=== PATIENT | male | born 1950 | race Caucasian/White ===

== ENCOUNTER 2017-12-15 12:06 | Emergency (ER) | payer MEDICARE, BC ==
[2017-12-15] MEDS ORDERED: Atropine 1% Ophth Soln 5 ML BOTTLE EYELF STA (12:51)
--- NOTE | 2017-12-15 15:22 | EDM.PDOC ---
ED HPI GENERAL MEDICAL PROBLEM - General Chief Complaint: Eye Problems Stated Complaint: VISION PROBLEMS Time Seen by Provider: 12/15/17 12:44 Source of Information: Reports: Patient, Significant Other (Girlfriend) History Limitations: Reports: Physical Impairment (Do to a prior stroke, the patient has some cognitive impairment. Most of the history is provided by his girlfriend of 34 years) - History of Present Illness INITIAL COMMENTS - FREE TEXT/NARRATIVE: The patient developed decreased vision in his left eye about 10 days ago. The degree of vision loss fluctuates anywhere from complete blackness to being able to see color and shapes. He denies any pain to the eye. He states that he had fairly good vision in his left eye prior to 10 days ago. Here in the ED, the patient states that his vision is relatively good - he is able to somewhat describe the nurse standing in front of him. 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 The patient has a history of diabetes, and ordinarily checks his sugars twice a day. His usual ranges between 180 and 240, although over the last 10 days, it has been between 170 and 325. The patient's girlfriend mentions that his Lantus insulin was changed to degludec insulin about 3 months ago, and perhaps that has something to do his recent higher blood sugars. The patient is on both Plavix and baby aspirin. The patient's PCP is Dr. Garcia. The patient does not see an [employer] or [employer]. - Related Data Allergies Allergy/AdvReac Type Severity Reaction Status Date / Time No Known Allergies Allergy Verified 12/15/17 12:18 Home Meds: Home Meds Aspirin 1 tab PO DAILY 12/15/17 [History] Cholecalciferol (Vitamin D3) [Vitamin D3] 1,000 unit PO DAILY 12/15/17 [History] Clopidogrel [Plavix] 75 mg PO DAILY 12/15/17 [History] Doxazosin [Doxazosin Mesylate] 1 mg PO DAILY 12/15/17 [History] Furosemide 20 mg PO DAILY 12/15/17 [History] Gabapentin [Neurontin] 300 mg PO TID 12/15/17 [History] Insulin Aspart [NovoLOG] 20 unit SQ 18 12/15/17 [History] Insulin Degludec [Tresiba Flextouch U-200] 73 unit SQ 08 12/15/17 [History] Isosorbide Mononitrate [Imdur] 30 mg PO DAILY 12/15/17 [History] Lisinopril [Zestril] 2.5 mg PO DAILY 12/15/17 [History] Metoprolol Tartrate 25 mg PO 18 12/15/17 [History] Metoprolol Tartrate 50 mg PO 08 12/15/17 [History] atorvaSTATin [Lipitor] 10 mg PO BEDTIME 12/15/17 [History] metFORMIN HCl [Glucophage] 1,000 mg PO BID 12/15/17 [History] risperiDONE [Risperdal] 0.25 mg PO BID 12/15/17 [History] traMADol [Ultram] 50 mg PO BID PRN 12/15/17 [History] Past Medical History HEENT History: Reports: Hard of Hearing, Impaired Vision (blind right eye) Cardiovascular History: Reports: CAD, High Cholesterol, Hypertension, NM, PVD Musculoskeletal History: Reports: Arthritis Neurological History: Reports: CVA (12/14/2009, resulting in short term memory loss) Psychiatric History: Reports: Anxiety, Depression Endocrine/Metabolic History: Reports: Diabetes, Type II, Obesity/BMI 30+ Hematologic History: Reports: Anticoagulation Therapy (Plavix + baby aspirin) - Past Surgical History HEENT Surgical History: Reports: Cataract Surgery (2012) Cardiovascular Surgical History: Reports: Coronary Artery Stent (one each in 2002, 2009) Musculoskeletal Surgical History: Reports: Arthroscopic Procedure (left knee) Social & Family History - Family History Family Medical History: Noncontributory - Tobacco Use Smoking Status *Q: Former Smoker Years of Tobacco use: 47 Packs/Tins Daily: 3 Month/Year Tobacco Last Used: Quit 2009 - Caffeine Use Caffeine Use: Reports: Coffee, Soda - Alcohol Use Alcohol Use History: Yes Alcohol Use Frequency: Rarely - Recreational Drug Use Recreational Drug Use: No - Living Situation & Occupation Living situation: Reports: , with Significant Other (Girlfriend) Occupation: Disabled ED ROS GENERAL - Review of Systems Review Of Systems: ROS reveals no pertinent complaints other than HPI. ED EXAM GENERAL W FULL EYE - Physical Exam Exam: See Below Exam Limited By: No Limitations General Appearance: Alert, WD/WN, No Apparent Distress Eye Exam: Bilateral Eye: EOMI, Normal Inspection Eyelids: Bilateral: Normal Appearance Conjunctiva & Sclera: Bilateral: Normal Appearance Cornea Exam: Bilateral: Normal Appearance Extraocular Movements: Bilateral: Intact Pupillary Size: Bilateral: 4 mm Comments: The patient's left eye was dilated with 2 drops of atropine ophthalmic solution. Examination with an ophthalmoscope was attempted, however, the retina was not able to be visualized. The patient was then examined with a slit lamp, revealing a red-hued posterior chamber, with dark strands that moved in a fluid like fashion when the patient moved his eye. The retina was not able to be visualized. Course - Vital Signs Last Recorded V/S: Last Vital Signs Temp 36.5 C 12/15/17 12:10 Pulse 86 12/15/17 12:10 Resp 16 12/15/17 12:10 BP 157/76 H 12/15/17 12:10 Pulse Ox 97 12/15/17 12:10 - Orders/Labs/Meds Meds: Medications Discontinued Medications Generic Name Dose Route Start Last Admin Trade Name Freq PRN Reason Stop Dose Admin Atropine Sulfate 1 ml 12/15/17 12:51 12/15/17 13:10 Atropine 1% Ophth Soln EYELF 12/15/17 12:52 1 ml ONETIME STA Administration - Re-Assessments/Exams Free Text/Narrative Re-Assessment/Exam: 12/15/17 15:[address] Ortiz, [employer] on-call at [facility], at 15:06. By my description, it sounds like the patient has bled into his left eye. She would like to see the patient in her office at [address] [facility], in [place], at 15:00 CDT tomorrow, 12/16/2017. The patient will need to bring his insurance cards. No specific treatment until then. This was discussed with the patient and his girlfriend. The patient's girlfriend states that she will be able to get him there on time. Departure - Departure Time of Disposition: 15:17 Disposition: Home, Self-Care 01 Condition: Good Clinical Impression: Intraocular hemorrhage of left eye - Discharge Information Referrals: Nolberto Garcia MD [Primary Care Provider] - Judy Ortiz MD [Ordering Only Provider] - Forms: ED Department Discharge Additional Instructions: You were seen in the emergency room for significantly diminished vision in your left eye for the past 10 days, approximately. Upon evaluation of your left eye in the ER, it appears that you have blood in the eye. Your case was discussed with the [employer] Dr. Judy Ortiz. She would like to see you in her office tomorrow, 12/16/2017, at 3:00 PM Central time = 2:00 PM Mountain time. You are to bring your insurance cards with you. If any other problems, please do not hesitate to return to the ER.
== END 2017-12-15 15:31 | disposition home or self-care (01) ==
LOC: JD.ED 12:06
DX: H44.812 Hemophthalmos, left eye (principal); I25.10 Atherosclerotic heart disease of native coronary artery without angina pectoris; E78.00 Pure hypercholesterolemia, unspecified; I10 Essential (primary) hypertension; Z79.01 Long term (current) use of anticoagulants; Z79.82 Long term (current) use of aspirin; Z79.899 Other long term (current) drug therapy; Z79.84 Long term (current) use of oral hypoglycemic drugs; Z87.891 Personal history of nicotine dependence
CPT/HCPCS: 99284

== ENCOUNTER 2020-08-25 12:19 | Emergency (ER) | payer MEDICARE, BC ==
--- NOTE | 2020-08-25 13:12 | EDM.PDOC ---
<Juan Ramon Gomez Jenna - Last Filed: 08/26/20 06:03> ED HPI GENERAL MEDICAL PROBLEM - General Chief Complaint: Abdominal Pain Stated Complaint: [facility] Time Seen by Provider: 08/25/20 12:59 - Related Data Allergies Allergy/AdvReac Type Severity Reaction Status Date / Time No Known Allergies Allergy Verified 12/15/17 12:18 Home Meds: Home Meds Cholecalciferol (Vitamin D3) [Vitamin D3] 1,000 unit PO DAILY 12/15/17 [History] Clopidogrel [Plavix] 75 mg PO DAILY 12/15/17 [History] Doxazosin [Doxazosin Mesylate] 1 mg PO DAILY 12/15/17 [History] Furosemide 20 mg PO DAILY 12/15/17 [History] Gabapentin [Neurontin] 300 mg PO DAILY 12/15/17 [History] Insulin Aspart [NovoLOG] 20 unit SQ DAILY 12/15/17 [History] Isosorbide Mononitrate [Imdur] 30 mg PO DAILY 12/15/17 [History] Metoprolol Tartrate 50 mg PO ASDIRECTED 12/15/17 [History] atorvaSTATin [Lipitor] 10 mg PO ASDIRECTED 12/15/17 [History] lisinopriL [Zestril] 2.5 mg PO DAILY 12/15/17 [History] metFORMIN HCl [Glucophage] 1,000 mg PO BID 12/15/17 [History] risperiDONE [Risperdal] 0.75 mg PO BID 12/15/17 [History] traMADol [Ultram] 50 mg PO BID PRN 12/15/17 [History] Metoprolol Tartrate [Lopressor] 25 mg PO BEDTIME 08/25/20 [History] Course - Re-Assessments/Exams Free Text/Narrative Re-Assessment/Exam: 08/25/20 22:39 I spoke with the patient and his long-term partner at length. The patient has not yet had a bowel movement, however, given the lactulose and full bottle of magnesium citrate that he was given earlier, I do not feel it would be prudent to give him any additional stimulant. He will have a bowel movement at some point. I explained that the question that needs to be answered is what to do after that. The patient's partner was hoping that we could keep him here in the hospital for a day or two, however, I explained that there is no medical reason to admit him to the hospital, and that simply placing him into observation so that his partner can get a break is not a valid reason for hospitalization. They will need to decide whether they are able to care for him at home, with his difficulty ambulating, or not. If the patient's partner decides that she cannot adequately take care of him at home, then a half-way is the only realistic option. I explained that if that is her decision, we could place him into observation over the weekend, in order to arrange for placement for half-way. The patient indicated, however, that he does not want to be placed into a half-way. 08/25/20 23:53 Notified by Solange HENRY that the patient's partner has decided to have the patient stay until about 5 AM, at which time a friend of hers can come and help take the patient home. Departure - Departure Disposition: Home, Self-Care 01 Clinical Impression: Constipation by delayed colonic transit, Left hemiparesis, Blindness right eye category 3, low vision left eye category 2, Dependent edema Abdominal pain Qualifiers: Abdominal location: right upper quadrant Qualified Code(s): R10.11 - Right upper quadrant pain Type 2 diabetes mellitus Qualifiers: Diabetes mellitus mcfp insulin use: without biomedical engineering internship use Diabetes mellitus complication status: with kidney complications Diabetes mellitus complication detail: with chronic kidney disease Chronic kidney disease stage: stage 3 (moderate) Chronic renal insufficiency, stage III (moderate) Qualifiers: Chronic kidney disease stage 3 subtype: stage 3a (GFR 45-59) Qualified Code(s): N18.31 - Chronic kidney disease, stage 3a - Discharge Information Instructions: Constipation, Adult Referrals: Nolberto Garcia MD [Primary Care Provider] - Forms: ED Department Discharge Additional Instructions: Evaluation in the emergency room today in regards to development of right upper quadrant abdominal pain starting about 830 hours this morning. Tested for over 4-1/2 hours before coming to the ED. Pain was made worse by deep breathing and on examination appeared to be coming from the gallbladder area underneath the right ribs. An ultrasound however the gallbladder revealed no stones and no thickening of the gallbladder wall or sludge within the gallbladder. The underlying liver also appeared to be normal. Therefore CT scan of the abdomen was performed to look at the bottom of the lungs and rule out kidney stone as potential cause of pain right upper quadrant the abdomen. No kidney stones were identified. The bottom of the lungs also did not reveal any fluid to cause pain in the right upper abdomen. 3 small pulmonary nodules the largest of which is 9 mm were identified in the bottom of the left lung field. It was felt by the radiologist that these should be reviewed by CT scan in May of this year i.e. in approximately [address] did reveal kidneys to be atrophic with cortical thinning secondary to diabetes and age. Adrenal glands were both noted to be enlarged. They are classified to be enlarged when they are greater than 2 cm in size. The right contains a nodule measuring 2.8 cm in the left was 2.0 cm. It is suggested that this be discussed with your personal care physician and further investigations can be done to identify if there is a problem with adrenal gland hormone production. The only other abnormality of importance was significant stool retention throughout the right hemicolon up underneath the liver and across the transverse colon travels across her upper abdomen. This is felt to be the cause of your pain. You initially received pain medication Dilaudid 1 mg IV and felt that it helped only minimally. 45 minutes later you received a second dose of 1 mg of Dilaudid for further pain relief. You also received antinausea medicine Zofran 4 mg x 2 doses. Decision made to keep you in the emergency department and give you medication to help cleanse your bowel while here with the aid of nursing staff since it is so difficult for your to care for you at home in this regard. Unfortunately first dose of magnesium citrate 7 ounces did not produce any satisfactory bowel movement after an hour and a half. Thus she was given a second dose of 7 ounces of magnesium citrate and 20 g of lactulose to help precipitate bowel movement. Once your bowels work we will then start working on getting you back into your home. It is my suggestion that you purchase MiraLAX powder and take 17 g or 1 scoop daily with any juice of choice to prevent constipation from reoccurring in the future. Follow-up with personal physician as planned. <Robby Lin - Last Filed: 08/28/20 07:30> ED HPI GENERAL MEDICAL PROBLEM - General Source of Information: Reports: Patient History Limitations: Reports: No Limitations - History of Present Illness INITIAL COMMENTS - FREE TEXT/NARRATIVE: 70-year-old male presents to the ED per [facility] accompanied by his . Patient has been experiencing significant right upper quadrant abdominal tenderness under his costal margin on the right side since about 0830 hrs. this morning. Of note he had not yet eaten any breakfast and has not eaten since. Mild associated nausea without any vomiting. Pain is made worse by deep breathing. Patient has had a previous CVA with left-sided hemiparesis but is able to walk with the aid of a walker. No past history of gallbladder disease or known gallstones. No past history of renal stones. He has had no previous abdominal surgery. Onset: Today, Sudden Onset Date: 08/25/20 Onset Time: 08:30 Duration: Hour(s):, Constant, Getting Worse (Eating a little bit worse.) Location: Reports: Abdomen (Right upper quadrant of the abdomen rating along the costal margin towards his right flank.) Quality: Reports: Ache Severity: Moderate (To 9 out of 10) Improves with: Reports: Rest Worsens with: Reports: Other (With deep breathing or coughing.) Context: Denies: Activity, Exercise, Lifting, Sick Contact, Trauma Associated Symptoms: Reports: Cough (Has a bit of cough). Denies: No Other Symptoms, Confusion ( and bringing up white phlegm.), Chest Pain, cough w sputum, Diaphoresis, Fever/Chills, Headaches, Loss of Appetite, Malaise, Nausea/Vomiting, Rash, Seizure, Shortness of Breath, Syncope, Weakness Treatments DRUGLESS DOCTOR: Reports: Other (see below) Right Upper Abdominal Pain Score (Numeric/FACES): 5 Past Medical History HEENT History: Reports: Hard of Hearing, Impaired Vision Other HEENT History: 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 Improved with vitrectomyreturn to vision left eye. Cardiovascular History: Reports: CAD, High Cholesterol, Hypertension, ND, PVD, Stents Musculoskeletal History: Reports: Arthritis Neurological History: Reports: CVA (Left hemiparesis) Other Neuro History: Stroke defecits assist with diffuse left-sided hemiparesis. He can walk with the aid of a gait aid. Psychiatric History: Reports: Anxiety, Depression Other Psychiatric History: behavioral issues related to stroke Endocrine/Metabolic History: Reports: Diabetes, Type II (Controlled with diet and Metformin 1000 mg twice daily.), Obesity/BMI 30+ Hematologic History: Reports: Anticoagulation Therapy Other Hematologic History: currently on plavix - Past Surgical History HEENT Surgical History: Reports: Cataract Surgery Cardiovascular Surgical History: Reports: Coronary Artery Stent Musculoskeletal Surgical History: Reports: Arthroscopic Procedure Social & Family History - Family History Family Medical History: No Pertinent Family History - Tobacco Use Tobacco Use Status *Q: Never Tobacco User Second Hand Smoke Exposure: No - Caffeine Use Caffeine Use: Reports: Coffee - Recreational Drug Use Recreational Drug Use: No - Living Situation & Occupation Living situation: Reports: , with Significant Other (Girlfriend) Occupation: Disabled ED ROS GENERAL - Review of Systems Review Of Systems: See Below Constitutional: Denies: Fever, Chills, Malaise, Weakness, Fatigue, Decreased Appetite, Weight Loss HEENT: Reports: Glasses (For reading.) Respiratory: Reports: Shortness of Breath, Cough (Voice has a mild cough brings up phlegm and sputum. Likely due to paresis left-sided respiratory muscles). Denies: Wheezing, Pleuritic Chest Pain (Exertion.) Cardiovascular: Reports: Blood Pressure Problem, Dyspnea on Exertion, Edema (Chronic and severe above knees bilaterally.). Denies: Claudication, Lightheadedness, Orthopnea, Palpitations Endocrine: Reports: Fatigue GI/Abdominal: Reports: Abdominal Pain (Right upper quadrant abdominal pain radiating along the costal margin towards the right flank. Started by 0830 hrs. this morning and has persisted.), Constipation, Other. Denies: Diarrhea, Difficulty Swallowing, Nausea (He reports bowel function has been normal.), Vomiting : Reports: Frequency, Incontinence (Rare incontinence) Skin: Reports: Other (Chronic rash both lower extremities from the knees to the ankles due to severe edema of both lower extremities. These are erythematous vascular type lesions on both lower extremities that he has had for several years.) Neurological: Reports: Pre-Existing Deficit, Difficulty Walking, Weakness, Gait Disturbance. Denies: Seizure, Syncope, Tingling, Tremors, Trouble Speaking, Change in Speech Psychiatric: Reports: No Symptoms Hematologic/Lymphatic: Reports: No Symptoms Immunologic: Reports: No Symptoms ED EXAM, GI/ABD - Physical Exam Exam: See Below Exam Limited By: No Limitations General Appearance: Alert, WD/WN, No Apparent Distress, Other (Temperature is 36.2 degrees heart rate 92 and sinus respiratory to 16 BP is elevated at 200/85 pulse ox is 94% room air. Last blood pressure is 173/62.) Eyes: Bilateral: Normal Appearance (No scleral icterus or blepharal pallor.) Throat/Mouth: Other (Tongue is mildly dry and coated.) Head: Atraumatic ( No oropharyngeal infection.), Normocephalic Neck: Normal Inspection, Supple, Non-Tender, Full Range of Motion. No: Lymphadenopathy (L), Lymphadenopathy (R) Respiratory/Chest: No Respiratory Distress, Lungs Clear, Normal Breath Sounds, Decreased Breath Sounds Cardiovascular: Normal Peripheral Pulses, Regular Rate, Rhythm, No Gallop, No Murmur, No Rub. No: No Edema GI/Abdominal Exam: Normal Bowel Sounds, Soft, No Organomegaly, No Abnormal Bruit, No Mass, Pelvis Stable, Tender (Patient has a positive Talamantes sign and tenderness elicited under the right costal margin on exam.), Other. No: Guarding ( No guarding or rebound), Rigid, Rebound, Hernia (Male) Exam: No Hernia Back Exam: CVA Tenderness (R), Decreased Range of Motion (Quite a great deal of help to set up on the gurney.). No: Full Range of Motion Extremities: Pedal Edema (Patient has 4+ pitting edema up past the knees bilaterally. Apparently this is a chronic problem for him. Diffuse vascular congestion. Prominent erythematous papules on both lower extremities without ul cerations. Apparently every time his Lasix is increased greater than 20 mg/day his kidney func). No: Normal Range of Motion Neurological: Alert, Oriented, CN II-XII Intact, Normal Cognition Psychiatric: Normal Affect, Normal Mood Skin Exam: Warm, Dry, Intact, Normal Color, No Rash Course - Vital Signs Last Recorded V/S: Last Vital Signs Temp 36.2 C 08/25/20 12:25 Pulse 107 H 08/25/20 20:09 Resp 16 08/25/20 20:09 BP 173/84 H 08/25/20 20:09 Pulse Ox 97 08/25/20 20:09 - Orders/Labs/Meds Labs: Laboratory Tests 08/25/20 08/25/20 08/25/20 Range/Units 12:30 12:30 12:30 WBC 8.28 (4.23-9.07) K/mm3 RBC 3.94 L (4.63-6.08) M/mm3 Hgb 10.9 L (13.7-17.5) gm/dl Hct 34.7 L (40.1-51.0) % MCV 88.1 (79.0-92.2) fl MCH 27.7 (25.7-32.2) pg MCHC 31.4 L (32.2-35.5) g/dl RDW Std Deviation 48.6 H (35.1-43.9) fL Plt Count 240 (163-337) K/mm3 MPV 9.6 (9.4-12.3) fl Neutrophils % (Manual) 69 H (40-60) % Band Neutrophils % 0 (0-10) % Lymphocytes % (Manual) 22 (20-40) % Atypical Lymphs % 0 % Monocytes % (Manual) 7 (2-10) % Eosinophils % (Manual) 2 (0.8-7.0) % Basophils % (Manual) 0 L (0.2-1.2) Platelet Estimate Adequate RBC Morph Comment Normal PT 10.1 (9.7-12.0) SECONDS INR 0.94 APTT 26.7 (21.7-31.4) SECONDS Sodium 141 (136-145) mEq/L Potassium 4.3 (3.5-5.1) mEq/L Chloride 102 (98-107) mEq/L Carbon Dioxide 28 (21-32) mEq/L Anion Gap 15.3 H (5-15) BUN 29 H (7-18) mg/dL Creatinine 1.7 H (0.7-1.3) mg/dL Est Cr Clr Drug Dosing 37.01 mL/min Estimated GFR (MDRD) 40 (>60) mL/min BUN/Creatinine Ratio 17.1 (14-18) Glucose 321 H (80-115) mg/dL Calcium 9.9 (8.5-10.1) mg/dL Magnesium 1.8 (1.8-2.4) mg/dl Total Bilirubin 0.3 (0.2-1.0) mg/dL GGT 22 (15-85) U/L AST 16 (15-37) U/L ALT 16 (16-63) U/L Alkaline Phosphatase 92 (46-116) U/L Troponin I < 0.017 (0.00-0.056) ng/mL C-Reactive Protein 6.4 H* (<1.0) mg/dL NT-Pro-B Natriuret Pep (0-125) pg/mL Total Protein 8.0 (6.4-8.2) g/dl Albumin 3.2 L (3.4-5.0) g/dl Globulin 4.8 gm/dL Albumin/Globulin Ratio 0.7 L (1-2) Amylase 45 (25-115) U/L Lipase 155 (73-393) U/L Urine Color (Yellow) Urine Appearance (Clear) Urine pH (5.0-8.0) Ur Specific [place] (1.005-1.030) Urine Protein (Negative) Urine Glucose (UA) (Negative) Urine Ketones (Negative) Urine Occult Blood (Negative) Urine Nitrite (Negative) Urine Bilirubin (Negative) Urine Urobilinogen (0.2-1.0) Ur Leukocyte Esterase (Negative) Urine RBC (0-5) /hpf Urine WBC (0-5) /hpf Ur Squamous Epith Cells (0-5) /hpf Urine Bacteria (FEW) /hpf Urine Mucus (FEW) /hpf 08/25/20 08/25/20 Range/Units 12:30 14:50 WBC (4.23-9.07) K/mm3 RBC (4.63-6.08) M/mm3 Hgb (13.7-17.5) gm/dl Hct (40.1-51.0) % MCV (79.0-92.2) fl MCH (25.7-32.2) pg MCHC (32.2-35.5) g/dl RDW Std Deviation (35.1-43.9) fL Plt Count (163-337) K/mm3 MPV (9.4-12.3) fl Neutrophils % (Manual) (40-60) % Band Neutrophils % (0-10) % Lymphocytes % (Manual) (20-40) % Atypical Lymphs % % Monocytes % (Manual) (2-10) % Eosinophils % (Manual) (0.8-7.0) % Basophils % (Manual) (0.2-1.2) Platelet Estimate RBC Morph Comment PT (9.7-12.0) SECONDS INR APTT (21.7-31.4) SECONDS Sodium (136-145) mEq/L Potassium (3.5-5.1) mEq/L Chloride (98-107) mEq/L Carbon Dioxide (21-32) mEq/L Anion Gap (5-15) BUN (7-18) mg/dL Creatinine (0.7-1.3) mg/dL Est Cr Clr Drug Dosing mL/min Estimated GFR (MDRD) (>60) mL/min BUN/Creatinine Ratio (14-18) Glucose (80-115) mg/dL Calcium (8.5-10.1) mg/dL Magnesium (1.8-2.4) mg/dl Total Bilirubin (0.2-1.0) mg/dL GGT (15-85) U/L AST (15-37) U/L ALT (16-63) U/L Alkaline Phosphatase (46-116) U/L Troponin I (0.00-0.056) ng/mL C-Reactive Protein (<1.0) mg/dL NT-Pro-B Natriuret Pep 251 H (0-125) pg/mL Total Protein (6.4-8.2) g/dl Albumin (3.4-5.0) g/dl Globulin gm/dL Albumin/Globulin Ratio (1-2) Amylase (25-115) U/L Lipase (73-393) U/L Urine Color Light yellow (Yellow) Urine Appearance Clear (Clear) Urine pH 7.0 (5.0-8.0) Ur Specific [place] 1.025 (1.005-1.030) Urine Protein 3+ H (Negative) Urine Glucose (UA) 2+ H (Negative) Urine Ketones Negative (Negative) Urine Occult Blood 1+ H (Negative) Urine Nitrite Negative (Negative) Urine Bilirubin Negative (Negative) Urine Urobilinogen 0.2 (0.2-1.0) Ur Leukocyte Esterase Negative (Negative) Urine RBC 0-5 (0-5) /hpf Urine WBC 0-5 (0-5) /hpf Ur Squamous Epith Cells 0-5 (0-5) /hpf Urine Bacteria Few (FEW) /hpf Urine Mucus Few (FEW) /hpf Meds: Medications Discontinued Medications Generic Name Dose Route Start Last Admin Trade Name Freq PRN Reason Stop Dose Admin Dicyclomine HCl 20 mg 08/25/20 18:22 08/25/20 20:05 Dicyclomine 10 Mg Cap PO 08/25/20 18:23 20 mg ONETIME ONE Administration Diphenhydramine HCl 12.5 mg 08/25/20 16:36 08/25/20 16:50 Diphenhydramine 50 Mg/Ml Sdv IVPUSH 08/25/20 16:37 12.5 mg ONETIME ONE Administration Hydromorphone HCl 1 mg 08/25/20 13:14 08/25/20 14:01 Hydromorphone 1 Mg/Ml Syringe IVPUSH 08/25/20 13:15 1 mg ONETIME ONE Administration Hydromorphone HCl 1 mg 08/25/20 14:50 08/25/20 15:52 Hydromorphone 1 Mg/Ml Syringe IVPUSH 08/25/20 14:51 Not Given ONETIME ONE Hyoscyamine 0.125 mg 08/25/20 13:14 08/25/20 14:05 Hyoscyamine 0.125 Mg Tab.Sl SL 08/25/20 13:15 0.125 mg ONETIME ONE Administration Dextrose/Sodium Chloride 1,000 mls @ 999 mls/hr 08/25/20 13:15 08/25/20 14:06 Dextrose 5%-Normal Saline IV 999 mls/hr ASDIRECTED ANTONIO Administration Lactulose 20 gm 08/25/20 20:17 08/25/20 20:28 Lactulose Soln 10 Gm/15 Ml 30 Ml Ud Cup PO 08/25/20 20:18 20 gm ONETIME ONE Administration Magnesium Citrate 210 ml 08/25/20 16:38 08/25/20 16:51 Magnesium Citrate Solution 296 Ml Bottle PO 08/25/20 16:39 210 ml ONETIME ONE Administration Magnesium Citrate Confirm 08/25/20 20:02 08/25/20 20:05 Magnesium Citrate Solution 296 Ml Bottle Administered 08/25/20 20:03 Not Given Dose 296 ml .ROUTE .STK-MED ONE Magnesium Citrate 210 ml 08/25/20 20:05 08/25/20 20:05 Magnesium Citrate Solution 296 Ml Bottle PO 08/25/20 20:06 210 ml ONETIME ONE Administration Metoclopramide HCl 7.5 mg 08/25/20 16:35 08/25/20 16:48 Metoclopramide 10 Mg/2 Ml Sdv IVPUSH 08/25/20 16:36 7.5 mg ONETIME ONE Administration Ondansetron HCl 4 mg 08/25/20 13:14 08/25/20 14:04 Ondansetron 4 Mg/2 Ml Sdv IVPUSH 08/25/20 13:15 4 mg ONETIME ONE Administration Ondansetron HCl 4 mg 08/25/20 15:21 08/25/20 15:26 Ondansetron 4 Mg/2 Ml Sdv IVPUSH 08/25/20 15:22 4 mg ONETIME ONE Administration - Radiology Interpretation Free Text/Narrative:: 70-year-old male presents to the ED per [facility] with severe right upper quadrant abdominal pain. Pain started abruptly this morning around 0830 hrs. before he had even had a chance to eat breakfast. Pain has persisted and is running along the right costal margin towards the right flank but not as far as the scapula. It does hurt to take a deep breath. No fever no chills. Patient had a set of previous CVA with left-sided hemiparesis. He does not believe that he was running a fever or had any chills at home. He did have chicken breast for supper last night. No past problems with gallbladder. Examination reveals him to have a positive Talamantes sign and tenderness localized to the right upper quadrant. No rebound tenderness or guarding. No other abdominal findings. Plan gallbladder ultrasound to be done. Routine labs including serum amylase and lipase and liver function studies to be done. - Re-Assessments/Exams Free Text/Narrative Re-Assessment/Exam: 08/25/20 14:44 White count is 8.28 --69% neutrophils. Hemoglobin is 10.9 with a hematocrit of 34.7. Platelet count 240,000 PT is 10.1 with an INR of 0.94 PTT is 26.7. Sodium is 141 with potassium of 4.3 chloride is 102 with a bicarb of 28. Anion gap is 15.3. BUN is 29 with a creatinine of 1.7 and a GFR of 40. Glucose is 321 indicating he is diabetic. Calcium is 9.9 with a magnesium of 1.8. Total bilirubin is 0.3 GGT is pending. AST is 16 ALT is 16 alk phosphatase is 92. Troponin I is less than 0.017. C-reactive protein is elevated at 6.4. Total protein is 8.0 albumin is 3.2 lipase is 155. Ultrasound of the right upper quadrant of the abdomen reveals liver to be echogenic mostly likely due to fatty infiltration. Gallbladder shows no evidence of shadowing gallstones. No biliary duct dilatation or gallbladder wall thickening is appreciated. Right kidney shows no hydronephrosis or mass. Kidney measures 12.1 cm in length. Pancreas is poorly seen small portion of the visualized pancreas shows no discrete abnormality. Inferior vena cava is patent. Main portal vein shows normal hepatopetal flow. Proximal aorta is felt to be within normal limits. Therefore I do not have a reason for his elevated CRP. Plan will be to collect a urinalysis to rule out a kidney stone. CT of the abdomen done with no contrast per renal protocol. Pain went away for a while but has returned. Will repeat Dilaudid 1 mg IV. 08/25/20 15:22 Urinalysis is light yellow in color with 3+ proteinuria 2+ g lucosuria 1+ occult blood leukocyte Estrace is negative. CT scan of the abdomen and pelvis performed without contrast reveals portions of the lung bases to appear completely normal. Liver appears homogeneous without any intraductal dilatation. Gallbladder is normal wall thickness. No stones identified. Pancreas is slightly atrophic. Stomach appears normal spleen is normal adrenal glands appear normal. Both kidneys show some degree of cortical atrophy somewhat worse on the left as compared to the right. No stones are identified. Ureters are intact all the way down to the urinary bladder and show no sign of obstruction. Urinary bladder is normal. There is a large amount of stool throughout the colon particularly on the right side up to the hepatic flexure. I could not see any other pathology. There was no evidence of significant diverticula and certainly no diverticulitis. Patient is feeling more nauseated since returning from the CT suite. Will repeat Zofran 4 mg IV. 08/25/20 15:31 GGT is 22. BNP is minimally elevated at 251 blood sugar is 321--chronic diabetic for many years. He is not showing evidence of diabetic nephropathy as well as diabetic eye disease with retinal bleeds and loss of eyesight in the right eye completely and some recuperation of vision in the left eye after vitrectomy. 08/25/20 16:39 on discussion with the she feels that she requires help to get him on and off the stool and I can believe this as both legs are grossly edematous and swollen and wait 10 to 12 pounds each extra. He is also nearly blind which makes it even more difficult. She cannot manage him on the toilet at home. He is going to need bowel cleanse to get rid of the pain in his right upper quadrant of his abdomen. Plan will be to give him Reglan 7.5 mg IV with Benadryl 12.5 mg IV to prevent a dystonic reaction between that his risperidone and Zofran previously given. Once we can be assured that he is no longer feeling like vomiting we will give him 210 mL of magnesium citrate mixed with 6 ounces of juice of choice. 08/25/20 20:42 4-hour since the patient has received initial dose of 7 ounces of magnesium citrate with no bowel movement occurrence. He subsequently has had received another 7 ounces of magnesium citrate and 20 g of lactulose by mouth in an effort to produce a bowel movement has he has right hemicolon and transverse colon constipation. I believe this is the cause of his right upper quadrant abdominal pain as full investigation by way of ultrasound and CT of the abdomen have not read revealed any other pathology. Similarly lab work is essentially unchanged from previous with no signs of an infective process. It is my suggestion that he be placed on MiraLAX powder 17 g once daily to prevent constipation from occurring in the future. Departure - Departure Time of Disposition: 05:00 Condition: Fair - Discharge Information *PRESCRIPTION DRUG MONITORING PROGRAM REVIEWED*: Not Applicable *COPY OF PRESCRIPTION DRUG MONITORING REPORT IN PATIENT SHONDA: Not Applicable Sepsis Event Note (ED) - Evaluation Sepsis Screening Result: No Definite Risk
[2020-08-25] MEDS ORDERED: Hyoscyamine 0.125 MG Tab.SL SL ONE (13:14)
[2020-08-25] MEDS ORDERED: Ondansetron 4 MG/2 ML SDV IVPUSH ONE ×2 (13:14→15:21)
[2020-08-25] MEDS ORDERED: HYDROmorphone 1 MG/ML Syringe IVPUSH ONE (13:14)
[2020-08-25] MEDS ORDERED: Dextrose 5%-0.9% NaCl 1,000 ML IV SCH (13:15)
--- NOTE | 2020-08-25 14:22 | US ---
Limited abdominal ultrasound: Multiple real-time images of the upper right abdomen were obtained. Comparison: Previous renal ultrasound study of 05/31/15. Findings: Liver is echogenic most likely due to fatty infiltration. Gallbladder shows no evidence of shadowing gallstones. No biliary duct dilatation or gallbladder wall thickening is seen. Right kidney shows no hydronephrosis or mass. Kidney measures 12.1 cm in length. Pancreas is poorly seen. Small portion of the visualized pancreas shows no discrete abnormality. Inferior vena cava is patent. Main portal vein shows normal hepatopedal flow. Proximal aorta is felt to be within normal limits. Impression: 1. Echogenic liver compatible with fatty infiltration. 2. Poorly seen pancreas due to bowel gas. 3. No additional abnormality is appreciated on right upper quadrant abdominal ultrasound. Diagnostic code #2
[2020-08-25] MEDS: HYDROmorphone 1 MG/ML Syringe IVPUSH ONE ×2 (15:26→15:52)
--- NOTE | 2020-08-25 15:37 | CT ---
CT abdomen and pelvis Technique: Multiple axial sections were obtained from above the dome of the diaphragm inferiorly through the pubic symphysis. Intravenous and oral contrast was not utilized. Study has been performed as a ureteral stone protocol. Findings: Bilateral adrenal masses are noted. Right nodule measures 2.8 cm and left nodule measures 2.0 cm. Visualized lung bases show slight atelectasis which is probably a chronic change. There is a nodule noted within the left lung base measuring 9 mm as well as two small subpleural nodules measuring smaller in size. These show no abnormal calcifications. Liver contains no focal parenchymal abnormality. Spleen is normal. Pancreas shows no discrete abnormality. Gallbladder contains no calcified gallstones. Right kidney shows vascular calcification. No abnormal calcifications are seen within the collecting systems. No ureteral dilatation or ureteral stone is seen. Abdominal aorta shows atherosclerotic change. No aneurysmal dilatation is seen. No retroperitoneal adenopathy or mesenteric abnormalities are seen. No pelvic mass or adenopathy is seen. Bone window settings were reviewed which show scattered degenerative change within the spine. No acute osseous abnormality is appreciated. Impression: 1. Three pulmonary nodules within the left lung base. Adrenal mass on both sides. Difficult to exclude metastatic disease if patient has primary carcinoma. Please correlate. 2. No renal calculi or ureteral dilatation is seen. 3. Vascular calcification is noted within the right renal artery. Diagnostic code #9
[2020-08-25] MEDS ORDERED: Metoclopramide 10 MG/2 ML SDV IVPUSH ONE (16:35)
[2020-08-25] MEDS ORDERED: diphenhydrAMINE 50 MG/ML SDV IVPUSH ONE (16:36)
[2020-08-25] MEDS ORDERED: Magnesium Citrate Solution 296 ML Bottle PO ONE ×2 (16:38→20:05)
[2020-08-25] MEDS ORDERED: Dicyclomine 10 MG Cap PO ONE (18:22)
[2020-08-25] MEDS ORDERED: Magnesium Citrate Solution 296 ML Bottle ONE (20:02)
[2020-08-25] MEDS ORDERED: Lactulose Soln 10 GM/15 ML 30 ML UD Cup PO ONE (20:17)
== END 2020-08-26 04:45 | disposition home or self-care (01) ==
LOC: JD.ED 12:19
DX: K59.01 Slow transit constipation (principal); G81.94 Hemiplegia, unspecified affecting left nondominant side; H54.11 Blindness, right eye, low vision left eye; R60.0 Localized edema; I12.9 Hypertensive chronic kidney disease with stage 1 through stage 4 chronic kidney disease, or unspecified chronic kidney disease; E11.22 Type 2 diabetes mellitus with diabetic chronic kidney disease; N18.31 Chronic kidney disease, stage 3a; E11.319 Type 2 diabetes mellitus with unspecified diabetic retinopathy without macular edema; I25.10 Atherosclerotic heart disease of native coronary artery without angina pectoris; E78.00 Pure hypercholesterolemia, unspecified; I25.2 Old myocardial infarction; E66.9 Obesity, unspecified; Z68.38 Body mass index [BMI] 38.0-38.9, adult; Z79.01 Long term (current) use of anticoagulants; Z79.02 Long term (current) use of antithrombotics/antiplatelets; Z79.4 Long term (current) use of insulin; Z79.899 Other long term (current) drug therapy; R06.02 Shortness of breath
CPT/HCPCS: 36415; 74176; 76705; 80053; 81001; 82150; 82977; 83690; 83735; 83880; 84484; 85007; 85027; 85610; 85730; 86140; 96374; 96375; 96376; 99285; A9270; J1170; J1200; J2405; J2765; J7042

== ENCOUNTER 2021-06-05 10:29 | Inpatient (IN) | payer MEDICARE, BC ==
--- NOTE | 2021-06-05 11:08 | EDM.PDOC ---
ED HPI GENERAL MEDICAL PROBLEM - General Chief Complaint: Respiratory Problem Stated Complaint: [facility] Time Seen by Provider: 06/05/21 10:54 Source of Information: Reports: Patient, Family History Limitations: Reports: No Limitations - History of Present Illness INITIAL COMMENTS - FREE TEXT/NARRATIVE: Patient is a 70-year-old male who is a somewhat poor historian. Patient's answers for most questions that I asked. Patient has been unable to get out of bed for 2 days due to chronic bilateral extremity pain and luteal pain for which he is on tramadol and Neurontin. Patient has a mild cough but denies any fever or chills or shortness of breath. We are unable to assess if he is having any exertional symptoms since he has been bedridden. states she is no longer able to take care of him and wants us to arrange for him to be in assisted living/[facility]. Patient's had no bloody or tarry stools. He denies any headache or any numbness weakness or paresthesias which is new. Patient's O2 saturation is 85% room air at rest. Patient has any chest pain. Onset: Unknown/Unsure Duration: Getting Worse Worsens with: Reports: Movement Associated Symptoms: Reports: Cough, Loss of Appetite, Malaise, Weakness. Denies: Fever/Chills, Headaches, Shortness of Breath - Related Data Allergies Allergy/AdvReac Type Severity Reaction Status Date / Time No Known Allergies Allergy Verified 06/05/21 10:43 Home Meds: Home Meds Cholecalciferol (Vitamin D3) [Vitamin D3] 1,000 unit PO DAILY 12/15/17 [History] Clopidogrel [Plavix] 75 mg PO DAILY 12/15/17 [History] Doxazosin [Doxazosin Mesylate] 1 mg PO DAILY 12/15/17 [History] Furosemide 20 mg PO DAILY 12/15/17 [History] Gabapentin [Neurontin] 300 mg PO DAILY 12/15/17 [History] Insulin Aspart [NovoLOG] 20 unit SQ DAILY 12/15/17 [History] Isosorbide Mononitrate [Imdur] 30 mg PO DAILY 12/15/17 [History] Metoprolol Tartrate 50 mg PO ASDIRECTED 12/15/17 [History] atorvaSTATin [Lipitor] 10 mg PO ASDIRECTED 12/15/17 [History] lisinopriL [Zestril] 2.5 mg PO DAILY 12/15/17 [History] metFORMIN HCl [Glucophage] 1,000 mg PO BID 12/15/17 [History] risperiDONE [Risperdal] 0.75 mg PO BID 12/15/17 [History] traMADol [Ultram] 50 mg PO BID PRN 12/15/17 [History] Metoprolol Tartrate [Lopressor] 25 mg PO BEDTIME 08/25/20 [History] Past Medical History HEENT History: Reports: Hard of Hearing, Impaired Vision Other HEENT History: 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 Improved with vitrectomyreturn to vision left eye. 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 He can walk with the aid of a gait aid. Psychiatric History: Reports: Anxiety, Depression Other Psychiatric History: behavioral issues related to stroke Endocrine/Metabolic History: Reports: Diabetes, Type II, Obesity/BMI 30+ Hematologic History: Reports: Anticoagulation Therapy Other Hematologic History: currently on plavix Dermatologic History: Reports: Venous Stasis Dermatitis - Infectious Disease History Infectious Disease History: Reports: Chicken Pox, Mumps, Rheumatic Fever - Past Surgical History HEENT Surgical History: Reports: Cataract Surgery Cardiovascular Surgical History: Reports: Coronary Artery Stent Musculoskeletal Surgical History: Reports: Arthroscopic Procedure Social & Family History - Family History Family Medical History: No Pertinent Family History - Tobacco Use Tobacco Use Status *Q: Former Tobacco User Years of Tobacco use: 47 Packs/Tins Daily: 1 Used Tobacco, but Quit: Yes Month/Year Tobacco Last Used: 2009 - Caffeine Use Caffeine Use: Reports: Coffee, Soda - Recreational Drug Use Recreational Drug Use: No - Living Situation & Occupation Living situation: Reports: , with Significant Other (Girlfriend) Occupation: Disabled ED ROS GENERAL - Review of Systems Review Of Systems: Comprehensive ROS is negative, except as noted in HPI. Constitutional: Reports: Decreased Appetite Respiratory: Reports: Cough. Denies: Sputum Cardiovascular: Denies: Chest Pain Endocrine: Reports: Fatigue GI/Abdominal: Denies: Abdominal Pain Neurological: Denies: Confusion, Headache, Tremors, Trouble Speaking ED EXAM, GENERAL - Physical Exam Exam: See Below General Appearance: Alert, No Apparent Distress Neck: Normal Inspection, Supple Respiratory/Chest: No Respiratory Distress, Lungs Clear Cardiovascular: Regular Rate, Rhythm Back Exam: No: CVA Tenderness (L), CVA Tenderness (R) Extremities: Pedal Edema, Redness, Other (Bilateral stasis changes of both lower calves and ankles.) Neurological: CN II-XII Intact, No Motor/Sensory Deficits Skin Exam: Warm, Dry Course - Vital Signs Text/Narrative:: Patient's chest x-ray showed some thickened atelectasis on his right lower lobe. His D-dimer was very elevated and sent for CTA of his chest which showed the same thickened atelectasis in addition to numerous nodules and some unchanged adrenal masses. Patient's lab work was unremarkable and his Covid influenza was negative. Patient remains hypoxic and satting 85% still on room air at rest. Patient's states that she is unable to take care of him at home and we need to arrange for him to be in assisted living situation since even once he is better he will not be able to go home with her. She is aware that he is hypoxic and for that reason we are admitting him to the hospital. Last Recorded V/S: Last Vital Signs Temp 99.1 F 06/05/21 10:36 Pulse 99 06/05/21 15:05 Resp 16 06/05/21 15:05 BP 157/66 H 06/05/21 15:05 Pulse Ox 97 06/05/21 15:05 - Orders/Labs/Meds Orders: Active Orders 24 hr Category Date Time Status Insert Urinary Catheter [OM.PC] Q24H Care 06/05/21 12:15 Ordered Oxygen Therapy [RC] ASDIRECTED Care 06/05/21 11:22 Active RT Aerosol Therapy [RC] ASDIRECTED Care 06/05/21 15:05 Active Urinary Catheter Assessment [RC] ASDIRECTED Care 06/05/21 12:08 Active PROCALCITONIN [REF] Stat Lab 06/05/21 10:39 Received Sodium Chloride 0.9% [Normal Saline] 100 ml Med 06/05/21 15:30 Active IV ASDIRECTED Medication Orders Sodium Chloride (Normal Saline) 100 mls @ 60 mls/hr IV ASDIRECTED ANTONIO Labs: Laboratory Tests 06/05/21 06/05/21 06/05/21 Range/Units 10:33 10:39 10:39 WBC 9.17 H (4.23-9.07) K/mm3 RBC 3.91 L (4.63-6.08) M/mm3 Hgb 11.2 L (13.7-17.5) gm/dl Hct 35.4 L (40.1-51.0) % MCV 90.5 (79.0-92.2) fl MCH 28.6 (25.7-32.2) pg MCHC 31.6 L (32.2-35.5) g/dl RDW Std Deviation 45.3 H (35.1-43.9) fL Plt Count 349 H D (163-337) K/mm3 MPV 9.3 L (9.4-12.3) fl Neutrophils % (Manual) 81 H (40-60) % Band Neutrophils % 0 (0-10) % Lymphocytes % (Manual) 13 L (20-40) % Atypical Lymphs % 0 % Monocytes % (Manual) 5 (2-10) % Eosinophils % (Manual) 0 L (0.8-7.0) % Basophils % (Manual) 1 (0.2-1.2) Platelet Estimate Adequate Plt Morphology Comment See note Polychromasia 1+ slight RBC Morph Comment Not Reportable D-Dimer, Quantitative (0.19-0.50) mg/L Sodium 138 (136-145) mEq/L Potassium 4.2 (3.5-5.1) mEq/L Chloride 99 (98-107) mEq/L Carbon Dioxide 27 (21-32) mEq/L Anion Gap 16.2 H (5-15) BUN 26 H (7-18) mg/dL Creatinine 1.7 H (0.7-1.3) mg/dL Est Cr Clr Drug Dosing 35.67 mL/min Estimated GFR (MDRD) 40 (>60) mL/min BUN/Creatinine Ratio 15.3 (14-18) Glucose 230 H (70-99) mg/dL Lactic Acid (0.4-2.0) mmol/L Calcium 8.8 (8.5-10.1) mg/dL Total Bilirubin 0.5 (0.2-1.0) mg/dL AST 28 (15-37) U/L ALT 15 L (16-63) U/L Alkaline Phosphatase 107 (46-116) U/L Total Protein 7.9 (6.4-8.2) g/dl Albumin 2.7 L (3.4-5.0) g/dl Globulin 5.2 gm/dL Albumin/Globulin Ratio 0.5 L (1-2) Urine Color (Yellow) Urine Appearance (Clear) Urine pH (5.0-8.0) Ur Specific [place] (1.005-1.030) Urine Protein (Negative) Urine Glucose (UA) (Negative) Urine Ketones (Negative) Urine Occult Blood (Negative) Urine Nitrite (Negative) Urine Bilirubin (Negative) Urine Urobilinogen (0.2-1.0) Ur Leukocyte Esterase (Negative) Influenza Type A RNA Negative (NEGATIVE) Influenza Type B RNA Negative (NEGATIVE) SARS-CoV-2 RNA (JAMES) Negative (NEGATIVE) 06/05/21 06/05/21 06/05/21 Range/Units 10:39 10:39 12:04 WBC (4.23-9.07) K/mm3 RBC (4.63-6.08) M/mm3 Hgb (13.7-17.5) gm/dl Hct (40.1-51.0) % MCV (79.0-92.2) fl MCH (25.7-32.2) pg MCHC (32.2-35.5) g/dl RDW Std Deviation (35.1-43.9) fL Plt Count (163-337) K/mm3 MPV (9.4-12.3) fl Neutrophils % (Manual) (40-60) % Band Neutrophils % (0-10) % Lymphocytes % (Manual) (20-40) % Atypical Lymphs % % Monocytes % (Manual) (2-10) % Eosinophils % (Manual) (0.8-7.0) % Basophils % (Manual) (0.2-1.2) Platelet Estimate Plt Morphology Comment Polychromasia RBC Morph Comment D-Dimer, Quantitative 3.56 H (0.19-0.50) mg/L Sodium (136-145) mEq/L Potassium (3.5-5.1) mEq/L Chloride (98-107) mEq/L Carbon Dioxide (21-32) mEq/L Anion Gap (5-15) BUN (7-18) mg/dL Creatinine (0.7-1.3) mg/dL Est Cr Clr Drug Dosing mL/min Estimated GFR (MDRD) (>60) mL/min BUN/Creatinine Ratio (14-18) Glucose (70-99) mg/dL Lactic Acid 1.5 (0.4-2.0) mmol/L Calcium (8.5-10.1) mg/dL Total Bilirubin (0.2-1.0) mg/dL AST (15-37) U/L ALT (16-63) U/L Alkaline Phosphatase (46-116) U/L Total Protein (6.4-8.2) g/dl Albumin (3.4-5.0) g/dl Globulin gm/dL Albumin/Globulin Ratio (1-2) Urine Color Yellow (Yellow) Urine Appearance Cloudy H (Clear) Urine pH 5.5 (5.0-8.0) Ur Specific [place] 1.025 (1.005-1.030) Urine Protein 3+ H (Negative) Urine Glucose (UA) 2+ H (Negative) Urine Ketones 2+ H (Negative) Urine Occult Blood 2+ H (Negative) Urine Nitrite Negative (Negative) Urine Bilirubin Negative (Negative) Urine Urobilinogen 0.2 (0.2-1.0) Ur Leukocyte Esterase Negative (Negative) Influenza Type A RNA (NEGATIVE) Influenza Type B RNA (NEGATIVE) SARS-CoV-2 RNA (JAMES) (NEGATIVE) Meds: Medications Generic Name Dose Route Start Last Admin Trade Name Freq PRN Reason Stop Dose Admin Sodium Chloride 100 mls @ 60 mls/hr 06/05/21 15:30 Normal Saline IV ASDIRECTED ANTONIO Discontinued Medications Generic Name Dose Route Start Last Admin Trade Name Freq PRN Reason Stop Dose Admin Albuterol/Ipratropium 3 ml 06/05/21 15:05 06/05/21 15:14 Albuterol/Ipratropium 3.0-0.5 Mg/3 Ml Neb Soln NEB 06/05/21 15:06 3 ml ONETIME ONE Administration Iopamidol 100 ml 06/05/21 15:19 Iopamidol 755 Mg/Ml 100 Ml Bottle IVPUSH 06/05/21 15:20 ONETIME ONE Iopamidol 50 ml 06/05/21 15:19 Iopamidol 755 Mg/Ml 50 Ml Bottle IVPUSH 06/05/21 15:20 ONETIME ONE Tramadol HCl 50 mg 06/05/21 13:19 06/05/21 13:46 Tramadol 50 Mg Tab PO 06/05/21 13:20 50 mg ONETIME ONE Administration Departure - Departure Time of Disposition: 15:30 Disposition: Admitted As Inpatient 67 Condition: Fair Clinical Impression: Adult failure to thrive, Unable to ambulate - Discharge Information Referrals: Nolberto Garcia MD [Primary Care Provider] - Sepsis Event Note (ED) - Evaluation Sepsis Screening Result: No Definite Risk - Focused Exam Vital Signs: Vital Signs Temp Pulse Resp BP Pulse Ox Pulse Ox 06/05/21 15:05 99 16 157/66 H 96 97 06/05/21 11:23 86 L 06/05/21 10:36 99.1 F 100 18 210/89 H 92 L - My Orders Last 24 Hours: My Active Orders 06/05/21 10:39 PROCALCITONIN [REF] Stat 06/05/21 11:22 Oxygen Therapy [RC] ASDIRECTED 06/05/21 12:08 Urinary Catheter Assessment [RC] ASDIRECTED 06/05/21 12:15 Insert Urinary Catheter [OM.PC] Q24H 06/05/21 15:05 RT Aerosol Therapy [RC] ASDIRECTED 06/05/21 15:30 Sodium Chloride 0.9% [Normal Saline] 100 ml IV ASDIRECTED - Assessment/Plan Last 24 Hours: My Active Orders 06/05/21 10:39 PROCALCITONIN [REF] Stat 06/05/21 11:22 Oxygen Therapy [RC] ASDIRECTED 06/05/21 12:08 Urinary Catheter Assessment [RC] ASDIRECTED 06/05/21 12:15 Insert Urinary Catheter [OM.PC] Q24H 06/05/21 15:05 RT Aerosol Therapy [RC] ASDIRECTED 06/05/21 15:30 Sodium Chloride 0.9% [Normal Saline] 100 ml IV ASDIRECTED
--- NOTE | 2021-06-05 12:06 | CR ---
Chest: AP and lateral views of the chest were obtained. Comparison: No prior chest imaging is available. Heart size and mediastinum are within normal limits for AP technique. Thick area of atelectasis is seen within the right lung base. Lungs otherwise are clear. Bony structure shows nothing acute. Impression: 1. Thick atelectasis within the right lung base. 2. Two-view chest x-ray is otherwise unremarkable. Diagnostic code #2
[2021-06-05 12:31] LABS: CORONAVIRUS COVID-19 NAA NEGATIVE (NEGATIVE)
[2021-06-05] MEDS ORDERED: traMADol 50 MG Tab PO ONE (13:19)
--- NOTE | 2021-06-05 14:16 | CT ---
CT chest Technique: Multiple axial sections through the chest were obtained. Intravenous contrast was utilized. Study has been performed as a pulmonary angiogram protocol. Comparison: Prior chest x-ray performed earlier on the same day (11:41 AM). Prior CT study of 08/25/20. Findings: Pulmonary arteries are well opacified. No filling defects are seen to indicate pulmonary embolism. Thoracic aorta shows atherosclerotic calcification with no aneurysm. Mediastinum shows no adenopathy. No axillary adenopathy is seen. Heart is slightly enlarged. Minimal pericardial effusion is seen. Visualized upper abdominal structures show a mass within both adrenal glands. On the right side this measures 2.8 cm and on the left side this measures 2.0 cm. This finding is stable from prior CT exam. Other visualized upper abdominal structures show nothing acute. Lung window settings were reviewed which show 3 nodules within the left lung base. Larger nodule has slightly increased in size from prior study currently measuring 9 mm and on prior CT study measuring 7 mm. Second nodule measures 5 mm which is similar to prior study. Smaller nodule measures fairly similar. Two minimal nodules are seen within the right upper lung. Additional larger nodule is noted within the right lung apex measuring 8 mm. No additional nodules are seen. Thick area of atelectasis is noted along the right minor fissure. Lungs otherwise are clear. Bone window settings were reviewed which show scattered degenerative change within the spine. Impression: 1. No findings of pulmonary embolism. 2. Adrenal mass on each side which remain stable in measurement from prior abdominal and pelvic CT study. 3. Three nodules within the left lung base. Larger nodule has increased by about 2 mm from prior study. Other nodules are stable. Three additional nodules are noted within the right upper lung with largest measuring 9 mm. No prior study is available to determine stability. 4. Thick area of atelectasis along the right minor fissure. 5. Other findings as described above. Diagnostic code #3
[2021-06-05] MEDS ORDERED: Albuterol/Ipratropium 3.0-0.5 MG/3 ML Neb Soln NEB ONE (15:05)
[2021-06-05] MEDS ORDERED: Iopamidol 755 Mg/ML 100 ML Bottle IVPUSH ONE (15:19)
[2021-06-05] MEDS ORDERED: Iopamidol 755 MG/ML 50 ML Bottle IVPUSH ONE (15:19)
[2021-06-05] MEDS ORDERED: Sodium Chloride 0.9% 100 ML IV SCH (15:30)
[2021-06-05] MEDS: Furosemide 20 MG/2 ML VIAL IVPUSH SCH (20:24)
[2021-06-05] MEDS ORDERED: Insulin Glargine,Hum.Rec.Anlog 100 UNIT/ML 3 ML Pen SUBCUT SCH (21:00)
[2021-06-05] MEDS: cefTRIAXone 2 GM in Sodium Chloride 0.9% 100 ML IV SCH (21:05)
[2021-06-05] MEDS: Nystatin Topical Powder 15 GM Bottle TOP SCH (21:06)
[2021-06-05] MEDS: Nystatin Crm 30 GM Tube TOP SCH (21:07)
[2021-06-05] MEDS: Clopidogrel 75 MG Tab PO SCH (21:07)
[2021-06-05] MEDS: Insulin Lispro 100 Unit/ML 3 ML KwikPen SUBCUT SCH (23:18)
[2021-06-06] MEDS: Furosemide 20 MG/2 ML VIAL IVPUSH SCH ×2 (06:02→13:20)
--- NOTE | 2021-06-06 08:00 | US ---
Renal ultrasound: Multiple real-time images of the kidneys were obtained. Comparison: Prior CT abdomen and pelvis study and limited abdominal ultrasound of 08/25/20. Prior renal ultrasound study of 05/31/15 was also utilized. Findings: Kidneys show no hydronephrosis or mass. Resistivity indices are increased within both kidneys compatible with medical renal disease. Right kidney length is 11.5 cm and left kidney length is 11.2 cm. Prevoid bladder volume is 885 mL and post void bladder volume is 793 mL. Bilateral ureteral jets are seen. Impression: 1. Increase resistivity indices compatible with medical renal disease. 2. Increased post void residual as noted above. Diagnostic code #3 I agree with preliminary report from [facility], finalized on 06/05/21, 11:04 PM [employer], code 1
[2021-06-06] MEDS: Clopidogrel 75 MG Tab PO SCH (08:40)
[2021-06-06] MEDS: Isosorbide Mononitrate 30 MG Tab.ER PO SCH (08:41)
[2021-06-06] MEDS: Gabapentin 300 MG Cap PO SCH (08:41)
[2021-06-06] MEDS: Doxazosin 2 MG Tab PO SCH (08:42)
[2021-06-06] MEDS: Insulin Lispro 100 Unit/ML 3 ML KwikPen SUBCUT SCH ×4 (08:43→20:50)
[2021-06-06] MEDS: traMADol 50 MG Tab PO PRN ×2 (08:48→20:35)
[2021-06-06] MEDS: Nystatin Crm 30 GM Tube TOP SCH ×2 (08:57→20:41)
[2021-06-06] MEDS: Nystatin Topical Powder 15 GM Bottle TOP SCH ×2 (08:58→20:41)
[2021-06-06] MEDS ORDERED: Magnesium Hydroxide 400 MG/5 ML Susp 30 ML Cup PO ONE (09:00)
[2021-06-06] MEDS ORDERED: Sodium Chloride 0.9% 1,000 ML IV SCH (11:45)
--- NOTE | 2021-06-06 12:23 | PCM.PN ---
- General Info Date of Service: 06/06/21 Admission Dx/Problem (Free Text): see admission note. Subjective Update: 06/06/21 patient slept well. he has neurogenic blader findings with capicity of 900 and residuals around 750/ milligan catheter placed. he is coughing less and on 3 liters n.c. he is unable to move well in bed and requires complete assist of 2 to sit up. labs a/ ct angiogram/ ct scan af chest reviewed again with radiology. mult. small benign apppearing lung nodules (which is aware of not growing since 09/27 ct scan) atelectasis rt lung / no definite infiltrate small pericardial effusion. bilateral adrenal masses rt 2.7 cm and left 2 cm again not appreciably changed form prev. ct scan in 09/27 calcification without anerysm or clot. chf findings mild pulm vasc. engorgment. p.e. mild tach with pvcs / sats >90 on 3 l n.c. more alert conversation lacks detail/follows simple commands . mild tremor noted. lungs decreased and few ronchi // few wheezes. oral malipatti 4 rt arm and wrist weakness without sensory changes noted ( rt handed) no pronator drift. no focal leg weakness but diffuse weakness noted. rectal tone absent prostate normal no nodules. heme test negative. mild pre decubiti red areas over sacral prom/ coccyx abd otherwise obese. reflexes very much diminished but knee jerks present. ext: cellulitis looks better . edema 3 plus bilateral sensory exam mild impairment of proprio/ impaired light touch . diffuse weakness lower legs but >4.9. lab pending. assess: resp insuff ?bronchitis screens neg. but no discreet pneumonia seen on ct scan// severe atelectasis form weakness and inability to move self. elavated d dimer but no p.e.noted. pericardial effusion assymptomatic. chf stable . renal insuff creat 1.7 and 3+ protien and blood. abd and pelvic ct scan ordered with contrast as multiple unexplained findings. generalized weakness but susp. of rt arm stroke and head ct scan ordered. cog. impairment slightly better but chronic cogn. impairment suggestive of dementia and diabetic cerebral vasc. disease. neurogenic bladder sec to autonomic neuropathy? or other cause renal u.s shows no obstruction/tumor ct scan pending. suspect sacral nerve impairment given loss rectal tone as well . dm lifelong poor control and now with neuropathy/nephropathy and autonomic neuropathy./perhaps myopathy as well . morbid obesity : patient will require peminant total care . cellultitis better suspect pad but edam slightly improved with wraps and topical cream applied . cont rocephin as well . suspected sleep apnea. suspected severe cerebral vasc. disease and possibel multiple small stroke ct scan of head pending. leg pain multifactorial but likely cellulitis//edema and neuropathy as well as oa and diabetic myopathy. plan:: ct scans as ordered. control b.s sliding scale increased/ long acting ordered. slowly bring down hypertension start amlodapine and hydralizine and cont lasix. correct lytes. discussed findings with patient and . snif referral//pt//ot/speech therapy for cog eval and speech assessment. d.e. continued. neurogenic bladder treatment difficult and may need diverting nephrostomy but unlikely to get approval for surgery or urology to agree. check psa. get off sacral area as much as tolerated. sleep study needed. boh . Functional Status: Reports: Pain Controlled, Tolerating Diet, New Symptoms, Incentive Spirometry - Review of Systems General: Reports: No Symptoms, Fever, Weakness, Fatigue, Malaise HEENT: Reports: No Symptoms Pulmonary: Reports: No Symptoms, Shortness of Breath, Cough, Wheezing Cardiovascular: Reports: No Symptoms. Denies: Chest Pain Gastrointestinal: Reports: No Symptoms Genitourinary: Reports: No Symptoms, Retention Musculoskeletal: Reports: No Symptoms, Shoulder Pain Skin: Reports: No Symptoms Neurological: Reports: No Symptoms, Confusion, Pre-Existing Deficit, Difficulty Walking, Weakness, Gait Disturbance Psychiatric: Reports: No Symptoms - Patient Data Vitals - Most Recent: Last Vital Signs Temp 36.9 C 06/06/21 08:34 Pulse 113 H 06/06/21 10:01 Resp 22 H 06/06/21 08:34 BP 133/65 06/06/21 10:01 Pulse Ox 92 L 06/06/21 10:01 Weight - Most Recent: 107.637 kg I&O - Last 24 Hours: Intake & Output 06/05/21 06/06/21 06/06/21 23:59 07:59 15:59 Intake Total 88 300 Output Total 1000 1200 Balance -912 -900 Lab Results Last 24 Hours: Laboratory Results - last 24 hr 12/06/05/21 06/05/21 Range/Units 10:33 10:39 10:39 WBC 9.17 H (4.23-9.07) K/mm3 RBC 3.91 L (4.63-6.08) M/mm3 Hgb 11.2 L (13.7-17.5) gm/dl Hct 35.4 L (40.1-51.0) % MCV 90.5 (79.0-92.2) fl MCH 28.6 (25.7-32.2) pg MCHC 31.6 L (32.2-35.5) g/dl RDW Std Deviation 45.3 H (35.1-43.9) fL Plt Count 349 H D (163-337) K/mm3 MPV 9.3 L (9.4-12.3) fl Neut % (Auto) (34.0-67.9) % Lymph % (Auto) (21.8-53.1) % [place] % (Auto) (5.3-12.2) % Eos % (Auto) (0.8-7.0) Baso % (Auto) (0.1-1.2) % Neut # (Auto) (1.78-5.38) K/mm3 Lymph # (Auto) (1.32-3.57) K/mm3 [place] # (Auto) (0.30-0.82) K/mm3 Eos # (Auto) (0.04-0.54) K/mm3 Baso # (Auto) (0.01-0.08) K/mm3 Neutrophils % (Manual) 81 H (40-60) % Band Neutrophils % 0 (0-10) % Lymphocytes % (Manual) 13 L (20-40) % Atypical Lymphs % 0 % Monocytes % (Manual) 5 (2-10) % Eosinophils % (Manual) 0 L (0.8-7.0) % Basophils % (Manual) 1 (0.2-1.2) Platelet Estimate Adequate Plt Morphology Comment See note Polychromasia 1+ slight RBC Morph Comment Not Reportable D-Dimer, Quantitative (0.19-0.50) mg/L Sodium 138 (136-145) mEq/L Potassium 4.2 (3.5-5.1) mEq/L Chloride 99 (98-107) mEq/L Carbon Dioxide 27 (21-32) mEq/L Anion Gap 16.2 H (5-15) BUN 26 H (7-18) mg/dL Creatinine 1.7 H (0.7-1.3) mg/dL Est Cr Clr Drug Dosing 35.67 mL/min Estimated GFR (MDRD) 40 (>60) mL/min BUN/Creatinine Ratio 15.3 (14-18) Glucose 230 H (70-99) mg/dL POC Glucose (70-99) mg/dL Lactic Acid (0.4-2.0) mmol/L Calcium 8.8 (8.5-10.1) mg/dL Total Bilirubin 0.5 (0.2-1.0) mg/dL AST 28 (15-37) U/L ALT 15 L (16-63) U/L Alkaline Phosphatase 107 (46-116) U/L NT-Pro-B Natriuret Pep (0-125) pg/mL Total Protein 7.9 (6.4-8.2) g/dl Albumin 2.7 L (3.4-5.0) g/dl Globulin 5.2 gm/dL Albumin/Globulin Ratio 0.5 L (1-2) Procalcitonin ng/mL Urine Color (Yellow) Urine Appearance (Clear) Urine pH (5.0-8.0) Ur Specific [place] (1.005-1.030) Urine Protein (Negative) Urine Glucose (UA) (Negative) Urine Ketones (Negative) Urine Occult Blood (Negative) Urine Nitrite (Negative) Urine Bilirubin (Negative) Urine Urobilinogen (0.2-1.0) Ur Leukocyte Esterase (Negative) Influenza Type A RNA Negative (NEGATIVE) Influenza Type B RNA Negative (NEGATIVE) SARS-CoV-2 RNA (JAMES) Negative (NEGATIVE) 06/05/21 06/05/21 06/05/21 Range/Units 10:39 10:39 10:39 WBC (4.23-9.07) K/mm3 RBC (4.63-6.08) M/mm3 Hgb (13.7-17.5) gm/dl Hct (40.1-51.0) % MCV (79.0-92.2) fl MCH (25.7-32.2) pg MCHC (32.2-35.5) g/dl RDW Std Deviation (35.1-43.9) fL Plt Count (163-337) K/mm3 MPV (9.4-12.3) fl Neut % (Auto) (34.0-67.9) % Lymph % (Auto) (21.8-53.1) % [place] % (Auto) (5.3-12.2) % Eos % (Auto) (0.8-7.0) Baso % (Auto) (0.1-1.2) % Neut # (Auto) (1.78-5.38) K/mm3 Lymph # (Auto) (1.32-3.57) K/mm3 [place] # (Auto) (0.30-0.82) K/mm3 Eos # (Auto) (0.04-0.54) K/mm3 Baso # (Auto) (0.01-0.08) K/mm3 Neutrophils % (Manual) (40-60) % Band Neutrophils % (0-10) % Lymphocytes % (Manual) (20-40) % Atypical Lymphs % % Monocytes % (Manual) (2-10) % Eosinophils % (Manual) (0.8-7.0) % Basophils % (Manual) (0.2-1.2) Platelet Estimate Plt Morphology Comment Polychromasia RBC Morph Comment D-Dimer, Quantitative 3.56 H (0.19-0.50) mg/L Sodium (136-145) mEq/L Potassium (3.5-5.1) mEq/L Chloride (98-107) mEq/L Carbon Dioxide (21-32) mEq/L Anion Gap (5-15) BUN (7-18) mg/dL Creatinine (0.7-1.3) mg/dL Est Cr Clr Drug Dosing mL/min Estimated GFR (MDRD) (>60) mL/min BUN/Creatinine Ratio (14-18) Glucose (70-99) mg/dL POC Glucose (70-99) mg/dL Lactic Acid 1.5 (0.4-2.0) mmol/L Calcium (8.5-10.1) mg/dL Total Bilirubin (0.2-1.0) mg/dL AST (15-37) U/L ALT (16-63) U/L Alkaline Phosphatase (46-116) U/L NT-Pro-B Natriuret Pep (0-125) pg/mL Total Protein (6.4-8.2) g/dl Albumin (3.4-5.0) g/dl Globulin gm/dL Albumin/Globulin Ratio (1-2) Procalcitonin 0.36 H ng/mL Urine Color (Yellow) Urine Appearance (Clear) Urine pH (5.0-8.0) Ur Specific [place] (1.005-1.030) Urine Protein (Negative) Urine Glucose (UA) (Negative) Urine Ketones (Negative) Urine Occult Blood (Negative) Urine Nitrite (Negative) Urine Bilirubin (Negative) Urine Urobilinogen (0.2-1.0) Ur Leukocyte Esterase (Negative) Influenza Type A RNA (NEGATIVE) Influenza Type B RNA (NEGATIVE) SARS-CoV-2 RNA (JAMES) (NEGATIVE) 06/05/21 06/05/21 06/05/21 Range/Units 12:04 18:41 23:13 WBC (4.23-9.07) K/mm3 RBC (4.63-6.08) M/mm3 Hgb (13.7-17.5) gm/dl Hct (40.1-51.0) % MCV (79.0-92.2) fl MCH (25.7-32.2) pg MCHC (32.2-35.5) g/dl RDW Std Deviation (35.1-43.9) fL Plt Count (163-337) K/mm3 MPV (9.4-12.3) fl Neut % (Auto) (34.0-67.9) % Lymph % (Auto) (21.8-53.1) % [place] % (Auto) (5.3-12.2) % Eos % (Auto) (0.8-7.0) Baso % (Auto) (0.1-1.2) % Neut # (Auto) (1.78-5.38) K/mm3 Lymph # (Auto) (1.32-3.57) K/mm3 [place] # (Auto) (0.30-0.82) K/mm3 Eos # (Auto) (0.04-0.54) K/mm3 Baso # (Auto) (0.01-0.08) K/mm3 Neutrophils % (Manual) (40-60) % Band Neutrophils % (0-10) % Lymphocytes % (Manual) (20-40) % Atypical Lymphs % % Monocytes % (Manual) (2-10) % Eosinophils % (Manual) (0.8-7.0) % Basophils % (Manual) (0.2-1.2) Platelet Estimate Plt Morphology Comment Polychromasia RBC Morph Comment D-Dimer, Quantitative (0.19-0.50) mg/L Sodium (136-145) mEq/L Potassium (3.5-5.1) mEq/L Chloride (98-107) mEq/L Carbon Dioxide (21-32) mEq/L Anion Gap (5-15) BUN (7-18) mg/dL Creatinine (0.7-1.3) mg/dL Est Cr Clr Drug Dosing mL/min Estimated GFR (MDRD) (>60) mL/min BUN/Creatinine Ratio (14-18) Glucose (70-99) mg/dL POC Glucose 199 H 200 H (70-99) mg/dL Lactic Acid (0.4-2.0) mmol/L Calcium (8.5-10.1) mg/dL Total Bilirubin (0.2-1.0) mg/dL AST (15-37) U/L ALT (16-63) U/L Alkaline Phosphatase (46-116) U/L NT-Pro-B Natriuret Pep (0-125) pg/mL Total Protein (6.4-8.2) g/dl Albumin (3.4-5.0) g/dl Globulin gm/dL Albumin/Globulin Ratio (1-2) Procalcitonin ng/mL Urine Color Yellow (Yellow) Urine Appearance Cloudy H (Clear) Urine pH 5.5 (5.0-8.0) Ur Specific [place] 1.025 (1.005-1.030) Urine Protein 3+ H (Negative) Urine Glucose (UA) 2+ H (Negative) Urine Ketones 2+ H (Negative) Urine Occult Blood 2+ H (Negative) Urine Nitrite Negative (Negative) Urine Bilirubin Negative (Negative) Urine Urobilinogen 0.2 (0.2-1.0) Ur Leukocyte Esterase Negative (Negative) Influenza Type A RNA (NEGATIVE) Influenza Type B RNA (NEGATIVE) SARS-CoV-2 RNA (JAMES) (NEGATIVE) 06/06/21 06/06/21 06/06/21 Range/Units 05:58 08:00 08:00 WBC (4.23-9.07) K/mm3 RBC (4.63-6.08) M/mm3 Hgb (13.7-17.5) gm/dl Hct (40.1-51.0) % MCV (79.0-92.2) fl MCH (25.7-32.2) pg MCHC (32.2-35.5) g/dl RDW Std Deviation (35.1-43.9) fL Plt Count (163-337) K/mm3 MPV (9.4-12.3) fl Neut % (Auto) (34.0-67.9) % Lymph % (Auto) (21.8-53.1) % [place] % (Auto) (5.3-12.2) % Eos % (Auto) (0.8-7.0) Baso % (Auto) (0.1-1.2) % Neut # (Auto) (1.78-5.38) K/mm3 Lymph # (Auto) (1.32-3.57) K/mm3 [place] # (Auto) (0.30-0.82) K/mm3 Eos # (Auto) (0.04-0.54) K/mm3 Baso # (Auto) (0.01-0.08) K/mm3 Neutrophils % (Manual) (40-60) % Band Neutrophils % (0-10) % Lymphocytes % (Manual) (20-40) % Atypical Lymphs % % Monocytes % (Manual) (2-10) % Eosinophils % (Manual) (0.8-7.0) % Basophils % (Manual) (0.2-1.2) Platelet Estimate Plt Morphology Comment Polychromasia RBC Morph Comment D-Dimer, Quantitative (0.19-0.50) mg/L Sodium 141 (136-145) mEq/L Potassium 3.6 (3.5-5.1) mEq/L Chloride 102 (98-107) mEq/L Carbon Dioxide 29 (21-32) mEq/L Anion Gap 13.6 (5-15) BUN 24 H (7-18) mg/dL Creatinine 1.7 H (0.7-1.3) mg/dL Est Cr Clr Drug Dosing 37.01 mL/min Estimated GFR (MDRD) 40 (>60) mL/min BUN/Creatinine Ratio 14.1 (14-18) Glucose 181 H (70-99) mg/dL POC Glucose 191 H (70-99) mg/dL Lactic Acid (0.4-2.0) mmol/L Calcium 8.7 (8.5-10.1) mg/dL Total Bilirubin 0.4 (0.2-1.0) mg/dL AST 33 (15-37) U/L ALT 8 L (16-63) U/L Alkaline Phosphatase 153 H (46-116) U/L NT-Pro-B Natriuret Pep 1912 H (0-125) pg/mL Total Protein 7.4 (6.4-8.2) g/dl Albumin 2.3 L (3.4-5.0) g/dl Globulin 5.1 gm/dL Albumin/Globulin Ratio 0.5 L (1-2) Procalcitonin ng/mL Urine Color (Yellow) Urine Appearance (Clear) Urine pH (5.0-8.0) Ur Specific [place] (1.005-1.030) Urine Protein (Negative) Urine Glucose (UA) (Negative) Urine Ketones (Negative) Urine Occult Blood (Negative) Urine Nitrite (Negative) Urine Bilirubin (Negative) Urine Urobilinogen (0.2-1.0) Ur Leukocyte Esterase (Negative) Influenza Type A RNA (NEGATIVE) Influenza Type B RNA (NEGATIVE) SARS-CoV-2 RNA (JAMES) (NEGATIVE) 06/06/21 06/06/21 Range/Units 08:00 11:04 WBC 9.61 H (4.23-9.07) K/mm3 RBC 3.81 L (4.63-6.08) M/mm3 Hgb 10.8 L (13.7-17.5) gm/dl Hct 34.2 L (40.1-51.0) % MCV 89.8 (79.0-92.2) fl MCH 28.3 (25.7-32.2) pg MCHC 31.6 L (32.2-35.5) g/dl RDW Std Deviation 45.4 H (35.1-43.9) fL Plt Count 349 H (163-337) K/mm3 MPV 9.2 L (9.4-12.3) fl Neut % (Auto) 77.8 H (34.0-67.9) % Lymph % (Auto) 10.1 L (21.8-53.1) % [place] % (Auto) 11.1 (5.3-12.2) % Eos % (Auto) 0.3 L (0.8-7.0) Baso % (Auto) 0.5 (0.1-1.2) % Neut # (Auto) 7.47 H (1.78-5.38) K/mm3 Lymph # (Auto) 0.97 L (1.32-3.57) K/mm3 [place] # (Auto) 1.07 H (0.30-0.82) K/mm3 Eos # (Auto) 0.03 L (0.04-0.54) K/mm3 Baso # (Auto) 0.05 (0.01-0.08) K/mm3 Neutrophils % (Manual) (40-60) % Band Neutrophils % (0-10) % Lymphocytes % (Manual) (20-40) % Atypical Lymphs % % Monocytes % (Manual) (2-10) % Eosinophils % (Manual) (0.8-7.0) % Basophils % (Manual) (0.2-1.2) Platelet Estimate Plt Morphology Comment Polychromasia RBC Morph Comment D-Dimer, Quantitative (0.19-0.50) mg/L Sodium (136-145) mEq/L Potassium (3.5-5.1) mEq/L Chloride (98-107) mEq/L Carbon Dioxide (21-32) mEq/L Anion Gap (5-15) BUN (7-18) mg/dL Creatinine (0.7-1.3) mg/dL Est Cr Clr Drug Dosing mL/min Estimated GFR (MDRD) (>60) mL/min BUN/Creatinine Ratio (14-18) Glucose (70-99) mg/dL POC Glucose 179 H (70-99) mg/dL Lactic Acid (0.4-2.0) mmol/L Calcium (8.5-10.1) mg/dL Total Bilirubin (0.2-1.0) mg/dL AST (15-37) U/L ALT (16-63) U/L Alkaline Phosphatase (46-116) U/L NT-Pro-B Natriuret Pep (0-125) pg/mL Total Protein (6.4-8.2) g/dl Albumin (3.4-5.0) g/dl Globulin gm/dL Albumin/Globulin Ratio (1-2) Procalcitonin ng/mL Urine Color (Yellow) Urine Appearance (Clear) Urine pH (5.0-8.0) Ur Specific [place] (1.005-1.030) Urine Protein (Negative) Urine Glucose (UA) (Negative) Urine Ketones (Negative) Urine Occult Blood (Negative) Urine Nitrite (Negative) Urine Bilirubin (Negative) Urine Urobilinogen (0.2-1.0) Ur Leukocyte Esterase (Negative) Influenza Type A RNA (NEGATIVE) Influenza Type B RNA (NEGATIVE) SARS-CoV-2 RNA (JAMES) (NEGATIVE) Med Orders - Current: Current Medications Atorvastatin Calcium (Atorvastatin 20 Mg Tab) 10 mg PO Q2D@2100 [facility] Clopidogrel Bisulfate (Clopidogrel 75 Mg Tab) 75 mg PO DAILY [facility] Last Admin: 06/06/21 08:40 Dose: 75 mg Documented by: Doxazosin Mesylate (Doxazosin 2 Mg Tab) 1 mg PO DAILY [facility] Last Admin: 06/06/21 08:42 Dose: 1 mg Documented by: Furosemide (Furosemide 20 Mg/2 Ml Vial) 20 mg IVPUSH BIDDIURETIC [facility] Last Admin: 06/06/21 06:02 Dose: 20 mg Documented by: Gabapentin (Gabapentin 300 Mg Cap) 300 mg PO DAILY [facility] Last Admin: 06/06/21 08:41 Dose: 300 mg Documented by: Ceftriaxone Sodium 2 gm/ (Sodium Chloride) 100 mls @ 200 mls/hr IV Q24H [facility] Last Admin: 06/05/21 21:05 Dose: 200 mls/hr Documented by: Sodium Chloride (Normal Saline) 1,000 mls @ 125 mls/hr IV ASDIRECTED [facility] Stop: 06/06/21 16:00 Insulin Glargine (Insulin Glargine,Hum.Rec.Anlog 100 Unit/Ml 3 Ml Pen) 73 unit SUBCUT BEDTIME [facility] Insulin Human Lispro (Insulin Lispro 100 Unit/Ml 3 Ml Kwikpen) 0 unit SUBCUT WITHMEALSANDBED [facility]; Protocol Last Admin: 06/06/21 08:43 Dose: 1 unit Documented by: Isosorbide Mononitrate (Isosorbide Mononitrate 30 Mg Tab.Er) 30 mg PO DAILY [facility] Last Admin: 06/06/21 08:41 Dose: 30 mg Documented by: Nystatin (Nystatin Topical Powder 15 Gm Bottle) 1 gm TOP BID [facility] Last Admin: 06/06/21 08:58 Dose: 1 applic Documented by: Nystatin (Nystatin Crm 30 Gm Tube) 0 gm TOP BID [facility] Last Admin: 06/06/21 08:57 Dose: 1 applic Documented by: Senna/Docusate Sodium (Docusate Sodium/Sennosides 50-8.6 Mg Tab) 2 tab PO DAILY PRN PRN Reason: Constipation Last Admin: 06/06/21 06:02 Dose: 2 tab Documented by: Tramadol HCl (Tramadol 50 Mg Tab) 50 mg PO BID PRN PRN Reason: Pain Last Admin: 06/06/21 08:48 Dose: 50 mg Documented by: Discontinued Medications Albuterol/Ipratropium (Albuterol/Ipratropium 3.0-0.5 Mg/3 Ml Neb Soln) 3 ml NEB ONETIME ONE Stop: 06/05/21 15:06 Last Admin: 06/05/21 15:14 Dose: 3 ml Documented by: Sodium Chloride (Normal Saline) 100 mls @ 60 mls/hr IV ASDIRECTED [facility] Last Admin: 06/05/21 15:21 Dose: 60 mls/hr Documented by: Insulin Glargine (Insulin Glargine,Hum.Rec.Anlog 100 Unit/Ml 3 Ml Pen) 73 unit SUBCUT DAILY [facility] Last Admin: 06/05/21 23:16 Dose: 73 units Documented by: Iopamidol (Iopamidol 755 Mg/Ml 100 Ml Bottle) 100 ml IVPUSH ONETIME ONE Stop: 06/05/21 15:20 Last Admin: 06/05/21 15:21 Dose: 100 ml Documented by: Iopamidol (Iopamidol 755 Mg/Ml 50 Ml Bottle) 50 ml IVPUSH ONETIME ONE Stop: 06/05/21 15:20 Last Admin: 06/05/21 15:21 Dose: 50 ml Documented by: Magnesium Hydroxide (Magnesium Hydroxide 400 Mg/5 Ml Susp 30 Ml Cup) 30 ml PO ONETIME ONE Stop: 06/06/21 09:01 Last Admin: 06/06/21 08:42 Dose: 30 ml Documented by: Simvastatin (Simvastatin 10 Mg Tab) 10 mg PO Q2D@2100 [facility] Tramadol HCl (Tramadol 50 Mg Tab) 50 mg PO ONETIME ONE Stop: 06/05/21 13:20 Last Admin: 06/05/21 13:46 Dose: 50 mg Documented by: - Exam Quality Assessment: Supplemental Oxygen Urinary Catheter Total Time: 0Days 2Hours General: Alert, Oriented HEENT: Pupils Equal, Pupils Reactive, EOMI, Mucous Membr. Moist/[place] Neck: Supple Lungs: Clear to Auscultation, Normal Respiratory Effort, Decreased Breath Sounds, Rhonchi, Wheezing Cardiovascular: Regular Rate, Regular Rhythm, Tachycardia GI/Abdominal Exam: Normal Bowel Sounds, Soft, Non-Tender, No Organomegaly, No Distention, No Abnormal Bruit, No Mass, Pelvis Stable (Male) Exam: No Hernia, Suprapubic Fullness Back Exam: Normal Inspection, Full Range of Motion Extremities: Normal Inspection, Normal Range of Motion, Non-Tender, No Pedal Edema, Normal Capillary Refill Skin: Other Wound/Incisions: Healing Well Neurological: No New Focal Deficit, Cranial Nerves Intact. No: Normal Gait, Normal Speech, Normal Tone, Strength Equal Bilateral, Reflexes Equal Bilateral, Sensation Intact Psy/Mental Status: Alert - Patient Data Lab Results Last 24 hrs: Laboratory Results - last 24 hr 06/05/21 06/05/21 06/05/21 Range/Units 10:33 10:39 10:39 WBC 9.17 H (4.23-9.07) K/mm3 RBC 3.91 L (4.63-6.08) M/mm3 Hgb 11.2 L (13.7-17.5) gm/dl Hct 35.4 L (40.1-51.0) % MCV 90.5 (79.0-92.2) fl MCH 28.6 (25.7-32.2) pg MCHC 31.6 L (32.2-35.5) g/dl RDW Std Deviation 45.3 H (35.1-43.9) fL Plt Count 349 H D (163-337) K/mm3 MPV 9.3 L (9.4-12.3) fl Neut % (Auto) (34.0-67.9) % Lymph % (Auto) (21.8-53.1) % [place] % (Auto) (5.3-12.2) % Eos % (Auto) (0.8-7.0) Baso % (Auto) (0.1-1.2) % Neut # (Auto) (1.78-5.38) K/mm3 Lymph # (Auto) (1.32-3.57) K/mm3 [place] # (Auto) (0.30-0.82) K/mm3 Eos # (Auto) (0.04-0.54) K/mm3 Baso # (Auto) (0.01-0.08) K/mm3 Neutrophils % (Manual) 81 H (40-60) % Band Neutrophils % 0 (0-10) % Lymphocytes % (Manual) 13 L (20-40) % Atypical Lymphs % 0 % Monocytes % (Manual) 5 (2-10) % Eosinophils % (Manual) 0 L (0.8-7.0) % Basophils % (Manual) 1 (0.2-1.2) Platelet Estimate Adequate Plt Morphology Comment See note Polychromasia 1+ slight RBC Morph Comment Not Reportable D-Dimer, Quantitative (0.19-0.50) mg/L Sodium 138 (136-145) mEq/L Potassium 4.2 (3.5-5.1) mEq/L Chloride 99 (98-107) mEq/L Carbon Dioxide 27 (21-32) mEq/L Anion Gap 16.2 H (5-15) BUN 26 H (7-18) mg/dL Creatinine 1.7 H (0.7-1.3) mg/dL Est Cr Clr Drug Dosing 35.67 mL/min Estimated GFR (MDRD) 40 (>60) mL/min BUN/Creatinine Ratio 15.3 (14-18) Glucose 230 H (70-99) mg/dL POC Glucose (70-99) mg/dL Lactic Acid (0.4-2.0) mmol/L Calcium 8.8 (8.5-10.1) mg/dL Total Bilirubin 0.5 (0.2-1.0) mg/dL AST 28 (15-37) U/L ALT 15 L (16-63) U/L Alkaline Phosphatase 107 (46-116) U/L NT-Pro-B Natriuret Pep (0-125) pg/mL Total Protein 7.9 (6.4-8.2) g/dl Albumin 2.7 L (3.4-5.0) g/dl Globulin 5.2 gm/dL Albumin/Globulin Ratio 0.5 L (1-2) Procalcitonin ng/mL Urine Color (Yellow) Urine Appearance (Clear) Urine pH (5.0-8.0) Ur Specific [place] (1.005-1.030) Urine Protein (Negative) Urine Glucose (UA) (Negative) Urine Ketones (Negative) Urine Occult Blood (Negative) Urine Nitrite (Negative) Urine Bilirubin (Negative) Urine Urobilinogen (0.2-1.0) Ur Leukocyte Esterase (Negative) Influenza Type A RNA Negative (NEGATIVE) Influenza Type B RNA Negative (NEGATIVE) SARS-CoV-2 RNA (JAMES) Negative (NEGATIVE) 06/05/21 06/05/21 06/05/21 Range/Units 10:39 10:39 10:39 WBC (4.23-9.07) K/mm3 RBC (4.63-6.08) M/mm3 Hgb (13.7-17.5) gm/dl Hct (40.1-51.0) % MCV (79.0-92.2) fl MCH (25.7-32.2) pg MCHC (32.2-35.5) g/dl RDW Std Deviation (35.1-43.9) fL Plt Count (163-337) K/mm3 MPV (9.4-12.3) fl Neut % (Auto) (34.0-67.9) % Lymph % (Auto) (21.8-53.1) % [place] % (Auto) (5.3-12.2) % Eos % (Auto) (0.8-7.0) Baso % (Auto) (0.1-1.2) % Neut # (Auto) (1.78-5.38) K/mm3 Lymph # (Auto) (1.32-3.57) K/mm3 [place] # (Auto) (0.30-0.82) K/mm3 Eos # (Auto) (0.04-0.54) K/mm3 Baso # (Auto) (0.01-0.08) K/mm3 Neutrophils % (Manual) (40-60) % Band Neutrophils % (0-10) % Lymphocytes % (Manual) (20-40) % Atypical Lymphs % % Monocytes % (Manual) (2-10) % Eosinophils % (Manual) (0.8-7.0) % Basophils % (Manual) (0.2-1.2) Platelet Estimate Plt Morphology Comment Polychromasia RBC Morph Comment D-Dimer, Quantitative 3.56 H (0.19-0.50) mg/L Sodium (136-145) mEq/L Potassium (3.5-5.1) mEq/L Chloride (98-107) mEq/L Carbon Dioxide (21-32) mEq/L Anion Gap (5-15) BUN (7-18) mg/dL Creatinine (0.7-1.3) mg/dL Est Cr Clr Drug Dosing mL/min Estimated GFR (MDRD) (>60) mL/min BUN/Creatinine Ratio (14-18) Glucose (70-99) mg/dL POC Glucose (70-99) mg/dL Lactic Acid 1.5 (0.4-2.0) mmol/L Calcium (8.5-10.1) mg/dL Total Bilirubin (0.2-1.0) mg/dL AST (15-37) U/L ALT (16-63) U/L Alkaline Phosphatase (46-116) U/L NT-Pro-B Natriuret Pep (0-125) pg/mL Total Protein (6.4-8.2) g/dl Albumin (3.4-5.0) g/dl Globulin gm/dL Albumin/Globulin Ratio (1-2) Procalcitonin 0.36 H ng/mL Urine Color (Yellow) Urine Appearance (Clear) Urine pH (5.0-8.0) Ur Specific [place] (1.005-1.030) Urine Protein (Negative) Urine Glucose (UA) (Negative) Urine Ketones (Negative) Urine Occult Blood (Negative) Urine Nitrite (Negative) Urine Bilirubin (Negative) Urine Urobilinogen (0.2-1.0) Ur Leukocyte Esterase (Negative) Influenza Type A RNA (NEGATIVE) Influenza Type B RNA (NEGATIVE) SARS-CoV-2 RNA (JAMES) (NEGATIVE) 06/05/21 06/05/21 06/05/21 Range/Units 12:04 18:41 23:13 WBC (4.23-9.07) K/mm3 RBC (4.63-6.08) M/mm3 Hgb (13.7-17.5) gm/dl Hct (40.1-51.0) % MCV (79.0-92.2) fl MCH (25.7-32.2) pg MCHC (32.2-35.5) g/dl RDW Std Deviation (35.1-43.9) fL Plt Count (163-337) K/mm3 MPV (9.4-12.3) fl Neut % (Auto) (34.0-67.9) % Lymph % (Auto) (21.8-53.1) % [place] % (Auto) (5.3-12.2) % Eos % (Auto) (0.8-7.0) Baso % (Auto) (0.1-1.2) % Neut # (Auto) (1.78-5.38) K/mm3 Lymph # (Auto) (1.32-3.57) K/mm3 [place] # (Auto) (0.30-0.82) K/mm3 Eos # (Auto) (0.04-0.54) K/mm3 Baso # (Auto) (0.01-0.08) K/mm3 Neutrophils % (Manual) (40-60) % Band Neutrophils % (0-10) % Lymphocytes % (Manual) (20-40) % Atypical Lymphs % % Monocytes % (Manual) (2-10) % Eosinophils % (Manual) (0.8-7.0) % Basophils % (Manual) (0.2-1.2) Platelet Estimate Plt Morphology Comment Polychromasia RBC Morph Comment D-Dimer, Quantitative (0.19-0.50) mg/L Sodium (136-145) mEq/L Potassium (3.5-5.1) mEq/L Chloride (98-107) mEq/L Carbon Dioxide (21-32) mEq/L Anion Gap (5-15) BUN (7-18) mg/dL Creatinine (0.7-1.3) mg/dL Est Cr Clr Drug Dosing mL/min Estimated GFR (MDRD) (>60) mL/min BUN/Creatinine Ratio (14-18) Glucose (70-99) mg/dL POC Glucose 199 H 200 H (70-99) mg/dL Lactic Acid (0.4-2.0) mmol/L Calcium (8.5-10.1) mg/dL Total Bilirubin (0.2-1.0) mg/dL AST (15-37) U/L ALT (16-63) U/L Alkaline Phosphatase (46-116) U/L NT-Pro-B Natriuret Pep (0-125) pg/mL Total Protein (6.4-8.2) g/dl Albumin (3.4-5.0) g/dl Globulin gm/dL Albumin/Globulin Ratio (1-2) Procalcitonin ng/mL Urine Color Yellow (Yellow) Urine Appearance Cloudy H (Clear) Urine pH 5.5 (5.0-8.0) Ur Specific [place] 1.025 (1.005-1.030) Urine Protein 3+ H (Negative) Urine Glucose (UA) 2+ H (Negative) Urine Ketones 2+ H (Negative) Urine Occult Blood 2+ H (Negative) Urine Nitrite Negative (Negative) Urine Bilirubin Negative (Negative) Urine Urobilinogen 0.2 (0.2-1.0) Ur Leukocyte Esterase Negative (Negative) Influenza Type A RNA (NEGATIVE) Influenza Type B RNA (NEGATIVE) SARS-CoV-2 RNA (JAMES) (NEGATIVE) 06/06/21 06/06/21 06/06/21 Range/Units 05:58 08:00 08:00 WBC (4.23-9.07) K/mm3 RBC (4.63-6.08) M/mm3 Hgb (13.7-17.5) gm/dl Hct (40.1-51.0) % MCV (79.0-92.2) fl MCH (25.7-32.2) pg MCHC (32.2-35.5) g/dl RDW Std Deviation (35.1-43.9) fL Plt Count (163-337) K/mm3 MPV (9.4-12.3) fl Neut % (Auto) (34.0-67.9) % Lymph % (Auto) (21.8-53.1) % [place] % (Auto) (5.3-12.2) % Eos % (Auto) (0.8-7.0) Baso % (Auto) (0.1-1.2) % Neut # (Auto) (1.78-5.38) K/mm3 Lymph # (Auto) (1.32-3.57) K/mm3 [place] # (Auto) (0.30-0.82) K/mm3 Eos # (Auto) (0.04-0.54) K/mm3 Baso # (Auto) (0.01-0.08) K/mm3 Neutrophils % (Manual) (40-60) % Band Neutrophils % (0-10) % Lymphocytes % (Manual) (20-40) % Atypical Lymphs % % Monocytes % (Manual) (2-10) % Eosinophils % (Manual) (0.8-7.0) % Basophils % (Manual) (0.2-1.2) Platelet Estimate Plt Morphology Comment Polychromasia RBC Morph Comment D-Dimer, Quantitative (0.19-0.50) mg/L Sodium 141 (136-145) mEq/L Potassium 3.6 (3.5-5.1) mEq/L Chloride 102 (98-107) mEq/L Carbon Dioxide 29 (21-32) mEq/L Anion Gap 13.6 (5-15) BUN 24 H (7-18) mg/dL Creatinine 1.7 H (0.7-1.3) mg/dL Est Cr Clr Drug Dosing 37.01 mL/min Estimated GFR (MDRD) 40 (>60) mL/min BUN/Creatinine Ratio 14.1 (14-18) Glucose 181 H (70-99) mg/dL POC Glucose 191 H (70-99) mg/dL Lactic Acid (0.4-2.0) mmol/L Calcium 8.7 (8.5-10.1) mg/dL Total Bilirubin 0.4 (0.2-1.0) mg/dL AST 33 (15-37) U/L ALT 8 L (16-63) U/L Alkaline Phosphatase 153 H (46-116) U/L NT-Pro-B Natriuret Pep 1912 H (0-125) pg/mL Total Protein 7.4 (6.4-8.2) g/dl Albumin 2.3 L (3.4-5.0) g/dl Globulin 5.1 gm/dL Albumin/Globulin Ratio 0.5 L (1-2) Procalcitonin ng/mL Urine Color (Yellow) Urine Appearance (Clear) Urine pH (5.0-8.0) Ur Specific [place] (1.005-1.030) Urine Protein (Negative) Urine Glucose (UA) (Negative) Urine Ketones (Negative) Urine Occult Blood (Negative) Urine Nitrite (Negative) Urine Bilirubin (Negative) Urine Urobilinogen (0.2-1.0) Ur Leukocyte Esterase (Negative) Influenza Type A RNA (NEGATIVE) Influenza Type B RNA (NEGATIVE) SARS-CoV-2 RNA (JAMES) (NEGATIVE) 06/06/21 06/06/21 Range/Units 08:00 11:04 WBC 9.61 H (4.23-9.07) K/mm3 RBC 3.81 L (4.63-6.08) M/mm3 Hgb 10.8 L (13.7-17.5) gm/dl Hct 34.2 L (40.1-51.0) % MCV 89.8 (79.0-92.2) fl MCH 28.3 (25.7-32.2) pg MCHC 31.6 L (32.2-35.5) g/dl RDW Std Deviation 45.4 H (35.1-43.9) fL Plt Count 349 H (163-337) K/mm3 MPV 9.2 L (9.4-12.3) fl Neut % (Auto) 77.8 H (34.0-67.9) % Lymph % (Auto) 10.1 L (21.8-53.1) % [place] % (Auto) 11.1 (5.3-12.2) % Eos % (Auto) 0.3 L (0.8-7.0) Baso % (Auto) 0.5 (0.1-1.2) % Neut # (Auto) 7.47 H (1.78-5.38) K/mm3 Lymph # (Auto) 0.97 L (1.32-3.57) K/mm3 [place] # (Auto) 1.07 H (0.30-0.82) K/mm3 Eos # (Auto) 0.03 L (0.04-0.54) K/mm3 Baso # (Auto) 0.05 (0.01-0.08) K/mm3 Neutrophils % (Manual) (40-60) % Band Neutrophils % (0-10) % Lymphocytes % (Manual) (20-40) % Atypical Lymphs % % Monocytes % (Manual) (2-10) % Eosinophils % (Manual) (0.8-7.0) % Basophils % (Manual) (0.2-1.2) Platelet Estimate Plt Morphology Comment Polychromasia RBC Morph Comment D-Dimer, Quantitative (0.19-0.50) mg/L Sodium (136-145) mEq/L Potassium (3.5-5.1) mEq/L Chloride (98-107) mEq/L Carbon Dioxide (21-32) mEq/L Anion Gap (5-15) BUN (7-18) mg/dL Creatinine (0.7-1.3) mg/dL Est Cr Clr Drug Dosing mL/min Estimated GFR (MDRD) (>60) mL/min BUN/Creatinine Ratio (14-18) Glucose (70-99) mg/dL POC Glucose 179 H (70-99) mg/dL Lactic Acid (0.4-2.0) mmol/L Calcium (8.5-10.1) mg/dL Total Bilirubin (0.2-1.0) mg/dL AST (15-37) U/L ALT (16-63) U/L Alkaline Phosphatase (46-116) U/L NT-Pro-B Natriuret Pep (0-125) pg/mL Total Protein (6.4-8.2) g/dl Albumin (3.4-5.0) g/dl Globulin gm/dL Albumin/Globulin Ratio (1-2) Procalcitonin ng/mL Urine Color (Yellow) Urine Appearance (Clear) Urine pH (5.0-8.0) Ur Specific [place] (1.005-1.030) Urine Protein (Negative) Urine Glucose (UA) (Negative) Urine Ketones (Negative) Urine Occult Blood (Negative) Urine Nitrite (Negative) Urine Bilirubin (Negative) Urine Urobilinogen (0.2-1.0) Ur Leukocyte Esterase (Negative) Influenza Type A RNA (NEGATIVE) Influenza Type B RNA (NEGATIVE) SARS-CoV-2 RNA (JAMES) (NEGATIVE) Result Diagrams: 06/06/21 08:00 06/06/21 08:00 Sepsis Event Note - Evaluation Sepsis Screening Result: No Definite Risk - Focused Exam Vital Signs: Vital Signs Temp Pulse Resp BP Pulse Ox 06/06/21 10:01 113 H 133/65 92 L 06/06/21 08:42 180/78 H 06/06/21 08:41 180/78 H 06/06/21 08:34 36.9 C 114 H 22 H 192/84 H 96 06/06/21 05:34 36.6 C 120 H 18 159/48 H 93 L 06/06/21 00:32 37.2 C 109 H 18 164/84 H 91 L - Problem List & Annotations (1) Weakness generalized SNOMED Code(s): 20933705 Code(s): R53.1 - WEAKNESS Status: Acute Priority: High Current Visit: Yes Onset Date: ~06/06/21 Annotation/Comment:: unable to do any cares needs liz lift to change positions.pt/ot/speech therapy seeing. (2) Sensation alteration, late effect of cerebrovascular disease SNOMED Code(s): 75174467, 735672543 Code(s): I69.998 - OTHER SEQUELAE FOLLOWING UNSPECIFIED CEREBROVASCULAR DISEASE; R20.9 - UNSPECIFIED DISTURBANCES OF SKIN SENSATION Status: Acute Priority: Medium Current Visit: Yes Onset Date: ~06/06/21 Annotation/Comment:: repeat head ct scan sec. to possible multi infarct pattern. (3) Adrenal benign tumor SNOMED Code(s): 91257488 Code(s): D35.00 - BENIGN NEOPLASM OF UNSPECIFIED ADRENAL GLAND Status: Acute Priority: Medium Current Visit: Yes Qualifiers: Laterality: unspecified laterality Qualified Code(s): D35.00 - Benign neoplasm of unspecified adrenal gland Annotation/Comment:: bilateral tumors adrenal but good adrenal function (4) CHF (congestive heart failure), NYHA class II SNOMED Code(s): 547735350, 063148884 Code(s): I50.9 - HEART FAILURE, UNSPECIFIED Status: Acute Priority: Medium Current Visit: Yes Onset Date: ~06/06/21 Qualifiers: Congestive heart failure type: combined Annotation/Comment:: needs echo and ordered off hctz and started lasix with good response. neurogenic bowel a nd bladder but no obstruction or hydronephrosis seen // suspect lvh and no anginal symptoms despite high b.p. rule out pericardial dysfunction. (5) Unable to ambulate SNOMED Code(s): 325371165 Code(s): R26.2 - DIFFICULTY IN WALKING, NOT ELSEWHERE CLASSIFIED Status: Acute Priority: High Current Visit: Yes Onset Date: ~06/06/21 Annotation/Comment:: ct scan of lumbar sacral area ordered no recent trauma no rectal tone and neurogenic bladder but no incontinance of either (6) Chronic renal insufficiency, stage III (moderate) SNOMED Code(s): 920306857 Code(s): N18.30 - CHRONIC KIDNEY DISEASE, STAGE 3 UNSPECIFIED Status: Acute Current Visit: No Qualifiers: Chronic kidney disease stage 3 subtype: stage 3a (GFR 45-59) Qualified Code(s): N18.31 - Chronic kidney disease, stage 3a Annotation/Comment:: creatinine 1.7 and 3plus protienuria and hematuria seen prostate not inflamed or abnormal (7) Dependent edema SNOMED Code(s): 609252494 Code(s): R60.9 - EDEMA, UNSPECIFIED Status: Acute Current Visit: No (8) Type 2 diabetes mellitus SNOMED Code(s): 61529408 Code(s): E11.9 - TYPE 2 DIABETES MELLITUS WITHOUT COMPLICATIONS Status: Acute Priority: High Current Visit: No Onset Date: ~06/06/21 Qualifiers: Diabetes mellitus detention insulin use: with 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 - Problem List Review Problem List Initiated/Reviewed/Updated: Yes - My Orders Last 24 Hours: My Active Orders 06/05/21 17:25 Docusate Sodium/Sennosides [Senna Plus] 2 tab PO DAILY PRN 06/05/21 18:48 traMADol [Ultram] 50 mg PO BID PRN 06/05/21 18:55 Up With Assistance [RC] ASDIRECTED 06/05/21 18:58 Consult to Physical Therapy [PT Evaluation and Treatment] [CONS] Routine 06/05/21 18:59 Consult to Occupational Therapy [OT Evaluation and Treatment] [CONS] Routine 06/05/21 19:26 Communication Order [RC] ASDIRECTED 06/05/21 19:27 Blood Glucose Check, Bedside [RC] QIDACANDBED Vital Signs [RC] 00,04,08,12,16,20 06/05/21 19:29 Code Status [Resuscitation Status] Routine 06/05/21 19:30 Furosemide [Lasix] 20 mg IVPUSH BIDDIURETIC 06/05/21 20:00 cefTRIAXone [Rocephin] 2 gm Sodium Chloride 0.9% [Normal Saline AdvBag] 100 ml IV Q24H 06/05/21 21:00 Clopidogrel [Plavix] 75 mg PO DAILY Insulin Lispro [HumaLOG] See Protocol SUBCUT WITHMEALSANDBED Nystatin [Nystatin Crm] See Dose Instructions TOP BID Nystatin [Nystop] 1 gm TOP BID 06/05/21 21:28 Urinary Catheter Assessment [RC] ASDIRECTED 06/05/21 21:30 Insert Urinary Catheter [OM.PC] Q24H 06/05/21 23:50 Bladder Scan [RC] ASDIRECTED 06/06/21 Breakfast ADA Diabetic [[employer] Diet] [DIET] 06/06/21 09:00 Consult to Case Management/Certified Endoscopy Technician [CONS] Routine Doxazosin [Cardura] 1 mg PO DAILY Gabapentin [Neurontin] 300 mg PO DAILY Isosorbide Mononitrate [Imdur] 30 mg PO DAILY 06/06/21 11:16 BLOOD GAS ARTERIAL [BG] Urgent 06/06/21 11:33 RT Incentive Spirometry [RC] Q1HWA 06/06/21 11:34 Urinary Catheter Assessment [RC] ASDIRECTED Head wo Cont [CT] Routine 06/06/21 11:36 Consult to Speech Language Pathology [MERCHANT MILLER Evaluation and Treatment] [CONS] Routine Chest Abdomen Pelvis w Cont [CT] Routine 06/06/21 11:38 Urinary Catheter Assessment [RC] ASDIRECTED 06/06/21 11:45 Insert Urinary Catheter [OM.PC] Q24H Sodium Chloride 0.9% [Normal Saline] 1,000 ml IV ASDIRECTED 06/06/21 21:00 Insulin Glargine,Hum.Rec.Anlog [Semglee Pen] 73 unit SUBCUT BEDTIME atorvaSTATin [Lipitor] 10 mg PO Q2D@2100 06/07/21 05:00 CBC WITH AUTO DIFF [HEME] Routine CMP [COMPREHENSIVE METABOLIC PN,CMP] [CHEM] Routine PRO B-TYPE NATRIUR PEPT,BNPPRO [CHEM] Routine 06/08/21 05:00 CBC WITH AUTO DIFF [HEME] Routine CMP [COMPREHENSIVE METABOLIC PN,CMP] [CHEM] Routine - Assessment Assessment:: 06/06/21 assess: resp insuff ?bronchitis screens neg. but no discreet pneumonia seen on ct scan// severe atelectasis form weakness and inability to move self. elavated d dimer but no p.e.noted. pericardial effusion assymptomatic. chf stable . renal insuff creat 1.7 and 3+ protien and blood. abd and pelvic ct scan ordered with contrast as multiple unexplained findings. generalized weakness but susp. of rt arm stroke and head ct scan ordered. cog. impairment slightly better but chronic cogn. impairment suggestive of dementia and diabetic cerebral vasc. disease. neurogenic bladder sec to autonomic neuropathy? or other cause renal u.s shows no obstruction/tumor ct scan pending. suspect sacral nerve impairment given loss rectal tone as well . dm lifelong poor control and now with neuropathy/nephropathy and autonomic neuropathy./perhaps myopathy as well . morbid obesity : patient will require peminant total care . cellultitis better suspect pad but edam slightly improved with wraps and topical cream applied . cont rocephin as well . suspected sleep apnea. suspected severe cerebral vasc. disease and possibel multiple small stroke ct scan of head pending. leg pain multifactorial but likely cellulitis//edema and neuropathy as well as oa and diabetic myopathy. plan:: ct scans as ordered. control b.s sliding scale increased/ long acting ordered. slowly bring down hypertension start amlodapine and hydralizine and cont lasix. correct lytes. discussed findings with patient and . snif referral//pt//ot/speech therapy for cog eval and speech assessment. d.e. continued. neurogenic bladder treatment difficult and may need diverting nephrostomy but unlikely to get approval for surgery or urology to agree. check psa. get off sacral area as much as tolerated. sleep study needed. boh . - Plan Plan:: 06/06/21 . assess: resp insuff ?bronchitis screens neg. but no discreet pneumonia seen on ct scan// severe atelectasis form weakness and inability to move self. elavated d dimer but no p.e.noted. pericardial effusion assymptomatic. chf stable . renal insuff creat 1.7 and 3+ protien and blood. abd and pelvic ct scan ordered with contrast as multiple unexplained findings. generalized weakness but susp. of rt arm stroke and head ct scan ordered. cog. impairment slightly better but chronic cogn. impairment suggestive of dementia and diabetic cerebral vasc. disease. neurogenic bladder sec to autonomic neuropathy? or other cause renal u.s shows no obstruction/tumor ct scan pending. suspect sacral nerve impairment given loss rectal tone as well . dm lifelong poor control and now with neuropathy/nephropathy and autonomic neuropathy./perhaps myopathy as well . morbid obesity : patient will require peminant total care . cellultitis better suspect pad but edam slightly improved with wraps and topical cream applied . cont rocephin as well . suspected sleep apnea. suspected severe cerebral vasc. disease and possibel multiple small stroke ct scan of head pending. leg pain multifactorial but likely cellulitis//edema and neuropathy as well as oa and diabetic myopathy. plan:: ct scans as ordered. control b.s sliding scale increased/ long acting ordered. slowly bring down hypertension start amlodapine and hydralizine and cont lasix. correct lytes. discussed findings with patient and . snif referral//pt//ot/speech therapy for cog eval and speech assessment. d.e. continued. neurogenic bladder treatment difficult and may need diverting nephrostomy but unlikely to get approval for surgery or urology to agree. check psa. get off sacral area as much as tolerated. sleep study needed. boh .
--- NOTE | 2021-06-06 12:54 | PCM.HP.2 ---
H&P History of Present Illness - General Date of Service: 06/06/21 Admit Problem/Dx: [facility] ED Respiratory Complaint Patient Name: HENNA HENDRIX Date of : 1950 Patient Status: Inpatient Attending Provider: Joshua Garcia Date: 06/05/21 10:56 Initialization Date: 06/05/21 10:56 ED HPI GENERAL MEDICAL PROBLEM - General Chief Complaint: Respiratory Problem Stated Complaint: [facility] Time Seen by Provider: 06/05/21 10:54 Source of Information: Reports: Patient, Family History Limitations: Reports: No Limitations - History of Present Illness INITIAL COMMENTS - FREE TEXT/NARRATIVE: Patient is a 70-year-old male who is a somewhat poor historian. Patient's answers for most questions that I asked. Patient has been unable to get out of bed for 2 days due to chronic bilateral extremity pain and luteal pain for which he is on tramadol and Neurontin. Patient has a mild cough but denies any fever or chills or shortness of breath. We are unable to assess if he is having any exertional symptoms since he has been bedridden. states she is no longer able to take care of him and wants us to arrange for him to be in assisted living/long term. Patient's had no bloody or tarry stools. He denies any headache or any numbness weakness or paresthesias which is new. Patient's O2 saturation is 85% room air at rest. Patient has any chest pain. Onset: Unknown/Unsure Duration: Getting Worse Worsens with: Reports: Movement Associated Symptoms: Reports: Cough, Loss of Appetite, Malaise, Weakness. Denies: Fever/Chills, Headaches, Shortness of Breath - Related Data Allergies Allergy/AdvReac Type Severity Reaction Status Date / Time No Known Allergies Allergy Verified 06/05/21 10:43 Home Meds: Home Meds Cholecalciferol (Vitamin D3) [Vitamin D3] 1,000 unit PO DAILY 12/15/17 [History] Clopidogrel [Plavix] 75 mg PO DAILY 12/15/17 [History] Doxazosin [Doxazosin Mesylate] 1 mg PO DAILY 12/15/17 [History] Furosemide 20 mg PO DAILY 12/15/17 [History] Gabapentin [Neurontin] 300 mg PO DAILY 12/15/17 [History] Insulin Aspart [NovoLOG] 20 unit SQ DAILY 12/15/17 [History] Isosorbide Mononitrate [Imdur] 30 mg PO DAILY 12/15/17 [History] Metoprolol Tartrate 50 mg PO ASDIRECTED 12/15/17 [History] atorvaSTATin [Lipitor] 10 mg PO ASDIRECTED 12/15/17 [History] lisinopriL [Zestril] 2.5 mg PO DAILY 12/15/17 [History] metFORMIN HCl [Glucophage] 1,000 mg PO BID 12/15/17 [History] risperiDONE [Risperdal] 0.75 mg PO BID 12/15/17 [History] traMADol [Ultram] 50 mg PO BID PRN 12/15/17 [History] Metoprolol Tartrate [Lopressor] 25 mg PO BEDTIME 08/25/20 [History] Past Medical History HEENT History: Reports: Hard of Hearing, Impaired Vision Other HEENT History: 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 Improved with vitrectomyreturn to vision left eye. 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 He can walk with the aid of a gait aid. Psychiatric History: Reports: Anxiety, Depression Other Psychiatric History: behavioral issues related to stroke Endocrine/Metabolic History: Reports: Diabetes, Type II, Obesity/BMI 30+ Hematologic History: Reports: Anticoagulation Therapy Other Hematologic History: currently on plavix Dermatologic History: Reports: Venous Stasis Dermatitis - Infectious Disease History Infectious Disease History: Reports: Chicken Pox, Mumps, Rheumatic Fever - Past Surgical History HEENT Surgical History: Reports: Cataract Surgery Cardiovascular Surgical History: Reports: Coronary Artery Stent Musculoskeletal Surgical History: Reports: Arthroscopic Procedure Social & Family History - Family History Family Medical History: No Pertinent Family History - Tobacco Use Tobacco Use Status *Q: Former Tobacco User Years of Tobacco use: 47 Packs/Tins Daily: 1 Used Tobacco, but Quit: Yes Month/Year Tobacco Last Used: 2009 - Caffeine Use Caffeine Use: Reports: Coffee, Soda - Recreational Drug Use Recreational Drug Use: No - Living Situation & Occupation Living situation: Reports: , with Significant Other (Girlfriend) Occupation: Disabled ED ROS GENERAL - Review of Systems Review Of Systems: Comprehensive ROS is negative, except as noted in HPI. Constitutional: Reports: Decreased Appetite Respiratory: Reports: Cough. Denies: Sputum Cardiovascular: Denies: Chest Pain Endocrine: Reports: Fatigue GI/Abdominal: Denies: Abdominal Pain Neurological: Denies: Confusion, Headache, Tremors, Trouble Speaking ED EXAM, GENERAL - Physical Exam Exam: See Below General Appearance: Alert, No Apparent Distress Neck: Normal Inspection, Supple Respiratory/Chest: No Respiratory Distress, Lungs Clear Cardiovascular: Regular Rate, Rhythm Back Exam: No: CVA Tenderness (L), CVA Tenderness (R) Extremities: Pedal Edema, Redness, Other (Bilateral stasis changes of both lower calves and ankles.) Neurological: CN II-XII Intact, No Motor/Sensory Deficits Skin Exam: Warm, Dry Course - Vital Signs Text/Narrative:: Patient's chest x-ray showed some thickened atelectasis on his right lower lobe. His D-dimer was very elevated and sent for CTA of his chest which showed the s srini thickened atelectasis in addition to numerous nodules and some unchanged adrenal masses. Patient's lab work was unremarkable and his Covid influenza was negative. Patient remains hypoxic and satting 85% still on room air at rest. Patient's states that she is unable to take care of him at home and we need to arrange for him to be in assisted living situation since even once he is better he will not be able to go home with her. She is aware that he is hypoxic and for that reason we are admitting him to the hospital. Last Recorded V/S: Last Vital Signs Temp 99.1 F 06/05/21 10:36 Pulse 99 06/05/21 15:05 Resp 16 06/05/21 15:05 BP 157/66 H 06/05/21 15:05 Pulse Ox 97 06/05/21 15:05 - Orders/Labs/Meds Orders: Active Orders 24 hr Category Date Time Status Insert Urinary Catheter [OM.PC] Q24H Care 06/05/21 12:15 Ordered Oxygen Therapy [RC] ASDIRECTED Care 06/05/21 11:22 Active RT Aerosol Therapy [RC] ASDIRECTED Care 06/05/21 15:05 Active Urinary Catheter Assessment [RC] ASDIRECTED Care 06/05/21 12:08 Active PROCALCITONIN [REF] Stat Lab 06/05/21 10:39 Received Sodium Chloride 0.9% [Normal Saline] 100 ml Med 06/05/21 15:30 Active IV ASDIRECTED Medication Orders Sodium Chloride (Normal Saline) 100 mls @ 60 mls/hr IV ASDIRECTED ANTONIO Labs: Laboratory Tests 06/05/21 06/05/21 06/05/21 Range/Units 10:33 10:39 10:39 WBC 9.17 H (4.23-9.07) K/mm3 RBC 3.91 L (4.63-6.08) M/mm3 Hgb 11.2 L (13.7-17.5) gm/dl Hct 35.4 L (40.1-51.0) % MCV 90.5 (79.0-92.2) fl MCH 28.6 (25.7-32.2) pg MCHC 31.6 L (32.2-35.5) g/dl RDW Std Deviation 45.3 H (35.1-43.9) fL Plt Count 349 H D (163-337) K/mm3 MPV 9.3 L (9.4-12.3) fl Neutrophils % (Manual) 81 H (40-60) % Band Neutrophils % 0 (0-10) % Lymphocytes % (Manual) 13 L (20-40) % Atypical Lymphs % 0 % Monocytes % (Manual) 5 (2-10) % Eosinophils % (Manual) 0 L (0.8-7.0) % Basophils % (Manual) 1 (0.2-1.2) Platelet Estimate Adequate Plt Morphology Comment See note Polychromasia 1+ slight RBC Morph Comment Not Reportable D-Dimer, Quantitative (0.19-0.50) mg/L Sodium 138 (136-145) mEq/L Potassium 4.2 (3.5-5.1) mEq/L Chloride 99 (98-107) mEq/L Carbon Dioxide 27 (21-32) mEq/L Anion Gap 16.2 H (5-15) BUN 26 H (7-18) mg/dL Creatinine 1.7 H (0.7-1.3) mg/dL Est Cr Clr Drug Dosing 35.67 mL/min Estimated GFR (MDRD) 40 (>60) mL/min BUN/Creatinine Ratio 15.3 (14-18) Glucose 230 H (70-99) mg/dL Lactic Acid (0.4-2.0) mmol/L Calcium 8.8 (8.5-10.1) mg/dL Total Bilirubin 0.5 (0.2-1.0) mg/dL AST 28 (15-37) U/L ALT 15 L (16-63) U/L Alkaline Phosphatase 107 (46-116) U/L Total Protein 7.9 (6.4-8.2) g/dl Albumin 2.7 L (3.4-5.0) g/dl Globulin 5.2 gm/dL Albumin/Globulin Ratio 0.5 L (1-2) Urine Color (Yellow) Urine Appearance (Clear) Urine pH (5.0-8.0) Ur Specific [place] (1.005-1.030) Urine Protein (Negative) Urine Glucose (UA) (Negative) Urine Ketones (Negative) Urine Occult Blood (Negative) Urine Nitrite (Negative) Urine Bilirubin (Negative) Urine Urobilinogen (0.2-1.0) Ur Leukocyte Esterase (Negative) Influenza Type A RNA Negative (NEGATIVE) Influenza Type B RNA Negative (NEGATIVE) SARS-CoV-2 RNA (JAMES) Negative (NEGATIVE) 06/05/21 06/05/21 06/05/21 Range/Units 10:39 10:39 12:04 WBC (4.23-9.07) K/mm3 RBC (4.63-6.08) M/mm3 Hgb (13.7-17.5) gm/dl Hct (40.1-51.0) % MCV (79.0-92.2) fl MCH (25.7-32.2) pg MCHC (32.2-35.5) g/dl RDW Std Deviation (35.1-43.9) fL Plt Count (163-337) K/mm3 MPV (9.4-12.3) fl Neutrophils % (Manual) (40-60) % Band Neutrophils % (0-10) % Lymphocytes % (Manual) (20-40) % Atypical Lymphs % % Monocytes % (Manual) (2-10) % Eosinophils % (Manual) (0.8-7.0) % Basophils % (Manual) (0.2-1.2) Platelet Estimate Plt Morphology Comment Polychromasia RBC Morph Comment D-Dimer, Quantitative 3.56 H (0.19-0.50) mg/L Sodium (136-145) mEq/L Potassium (3.5-5.1) mEq/L Chloride (98-107) mEq/L Carbon Dioxide (21-32) mEq/L Anion Gap (5-15) BUN (7-18) mg/dL Creatinine (0.7-1.3) mg/dL Est Cr Clr Drug Dosing mL/min Estimated GFR (MDRD) (>60) mL/min BUN/Creatinine Ratio (14-18) Glucose (70-99) mg/dL Lactic Acid 1.5 (0.4-2.0) mmol/L Calcium (8.5-10.1) mg/dL Total Bilirubin (0.2-1.0) mg/dL AST (15-37) U/L ALT (16-63) U/L Alkaline Phosphatase (46-116) U/L Total Protein (6.4-8.2) g/dl Albumin (3.4-5.0) g/dl Globulin gm/dL Albumin/Globulin Ratio (1-2) Urine Color Yellow (Yellow) Urine Appearance Cloudy H (Clear) Urine pH 5.5 (5.0-8.0) Ur Specific [place] 1.025 (1.005-1.030) Urine Protein 3+ H (Negative) Urine Glucose (UA) 2+ H (Negative) Urine Ketones 2+ H (Negative) Urine Occult Blood 2+ H (Negative) Urine Nitrite Negative (Negative) Urine Bilirubin Negative (Negative) Urine Urobilinogen 0.2 (0.2-1.0) Ur Leukocyte Esterase Negative (Negative) Influenza Type A RNA (NEGATIVE) Influenza Type B RNA (NEGATIVE) SARS-CoV-2 RNA (JAMES) (NEGATIVE) Meds: Medications Generic Name Dose Route Start Last Admin Trade Name Freq PRN Reason Stop Dose Admin Sodium Chloride 100 mls @ 60 mls/hr 06/05/21 15:30 Normal Saline IV ASDIRECTED ANTONIO Discontinued Medications Generic Name Dose Route Start Last Admin Trade Name Freq PRN Reason Stop Dose Admin Albuterol/Ipratropium 3 ml 06/05/21 15:05 06/05/21 15:14 Albuterol/Ipratropium 3.0-0.5 Mg/3 Ml Neb Soln NEB 06/05/21 15:06 3 ml ONETIME ONE Administration Iopamidol 100 ml 06/05/21 15:19 Iopamidol 755 Mg/Ml 100 Ml Bottle IVPUSH 06/05/21 15:20 ONETIME ONE Iopamidol 50 ml 06/05/21 15:19 Iopamidol 755 Mg/Ml 50 Ml Bottle IVPUSH 06/05/21 15:20 ONETIME ONE Tramadol HCl 50 mg 06/05/21 13:19 06/05/21 13:46 Tramadol 50 Mg Tab PO 06/05/21 13:20 50 mg ONETIME ONE Administration Departure - Departure Time of Disposition: 15:30 Disposition: Admitted As Inpatient 67 Condition: Fair Clinical Impression: Adult failure to thrive, Unable to ambulate - Discharge Information Referrals: Nolberto Garcia MD [Primary Care Provider] - Sepsis Event Note (ED) - Evaluation Sepsis Screening Result: No Definite Risk - Focused Exam Vital Signs: Vital Signs Temp Pulse Resp BP Pulse Ox Pulse Ox 06/05/21 15:05 99 16 157/66 H 96 97 06/05/21 11:23 86 L 06/05/21 10:36 99.1 F 100 18 210/89 H 92 L - My Orders Last 24 Hours: My Active Orders 06/05/21 10:39 PROCALCITONIN [REF] Stat 06/05/21 11:22 Oxygen Therapy [RC] ASDIRECTED 06/05/21 12:08 Urinary Catheter Assessment [RC] ASDIRECTED 06/05/21 12:15 Insert Urinary Catheter [OM.PC] Q24H 06/05/21 15:05 RT Aerosol Therapy [RC] ASDIRECTED 06/05/21 15:30 Sodium Chloride 0.9% [Normal Saline] 100 ml IV ASDIRECTED - Assessment/Plan Last 24 Hours: My Active Orders 06/05/21 10:39 PROCALCITONIN [REF] Stat 06/05/21 11:22 Oxygen Therapy [RC] ASDIRECTED 06/05/21 12:08 Urinary Catheter Assessment [RC] ASDIRECTED 06/05/21 12:15 Insert Urinary Catheter [OM.PC] Q24H 06/05/21 15:05 RT Aerosol Therapy [RC] ASDIRECTED 06/05/21 15:30 Sodium Chloride 0.9% [Normal Saline] 100 ml IV ASDIRECTED Admission Diagnosis/Problem Admission Diagnosis/Problem Hypoxia Source of Information: Patient, Other ( gives most information) History Limitations: Reports: Altered Mental Status (2 days ago with coughing /butler/sob at rest.) - History of Present Illness Initial Comments - Free Text/Narative: 06/06/21 Patient is a 70 yr old male who is in Med/Surg. Patient's answers for most questions. Patient has been unable to get out of bed for 3 days due to chronic bilateral extremity pain and gluteal pain when he developed a cough and butler. Patient came w/ a mild cough but denied any fever or chills or shortness of breath. We are unable to assess if he is having any exertional symptoms since he has been bedridden. states she is no longer able to take care of him and wants us to arrange for him to be in assisted living/long term. Patient's had no bloody or tarry stools before admit. He denies any headache or any numbness weakness or paresthesias which is new. Patient's O2 saturation is 85% room air at rest. Patient has not c/o any chest pain. It is not known at this time how long pt has been homebound or what he did before being homebound. Assesment: Pt is neg for covid, RSV, Flu, and Pneumonia There is a hx of stoke 7 yrs ago, states he never got his short term memory back. He is homebound and is main caregiver. pt has continually diminishing mobility...started with a shuffle, then could walk w/help of cane, then walker, and now can't stand more than 5 mins. states pt fell at thanksgiving has been pretty much bed ridden since. states everything got worse around 2 wks ago when cough developed. Pt is not always compliant on meds and has uncontrolled DM II PT is retaining urine with no prior hx of incontinence for urine or BM's... Pt is on lasix 20mg daily for edema Prostate exam w/hemocult was done in room today w/NEG findings There is no rectal tone...pt has 800cc urine w/no urge to go diminished sensations para rectally...Echo of abdom and pelvis needed....neurogenic bladder and weakness and renal failure and fatty liver No hx of delirium, although states he has depression symptoms diminishing mobility, speech, and cognition there is focal weakness to Rt upper arm need to rule out stroke....needs CT of head Pt c/o chronic pain to legs bilat, w/mild pressure pain, also to buttocks and back, w/no hx of trauma...CT of Spine and Sacrum/Pelvis small sacral sore noted, wound management needed Toes: intact propro/// diffuse sclerotic infections.. Lungs: Ronchi and decreased breath sounds with intermit. wheezing...wet ....on 3 litters of O2 and sats are holding at 90%....repeat chest x-ray, portable, needed for tomorrow Pt has general weakness...need to rule out CVA work w/pt on spirometer states pt does snore but not much....no sleep study has been done, no hx of apnea Cardio:Pt has hx of CAD w/no c/o of symptoms BP is elevated and uncontrolled.....add amlodipine 5mg and hydralazine 25 q 6 Echo from 06/05 shows tachy between 90-110........repeat echo needed HX: CHF Hypoxia-mulit facet Renal Insuf. uncontrolled DM II Neuropathy Cognitive Diminishment Fatty Liver Plan: repeat Chest x-ray, portable, for tomorrow...cough and wheezing CT of Head...diminishing mobility, speech, cognition, and focal weakness CT of Spine and Sacrum/Pelvis...diminished sensations and retention Echo of abdom and pelvis needed....neurogenic bladder and weakness and renal failure and fatty liver . thinsk he is having multiple strokes but suspect more myopathic picture and autonomic neuropathy. Add amlodipine 5mg Add Hydralazine 25mg Move patient to chair and around as much as possible to prevent Pneumonia Refer to [employer] Operator for long term admit Onset of Symptoms: Reports: Gradual Associated Symptoms: Reports: Confusion, Cough, Fever/Chills, Rash, Weakness - Related Data Allergies/Adverse Reactions: Allergies Allergy/AdvReac Type Severity Reaction Status Date / Time No Known Allergies Allergy Verified 06/05/21 10:43 Home Medications: Home Meds Cholecalciferol (Vitamin D3) [Vitamin D3] 1,000 unit PO DAILY 12/15/17 [History] Clopidogrel [Plavix] 75 mg PO DAILY 12/15/17 [History] Doxazosin [Doxazosin Mesylate] 1 mg PO DAILY 12/15/17 [History] Furosemide 20 mg PO DAILY 12/15/17 [History] Gabapentin [Neurontin] 300 mg PO DAILY 12/15/17 [History] Insulin Aspart [NovoLOG] 20 unit SQ DAILY 12/15/17 [History] Isosorbide Mononitrate [Imdur] 30 mg PO DAILY 12/15/17 [History] Metoprolol Tartrate 50 mg PO DAILY 12/15/17 [History] atorvaSTATin [Lipitor] 10 mg PO ASDIRECTED 12/15/17 [History] lisinopriL [Zestril] 2.5 mg PO DAILY 12/15/17 [History] metFORMIN HCl [Glucophage] 1,000 mg PO BID 12/15/17 [History] risperiDONE [Risperdal] 0.75 mg PO BID 12/15/17 [History] traMADol [Ultram] 50 mg PO BID PRN 12/15/17 [History] Metoprolol Tartrate [Lopressor] 25 mg PO BEDTIME 08/25/20 [History] Insulin Aspart [NovoLOG] See Protocol SQ WITHMEALSANDBED 06/05/21 [History] Insulin Degludec [Tresiba] 73 unit SQ DAILY 06/05/21 [History] Past Medical History HEENT History: Reports: Hard of Hearing, Impaired Vision Other HEENT History: blind right eye --previous loss of vision left eye due to d iabetic retinopathy and intraocular bleed. Improved with vitrectomyreturn to vision left eye. 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 He can walk with the aid of a gait aid. Psychiatric History: Reports: Anxiety, Depression Other Psychiatric History: behavioral issues related to stroke Endocrine/Metabolic History: Reports: Diabetes, Type II, Obesity/BMI 30+ Hematologic History: Reports: Anticoagulation Therapy Other Hematologic History: currently on plavix Dermatologic History: Reports: Venous Stasis Dermatitis - Infectious Disease History Infectious Disease History: Reports: Chicken Pox, Mumps, Rheumatic Fever - Past Surgical History HEENT Surgical History: Reports: Cataract Surgery Cardiovascular Surgical History: Reports: Coronary Artery Stent Musculoskeletal Surgical History: Reports: Arthroscopic Procedure Social & Family History - Family History Family Medical History: No Pertinent Family History Cardiac: Reports: Hypertension - Tobacco Use Tobacco Use Status *Q: Former Tobacco User Years of Tobacco use: 47 Packs/Tins Daily: 1 Used Tobacco, but Quit: Yes Month/Year Tobacco Last Used: December 2009 Second Hand Smoke Exposure: No - Caffeine Use Caffeine Use: Reports: Coffee, Soda Caffeine Use Comment: drinks about 2 cups coffee per day, drinks about 1 diet soda per day - Recreational Drug Use Recreational Drug Use: No - Living Situation & Occupation Living situation: Reports: , with Significant Other (Girlfriend) Occupation: Disabled H&P Review of Systems - Review of Systems: Review Of Systems: See Below General: Reports: No Symptoms HEENT: Reports: No Symptoms Pulmonary: Reports: No Symptoms Cardiovascular: Reports: No Symptoms, Dyspnea on Exertion, Orthopnea, Edema, Blood Pressure Problem Gastrointestinal: Reports: No Symptoms Genitourinary: Reports: No Symptoms Musculoskeletal: Reports: No Symptoms Skin: Reports: No Symptoms, Rash, Erythema Psychiatric: Reports: No Symptoms, Confusion Neurological: Reports: No Symptoms Hematologic/Lymphatic: Reports: Anemia Exam - Exam Exam: See Below - Vital Signs Vital Signs: Last Vital Signs Temp 36.9 C 06/06/21 08:34 Pulse 113 H 06/06/21 10:01 Resp 22 H 06/06/21 08:34 BP 133/65 06/06/21 10:01 Pulse Ox 92 L 06/06/21 10:01 Weight: 107.637 kg - Exam Quality Assessment: Supplemental Oxygen General: Lethargic HEENT: PERRLA, Hearing Intact, Mucosa Moist & [place], Nares Patent, Normal Nasal Septum, Posterior Pharynx Clear, Conjunctiva Clear, EOMI, EACs Clear, TMs Clear Neck: Supple, Trachea Midline, 2 Lungs: Decreased Breath Sounds, Crackles, Rhonchi, Wheezing Cardiovascular: Tachycardia GI/Abdominal Exam: Normal Bowel Sounds, Soft, Non-Tender, No Organomegaly, No Distention, No Abnormal Bruit, No Mass, Pelvis Stable (Male) Exam: No Hernia, Normal Inspection, Normal Prostate, Circumcised Rectal (Males) Exam: Prostate Normal, Decreased Rectal Tone Back Exam: Normal Inspection, Full Range of Motion, NT Extremities: Leg Pain Skin: Other (small sacrum sore) Neurological: Cranial Nerves Intact, Reflexes Equal Bilateral Neuro Extensive - Mental Status: Alert, Oriented x3, Normal Mood/Affect, Normal Cognition Neuro Extensive - Motor, Sensory, Reflexes: CN II-XII Intact, Normal Gait, Normal Reflexes Psychiatric: Alert, Normal Affect, Normal Mood Physical Exam Comments:: 06/06/21 Patient is a 70 yr old male who is in Med/Surg. Patient's answers for most questions. Patient has been unable to get out of bed for 3 days due to chronic bilateral extremity pain and luteal pain for which he is on tramadol and Neurontin at home. Patient came w/ a mild cough but denied any fever or chills or shortness of breath. We are unable to assess if he is having any exertional symptoms since he has been bedridden. states she is no longer able to take care of him and wants us to arrange for him to be in assisted living/long term. Patient's had no bloody or tarry stools before admit. He denies any headache or any numbness weakness or paresthesias which is new. Patient's O2 saturation is 85% room air at rest. Patient has not c/o any chest pain. It is not known at this time how long pt has been homebound or what he did before being homebound. Assesment: Pt is neg for covid, RSV, Flu, and Pneumonia There is a hx of stoke 7 yrs ago, states he never got his short term memory back. He is homebound and is main caregiver. pt has continually diminishing mobility...started with a shuffle, then could walk w/help of cane, then walker, and now can't stand more than 5 mins. states pt fell at thanksgiving has been pretty much bed ridden since. states everything got worse around 2 wks ago when cough developed. Pt is not always compliant on meds and has uncontrolled DM II PT is retaining urine with no prior hx of incontinence for urine or BM's... Pt is on lasix 20mg daily for edema Prostate exam w/hemocult was done in room today w/NEG findings There is no rectal tone...pt has 800cc urine w/no urge to go diminished sensations para rectally...Echo of abdom and pelvis needed....neur ogenic bladder and weakness and renal failure and fatty liver No hx of delirium, although states he has depression symptoms diminishing mobility, speech, and cognition there is focal weakness to Rt upper arm need to rule out stroke....needs CT of head Pt c/o chronic pain to legs bilat, w/mild pressure pain, also to buttocks and back, w/no hx of trauma...CT of Spine and Sacrum/Pelvis small sacral sore noted, wound management needed Toes: intact propre. Lungs: [place] breath sounds with intermit. wheezing...wet ....on 3 litters of O2 and sats are holding at 90%....repeat chest x-ray, portable, needed for tomorrow Pt has general weakness...need to rule out CVA work w/pt on spirometer states pt does snore but not much....no sleep study has been done, no hx of apnea Cardio:Pt has hx of CAD w/no c/o of symptoms BP is elevated and uncontrolled.....add amlodipine 5mg and hydralazine 25 q 6 Echo from 06/05 shows tachy between 90-110........repeat echo needed HX: CHF Hypoxia-mulit facet Renal Insuf. uncontrolled DM II Neuropathy Cognitive Diminishment Fatty Liver Plan: repeat Chest x-ray, portable, for tomorrow...cough and wheezing CT of Head...diminishing mobility, speech, cognition, and focal weakness CT of Spine and Sacrum/Pelvis...diminished sensations and retention Echo of abdom and pelvis needed....neurogenic bladder and weakness and renal failure and fatty liver Add amlodipine 5mg Add Hydralazine 25mg Move patient to chair and around as much as possible to prevent Pneumonia Refer to [employer] Machine Operator for long term admit - Patient Data Lab Results Last 24 hrs: Laboratory Results - last 24 hr 06/05/21 06/05/21 06/05/21 Range/Units 10:33 10:39 10:39 WBC 9.17 H (4.23-9.07) K/mm3 RBC 3.91 L (4.63-6.08) M/mm3 Hgb 11.2 L (13.7-17.5) gm/dl Hct 35.4 L (40.1-51.0) % MCV 90.5 (79.0-92.2) fl MCH 28.6 (25.7-32.2) pg MCHC 31.6 L (32.2-35.5) g/dl RDW Std Deviation 45.3 H (35.1-43.9) fL Plt Count 349 H D (163-337) K/mm3 MPV 9.3 L (9.4-12.3) fl Neut % (Auto) (34.0-67.9) % Lymph % (Auto) (21.8-53.1) % [place] % (Auto) (5.3-12.2) % Eos % (Auto) (0.8-7.0) Baso % (Auto) (0.1-1.2) % Neut # (Auto) (1.78-5.38) K/mm3 Lymph # (Auto) (1.32-3.57) K/mm3 [place] # (Auto) (0.30-0.82) K/mm3 Eos # (Auto) (0.04-0.54) K/mm3 Baso # (Auto) (0.01-0.08) K/mm3 Neutrophils % (Manual) 81 H (40-60) % Band Neutrophils % 0 (0-10) % Lymphocytes % (Manual) 13 L (20-40) % Atypical Lymphs % 0 % Monocytes % (Manual) 5 (2-10) % Eosinophils % (Manual) 0 L (0.8-7.0) % Basophils % (Manual) 1 (0.2-1.2) Platelet Estimate Adequate Plt Morphology Comment See note Polychromasia 1+ slight RBC Morph Comment Not Reportable D-Dimer, Quantitative (0.19-0.50) mg/L Sodium 138 (136-145) mEq/L Potassium 4.2 (3.5-5.1) mEq/L Chloride 99 (98-107) mEq/L Carbon Dioxide 27 (21-32) mEq/L Anion Gap 16.2 H (5-15) BUN 26 H (7-18) mg/dL Creatinine 1.7 H (0.7-1.3) mg/dL Est Cr Clr Drug Dosing 35.67 mL/min Estimated GFR (MDRD) 40 (>60) mL/min BUN/Creatinine Ratio 15.3 (14-18) Glucose 230 H (70-99) mg/dL POC Glucose (70-99) mg/dL Lactic Acid (0.4-2.0) mmol/L Calcium 8.8 (8.5-10.1) mg/dL Total Bilirubin 0.5 (0.2-1.0) mg/dL AST 28 (15-37) U/L ALT 15 L (16-63) U/L Alkaline Phosphatase 107 (46-116) U/L NT-Pro-B Natriuret Pep (0-125) pg/mL Total Protein 7.9 (6.4-8.2) g/dl Albumin 2.7 L (3.4-5.0) g/dl Globulin 5.2 gm/dL Albumin/Globulin Ratio 0.5 L (1-2) Procalcitonin ng/mL Urine Color (Yellow) Urine Appearance (Clear) Urine pH (5.0-8.0) Ur Specific [place] (1.005-1.030) Urine Protein (Negative) Urine Glucose (UA) (Negative) Urine Ketones (Negative) Urine Occult Blood (Negative) Urine Nitrite (Negative) Urine Bilirubin (Negative) Urine Urobilinogen (0.2-1.0) Ur Leukocyte Esterase (Negative) Influenza Type A RNA Negative (NEGATIVE) Influenza Type B RNA Negative (NEGATIVE) SARS-CoV-2 RNA (JAMES) Negative (NEGATIVE) 06/05/21 06/05/21 06/05/21 Range/Units 10:39 10:39 10:39 WBC (4.23-9.07) K/mm3 RBC (4.63-6.08) M/mm3 Hgb (13.7-17.5) gm/dl Hct (40.1-51.0) % MCV (79.0-92.2) fl MCH (25.7-32.2) pg MCHC (32.2-35.5) g/dl RDW Std Deviation (35.1-43.9) fL Plt Count (163-337) K/mm3 MPV (9.4-12.3) fl Neut % (Auto) (34.0-67.9) % Lymph % (Auto) (21.8-53.1) % [place] % (Auto) (5.3-12.2) % Eos % (Auto) (0.8-7.0) Baso % (Auto) (0.1-1.2) % Neut # (Auto) (1.78-5.38) K/mm3 Lymph # (Auto) (1.32-3.57) K/mm3 [place] # (Auto) (0.30-0.82) K/mm3 Eos # (Auto) (0.04-0.54) K/mm3 Baso # (Auto) (0.01-0.08) K/mm3 Neutrophils % (Manual) (40-60) % Band Neutrophils % (0-10) % Lymphocytes % (Manual) (20-40) % Atypical Lymphs % % Monocytes % (Manual) (2-10) % Eosinophils % (Manual) (0.8-7.0) % Basophils % (Manual) (0.2-1.2) Platelet Estimate Plt Morphology Comment Polychromasia RBC Morph Comment D-Dimer, Quantitative 3.56 H (0.19-0.50) mg/L Sodium (136-145) mEq/L Potassium (3.5-5.1) mEq/L Chloride (98-107) mEq/L Carbon Dioxide (21-32) mEq/L Anion Gap (5-15) BUN (7-18) mg/dL Creatinine (0.7-1.3) mg/dL Est Cr Clr Drug Dosing mL/min Estimated GFR (MDRD) (>60) mL/min BUN/Creatinine Ratio (14-18) Glucose (70-99) mg/dL POC Glucose (70-99) mg/dL Lactic Acid 1.5 (0.4-2.0) mmol/L Calcium (8.5-10.1) mg/dL Total Bilirubin (0.2-1.0) mg/dL AST (15-37) U/L ALT (16-63) U/L Alkaline Phosphatase (46-116) U/L NT-Pro-B Natriuret Pep (0-125) pg/mL Total Protein (6.4-8.2) g/dl Albumin (3.4-5.0) g/dl Globulin gm/dL Albumin/Globulin Ratio (1-2) Procalcitonin 0.36 H ng/mL Urine Color (Yellow) Urine Appearance (Clear) Urine pH (5.0-8.0) Ur Specific [place] (1.005-1.030) Urine Protein (Negative) Urine Glucose (UA) (Negative) Urine Ketones (Negative) Urine Occult Blood (Negative) Urine Nitrite (Negative) Urine Bilirubin (Negative) Urine Urobilinogen (0.2-1.0) Ur Leukocyte Esterase (Negative) Influenza Type A RNA (NEGATIVE) Influenza Type B RNA (NEGATIVE) SARS-CoV-2 RNA (JAMES) (NEGATIVE) 06/05/21 06/05/21 06/05/21 Range/Units 12:04 18:41 23:13 WBC (4.23-9.07) K/mm3 RBC (4.63-6.08) M/mm3 Hgb (13.7-17.5) gm/dl Hct (40.1-51.0) % MCV (79.0-92.2) fl MCH (25.7-32.2) pg MCHC (32.2-35.5) g/dl RDW Std Deviation (35.1-43.9) fL Plt Count (163-337) K/mm3 MPV (9.4-12.3) fl Neut % (Auto) (34.0-67.9) % Lymph % (Auto) (21.8-53.1) % [place] % (Auto) (5.3-12.2) % Eos % (Auto) (0.8-7.0) Baso % (Auto) (0.1-1.2) % Neut # (Auto) (1.78-5.38) K/mm3 Lymph # (Auto) (1.32-3.57) K/mm3 [place] # (Auto) (0.30-0.82) K/mm3 Eos # (Auto) (0.04-0.54) K/mm3 Baso # (Auto) (0.01-0.08) K/mm3 Neutrophils % (Manual) (40-60) % Band Neutrophils % (0-10) % Lymphocytes % (Manual) (20-40) % Atypical Lymphs % % Monocytes % (Manual) (2-10) % Eosinophils % (Manual) (0.8-7.0) % Basophils % (Manual) (0.2-1.2) Platelet Estimate Plt Morphology Comment Polychromasia RBC Morph Comment D-Dimer, Quantitative (0.19-0.50) mg/L Sodium (136-145) mEq/L Potassium (3.5-5.1) mEq/L Chloride (98-107) mEq/L Carbon Dioxide (21-32) mEq/L Anion Gap (5-15) BUN (7-18) mg/dL Creatinine (0.7-1.3) mg/dL Est Cr Clr Drug Dosing mL/min Estimated GFR (MDRD) (>60) mL/min BUN/Creatinine Ratio (14-18) Glucose (70-99) mg/dL POC Glucose 199 H 200 H (70-99) mg/dL Lactic Acid (0.4-2.0) mmol/L Calcium (8.5-10.1) mg/dL Total Bilirubin (0.2-1.0) mg/dL AST (15-37) U/L ALT (16-63) U/L Alkaline Phosphatase (46-116) U/L NT-Pro-B Natriuret Pep (0-125) pg/mL Total Protein (6.4-8.2) g/dl Albumin (3.4-5.0) g/dl Globulin gm/dL Albumin/Globulin Ratio (1-2) Procalcitonin ng/mL Urine Color Yellow (Yellow) Urine Appearance Cloudy H (Clear) Urine pH 5.5 (5.0-8.0) Ur Specific [place] 1.025 (1.005-1.030) Urine Protein 3+ H (Negative) Urine Glucose (UA) 2+ H (Negative) Urine Ketones 2+ H (Negative) Urine Occult Blood 2+ H (Negative) Urine Nitrite Negative (Negative) Urine Bilirubin Negative (Negative) Urine Urobilinogen 0.2 (0.2-1.0) Ur Leukocyte Esterase Negative (Negative) Influenza Type A RNA (NEGATIVE) Influenza Type B RNA (NEGATIVE) SARS-CoV-2 RNA (JAMES) (NEGATIVE) 06/06/21 06/06/21 06/06/21 Range/Units 05:58 08:00 08:00 WBC (4.23-9.07) K/mm3 RBC (4.63-6.08) M/mm3 Hgb (13.7-17.5) gm/dl Hct (40.1-51.0) % MCV (79.0-92.2) fl MCH (25.7-32.2) pg MCHC (32.2-35.5) g/dl RDW Std Deviation (35.1-43.9) fL Plt Count (163-337) K/mm3 MPV (9.4-12.3) fl Neut % (Auto) (34.0-67.9) % Lymph % (Auto) (21.8-53.1) % [place] % (Auto) (5.3-12.2) % Eos % (Auto) (0.8-7.0) Baso % (Auto) (0.1-1.2) % Neut # (Auto) (1.78-5.38) K/mm3 Lymph # (Auto) (1.32-3.57) K/mm3 [place] # (Auto) (0.30-0.82) K/mm3 Eos # (Auto) (0.04-0.54) K/mm3 Baso # (Auto) (0.01-0.08) K/mm3 Neutrophils % (Manual) (40-60) % Band Neutrophils % (0-10) % Lymphocytes % (Manual) (20-40) % Atypical Lymphs % % Monocytes % (Manual) (2-10) % Eosinophils % (Manual) (0.8-7.0) % Basophils % (Manual) (0.2-1.2) Platelet Estimate Plt Morphology Comment Polychromasia RBC Morph Comment D-Dimer, Quantitative (0.19-0.50) mg/L Sodium 141 (136-145) mEq/L Potassium 3.6 (3.5-5.1) mEq/L Chloride 102 (98-107) mEq/L Carbon Dioxide 29 (21-32) mEq/L Anion Gap 13.6 (5-15) BUN 24 H (7-18) mg/dL Creatinine 1.7 H (0.7-1.3) mg/dL Est Cr Clr Drug Dosing 37.01 mL/min Estimated GFR (MDRD) 40 (>60) mL/min BUN/Creatinine Ratio 14.1 (14-18) Glucose 181 H (70-99) mg/dL POC Glucose 191 H (70-99) mg/dL Lactic Acid (0.4-2.0) mmol/L Calcium 8.7 (8.5-10.1) mg/dL Total Bilirubin 0.4 (0.2-1.0) mg/dL AST 33 (15-37) U/L ALT 8 L (16-63) U/L Alkaline Phosphatase 153 H (46-116) U/L NT-Pro-B Natriuret Pep 1912 H (0-125) pg/mL Total Protein 7.4 (6.4-8.2) g/dl Albumin 2.3 L (3.4-5.0) g/dl Globulin 5.1 gm/dL Albumin/Globulin Ratio 0.5 L (1-2) Procalcitonin ng/mL Urine Color (Yellow) Urine Appearance (Clear) Urine pH (5.0-8.0) Ur Specific [place] (1.005-1.030) Urine Protein (Negative) Urine Glucose (UA) (Negative) Urine Ketones (Negative) Urine Occult Blood (Negative) Urine Nitrite (Negative) Urine Bilirubin (Negative) Urine Urobilinogen (0.2-1.0) Ur Leukocyte Esterase (Negative) Influenza Type A RNA (NEGATIVE) Influenza Type B RNA (NEGATIVE) SARS-CoV-2 RNA (JAMES) (NEGATIVE) 06/06/21 Range/Units 08:00 WBC 9.61 H (4.23-9.07) K/mm3 RBC 3.81 L (4.63-6.08) M/mm3 Hgb 10.8 L (13.7-17.5) gm/dl Hct 34.2 L (40.1-51.0) % MCV 89.8 (79.0-92.2) fl MCH 28.3 (25.7-32.2) pg MCHC 31.6 L (32.2-35.5) g/dl RDW Std Deviation 45.4 H (35.1-43.9) fL Plt Count 349 H (163-337) K/mm3 MPV 9.2 L (9.4-12.3) fl Neut % (Auto) 77.8 H (34.0-67.9) % Lymph % (Auto) 10.1 L (21.8-53.1) % [place] % (Auto) 11.1 (5.3-12.2) % Eos % (Auto) 0.3 L (0.8-7.0) Baso % (Auto) 0.5 (0.1-1.2) % Neut # (Auto) 7.47 H (1.78-5.38) K/mm3 Lymph # (Auto) 0.97 L (1.32-3.57) K/mm3 [place] # (Auto) 1.07 H (0.30-0.82) K/mm3 Eos # (Auto) 0.03 L (0.04-0.54) K/mm3 Baso # (Auto) 0.05 (0.01-0.08) K/mm3 Neutrophils % (Manual) (40-60) % Band Neutrophils % (0-10) % Lymphocytes % (Manual) (20-40) % Atypical Lymphs % % Monocytes % (Manual) (2-10) % Eosinophils % (Manual) (0.8-7.0) % Basophils % (Manual) (0.2-1.2) Platelet Estimate Plt Morphology Comment Polychromasia RBC Morph Comment D-Dimer, Quantitative (0.19-0.50) mg/L Sodium (136-145) mEq/L Potassium (3.5-5.1) mEq/L Chloride (98-107) mEq/L Carbon Dioxide (21-32) mEq/L Anion Gap (5-15) BUN (7-18) mg/dL Creatinine (0.7-1.3) mg/dL Est Cr Clr Drug Dosing mL/min Estimated GFR (MDRD) (>60) mL/min BUN/Creatinine Ratio (14-18) Glucose (70-99) mg/dL POC Glucose (70-99) mg/dL Lactic Acid (0.4-2.0) mmol/L Calcium (8.5-10.1) mg/dL Total Bilirubin (0.2-1.0) mg/dL AST (15-37) U/L ALT (16-63) U/L Alkaline Phosphatase (46-116) U/L NT-Pro-B Natriuret Pep (0-125) pg/mL Total Protein (6.4-8.2) g/dl Albumin (3.4-5.0) g/dl Globulin gm/dL Albumin/Globulin Ratio (1-2) Procalcitonin ng/mL Urine Color (Yellow) Urine Appearance (Clear) Urine pH (5.0-8.0) Ur Specific [place] (1.005-1.030) Urine Protein (Negative) Urine Glucose (UA) (Negative) Urine Ketones (Negative) Urine Occult Blood (Negative) Urine Nitrite (Negative) Urine Bilirubin (Negative) Urine Urobilinogen (0.2-1.0) Ur Leukocyte Esterase (Negative) Influenza Type A RNA (NEGATIVE) Influenza Type B RNA (NEGATIVE) SARS-CoV-2 RNA (JAMES) (NEGATIVE) Result Diagrams: 06/06/21 08:00 06/06/21 08:00 Sepsis Event Note - Evaluation Sepsis Screening Result: No Definite Risk - Focused Exam Vital Signs: Vital Signs Temp Pulse Resp BP Pulse Ox 06/06/21 10:01 113 H 133/65 92 L 06/06/21 08:42 180/78 H 06/06/21 08:41 180/78 H 06/06/21 08:34 36.9 C 114 H 22 H 192/84 H 96 06/06/21 05:34 36.6 C 120 H 18 159/48 H 93 L 06/06/21 00:32 37.2 C 109 H 18 164/84 H 91 L *Q Meaningful Use (ADM) - VTE *Q VTE Mechanical Contraindications *Q: At Risk for Falls - VTE Risk Assess *Q Each Risk Factor Represents 1 Point: Swollen Legs, Current Total Score 1 Point Risk Factors: 1 Each Risk Factor Represents 2 Points: Age 60 - 74 Years Total Score 2 Point Risk Factors: 2 - Problem List (1) Adrenal benign tumor SNOMED Code(s): 80740443 ICD Code: D35.00 - BENIGN NEOPLASM OF UNSPECIFIED ADRENAL GLAND Status: Acute Priority: High Current Visit: Yes Problem Details: bilateral tumors adrenal but good adrenal function Qualifiers: Laterality: unspecified laterality Qualified Code(s): D35.00 - Benign cameron plasm of unspecified adrenal gland (2) Adult failure to thrive SNOMED Code(s): 562675543 ICD Code: R62.7 - ADULT FAILURE TO THRIVE Status: Acute Priority: High Current Visit: Yes (3) CHF (congestive heart failure), NYHA class II SNOMED Code(s): 259769826, 597682219 ICD Code: I50.9 - HEART FAILURE, UNSPECIFIED Status: Acute Priority: Medium Current Visit: Yes Onset Date: ~06/06/21 Problem Details: needs echo and ordered off hctz and started lasix with good response. neurogenic bowel a nd bladder but no obstruction or hydronephrosis seen // suspect lvh and no anginal symptoms despite high b.p. rule out peric ardial dysfunction. Qualifiers: Congestive heart failure type: combined (4) Sensation alteration, late effect of cerebrovascular disease SNOMED Code(s): 47419004, 435400347 ICD Code: I69.998 - OTHER SEQUELAE FOLLOWING UNSPECIFIED CEREBROVASCULAR DISEASE; R20.9 - UNSPECIFIED DISTURBANCES OF SKIN SENSATION Status: Acute Priority: Medium Current Visit: Yes Onset Date: ~06/06/21 Problem Details: repeat head ct scan sec. to possible multi infarct pattern. (5) Unable to ambulate SNOMED Code(s): 269336993 ICD Code: R26.2 - DIFFICULTY IN WALKING, NOT ELSEWHERE CLASSIFIED Status: Acute Priority: High Current Visit: Yes Onset Date: ~06/06/21 Problem Details: ct scan of lumbar sacral area ordered no recent trauma no rectal tone and neurogenic bladder but no incontinance of either (6) Weakness generalized SNOMED Code(s): 83046221 ICD Code: R53.1 - WEAKNESS Status: Acute Priority: High Current Visit: Yes Onset Date: ~06/06/21 Problem Details: unable to do any cares needs liz lift to change positions.pt/ot/speech therapy seeing. (7) Abdominal pain SNOMED Code(s): 58623085 ICD Code: R10.9 - UNSPECIFIED ABDOMINAL PAIN Status: Acute Current Visit: No Qualifiers: Abdominal location: right upper quadrant Qualified Code(s): R10.11 - Right upper quadrant pain (8) Type 2 diabetes mellitus SNOMED Code(s): 12879109 ICD Code: E11.9 - TYPE 2 DIABETES MELLITUS WITHOUT COMPLICATIONS Status: Acute Priority: High Current Visit: No Onset Date: ~06/06/21 Problem Details: needs insulin lifelong. Qualifiers: Diabetes mellitus long-term insulin use: with technician terminal and repeater use Diabetes vicky litus complication status: with kidney complications Diabetes mellitus co mplication detail: with chronic kidney disease Chronic kidney disease stage: stage 3 (moderate) Problem List Initiated/Reviewed/Updated: Yes Orders Last 24hrs: Active Orders 24 hr Category Date Time Status Admission Status [Patient Status] [ADT] Routine ADT 06/05/21 15:34 Active Bladder Scan [RC] ASDIRECTED Care 06/05/21 23:50 Active Blood Glucose Check, Bedside [RC] QIDACANDBED Care 06/05/21 19:27 Active Communication Order [RC] ASDIRECTED Care 06/05/21 19:26 Active Communication Order [RC] ASDIRECTED Care 06/06/21 08:38 Active Insert Urinary Catheter [OM.PC] Q24H Care 06/05/21 21:30 Ordered Oxygen Therapy [RC] ASDIRECTED Care 06/05/21 11:22 Active RT Aerosol Therapy [RC] ASDIRECTED Care 06/05/21 15:05 Active Up With Assistance [RC] ASDIRECTED Care 06/05/21 18:55 Active Urinary Catheter Assessment [RC] ASDIRECTED Care 06/05/21 21:28 Active Vital Signs [RC] 00,04,08,12,16,20 Care 06/05/21 19:27 Active Consult to Case Management/Abrasive Coating Machine Operator [CONS] Cons 06/06/21 09:00 Active Routine Consult to Occupational Therapy [OT Evaluation and Cons 06/05/21 18:59 Active Treatment] [CONS] Routine Consult to Physical Therapy [PT Evaluation and Cons 06/05/21 18:58 Active Treatment] [CONS] Routine ADA Diabetic [[employer] Diet] [DIET Diet 06/06/21 Breakfast Active ] CBC WITH AUTO DIFF [HEME] Routine Lab 06/07/21 05:00 Ordered CBC WITH AUTO DIFF [HEME] Routine Lab 06/08/21 05:00 Ordered CMP [COMPREHENSIVE METABOLIC PN,CMP] [CHEM] Routine Lab 06/07/21 05:00 Ordered CMP [COMPREHENSIVE METABOLIC PN,CMP] [CHEM] Routine Lab 06/08/21 05:00 Ordered PRO B-TYPE NATRIUR PEPT,BNPPRO [CHEM] Routine Lab 06/07/21 05:00 Ordered Clopidogrel [Plavix] Med 06/05/21 21:00 Active 75 mg PO DAILY Docusate Sodium/Sennosides [Senna Plus] Med 06/05/21 17:25 Active 2 tab PO DAILY PRN Doxazosin [Cardura] Med 06/06/21 09:00 Active 1 mg PO DAILY Furosemide [Lasix] Med 06/05/21 19:30 Active 20 mg IVPUSH BIDDIURETIC Gabapentin [Neurontin] Med 06/06/21 09:00 Active 300 mg PO DAILY Insulin Glargine,Hum.Rec.Anlog [Semglee Pen] Med 06/06/21 21:00 Active 73 unit SUBCUT BEDTIME Insulin Lispro [HumaLOG] Med 06/05/21 21:00 Active See Protocol SUBCUT WITHMEALSANDBED Isosorbide Mononitrate [Imdur] Med 06/06/21 09:00 Active 30 mg PO DAILY Nystatin [Nystatin Crm] Med 06/05/21 21:00 Active See Dose Instructions TOP BID Nystatin [Nystop] Med 06/05/21 21:00 Active 1 gm TOP BID atorvaSTATin [Lipitor] Med 06/06/21 21:00 Active 10 mg PO Q2D@2100 cefTRIAXone [Rocephin] 2 gm Med 06/05/21 20:00 Active Sodium Chloride 0.9% [Normal Saline AdvBag] 100 ml IV Q24H traMADol [Ultram] Med 06/05/21 18:48 Active 50 mg PO BID PRN Code Status [Resuscitation Status] Routine Resus Stat 06/05/21 19:29 Ordered Medication Orders Atorvastatin Calcium (Atorvastatin 20 Mg Tab) 10 mg PO Q2D@2100 [facility] Clopidogrel Bisulfate (Clopidogrel 75 Mg Tab) [address] [facility] Last Admin: 06/06/21 08:40 Dose: 75 mg Documented by: Admin: 06/05/21 21:07 Dose: 75 mg Documented by: DAGO Doxazosin Mesylate (Doxazosin 2 Mg Tab) [address] [facility] Last Admin: 06/06/21 08:42 Dose: 1 mg Documented by: GAYLE Furosemide (Furosemide 20 Mg/2 Ml Vial) [address] [facility] Last Admin: 06/06/21 06:02 Dose: 20 mg Documented by: Admin: 06/05/21 20:24 Dose: 20 mg Documented by: DAGO Gabapentin (Gabapentin 300 Mg Cap) [address] [facility] Last Admin: 06/06/21 08:41 Dose: 300 mg Documented by: GAYLE Ceftriaxone Sodium 2 gm/ (Sodium Chloride) 100 mls @ 200 mls/hr IV Q24H [facility] Last Admin: 06/05/21 21:05 Dose: 200 mls/hr Documented by: DAGO Insulin Glargine (Insulin Glargine,Hum.Rec.Anlog 100 Unit/Ml 3 Ml Pen) 73 unit SUBCUT BEDTIME ANTONIO Insulin Human Lispro (Insulin Lispro 100 Unit/Ml 3 Ml Kwikpen) [address] [facility]; Protocol Last Admin: 06/06/21 08:43 Dose: 1 unit Documented by: Admin: 06/05/21 23:18 Dose: Not Given Documented by: DAGO Isosorbide Mononitrate (Isosorbide Mononitrate 30 Mg Tab.Er) [address] [facility] Last Admin: 06/06/21 08:41 Dose: 30 mg Documented by: GAYLE Nystatin (Nystatin Topical Powder 15 Gm Bottle) [address] [facility] Last Admin: 06/06/21 08:58 Dose: 1 applic Documented by: Admin: 06/05/21 21:06 Dose: 1 applic Documented by: DAGO Nystatin (Nystatin Crm 30 Gm Tube) [address] [facility] Last Admin: 06/06/21 08:57 Dose: 1 applic Documented by: Admin: 06/05/21 21:07 Dose: 1 applic Documented by: DAGO Senna/Docusate Sodium (Docusate Sodium/Sennosides 50-8.6 Mg Tab) 2 tab PO DAILY PRN PRN Reason: Constipation Last Admin: 06/06/21 06:02 Dose: 2 tab Documented by: Admin: 06/05/21 21:07 Dose: 2 tab Documented by: DAGO Tramadol HCl (Tramadol 50 Mg Tab) 50 mg PO BID PRN PRN Reason: Pain Last Admin: 06/06/21 08:48 Dose: 50 mg Documented by: GAYLE Assessment/Plan Comment:: 06/06/21 Patient is a 70 yr old male who is in Med/Surg. Patient's answers for most questions. Patient has been unable to get out of bed for 3 days due to chronic bilateral extremity pain and luteal pain for which he is on tramadol and Neurontin at home. Patient came w/ a mild cough but denied any fever or chills or shortness of breath. We are unable to assess if he is having any exertional symptoms since he has been bedridden. states she is no longer able to take care of him and wants us to arrange for him to be in assisted living/long term. Patient's had no bloody or tarry stools before admit. He denies any headache or any numbness weakness or paresthesias which is new. Patient's O2 saturation is 85% room air at rest. Patient has not c/o any chest pain. It is not known at this time how long pt has been homebound or what he did before being homebound. Assesment: Pt is neg for covid, RSV, Flu, and Pneumonia There is a hx of stoke 7 yrs ago, states he never got his short term memory back. He is homebound and is main caregiver. pt has continually diminishing mobility...started with a shuffle, then could walk w/help of cane, then walker, and now can't stand more than 5 mins. states pt fell at thanksgiving has been pretty much bed ridden since. states everything got worse around 2 wks ago when cough developed. Pt is not always compliant on meds and has uncontrolled DM II PT is retaining urine with no prior hx of incontinence for urine or BM's... Pt is on lasix 20mg daily for edema Prostate exam w/hemocult was done in room today w/NEG findings There is no rectal tone...pt has 800cc urine w/no urge to go diminished sensations para rectally...Echo of abdom and pelvis needed....neurogenic bladder and weakness and renal failure and fatty liver No hx of delirium, although states he has depression symptoms diminishing mobility, speech, and cognition there is focal weakness to Rt upper arm need to rule out stroke....needs CT of head Pt c/o chronic pain to legs bilat, w/mild pressure pain, also to buttocks and back, w/no hx of trauma...CT of Spine and Sacrum/Pelvis small sacral sore noted, wound management needed Toes: intact propre. Lungs: [place] breath sounds with intermit. wheezing...wet ....on 3 litters of O2 and sats are holding at 90%....repeat chest x-ray, portable, needed for tomorrow Pt has general weakness...need to rule out CVA work w/pt on spirometer states pt does snore but not much....no sleep study has been done, no hx of apnea Cardio:Pt has hx of CAD w/no c/o of symptoms BP is elevated and uncontrolled.....add amlodipine 5mg and hydralazine 25 q 6 Echo from 06/05 shows tachy between 90-110........repeat echo needed HX: CHF Hypoxia-mulit facet Renal Insuf. uncontrolled DM II Neuropathy Cognitive Diminishment Fatty Liver Plan: repeat Chest x-ray, portable, for tomorrow...cough and wheezing CT of Head...diminishing mobility, speech, cognition, and focal weakness CT of Spine and Sacrum/Pelvis...diminished sensations and retention Echo of abdom and pelvis needed....neurogenic bladder and weakness and renal failure and fatty liver Add amlodipine 5mg Add Hydralazine 25mg Move patient to chair and around as much as possible to prevent Pneumonia Refer to [employer] for long term admit - Mortality Measure Prognosis:: Poor
[2021-06-06] MEDS: hydrALAZINE 10 MG Tab PO SCH ×2 (13:17→20:05)
[2021-06-06] MEDS: amLODIPine 5 MG Tab PO SCH (13:20)
[2021-06-06] MEDS ORDERED: Iopamidol 612 MG/ML 50 ML SDV IVPUSH ONE (13:21)
[2021-06-06] MEDS ORDERED: Sodium Chloride 0.9% 10 ML Syringe FLUSH ONE (13:21)
[2021-06-06] MEDS ORDERED: Iopamidol 612 MG/ML 100 ML Bottle IVPUSH ONE (13:21)
[2021-06-06] MEDS ORDERED: Sodium Chloride 0.9% 100 ML IV SCH (13:30)
--- NOTE | 2021-06-06 14:59 | PCM.PN ---
- General Info Date of Service: 06/06/21 Admission Dx/Problem (Free Text): hypoxia/edema/cellulitis - Patient Data Vitals - Most Recent: Last Vital Signs Temp 36.5 C 06/06/21 11:07 Pulse 115 H 06/06/21 11:07 Resp 21 H 06/06/21 11:07 BP 180/57 H 06/06/21 13:20 Pulse Ox 91 L 06/06/21 11:07 Weight - Most Recent: 107.637 kg I&O - Last 24 Hours: Intake & Output 06/05/21 06/06/21 06/06/21 23:59 07:59 15:59 Intake Total 88 300 0 Output Total 1000 1200 0 Balance -912 -900 0 Lab Results Last 24 Hours: Laboratory Results - last 24 hr 06/05/21 06/05/21 06/05/21 Range/Units 10:39 18:41 23:13 WBC (4.23-9.07) K/mm3 RBC (4.63-6.08) M/mm3 Hgb (13.7-17.5) gm/dl Hct (40.1-51.0) % MCV (79.0-92.2) fl MCH (25.7-32.2) pg MCHC (32.2-35.5) g/dl RDW Std Deviation (35.1-43.9) fL Plt Count (163-337) K/mm3 MPV (9.4-12.3) fl Neut % (Auto) (34.0-67.9) % Lymph % (Auto) (21.8-53.1) % Mchenry % (Auto) (5.3-12.2) % Eos % (Auto) (0.8-7.0) Baso % (Auto) (0.1-1.2) % Neut # (Auto) (1.78-5.38) K/mm3 Lymph # (Auto) (1.32-3.57) K/mm3 Mchenry # (Auto) (0.30-0.82) K/mm3 Eos # (Auto) (0.04-0.54) K/mm3 Baso # (Auto) (0.01-0.08) K/mm3 Puncture Site ABG pH (7.35-7.45) ABG pCO2 (35.0-45.0) mmHg ABG pO2 (80.0-100.0) mmHg ABG HCO3 (22.0-26.0) meq/L ABG O2 Saturation (96.0-97.0) % ABG Base Excess (-2-2.0) Tiburcio Test O2 Delivery Device Oxygen Flow Rate Sodium (136-145) mEq/L Potassium (3.5-5.1) mEq/L Chloride (98-107) mEq/L Carbon Dioxide (21-32) mEq/L Anion Gap (5-15) BUN (7-18) mg/dL Creatinine (0.7-1.3) mg/dL Est Cr Clr Drug Dosing mL/min Estimated GFR (MDRD) (>60) mL/min BUN/Creatinine Ratio (14-18) Glucose (70-99) mg/dL POC Glucose 199 H 200 H (70-99) mg/dL Calcium (8.5-10.1) mg/dL Total Bilirubin (0.2-1.0) mg/dL AST (15-37) U/L ALT (16-63) U/L Alkaline Phosphatase (46-116) U/L NT-Pro-B Natriuret Pep (0-125) pg/mL Total Protein (6.4-8.2) g/dl Albumin (3.4-5.0) g/dl Globulin gm/dL Albumin/Globulin Ratio (1-2) Procalcitonin 0.36 H ng/mL 06/06/21 06/06/21 06/06/21 Range/Units 05:58 08:00 08:00 WBC (4.23-9.07) K/mm3 RBC (4.63-6.08) M/mm3 Hgb (13.7-17.5) gm/dl Hct (40.1-51.0) % MCV (79.0-92.2) fl MCH (25.7-32.2) pg MCHC (32.2-35.5) g/dl RDW Std Deviation (35.1-43.9) fL Plt Count (163-337) K/mm3 MPV (9.4-12.3) fl Neut % (Auto) (34.0-67.9) % Lymph % (Auto) (21.8-53.1) % Mchenry % (Auto) (5.3-12.2) % Eos % (Auto) (0.8-7.0) Baso % (Auto) (0.1-1.2) % Neut # (Auto) (1.78-5.38) K/mm3 Lymph # (Auto) (1.32-3.57) K/mm3 Mchenry # (Auto) (0.30-0.82) K/mm3 Eos # (Auto) (0.04-0.54) K/mm3 Baso # (Auto) (0.01-0.08) K/mm3 Puncture Site ABG pH (7.35-7.45) ABG pCO2 (35.0-45.0) mmHg ABG pO2 (80.0-100.0) mmHg ABG HCO3 (22.0-26.0) meq/L ABG O2 Saturation (96.0-97.0) % ABG Base Excess (-2-2.0) Tiburcio Test O2 Delivery Device Oxygen Flow Rate Sodium 141 (136-145) mEq/L Potassium 3.6 (3.5-5.1) mEq/L Chloride 102 (98-107) mEq/L Carbon Dioxide 29 (21-32) mEq/L Anion Gap 13.6 (5-15) BUN 24 H (7-18) mg/dL Creatinine 1.7 H (0.7-1.3) mg/dL Est Cr Clr Drug Dosing 37.01 mL/min Estimated GFR (MDRD) 40 (>60) mL/min BUN/Creatinine Ratio 14.1 (14-18) Glucose 181 H (70-99) mg/dL POC Glucose 191 H (70-99) mg/dL Calcium 8.7 (8.5-10.1) mg/dL Total Bilirubin 0.4 (0.2-1.0) mg/dL AST 33 (15-37) U/L ALT 8 L (16-63) U/L Alkaline Phosphatase 153 H (46-116) U/L NT-Pro-B Natriuret Pep 1912 H (0-125) pg/mL Total Protein 7.4 (6.4-8.2) g/dl Albumin 2.3 L (3.4-5.0) g/dl Globulin 5.1 gm/dL Albumin/Globulin Ratio 0.5 L (1-2) Procalcitonin ng/mL 06/06/21 06/06/21 06/06/21 Range/Units 08:00 11:04 11:16 WBC 9.61 H (4.23-9.07) K/mm3 RBC 3.81 L (4.63-6.08) M/mm3 Hgb 10.8 L (13.7-17.5) gm/dl Hct 34.2 L (40.1-51.0) % MCV 89.8 (79.0-92.2) fl MCH 28.3 (25.7-32.2) pg MCHC 31.6 L (32.2-35.5) g/dl RDW Std Deviation 45.4 H (35.1-43.9) fL Plt Count 349 H (163-337) K/mm3 MPV 9.2 L (9.4-12.3) fl Neut % (Auto) 77.8 H (34.0-67.9) % Lymph % (Auto) 10.1 L (21.8-53.1) % Mchenry % (Auto) 11.1 (5.3-12.2) % Eos % (Auto) 0.3 L (0.8-7.0) Baso % (Auto) 0.5 (0.1-1.2) % Neut # (Auto) 7.47 H (1.78-5.38) K/mm3 Lymph # (Auto) 0.97 L (1.32-3.57) K/mm3 Mchenry # (Auto) 1.07 H (0.30-0.82) K/mm3 Eos # (Auto) 0.03 L (0.04-0.54) K/mm3 Baso # (Auto) 0.05 (0.01-0.08) K/mm3 Puncture Site Lt radial ABG pH 7.43 (7.35-7.45) ABG pCO2 42.4 (35.0-45.0) mmHg ABG pO2 46.0 L (80.0-100.0) mmHg ABG HCO3 27.8 H (22.0-26.0) meq/L ABG O2 Saturation 82.4 L (96.0-97.0) % ABG Base Excess 3.6 H (-2-2.0) Tiburcio Test Positive O2 Delivery Device Room air Oxygen Flow Rate 0.0 Sodium (136-145) mEq/L Potassium (3.5-5.1) mEq/L Chloride (98-107) mEq/L Carbon Dioxide (21-32) mEq/L Anion Gap (5-15) BUN (7-18) mg/dL Creatinine (0.7-1.3) mg/dL Est Cr Clr Drug Dosing mL/min Estimated GFR (MDRD) (>60) mL/min BUN/Creatinine Ratio (14-18) Glucose (70-99) mg/dL POC Glucose 179 H (70-99) mg/dL Calcium (8.5-10.1) mg/dL Total Bilirubin (0.2-1.0) mg/dL AST (15-37) U/L ALT (16-63) U/L Alkaline Phosphatase (46-116) U/L NT-Pro-B Natriuret Pep (0-125) pg/mL Total Protein (6.4-8.2) g/dl Albumin (3.4-5.0) g/dl Globulin gm/dL Albumin/Globulin Ratio (1-2) Procalcitonin ng/mL Med Orders - Current: Current Medications Amlodipine Besylate (Amlodipine 5 Mg Tab) 5 mg PO DAILY [facility] Last Admin: 06/06/21 13:20 Dose: 5 mg Documented by: Atorvastatin Calcium (Atorvastatin 20 Mg Tab) 10 mg PO Q2D@2100 [facility] Clopidogrel Bisulfate (Clopidogrel 75 Mg Tab) 75 mg PO DAILY [facility] Last Admin: 06/06/21 08:40 Dose: 75 mg Documented by: Doxazosin Mesylate (Doxazosin 2 Mg Tab) 1 mg PO DAILY [facility] Last Admin: 06/06/21 08:42 Dose: 1 mg Documented by: Furosemide (Furosemide 20 Mg/2 Ml Vial) 20 mg IVPUSH BIDDIURETIC [facility] Last Admin: 06/06/21 13:20 Dose: 20 mg Documented by: Gabapentin (Gabapentin 300 Mg Cap) 300 mg PO DAILY [facility] Last Admin: 06/06/21 08:41 Dose: 300 mg Documented by: Hydralazine HCl (Hydralazine 10 Mg Tab) 10 mg PO Q6H [facility] Last Admin: 06/06/21 13:17 Dose: 10 mg Documented by: Ceftriaxone Sodium 2 gm/ (Sodium Chloride) 100 mls @ 200 mls/hr IV Q24H [facility] Last Admin: 06/05/21 21:05 Dose: 200 mls/hr Documented by: Sodium Chloride (Normal Saline) 1,000 mls @ 125 mls/hr IV ASDIRECTED [facility] Stop: 06/06/21 16:00 Last Admin: 06/06/21 11:48 Dose: 125 mls/hr Documented by: Sodium Chloride (Normal Saline) 100 mls @ 60 mls/hr IV ASDIRECTED [facility] Insulin Glargine (Insulin Glargine,Hum.Rec.Anlog 100 Unit/Ml 3 Ml Pen) 73 unit SUBCUT BEDTIME [facility] Insulin Human Lispro (Insulin Lispro 100 Unit/Ml 3 Ml Kwikpen) 0 unit SUBCUT WITHMEALSANDBED [facility]; Protocol Last Admin: 06/06/21 13:16 Dose: 1 unit Documented by: Isosorbide Mononitrate (Isosorbide Mononitrate 30 Mg Tab.Er) 30 mg PO DAILY [facility] Last Admin: 06/06/21 08:41 Dose: 30 mg Documented by: Nystatin (Nystatin Topical Powder 15 Gm Bottle) 1 gm TOP BID [facility] Last Admin: 06/06/21 08:58 Dose: 1 applic Documented by: Nystatin (Nystatin Crm 30 Gm Tube) 0 gm TOP BID [facility] Last Admin: 06/06/21 08:57 Dose: 1 applic Documented by: Senna/Docusate Sodium (Docusate Sodium/Sennosides 50-8.6 Mg Tab) 2 tab PO DAILY PRN PRN Reason: Constipation Last Admin: 06/06/21 06:02 Dose: 2 tab Documented by: Tramadol HCl (Tramadol 50 Mg Tab) 50 mg PO BID PRN PRN Reason: Pain Last Admin: 06/06/21 08:48 Dose: 50 mg Documented by: Discontinued Medications Albuterol/Ipratropium (Albuterol/Ipratropium 3.0-0.5 Mg/3 Ml Neb Soln) 3 ml NEB ONETIME ONE Stop: 06/05/21 15:06 Last Admin: 06/05/21 15:14 Dose: 3 ml Documented by: Sodium Chloride (Normal Saline) 100 mls @ 60 mls/hr IV ASDIRECTED [facility] Last Admin: 06/05/21 15:21 Dose: 60 mls/hr Documented by: Insulin Glargine (Insulin Glargine,Hum.Rec.Anlog 100 Unit/Ml 3 Ml Pen) 73 unit SUBCUT DAILY [facility] Last Admin: 06/05/21 23:16 Dose: 73 units Documented by: Iopamidol (Iopamidol 755 Mg/Ml 100 Ml Bottle) 100 ml IVPUSH ONETIME ONE Stop: 06/05/21 15:20 Last Admin: 06/05/21 15:21 Dose: 100 ml Documented by: Iopamidol (Iopamidol 755 Mg/Ml 50 Ml Bottle) 50 ml IVPUSH ONETIME ONE Stop: 06/05/21 15:20 Last Admin: 06/05/21 15:21 Dose: 50 ml Documented by: Iopamidol (Iopamidol 612 Mg/Ml 50 Ml Sdv) 50 ml IVPUSH ONETIME ONE Stop: 06/06/21 13:22 Iopamidol (Iopamidol 612 Mg/Ml 100 Ml Bottle) 100 ml IVPUSH ONETIME ONE Stop: 06/06/21 13:22 Magnesium Hydroxide (Magnesium Hydroxide 400 Mg/5 Ml Susp 30 Ml Cup) 30 ml PO ONETIME ONE Stop: 06/06/21 09:01 Last Admin: 06/06/21 08:42 Dose: 30 ml Documented by: Simvastatin (Simvastatin 10 Mg Tab) 10 mg PO Q2D@2100 ANTONIO Sodium Chloride (Sodium Chloride 0.9% 10 Ml Syringe) 10 ml FLUSH ONETIME ONE Stop: 06/06/21 13:22 Tramadol HCl (Tramadol 50 Mg Tab) 50 mg PO ONETIME ONE Stop: 06/05/21 13:20 Last Admin: 06/05/21 13:46 Dose: 50 mg Documented by: - Exam Urinary Catheter Total Time: 0Days 16Hours - Patient Data Lab Results Last 24 hrs: Laboratory Results - last 24 hr 06/05/21 06/05/21 06/05/21 Range/Units 10:39 18:41 23:13 WBC (4.23-9.07) K/mm3 RBC (4.63-6.08) M/mm3 Hgb (13.7-17.5) gm/dl Hct (40.1-51.0) % MCV (79.0-92.2) fl MCH (25.7-32.2) pg MCHC (32.2-35.5) g/dl RDW Std Deviation (35.1-43.9) fL Plt Count (163-337) K/mm3 MPV (9.4-12.3) fl Neut % (Auto) (34.0-67.9) % Lymph % (Auto) (21.8-53.1) % Mchenry % (Auto) (5.3-12.2) % Eos % (Auto) (0.8-7.0) Baso % (Auto) (0.1-1.2) % Neut # (Auto) (1.78-5.38) K/mm3 Lymph # (Auto) (1.32-3.57) K/mm3 Mchenry # (Auto) (0.30-0.82) K/mm3 Eos # (Auto) (0.04-0.54) K/mm3 Baso # (Auto) (0.01-0.08) K/mm3 Puncture Site ABG pH (7.35-7.45) ABG pCO2 (35.0-45.0) mmHg ABG pO2 (80.0-100.0) mmHg ABG HCO3 (22.0-26.0) meq/L ABG O2 Saturation (96.0-97.0) % ABG Base Excess (-2-2.0) Tiburcio Test O2 Delivery Device Oxygen Flow Rate Sodium (136-145) mEq/L Potassium (3.5-5.1) mEq/L Chloride (98-107) mEq/L Carbon Dioxide (21-32) mEq/L Anion Gap (5-15) BUN (7-18) mg/dL Creatinine (0.7-1.3) mg/dL Est Cr Clr Drug Dosing mL/min Estimated GFR (MDRD) (>60) mL/min BUN/Creatinine Ratio (14-18) Glucose (70-99) mg/dL POC Glucose 199 H 200 H (70-99) mg/dL Calcium (8.5-10.1) mg/dL Total Bilirubin (0.2-1.0) mg/dL AST (15-37) U/L ALT (16-63) U/L Alkaline Phosphatase (46-116) U/L NT-Pro-B Natriuret Pep (0-125) pg/mL Total Protein (6.4-8.2) g/dl Albumin (3.4-5.0) g/dl Globulin gm/dL Albumin/Globulin Ratio (1-2) Procalcitonin 0.36 H ng/mL 06/06/21 06/06/21 06/06/21 Range/Units 05:58 08:00 08:00 WBC (4.23-9.07) K/mm3 RBC (4.63-6.08) M/mm3 Hgb (13.7-17.5) gm/dl Hct (40.1-51.0) % MCV (79.0-92.2) fl MCH (25.7-32.2) pg MCHC (32.2-35.5) g/dl RDW Std Deviation (35.1-43.9) fL Plt Count (163-337) K/mm3 MPV (9.4-12.3) fl Neut % (Auto) (34.0-67.9) % Lymph % (Auto) (21.8-53.1) % Mchenry % (Auto) (5.3-12.2) % Eos % (Auto) (0.8-7.0) Baso % (Auto) (0.1-1.2) % Neut # (Auto) (1.78-5.38) K/mm3 Lymph # (Auto) (1.32-3.57) K/mm3 Mchenry # (Auto) (0.30-0.82) K/mm3 Eos # (Auto) (0.04-0.54) K/mm3 Baso # (Auto) (0.01-0.08) K/mm3 Puncture Site ABG pH (7.35-7.45) ABG pCO2 (35.0-45.0) mmHg ABG pO2 (80.0-100.0) mmHg ABG HCO3 (22.0-26.0) meq/L ABG O2 Saturation (96.0-97.0) % ABG Base Excess (-2-2.0) Tiburcio Test O2 Delivery Device Oxygen Flow Rate Sodium 141 (136-145) mEq/L Potassium 3.6 (3.5-5.1) mEq/L Chloride 102 (98-107) mEq/L Carbon Dioxide 29 (21-32) mEq/L Anion Gap 13.6 (5-15) BUN 24 H (7-18) mg/dL Creatinine 1.7 H (0.7-1.3) mg/dL Est Cr Clr Drug Dosing 37.01 mL/min Estimated GFR (MDRD) 40 (>60) mL/min BUN/Creatinine Ratio 14.1 (14-18) Glucose 181 H (70-99) mg/dL POC Glucose 191 H (70-99) mg/dL Calcium 8.7 (8.5-10.1) mg/dL Total Bilirubin 0.4 (0.2-1.0) mg/dL AST 33 (15-37) U/L ALT 8 L (16-63) U/L Alkaline Phosphatase 153 H (46-116) U/L NT-Pro-B Natriuret Pep 1912 H (0-125) pg/mL Total Protein 7.4 (6.4-8.2) g/dl Albumin 2.3 L (3.4-5.0) g/dl Globulin 5.1 gm/dL Albumin/Globulin Ratio 0.5 L (1-2) Procalcitonin ng/mL 06/06/21 06/06/21 06/06/21 Range/Units 08:00 11:04 11:16 WBC 9.61 H (4.23-9.07) K/mm3 RBC 3.81 L (4.63-6.08) M/mm3 Hgb 10.8 L (13.7-17.5) gm/dl Hct 34.2 L (40.1-51.0) % MCV 89.8 (79.0-92.2) fl MCH 28.3 (25.7-32.2) pg MCHC 31.6 L (32.2-35.5) g/dl RDW Std Deviation 45.4 H (35.1-43.9) fL Plt Count 349 H (163-337) K/mm3 MPV 9.2 L (9.4-12.3) fl Neut % (Auto) 77.8 H (34.0-67.9) % Lymph % (Auto) 10.1 L (21.8-53.1) % Mchenry % (Auto) 11.1 (5.3-12.2) % Eos % (Auto) 0.3 L (0.8-7.0) Baso % (Auto) 0.5 (0.1-1.2) % Neut # (Auto) 7.47 H (1.78-5.38) K/mm3 Lymph # (Auto) 0.97 L (1.32-3.57) K/mm3 Mchenry # (Auto) 1.07 H (0.30-0.82) K/mm3 Eos # (Auto) 0.03 L (0.04-0.54) K/mm3 Baso # (Auto) 0.05 (0.01-0.08) K/mm3 Puncture Site Lt radial ABG pH 7.43 (7.35-7.45) ABG pCO2 42.4 (35.0-45.0) mmHg ABG pO2 46.0 L (80.0-100.0) mmHg ABG HCO3 27.8 H (22.0-26.0) meq/L ABG O2 Saturation 82.4 L (96.0-97.0) % ABG Base Excess 3.6 H (-2-2.0) Tiburcio Test Positive O2 Delivery Device Room air Oxygen Flow Rate 0.0 Sodium (136-145) mEq/L Potassium (3.5-5.1) mEq/L Chloride (98-107) mEq/L Carbon Dioxide (21-32) mEq/L Anion Gap (5-15) BUN (7-18) mg/dL Creatinine (0.7-1.3) mg/dL Est Cr Clr Drug Dosing mL/min Estimated GFR (MDRD) (>60) mL/min BUN/Creatinine Ratio (14-18) Glucose (70-99) mg/dL POC Glucose 179 H (70-99) mg/dL Calcium (8.5-10.1) mg/dL Total Bilirubin (0.2-1.0) mg/dL AST (15-37) U/L ALT (16-63) U/L Alkaline Phosphatase (46-116) U/L NT-Pro-B Natriuret Pep (0-125) pg/mL Total Protein (6.4-8.2) g/dl Albumin (3.4-5.0) g/dl Globulin gm/dL Albumin/Globulin Ratio (1-2) Procalcitonin ng/mL Result Diagrams: 06/06/21 08:00 06/06/21 08:00 Sepsis Event Note - Evaluation Sepsis Screening Result: Sepsis Risk - Focused Exam Vital Signs: Vital Signs Temp Pulse Resp BP Pulse Ox 06/06/21 13:20 180/57 H 06/06/21 13:17 180/57 H 06/06/21 11:07 36.5 C 115 H 21 H 145/68 H 91 L 06/06/21 10:01 113 H 133/65 92 L 06/06/21 08:42 180/78 H 06/06/21 08:41 180/78 H 06/06/21 08:34 36.9 C 114 H 22 H 192/84 H 96 06/06/21 05:34 36.6 C 120 H 18 159/48 H 93 L - Problem List & Annotations (1) Adrenal benign tumor SNOMED Code(s): 32860686 Code(s): D35.00 - BENIGN NEOPLASM OF UNSPECIFIED ADRENAL GLAND Status: Acute Priority: High Current Visit: Yes Qualifiers: Laterality: unspecified laterality Qualified Code(s): D35.00 - Benign neoplasm of unspecified adrenal gland Annotation/Comment:: bilateral tumors adrenal but good adrenal function (2) Adult failure to thrive SNOMED Code(s): 771126135 Code(s): R62.7 - ADULT FAILURE TO THRIVE Status: Acute Priority: High Current Visit: Yes (3) CHF (congestive heart failure), NYHA class II SNOMED Code(s): 354169082, 444114581 Code(s): I50.9 - HEART FAILURE, UNSPECIFIED Status: Acute Priority: Medium Current Visit: Yes Onset Date: ~06/06/21 Qualifiers: Congestive heart failure type: combined Annotation/Comment:: needs echo and ordered off hctz and started lasix with good response. neurogenic bowel a nd bladder but no obstruction or hydronephrosis seen // suspect lvh and no anginal symptoms despite high b.p. rule out pericardial dysfunction. (4) Sensation alteration, late effect of cerebrovascular disease SNOMED Code(s): 02817038, 759272550 Code(s): I69.998 - OTHER SEQUELAE FOLLOWING UNSPECIFIED CEREBROVASCULAR DISEASE; R20.9 - UNSPECIFIED DISTURBANCES OF SKIN SENSATION Status: Acute Priority: Medium Current Visit: Yes Onset Date: ~06/06/21 Annotation/Comment:: repeat head ct scan sec. to possible multi infarct pattern. (5) Unable to ambulate SNOMED Code(s): 900202363 Code(s): R26.2 - DIFFICULTY IN WALKING, NOT ELSEWHERE CLASSIFIED Status: Acute Priority: High Current Visit: Yes Onset Date: ~06/06/21 Annotation/Comment:: ct scan of lumbar sacral area ordered no recent trau ma no rectal tone and neurogenic bladder but no incontinance of either (6) Weakness generalized SNOMED Code(s): 74576077 Code(s): R53.1 - WEAKNESS Status: Acute Priority: High Current Visit: Yes Onset Date: ~06/06/21 Annotation/Comment:: unable to do any cares needs liz lift to change positions.pt/ot/speech therapy seeing. (7) Abdominal pain SNOMED Code(s): 78135636 Code(s): R10.9 - UNSPECIFIED ABDOMINAL PAIN Status: Acute Current Visit: No Qualifiers: Abdominal location: right upper quadrant Qualified Code(s): R10.11 - Right upper quadrant pain (8) Type 2 diabetes mellitus SNOMED Code(s): 82795495 Code(s): E11.9 - TYPE 2 DIABETES MELLITUS WITHOUT COMPLICATIONS Status: Acute Priority: High Current Visit: No Onset Date: ~06/06/21 Qualifiers: Diabetes mellitus prototype carpenter insulin use: with prototype carpenter use Diabetes mellitus complication status: with kidney complications Diabetes mellitus complication detail: with chronic kidney disease Chronic kidney disease stage: stage 3 (moderate) Annotation/Comment:: needs insulin lifelong. (9) Fungal dermatosis SNOMED Code(s): 97951161 Code(s): B36.9 - SUPERFICIAL MYCOSIS, UNSPECIFIED Status: Acute Priority: Medium Current Visit: Yes Onset Date: ~06/05/21 (10) Chronic renal insufficiency, stage III (moderate) SNOMED Code(s): 970404117 Code(s): N18.30 - CHRONIC KIDNEY DISEASE, STAGE 3 UNSPECIFIED Status: Acute Priority: Medium Current Visit: No Onset Date: ~06/05/21 Qualifiers: Chronic kidney disease stage 3 subtype: stage 3a (GFR 45-59) Qualified Code(s): N18.31 - Chronic kidney disease, stage 3a Annotation/Comment:: creatinine 1.7 and 3plus protienuria and hematuria seen prostate not inflamed or abnormal (11) Dependent edema SNOMED Code(s): 198893762 Code(s): R60.9 - EDEMA, UNSPECIFIED Status: Acute Priority: High Current Visit: No Onset Date: ~06/05/21 Annotation/Comment:: cellulitis with onychiomycholisis and fungal dermatitis - Problem List Review Problem List Initiated/Reviewed/Updated: Yes - My Orders Last 24 Hours: My Active Orders 06/05/21 17:25 Docusate Sodium/Sennosides [Senna Plus] 2 tab PO DAILY PRN 06/05/21 18:48 traMADol [Ultram] 50 mg PO BID PRN 06/05/21 18:55 Up With Assistance [RC] ASDIRECTED 06/05/21 18:58 Consult to Physical Therapy [PT Evaluation and Treatment] [CONS] Routine 06/05/21 18:59 Consult to Occupational Therapy [OT Evaluation and Treatment] [CONS] Routine 06/05/21 19:26 Communication Order [RC] ASDIRECTED 06/05/21 19:27 Blood Glucose Check, Bedside [RC] QIDACANDBED Vital Signs [RC] 00,04,08,12,16,20 06/05/21 19:29 Code Status [Resuscitation Status] Routine 06/05/21 19:30 Furosemide [Lasix] 20 mg IVPUSH BIDDIURETIC 06/05/21 20:00 cefTRIAXone [Rocephin] 2 gm Sodium Chloride 0.9% [Normal Saline AdvBag] 100 ml IV Q24H 06/05/21 21:00 Clopidogrel [Plavix] 75 mg PO DAILY Insulin Lispro [HumaLOG] See Protocol SUBCUT WITHMEALSANDBED Nystatin [Nystatin Crm] See Dose Instructions TOP BID Nystatin [Nystop] 1 gm TOP BID 06/05/21 21:28 Urinary Catheter Assessment [RC] ASDIRECTED 06/05/21 21:30 Insert Urinary Catheter [OM.PC] Q24H 06/05/21 23:50 Bladder Scan [RC] ASDIRECTED 06/06/21 Breakfast ADA Diabetic [[place] Diet] [DIET] 06/06/21 09:00 Consult to Case Management/Tracer Lathe Set Up Operator [CONS] Routine Doxazosin [Cardura] 1 mg PO DAILY Gabapentin [Neurontin] 300 mg PO DAILY Isosorbide Mononitrate [Imdur] 30 mg PO DAILY 06/06/21 11:33 RT Incentive Spirometry [RC] Q1HWA 06/06/21 11:34 Urinary Catheter Assessment [RC] ASDIRECTED Head wo Cont [CT] Routine 06/06/21 11:36 Consult to Speech Language Pathology [INVESTIGATIONS CONSULTANT Evaluation and Treatment] [CONS] Routine Abdomen Pelvis w Cont [CT] Routine 06/06/21 11:45 Insert Urinary Catheter [OM.PC] Q24H Sodium Chloride 0.9% [Normal Saline] 1,000 ml IV ASDIRECTED 06/06/21 12:00 Admission Status [Patient Status] [ADT] Routine 06/06/21 12:52 EKG 12 Lead [EK] Routine 06/06/21 13:00 amLODIPine [Norvasc] 5 mg PO DAILY hydrALAZINE [Apresoline] 10 mg PO Q6H 06/06/21 13:30 Sodium Chloride 0.9% [Normal Saline] 100 ml IV ASDIRECTED 06/06/21 21:00 Insulin Glargine,Hum.Rec.Anlog [Semglee Pen] 73 unit SUBCUT BEDTIME atorvaSTATin [Lipitor] 10 mg PO Q2D@2100 06/07/21 05:00 CBC WITH AUTO DIFF [HEME] Routine CMP [COMPREHENSIVE METABOLIC PN,CMP] [CHEM] Routine PRO B-TYPE NATRIUR PEPT,BNPPRO [CHEM] Routine 06/07/21 08:00 Chest 2V [CR] Routine 06/08/21 05:00 CBC WITH AUTO DIFF [HEME] Routine CMP [COMPREHENSIVE METABOLIC PN,CMP] [CHEM] Routine - Assessment Assessment:: 06/06/21 assess: resp insuff ?bronchitis screens neg. but no discreet pneumonia seen on ct scan// severe atelectasis form weakness and inability to move self. elavated d dimer but no p.e.noted. pericardial effusion assymptomatic. chf stable . renal insuff creat 1.7 and 3+ protien and blood. abd and pelvic ct scan ordered with contrast as multiple unexplained findings. generalized weakness but susp. of rt arm stroke and head ct scan ordered. cog. impairment slightly better but chronic cogn. impairment suggestive of dementia and diabetic cerebral vasc. disease. neurogenic bladder sec to autonomic neuropathy? or other cause renal u.s shows no obstruction/tumor ct scan pending. suspect sacral nerve impairment given loss rectal tone as well . dm lifelong poor control and now with neuropathy/nephropathy and autonomic neuropathy./perhaps myopathy as well . morbid obesity : patient will require peminant total care . cellultitis better suspect pad but edam slightly improved with wraps and topical cream applied . cont rocephin as well . suspected sleep apnea. suspected severe cerebral vasc. disease and possibel multiple small stroke ct scan of head pending. leg pain multifactorial but likely cellulitis//edema and neuropathy as well as oa and diabetic myopathy. plan:: ct scans as ordered. control b.s sliding scale increased/ long acting ordered. slowly bring down hypertension start amlodapine and hydralizine and cont lasix. correct lytes. discussed findings with patient and . snif referral//pt//ot/speech therapy for cog eval and speech assessment. d.e. continued. neurogenic bladder treatment difficult and may need diverting nephrostomy but unlikely to get approval for surgery or urology to agree. check psa. get off sacral area as much as tolerated. sleep study needed. boh . - Plan Plan:: 06/06/21 Patient is a 70 yr old male who is in Med/Surg. Patient's answers for most questions. Patient has been unable to get out of bed for 3 days due to chronic bilateral extremity pain and luteal pain for which he is on tramadol and Neuron tin at home. Patient came w/ a mild cough but denied any fever or chills or shortness of breath. We are unable to assess if he is having any exertional symptoms since he has been bedridden. states she is no longer able to take care of him and wants us to arrange for him to be in assisted living/shelter. Patient's had no bloody or tarry stools before admit. He denies any headache or any numbness weakness or paresthesias which is new. Patient's O2 saturation is 85% room air at rest. Patient has not c/o any chest pain. It is not known at this time how long pt has been homebound or what he did before being homebound. Assesment: Pt is neg for covid, RSV, Flu, and Pneumonia There is a hx of stoke 7 yrs ago, states he never got his short term memory back. He is homebound and is main caregiver. pt has continually diminishing mobility...started with a shuffle, then could walk w/help of cane, then walker, and now can't stand more than 5 mins. states pt fell at thanksgiving has been pretty much bed ridden since. states everything got worse around 2 wks ago when cough developed. Pt is not always compliant on meds and has uncontrolled DM II PT is retaining urine with no prior hx of incontinence for urine or BM's... Pt is on lasix 20mg daily for edema Prostate exam w/hemocult was done in room today w/NEG findings There is no rectal tone...pt has 800cc urine w/no urge to go diminished sensations para rectally...Echo of abdom and pelvis needed.... neurogenic bladder and weakness and renal failure and fatty liver No hx of delirium, although states he has depression symptoms diminishing mobility, speech, and cognition there is focal weakness to Rt upper arm need to rule out stroke....needs CT of head Pt c/o chronic pain to legs bilat, w/mild pressure pain, also to buttocks and back, w/no hx of trauma...CT of Spine and Sacrum/Pelvis small sacral sore noted, wound management needed Toes: intact propre. Lungs: Ronkers breath sounds with intermit. wheezing...wet ....on 3 litters of O2 and sats are holding at 90%....repeat chest x-ray, portable, needed for tomorrow Pt has general weakness...need to rule out CVA work w/pt on spirometer states pt does snore but not much....no sleep study has been done, no hx of apnea Cardio:Pt has hx of CAD w/no c/o of symptoms BP is elevated and uncontrolled.....add amlodipine 5mg and hydralazine 25 q 6 Echo from 06/05 shows tachy between 90-110........repeat echo needed HX: CHF Hypoxia-mulit facet Renal Insuf. uncontrolled DM II Neuropathy Cognitive Diminishment Fatty Liver Plan: repeat Chest x-ray, portable, for tomorrow...cough and wheezing CT of Head...diminishing mobility, speech, cognition, and focal weakness CT of Spine and Sacrum/Pelvis...diminished sensations and retention Echo of abdom and pelvis needed....neurogenic bladder and weakness and renal failure and fatty liver Add amlodipine 5mg Add Hydralazine 25mg Move patient to chair and around as much as possible to prevent Pneumonia Refer to [employer] for shelter admit
[2021-06-06] MEDS ORDERED: amLODIPine 5 MG Tab PO ONE (15:40)
[2021-06-06] MEDS ORDERED: hydrALAZINE 10 MG Tab PO ONE (15:40)
--- NOTE | 2021-06-06 15:42 | CT ---
CT abdomen and pelvis Technique: Multiple axial sections were obtained from above the dome of the diaphragm inferiorly through the pubic symphysis. Intravenous contrast was utilized. No oral contrast has been given. Delayed images were also obtained through the abdomen and pelvis. Comparison: Prior CT abdomen and pelvis study of 08/25/20. Prior chest CT of 06/05/21. Findings: Three nodules are seen within the left lung base which remain stable. Prior chest CT study suggested the larger nodule is increased in size although by this CT exam it is stable in size. There is minimal atelectasis noted within the both lung bases. Liver contains no focal parenchymal abnormality. Spleen size is normal. Adrenal gland on the right side shows evidence of a mass which measures similar to prior exam. Left adrenal gland also shows a mass which is similar to prior exam. Pancreas appears within normal limits. Kidneys show contrast enhancement without hydronephrosis or mass. Delayed images show contrast excretion into both ureters and within the bladder. Chapin catheter is noted within the bladder with a small amount of air being seen presumably due to catheter placement. Abdominal aorta shows no aneurysm. Atherosclerotic calcification is noted throughout the aorta as well as within the iliac vessels. No retroperitoneal adenopathy is seen. No mesenteric abnormalities are seen. No pelvic mass or adenopathy is seen. No bowel dilatation is seen. No bowel wall thickening is noted. Appendix is not visualized. Bone window settings were reviewed which show mild scattered degenerative change throughout the spine. No acute osseous abnormality is appreciated. Impression: 1. Chapin catheter within the bladder. Small amount of air within the bladder presumably due to recent placement of the Chapin catheter. 2. Bilateral adrenal masses which are stable. Three nodules within the left lung base are seen which are stable. Mild bibasilar atelectasis is seen. 3. Nothing acute is appreciated on CT study of the abdomen and pelvis. Diagnostic code #2
--- NOTE | 2021-06-06 15:42 | CT ---
Head CT Technique: Multiple axial sections through the brain were obtained. Intravenous contrast was not utilized. Reconstructed coronal and sagittal images were obtained. Comparison: No prior intracranial imaging is available. Findings: Ventricles along with basal cisterns and sulci over the convexities are mildly prominent. Well-defined low density area is seen within the posterior left parietal region compatible with old infarct. Very minimal areas of diminished densities are noted within the subcortical white matter compatible with small vessel ischemic demyelination change. No other abnormal parenchymal densities are seen. No evidence of intracranial hemorrhage is seen. No midline shift or mass-effect is seen. Bone window settings were reviewed. Visualized mastoid sinuses and paranasal sinuses show nothing acute. No acute calvarial abnormality is appreciated. Minimal atherosclerotic calcification is seen within the carotid siphon. Impression: 1. 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 2. Mild senescent change as described above. 3. Nothing acute is appreciated on noncontrast head CT study. Diagnostic code #2
[2021-06-06] MEDS: cefTRIAXone 2 GM in Sodium Chloride 0.9% 100 ML IV SCH (20:05)
[2021-06-06] MEDS: atorvaSTATin 20 MG Tab PO SCH (20:36)
[2021-06-06] MEDS: Insulin Glargine,Hum.Rec.Anlog 100 UNIT/ML 3 ML Pen SUBCUT SCH (20:49)
[2021-06-06] MEDS ORDERED: Simvastatin 10 MG Tab PO SCH (21:00)
[2021-06-06] MEDS: Enoxaparin 40 MG/0.4 ML Syringe SUBCUT SCH (23:32)
[2021-06-06] MEDS: Gabapentin 600 MG Tab PO SCH (23:32)
[2021-06-07] MEDS: hydrALAZINE 10 MG Tab PO SCH ×4 (00:57→18:27)
[2021-06-07] MEDS ORDERED: Bisacodyl 10 MG Supp RECTAL ONE (04:00)
[2021-06-07] MEDS: Furosemide 20 MG/2 ML VIAL IVPUSH SCH ×2 (06:27→13:50)
[2021-06-07] MEDS: Insulin Lispro 100 Unit/ML 3 ML KwikPen SUBCUT SCH ×4 (07:58→20:53)
--- NOTE | 2021-06-07 09:19 | CR ---
Chest: Portable view of the chest was obtained. Comparison: Prior chest x-ray and chest CT performed on 06/05/21. Heart size and mediastinum are within normal limits. Area of atelectasis seen within the right lung base shows improvement on current chest x-ray. Lungs otherwise are clear. Bony structures show nothing acute. Impression: 1. Decreased atelectasis within the right lung base from prior studies. 2. Nothing acute is appreciated on portable chest x-ray. Diagnostic code #1
[2021-06-07] MEDS: Clopidogrel 75 MG Tab PO SCH (09:31)
[2021-06-07] MEDS: Doxazosin 2 MG Tab PO SCH (09:31)
[2021-06-07] MEDS: amLODIPine 5 MG Tab PO SCH (09:32)
[2021-06-07] MEDS: Gabapentin 300 MG Cap PO SCH (09:33)
[2021-06-07] MEDS: Nystatin Crm 30 GM Tube TOP SCH ×2 (10:14→20:08)
[2021-06-07] MEDS: Isosorbide Mononitrate 30 MG Tab.ER PO SCH (10:14)
[2021-06-07] MEDS: Nystatin Topical Powder 15 GM Bottle TOP SCH ×2 (10:15→20:08)
--- NOTE | 2021-06-07 10:40 | PCM.PN ---
- General Info Date of Service: 06/07/21 Admission Dx/Problem (Free Text): The patient was admitted secondary to hypoxia as well as inability to care for self. Subjective Update: The patient is a 70-year-old gentleman who had been admitted to acute hospitalization on June 06, 2021 due to failure to thrive and respiratory problems. He had been noted to have desaturations in the emergency department of 86 on room air. The patient today is somewhat confused but he says that he feels better. The patient's daughter is with him today. The patient has been tolerating his diet. He is denied any pain. 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 Patient also has likely neurogenic bladder and difficulty urinating. Functional Status: Reports: Pain Controlled, Tolerating Diet. Denies: New Symptoms - Review of Systems Systems Review Comment:: Review of systems is not reliable due to the patient's confusion. - Patient Data Vitals - Most Recent: Last Vital Signs Temp 37.2 C 06/07/21 04:17 Pulse 104 H 06/07/21 04:17 Resp 16 06/07/21 04:17 BP 156/61 H 06/07/21 10:14 Pulse Ox 94 L 06/07/21 04:17 Weight - Most Recent: 106.776 kg I&O - Last 24 Hours: Intake & Output 06/06/21 06/07/21 06/07/21 22:59 06:59 14:59 Intake Total 1665 600 Output Total 1650 1300 Balance 15 -700 Lab Results Last 24 Hours: Laboratory Results - last 24 hr 06/06/21 06/06/21 06/06/21 Range/Units 11:04 11:16 17:55 WBC (4.23-9.07) K/mm3 RBC (4.63-6.08) M/mm3 Hgb (13.7-17.5) gm/dl Hct (40.1-51.0) % MCV (79.0-92.2) fl MCH (25.7-32.2) pg MCHC (32.2-35.5) g/dl RDW Std Deviation (35.1-43.9) fL Plt Count (163-337) K/mm3 MPV (9.4-12.3) fl Neut % (Auto) (34.0-67.9) % Lymph % (Auto) (21.8-53.1) % [place] % (Auto) (5.3-12.2) % Eos % (Auto) (0.8-7.0) Baso % (Auto) (0.1-1.2) % Neut # (Auto) (1.78-5.38) K/mm3 Lymph # (Auto) (1.32-3.57) K/mm3 [place] # (Auto) (0.30-0.82) K/mm3 Eos # (Auto) (0.04-0.54) K/mm3 Baso # (Auto) (0.01-0.08) K/mm3 Puncture Site Lt radial ABG pH 7.43 (7.35-7.45) ABG pCO2 42.4 (35.0-45.0) mmHg ABG pO2 46.0 L (80.0-100.0) mmHg ABG HCO3 27.8 H (22.0-26.0) meq/L ABG O2 Saturation 82.4 L (96.0-97.0) % ABG Base Excess 3.6 H (-2-2.0) Tiburcio Test Positive O2 Delivery Device Room air Oxygen Flow Rate 0.0 Sodium (136-145) mEq/L Potassium (3.5-5.1) mEq/L Chloride (98-107) mEq/L Carbon Dioxide (21-32) mEq/L Anion Gap (5-15) BUN (7-18) mg/dL Creatinine (0.7-1.3) mg/dL Est Cr Clr Drug Dosing mL/min Estimated GFR (MDRD) (>60) mL/min BUN/Creatinine Ratio (14-18) Glucose (70-99) mg/dL POC Glucose 179 H 256 H (70-99) mg/dL Calcium (8.5-10.1) mg/dL Total Bilirubin (0.2-1.0) mg/dL AST (15-37) U/L ALT (16-63) U/L Alkaline Phosphatase (46-116) U/L NT-Pro-B Natriuret Pep (0-125) pg/mL Total Protein (6.4-8.2) g/dl Albumin (3.4-5.0) g/dl Globulin gm/dL Albumin/Globulin Ratio (1-2) 12/29/21 12/30/21 12/30/21 Range/Units 20:45 05:27 05:27 WBC (4.23-9.07) K/mm3 RBC (4.63-6.08) M/mm3 Hgb (13.7-17.5) gm/dl Hct (40.1-51.0) % MCV (79.0-92.2) fl MCH (25.7-32.2) pg MCHC (32.2-35.5) g/dl RDW Std Deviation (35.1-43.9) fL Plt Count (163-337) K/mm3 MPV (9.4-12.3) fl Neut % (Auto) (34.0-67.9) % Lymph % (Auto) (21.8-53.1) % [place] % (Auto) (5.3-12.2) % Eos % (Auto) (0.8-7.0) Baso % (Auto) (0.1-1.2) % Neut # (Auto) (1.78-5.38) K/mm3 Lymph # (Auto) (1.32-3.57) K/mm3 [place] # (Auto) (0.30-0.82) K/mm3 Eos # (Auto) (0.04-0.54) K/mm3 Baso # (Auto) (0.01-0.08) K/mm3 Puncture Site ABG pH (7.35-7.45) ABG pCO2 (35.0-45.0) mmHg ABG pO2 (80.0-100.0) mmHg ABG HCO3 (22.0-26.0) meq/L ABG O2 Saturation (96.0-97.0) % ABG Base Excess (-2-2.0) Tiburcio Test O2 Delivery Device Oxygen Flow Rate Sodium 138 (136-145) mEq/L Potassium 3.2 L (3.5-5.1) mEq/L Chloride 99 (98-107) mEq/L Carbon Dioxide 29 (21-32) mEq/L Anion Gap 13.2 (5-15) BUN 4 L (7-18) mg/dL Creatinine 0.8 (0.7-1.3) mg/dL Est Cr Clr Drug Dosing 78.64 mL/min Estimated GFR (MDRD) > 60 (>60) mL/min BUN/Creatinine Ratio 5.0 L (14-18) Glucose 172 H (70-99) mg/dL POC Glucose 263 H (70-99) mg/dL Calcium 8.3 L (8.5-10.1) mg/dL Total Bilirubin 0.2 (0.2-1.0) mg/dL AST 17 (15-37) U/L ALT 20 (16-63) U/L Alkaline Phosphatase 60 (46-116) U/L NT-Pro-B Natriuret Pep 1589 H (0-125) pg/mL Total Protein 6.9 (6.4-8.2) g/dl Albumin 2.2 L (3.4-5.0) g/dl Globulin 4.7 gm/dL Albumin/Globulin Ratio 0.5 L (1-2) 06/07/21 06/07/21 Range/Units 05:27 07:34 WBC 9.83 H (4.23-9.07) K/mm3 RBC 3.43 L (4.63-6.08) M/mm3 Hgb 9.8 L (13.7-17.5) gm/dl Hct 31.1 L (40.1-51.0) % MCV 90.7 (79.0-92.2) fl MCH 28.6 (25.7-32.2) pg MCHC 31.5 L (32.2-35.5) g/dl RDW Std Deviation 45.1 H (35.1-43.9) fL Plt Count 346 H (163-337) K/mm3 MPV 9.1 L (9.4-12.3) fl Neut % (Auto) 73.1 H (34.0-67.9) % Lymph % (Auto) 12.9 L (21.8-53.1) % [place] % (Auto) 11.8 (5.3-12.2) % Eos % (Auto) 1.7 (0.8-7.0) Baso % (Auto) 0.4 (0.1-1.2) % Neut # (Auto) 7.18 H (1.78-5.38) K/mm3 Lymph # (Auto) 1.27 L (1.32-3.57) K/mm3 [place] # (Auto) 1.16 H (0.30-0.82) K/mm3 Eos # (Auto) 0.17 (0.04-0.54) K/mm3 Baso # (Auto) 0.04 (0.01-0.08) K/mm3 Puncture Site ABG pH (7.35-7.45) ABG pCO2 (35.0-45.0) mmHg ABG pO2 (80.0-100.0) mmHg ABG HCO3 (22.0-26.0) meq/L ABG O2 Saturation (96.0-97.0) % ABG Base Excess (-2-2.0) Tiburcio Test O2 Delivery Device Oxygen Flow Rate Sodium (136-145) mEq/L Potassium (3.5-5.1) mEq/L Chloride (98-107) mEq/L Carbon Dioxide (21-32) mEq/L Anion Gap (5-15) BUN (7-18) mg/dL Creatinine (0.7-1.3) mg/dL Est Cr Clr Drug Dosing mL/min Estimated GFR (MDRD) (>60) mL/min BUN/Creatinine Ratio (14-18) Glucose (70-99) mg/dL POC Glucose 117 H (70-99) mg/dL Calcium (8.5-10.1) mg/dL Total Bilirubin (0.2-1.0) mg/dL AST (15-37) U/L ALT (16-63) U/L Alkaline Phosphatase (46-116) U/L NT-Pro-B Natriuret Pep (0-125) pg/mL Total Protein (6.4-8.2) g/dl Albumin (3.4-5.0) g/dl Globulin gm/dL Albumin/Globulin Ratio (1-2) Med Orders - Current: Current Medications Amlodipine Besylate (Amlodipine 5 Mg Tab) 5 mg PO DAILY [facility] Last Admin: 06/07/21 09:32 Dose: 5 mg Documented by: Atorvastatin Calcium (Atorvastatin 20 Mg Tab) 10 mg PO Q2D@2100 [facility] Last Admin: 06/06/21 20:36 Dose: 10 mg Documented by: Clopidogrel Bisulfate (Clopidogrel 75 Mg Tab) 75 mg PO DAILY [facility] Last Admin: 06/07/21 09:31 Dose: 75 mg Documented by: Doxazosin Mesylate (Doxazosin 2 Mg Tab) 1 mg PO DAILY [facility] Last Admin: 06/07/21 09:31 Dose: 1 mg Documented by: Enoxaparin Sodium (Enoxaparin 40 Mg/0.4 Ml Syringe) 40 mg SUBCUT Q24H [facility] Last Admin: 06/06/21 23:32 Dose: 40 mg Documented by: Furosemide (Furosemide 20 Mg/2 Ml Vial) 20 mg IVPUSH BIDDIURETIC [facility] Last Admin: 06/07/21 06:27 Dose: 20 mg Documented by: Gabapentin (Gabapentin 300 Mg Cap) 300 mg PO DAILY [facility] Last Admin: 06/07/21 09:33 Dose: 300 mg Documented by: Gabapentin (Gabapentin 600 Mg Tab) 600 mg PO BEDTIME [facility] Last Admin: 06/06/21 23:32 Dose: 600 mg Documented by: Hydralazine HCl (Hydralazine 10 Mg Tab) 10 mg PO Q6H [facility] Last Admin: 06/07/21 06:25 Dose: 10 mg Documented by: Ceftriaxone Sodium 2 gm/ (Sodium Chloride) 100 mls @ 200 mls/hr IV Q24H [facility] Last Admin: 06/06/21 20:05 Dose: 200 mls/hr Documented by: Insulin Glargine (Insulin Glargine,Hum.Rec.Anlog 100 Unit/Ml 3 Ml Pen) 73 unit SUBCUT BEDTIME [facility] Last Admin: 06/06/21 20:49 Dose: 73 units Documented by: Insulin Human Lispro (Insulin Lispro 100 Unit/Ml 3 Ml Kwikpen) 0 unit SUBCUT WITHMEALSANDBED [facility]; Protocol Last Admin: 06/07/21 07:58 Dose: Not Given Documented by: Isosorbide Mononitrate (Isosorbide Mononitrate 30 Mg Tab.Er) 30 mg PO DAILY [facility] Last Admin: 06/07/21 10:14 Dose: 30 mg Documented by: Nystatin (Nystatin Topical Powder 15 Gm Bottle) 1 gm TOP BID [facility] Last Admin: 06/07/21 10:15 Dose: 1 applic Documented by: Nystatin (Nystatin Crm 30 Gm Tube) 0 gm TOP BID [facility] Last Admin: 06/07/21 10:14 Dose: 1 applic Documented by: Senna/Docusate Sodium (Docusate Sodium/Sennosides 50-8.6 Mg Tab) 2 tab PO DAILY PRN PRN Reason: Constipation Last Admin: 06/07/21 06:25 Dose: 2 tab Documented by: Tramadol HCl (Tramadol 50 Mg Tab) 50 mg PO BID PRN PRN Reason: Pain Last Admin: 06/06/21 20:35 Dose: 50 mg Documented by: Discontinued Medications Albuterol/Ipratropium (Albuterol/Ipratropium 3.0-0.5 Mg/3 Ml Neb Soln) 3 ml NEB ONETIME ONE Stop: 06/05/21 15:06 Last Admin: 06/05/21 15:14 Dose: 3 ml Documented by: Amlodipine Besylate (Amlodipine 5 Mg Tab) 5 mg PO ONETIME ONE Stop: 06/06/21 15:41 Last Admin: 06/06/21 16:37 Dose: 5 mg Documented by: Bisacodyl (Bisacodyl 10 Mg Supp) 10 mg RECTAL ONETIME ONE Stop: 06/07/21 04:01 Last Admin: 06/07/21 04:45 Dose: 10 mg Documented by: Hydralazine HCl (Hydralazine 10 Mg Tab) 10 mg PO ONETIME ONE Stop: 06/06/21 15:41 Last Admin: 06/06/21 16:37 Dose: 10 mg Documented by: Sodium Chloride (Normal Saline) 100 mls @ 60 mls/hr IV ASDIRECTED [facility] Last Admin: 06/05/21 15:21 Dose: 60 mls/hr Documented by: Sodium Chloride (Normal Saline) 1,000 mls @ 125 mls/hr IV ASDIRECTED [facility] Stop: 06/06/21 16:00 Last Admin: 06/06/21 11:48 Dose: 125 mls/hr Documented by: Sodium Chloride (Normal Saline) 100 mls @ 60 mls/hr IV ASDIRECTED [facility] Insulin Glargine (Insulin Glargine,Hum.Rec.Anlog 100 Unit/Ml 3 Ml Pen) 73 unit SUBCUT DAILY [facility] Last Admin: 06/05/21 23:16 Dose: 73 units Documented by: Iopamidol (Iopamidol 755 Mg/Ml 100 Ml Bottle) 100 ml IVPUSH ONETIME ONE Stop: 06/05/21 15:20 Last Admin: 06/05/21 15:21 Dose: 100 ml Documented by: Iopamidol (Iopamidol 755 Mg/Ml 50 Ml Bottle) 50 ml IVPUSH ONETIME ONE Stop: 06/05/21 15:20 Last Admin: 06/05/21 15:21 Dose: 50 ml Documented by: Iopamidol (Iopamidol 612 Mg/Ml 50 Ml Sdv) 50 ml IVPUSH ONETIME ONE Stop: 06/06/21 13:22 Last Admin: 06/06/21 23:37 Dose: Not Given Documented by: Iopamidol (Iopamidol 612 Mg/Ml 100 Ml Bottle) 100 ml IVPUSH ONETIME ONE Stop: 06/06/21 13:22 Last Admin: 06/06/21 23:37 Dose: Not Given Documented by: Magnesium Hydroxide (Magnesium Hydroxide 400 Mg/5 Ml Susp 30 Ml Cup) 30 ml PO ONETIME ONE Stop: 06/06/21 09:01 Last Admin: 06/06/21 08:42 Dose: 30 ml Documented by: Simvastatin (Simvastatin 10 Mg Tab) 10 mg PO Q2D@2100 [facility] Sodium Chloride (Sodium Chloride 0.9% 10 Ml Syringe) 10 ml FLUSH ONETIME ONE Stop: 06/06/21 13:22 Last Admin: 06/06/21 20:42 Dose: 10 ml Documented by: Tramadol HCl (Tramadol 50 Mg Tab) 50 mg PO ONETIME ONE Stop: 06/05/21 13:20 Last Admin: 06/05/21 13:46 Dose: 50 mg Documented by: - Exam Quality Assessment: Supplemental Oxygen, Urine Catheter, DVT Prophylaxis Urinary Catheter Total Time: 0Days 16Hours General: Alert, Cooperative. No: Oriented HEENT: Pupils Equal, Pupils Reactive, EOMI, Mucous Membr. Moist/[place] Neck: Supple, Trachea Midline Lungs: Clear to Auscultation, Normal Respiratory Effort Cardiovascular: Regular Rate, Regular Rhythm GI/Abdominal Exam: Normal Bowel Sounds, Soft, No Distention (Male) Exam: Deferred Back Exam: Normal Inspection (Appropriate for age) Extremities: Pedal Edema Skin: Warm, Dry Neurological: Strength Equal Bilateral (Global weakness) Psy/Mental Status: Alert, Normal Affect - Patient Data Lab Results Last 24 hrs: Laboratory Results - last 24 hr 06/06/21 06/06/21 06/06/21 Range/Units 11:04 11:16 17:55 WBC (4.23-9.07) K/mm3 RBC (4.63-6.08) M/mm3 Hgb (13.7-17.5) gm/dl Hct (40.1-51.0) % MCV (79.0-92.2) fl MCH (25.7-32.2) pg MCHC (32.2-35.5) g/dl RDW Std Deviation (35.1-43.9) fL Plt Count (163-337) K/mm3 MPV (9.4-12.3) fl Neut % (Auto) (34.0-67.9) % Lymph % (Auto) (21.8-53.1) % [place] % (Auto) (5.3-12.2) % Eos % (Auto) (0.8-7.0) Baso % (Auto) (0.1-1.2) % Neut # (Auto) (1.78-5.38) K/mm3 Lymph # (Auto) (1.32-3.57) K/mm3 [place] # (Auto) (0.30-0.82) K/mm3 Eos # (Auto) (0.04-0.54) K/mm3 Baso # (Auto) (0.01-0.08) K/mm3 Puncture Site Lt radial ABG pH 7.43 (7.35-7.45) ABG pCO2 42.4 (35.0-45.0) mmHg ABG pO2 46.0 L (80.0-100.0) mmHg ABG HCO3 27.8 H (22.0-26.0) meq/L ABG O2 Saturation 82.4 L (96.0-97.0) % ABG Base Excess 3.6 H (-2-2.0) Tiburcio Test Positive O2 Delivery Device Room air Oxygen Flow Rate 0.0 Sodium (136-145) mEq/L Potassium (3.5-5.1) mEq/L Chloride (98-107) mEq/L Carbon Dioxide (21-32) mEq/L Anion Gap (5-15) BUN (7-18) mg/dL Creatinine (0.7-1.3) mg/dL Est Cr Clr Drug Dosing mL/min Estimated GFR (MDRD) (>60) mL/min BUN/Creatinine Ratio (14-18) Glucose (70-99) mg/dL POC Glucose 179 H 256 H (70-99) mg/dL Calcium (8.5-10.1) mg/dL Total Bilirubin (0.2-1.0) mg/dL AST (15-37) U/L ALT (16-63) U/L Alkaline Phosphatase (46-116) U/L NT-Pro-B Natriuret Pep (0-125) pg/mL Total Protein (6.4-8.2) g/dl Albumin (3.4-5.0) g/dl Globulin gm/dL Albumin/Globulin Ratio (1-2) 06/06/21 06/07/21 06/07/21 Range/Units 20:45 05:27 05:27 WBC (4.23-9.07) K/mm3 RBC (4.63-6.08) M/mm3 Hgb (13.7-17.5) gm/dl Hct (40.1-51.0) % MCV (79.0-92.2) fl MCH (25.7-32.2) pg MCHC (32.2-35.5) g/dl RDW Std Deviation (35.1-43.9) fL Plt Count (163-337) K/mm3 MPV (9.4-12.3) fl Neut % (Auto) (34.0-67.9) % Lymph % (Auto) (21.8-53.1) % [place] % (Auto) (5.3-12.2) % Eos % (Auto) (0.8-7.0) Baso % (Auto) (0.1-1.2) % Neut # (Auto) (1.78-5.38) K/mm3 Lymph # (Auto) (1.32-3.57) K/mm3 [place] # (Auto) (0.30-0.82) K/mm3 Eos # (Auto) (0.04-0.54) K/mm3 Baso # (Auto) (0.01-0.08) K/mm3 Puncture Site ABG pH (7.35-7.45) ABG pCO2 (35.0-45.0) mmHg ABG pO2 (80.0-100.0) mmHg ABG HCO3 (22.0-26.0) meq/L ABG O2 Saturation (96.0-97.0) % ABG Base Excess (-2-2.0) Tiburcio Test O2 Delivery Device Oxygen Flow Rate Sodium 138 (136-145) mEq/L Potassium 3.2 L (3.5-5.1) mEq/L Chloride 99 (98-107) mEq/L Carbon Dioxide 29 (21-32) mEq/L Anion Gap 13.2 (5-15) BUN 4 L (7-18) mg/dL Creatinine 0.8 (0.7-1.3) mg/dL Est Cr Clr Drug Dosing 78.64 mL/min Estimated GFR (MDRD) > 60 (>60) mL/min BUN/Creatinine Ratio 5.0 L (14-18) Glucose 172 H (70-99) mg/dL POC Glucose 263 H (70-99) mg/dL Calcium 8.3 L (8.5-10.1) mg/dL Total Bilirubin 0.2 (0.2-1.0) mg/dL AST 17 (15-37) U/L ALT 20 (16-63) U/L Alkaline Phosphatase 60 (46-116) U/L NT-Pro-B Natriuret Pep 1589 H (0-125) pg/mL Total Protein 6.9 (6.4-8.2) g/dl Albumin 2.2 L (3.4-5.0) g/dl Globulin 4.7 gm/dL Albumin/Globulin Ratio 0.5 L (1-2) 06/07/21 06/07/21 Range/Units 05:27 07:34 WBC 9.83 H (4.23-9.07) K/mm3 RBC 3.43 L (4.63-6.08) M/mm3 Hgb 9.8 L (13.7-17.5) gm/dl Hct 31.1 L (40.1-51.0) % MCV 90.7 (79.0-92.2) fl MCH 28.6 (25.7-32.2) pg MCHC 31.5 L (32.2-35.5) g/dl RDW Std Deviation 45.1 H (35.1-43.9) fL Plt Count 346 H (163-337) K/mm3 MPV 9.1 L (9.4-12.3) fl Neut % (Auto) 73.1 H (34.0-67.9) % Lymph % (Auto) 12.9 L (21.8-53.1) % [place] % (Auto) 11.8 (5.3-12.2) % Eos % (Auto) 1.7 (0.8-7.0) Baso % (Auto) 0.4 (0.1-1.2) % Neut # (Auto) 7.18 H (1.78-5.38) K/mm3 Lymph # (Auto) 1.27 L (1.32-3.57) K/mm3 [place] # (Auto) 1.16 H (0.30-0.82) K/mm3 Eos # (Auto) 0.17 (0.04-0.54) K/mm3 Baso # (Auto) 0.04 (0.01-0.08) K/mm3 Puncture Site ABG pH (7.35-7.45) ABG pCO2 (35.0-45.0) mmHg ABG pO2 (80.0-100.0) mmHg ABG HCO3 (22.0-26.0) meq/L ABG O2 Saturation (96.0-97.0) % ABG Base Excess (-2-2.0) Tiburcio Test O2 Delivery Device Oxygen Flow Rate Sodium (136-145) mEq/L Potassium (3.5-5.1) mEq/L Chloride (98-107) mEq/L Carbon Dioxide (21-32) mEq/L Anion Gap (5-15) BUN (7-18) mg/dL Creatinine (0.7-1.3) mg/dL Est Cr Clr Drug Dosing mL/min Estimated GFR (MDRD) (>60) mL/min BUN/Creatinine Ratio (14-18) Glucose (70-99) mg/dL POC Glucose 117 H (70-99) mg/dL Calcium (8.5-10.1) mg/dL Total Bilirubin (0.2-1.0) mg/dL AST (15-37) U/L ALT (16-63) U/L Alkaline Phosphatase (46-116) U/L NT-Pro-B Natriuret Pep (0-125) pg/mL Total Protein (6.4-8.2) g/dl Albumin (3.4-5.0) g/dl Globulin gm/dL Albumin/Globulin Ratio (1-2) Result Diagrams: 06/07/21 05:27 06/07/21 05:27 Sepsis Event Note - Evaluation Sepsis Screening Result: No Definite Risk - Focused Exam Vital Signs: Vital Signs Temp Pulse Resp BP Pulse Ox 06/07/21 10:14 156/61 H 06/07/21 09:32 156/61 H 06/07/21 09:31 156/61 H 06/07/21 06:25 147/79 H 06/07/21 04:17 37.2 C 104 H 16 163/77 H 94 L 06/07/21 00:57 100 148/62 H 96 06/06/21 23:24 36.5 C 102 H 18 147/81 H 96 - Problem List & Annotations (1) Adult failure to thrive SNOMED Code(s): 201233252 Code(s): R62.7 - ADULT FAILURE TO THRIVE Status: Chronic Priority: High Current Visit: Yes (2) CHF (congestive heart failure), NYHA class II SNOMED Code(s): 559702204, 870190033 Code(s): I50.9 - HEART FAILURE, UNSPECIFIED Status: Acute Priority: Medium Current Visit: Yes Onset Date: ~06/06/21 Qualifiers: Congestive heart failure type: combined Annotation/Comment:: needs echo and ordered off hctz and started lasix with good response. neurogenic bowel a nd bladder but no obstruction or hydronephrosis seen // suspect lvh and no anginal symptoms despite high b.p. rule out pericardial dysfunction. (3) Sensation alteration, late effect of cerebrovascular disease SNOMED Code(s): 26939189, 886670561 Code(s): I69.998 - OTHER SEQUELAE FOLLOWING UNSPECIFIED CEREBROVASCULAR DISEASE; R20.9 - UNSPECIFIED DISTURBANCES OF SKIN SENSATION Status: Chronic Priority: Medium Current Visit: Yes Onset Date: ~06/06/21 Annotation/Comment:: repeat head ct scan sec. to possible multi infarct pattern. (4) Unable to ambulate SNOMED Code(s): 668929172 Code(s): R26.2 - DIFFICULTY IN WALKING, NOT ELSEWHERE CLASSIFIED Status: Chronic Priority: High Current Visit: Yes Onset Date: ~06/06/21 Annotati on/Comment:: ct scan of lumbar sacral area ordered no recent trauma no rectal tone and neurogenic bladder but no incontinance of either (5) Chronic renal insufficiency, stage III (moderate) SNOMED Code(s): 033480852 Code(s): N18.30 - CHRONIC KIDNEY DISEASE, STAGE 3 UNSPECIFIED Status: Chronic Priority: Medium Current Visit: Yes Onset Date: ~06/05/21 Qualifiers: Chronic kidney disease stage 3 subtype: stage 3a (GFR 45-59) Qualified Code(s): N18.31 - Chronic kidney disease, stage 3a Annotation/Comment:: creatinine 1.7 and 3plus protienuria and hematuria seen prostate not inflamed or abnormal (6) Type 2 diabetes mellitus SNOMED Code(s): 35045012 Code(s): E11.9 - TYPE 2 DIABETES MELLITUS WITHOUT COMPLICATIONS Status: Chronic Priority: High Current Visit: Yes Onset Date: ~06/06/21 Qualifiers: Diabetes mellitus rn long term care insulin use: with rn long term care use Diabetes mellitus complication status: with kidney complications Diabetes mellitus complication detail: with chronic kidney disease Chronic kidney disease stage: stage 3 (moderate) Annotation/Comment:: needs insulin lifelong. - Problem List Review Problem List Initiated/Reviewed/Updated: Yes - Assessment Assessment:: 06/06/21 assess: resp insuff ?bronchitis screens neg. but no discreet pneumonia seen on ct scan// severe atelectasis form weakness and inability to move self. elavated d dimer but no p.e.noted. pericardial effusion assymptomatic. chf stable . renal insuff creat 1.7 and 3+ protien and blood. abd and pelvic ct scan ordered with contrast as multiple unexplained findings. generalized weakness but susp. of rt arm stroke and head ct scan ordered. cog. impairment slightly better but chronic cogn. impairment suggestive of dementia and diabetic cerebral vasc. disease. neurogenic bladder sec to autonomic neuropathy? or other cause renal u.s shows no obstruction/tumor ct scan pending. suspect sacral nerve impairment given loss rectal tone as well . dm lifelong poor control and now with neuropathy/nephropathy and autonomic neuropathy./perhaps myopathy as well . morbid obesity : patient will require peminant total care . cellultitis better suspect pad but edam slightly improved with wraps and topical cream applied . cont rocephin as well . suspected sleep apnea. suspected severe cerebral vasc. disease and possibel multiple small stroke ct scan of head pending. leg pain multifactorial but likely cellulitis//edema and neuropathy as well as oa and diabetic myopathy. plan:: ct scans as ordered. control b.s sliding scale increased/ long acting ordered. slowly bring down hypertension start amlodapine and hydralizine and cont lasix. correct lytes. discussed findings with patient and . snif referral//pt//ot/speech therapy for cog eval and speech assessment. d.e. continued. neurogenic bladder treatment difficult and may need diverting nephrostomy but unlikely to get approval for surgery or urology to agree. check psa. get off sacral area as much as tolerated. sleep study needed. boh . - Plan Plan:: 06/06/21 Patient is a 70 yr old male who is in Med/Surg. Patient's answers for most questions. Patient has been unable to get out of bed for 3 days due to chronic bilateral extremity pain and luteal pain for which he is on tramadol and Neurontin at home. Patient came w/ a mild cough but denied any fever or chills or shortness of breath. We are unable to assess if he is having any exertional symptoms since he has been bedridden. states she is no longer able to take care of him and wants us to arrange for him to be in assisted living/snf. Patient's had no bloody or tarry stools before admit. He denies any headache or any numbness weakness or paresthesias which is new. Patient's O2 saturation is 85% room air at rest. Patient has not c/o any chest pain. It is not known at this time how long pt has been homebound or what he did before being homebound. Assesment: Pt is neg for covid, RSV, Flu, and Pneumonia There is a hx of stoke 7 yrs ago, states he never got his short term memory back. He is homebound and is main caregiver. pt has continually diminishing mobility...started with a shuffle, then could walk w/help of cane, then walker, and now can't stand more than 5 mins. states pt fell at thanksgiving has been pretty much bed ridden since. states everything got worse around 2 wks ago when cough developed. Pt is not always compliant on meds and has uncontrolled DM II PT is retaining urine with no prior hx of incontinence for urine or BM's... Pt is on lasix 20mg daily for edema Prostate exam w/hemocult was done in room today w/NEG findings There is no rectal tone...pt has 800cc urine w/no urge to go diminished sensations para rectally...Echo of abdom and pelvis needed....neurogenic bladder and weakness and renal failure and fatty liver No hx of delirium, although states he has depression symptoms diminishing mobility, speech, and cognition there is focal weakness to Rt upper arm need to rule out stroke....needs CT of head Pt c/o chronic pain to legs bilat, w/mild pressure pain, also to buttocks and back, w/no hx of trauma...CT of Spine and Sacrum/Pelvis small sacral sore noted, wound management needed Toes: intact propre. Lungs: Ronkers breath sounds with intermit. wheezing...wet ....on 3 litters of O2 and sats are holding at 90%....repeat chest x-ray, portable, needed for tomorrow Pt has general weakness...need to rule out CVA work w/pt on spirometer states pt does snore but not much....no sleep study has been done, no hx of apnea Cardio:Pt has hx of CAD w/no c/o of symptoms BP is elevated and uncontrolled.....add amlodipine 5mg and hydralazine 25 q 6 Echo from 06/05 shows tachy between 90-110........repeat echo needed HX: CHF Hypoxia-mulit facet Renal Insuf. uncontrolled DM II Neuropathy Cognitive Diminishment Fatty Liver Plan: repeat Chest x-ray, portable, for tomorrow...cough and wheezing CT of Head...diminishing mobility, speech, cognition, and focal weakness CT of Spine and Sacrum/Pelvis...diminished sensations and retention Echo of abdom and pelvis needed....neurogenic bladder and weakness and renal failure and fatty liver Add amlodipine 5mg Add Hydralazine 25mg Move patient to chair and around as much as possible to prevent Pneumonia Refer to [facility] for snf admit 06/07/2021 The patient is a 70-year-old gentleman who is currently awaiting placement. The patient has improved somewhat according to the patient's daughter. He is still considered to be a poor historian and likely has multi-infarct dementia that has been worsening over the past few months. The patient will need to have placement as he is not able to ambulate and is very weak. The patient will be kept on his diabetic diet. He is on insulin sliding scale and this will continue. The patient is also on DVT prophylaxis with the use of Lovenox. The patient has been also noted to have leukocytosis as well as a reactive thrombocytosis and this is out of concern for possible undeclared infection and he is on ceftriaxone which will be continued. The patient's BNP has also been elevated and results of the 2D echocardiogram obtained are pending. The patient may improve somewhat giving his track record or he may be at his baseline is uncertain at this time. He should be appropriate for discharge to placement facility in 1 to 2 days.
[2021-06-07] MEDS ORDERED: Potassium Bicarbonate/Cit Ac 20 MEQ Effervescent Tab PO ONE (11:30)
[2021-06-07] MEDS: cefTRIAXone 2 GM in Sodium Chloride 0.9% 100 ML IV SCH (20:08)
[2021-06-07] MEDS: Gabapentin 600 MG Tab PO SCH (20:08)
[2021-06-07] MEDS: Insulin Glargine,Hum.Rec.Anlog 100 UNIT/ML 3 ML Pen SUBCUT SCH (20:53)
[2021-06-07] MEDS: Enoxaparin 40 MG/0.4 ML Syringe SUBCUT SCH (23:24)
[2021-06-08] MEDS: hydrALAZINE 10 MG Tab PO SCH ×4 (01:00→18:02)
[2021-06-08] MEDS: Furosemide 20 MG/2 ML VIAL IVPUSH SCH ×2 (05:48→13:38)
--- NOTE | 2021-06-08 07:07 | PCM.PN ---
- General Info Date of Service: 06/08/21 Admission Dx/Problem (Free Text): The patient was admitted secondary to hypoxia as well as inability to care for self. Subjective Update: The patient is a 70-year-old gentleman who had been admitted to acute hospitalization on June 06, 2021 chronic bilateral lower extremity pain as well as inability to care for himself. The patient is currently awaiting placement. The patient does have a history of multi-infarct dementia and diffuse right-sided hemiparesis. The patient is a poor historian. He denies any pain. His longtime significant other is with him. She is concerned about his overall decline in his health after series of small strokes. She has been unable to take care of him. Functional Status: Reports: Pain Controlled, Tolerating Diet. Denies: New Symptoms - Review of Systems General: Reports: No Symptoms HEENT: Reports: No Symptoms Pulmonary: Reports: No Symptoms Cardiovascular: Reports: No Symptoms Gastrointestinal: Reports: No Symptoms Genitourinary: Reports: No Symptoms Musculoskeletal: Reports: No Symptoms Skin: Reports: No Symptoms Neurological: Reports: No Symptoms Psychiatric: Reports: No Symptoms Systems Review Comment:: The patient is a poor historian. - Patient Data Vitals - Most Recent: Last Vital Signs Temp 36.4 C 06/08/21 04:04 Pulse 102 H 06/08/21 04:04 Resp 18 06/08/21 04:04 BP 172/69 H 06/08/21 04:04 Pulse Ox 93 L 06/08/21 04:04 Weight - Most Recent: 104.19 kg I&O - Last 24 Hours: Intake & Output 06/07/21 06/08/21 06/08/21 22:59 06:59 14:59 Intake Total 500 800 Output Total 850 1075 Balance -350 -275 Lab Results Last 24 Hours: Laboratory Results - last 24 hr 06/07/21 06/07/21 06/07/21 Range/Units 05:27 05:27 07:34 WBC (4.23-9.07) K/mm3 RBC (4.63-6.08) M/mm3 Hgb (13.7-17.5) gm/dl Hct (40.1-51.0) % MCV (79.0-92.2) fl MCH (25.7-32.2) pg MCHC (32.2-35.5) g/dl RDW Std Deviation (35.1-43.9) fL Plt Count (163-337) K/mm3 MPV (9.4-12.3) fl Neut % (Auto) (34.0-67.9) % Lymph % (Auto) (21.8-53.1) % [place] % (Auto) (5.3-12.2) % Eos % (Auto) (0.8-7.0) Baso % (Auto) (0.1-1.2) % Neut # (Auto) (1.78-5.38) K/mm3 Lymph # (Auto) (1.32-3.57) K/mm3 [place] # (Auto) (0.30-0.82) K/mm3 Eos # (Auto) (0.04-0.54) K/mm3 Baso # (Auto) (0.01-0.08) K/mm3 Sodium 138 (136-145) mEq/L Potassium 3.2 L (3.5-5.1) mEq/L Chloride 99 (98-107) mEq/L Carbon Dioxide 29 (21-32) mEq/L Anion Gap 13.2 (5-15) BUN 4 L (7-18) mg/dL Creatinine 0.8 (0.7-1.3) mg/dL Est Cr Clr Drug Dosing 78.64 mL/min Estimated GFR (MDRD) > 60 (>60) mL/min BUN/Creatinine Ratio 5.0 L (14-18) Glucose 172 H (70-99) mg/dL POC Glucose 117 H (70-99) mg/dL Calcium 8.3 L (8.5-10.1) mg/dL Total Bilirubin 0.2 (0.2-1.0) mg/dL AST 17 (15-37) U/L ALT 20 (16-63) U/L Alkaline Phosphatase 60 (46-116) U/L NT-Pro-B Natriuret Pep 1589 H (0-125) pg/mL Total Protein 6.9 (6.4-8.2) g/dl Albumin 2.2 L (3.4-5.0) g/dl Globulin 4.7 gm/dL Albumin/Globulin Ratio 0.5 L (1-2) 06/07/21 06/07/21 06/07/21 Range/Units 11:24 16:33 20:28 WBC (4.23-9.07) K/mm3 RBC (4.63-6.08) M/mm3 Hgb (13.7-17.5) gm/dl Hct (40.1-51.0) % MCV (79.0-92.2) fl MCH (25.7-32.2) pg MCHC (32.2-35.5) g/dl RDW Std Deviation (35.1-43.9) fL Plt Count (163-337) K/mm3 MPV (9.4-12.3) fl Neut % (Auto) (34.0-67.9) % Lymph % (Auto) (21.8-53.1) % [place] % (Auto) (5.3-12.2) % Eos % (Auto) (0.8-7.0) Baso % (Auto) (0.1-1.2) % Neut # (Auto) (1.78-5.38) K/mm3 Lymph # (Auto) (1.32-3.57) K/mm3 [place] # (Auto) (0.30-0.82) K/mm3 Eos # (Auto) (0.04-0.54) K/mm3 Baso # (Auto) (0.01-0.08) K/mm3 Sodium (136-145) mEq/L Potassium (3.5-5.1) mEq/L Chloride (98-107) mEq/L Carbon Dioxide (21-32) mEq/L Anion Gap (5-15) BUN (7-18) mg/dL Creatinine (0.7-1.3) mg/dL Est Cr Clr Drug Dosing mL/min Estimated GFR (MDRD) (>60) mL/min BUN/Creatinine Ratio (14-18) Glucose (70-99) mg/dL POC Glucose 158 H 235 H 331 H (70-99) mg/dL Calcium (8.5-10.1) mg/dL Total Bilirubin (0.2-1.0) mg/dL AST (15-37) U/L ALT (16-63) U/L Alkaline Phosphatase (46-116) U/L NT-Pro-B Natriuret Pep (0-125) pg/mL Total Protein (6.4-8.2) g/dl Albumin (3.4-5.0) g/dl Globulin gm/dL Albumin/Globulin Ratio (1-2) 06/08/21 06/08/21 06/08/21 Range/Units 05:56 05:59 05:59 WBC 8.82 (4.23-9.07) K/mm3 RBC 3.38 L (4.63-6.08) M/mm3 Hgb 9.5 L (13.7-17.5) gm/dl Hct 30.8 L (40.1-51.0) % MCV 91.1 (79.0-92.2) fl MCH 28.1 (25.7-32.2) pg MCHC 30.8 L (32.2-35.5) g/dl RDW Std Deviation 45.7 H (35.1-43.9) fL Plt Count 337 (163-337) K/mm3 MPV 8.8 L (9.4-12.3) fl Neut % (Auto) 74.6 H (34.0-67.9) % Lymph % (Auto) 13.4 L (21.8-53.1) % [place] % (Auto) 9.6 (5.3-12.2) % Eos % (Auto) 1.6 (0.8-7.0) Baso % (Auto) 0.5 (0.1-1.2) % Neut # (Auto) 6.58 H (1.78-5.38) K/mm3 Lymph # (Auto) 1.18 L (1.32-3.57) K/mm3 [place] # (Auto) 0.85 H (0.30-0.82) K/mm3 Eos # (Auto) 0.14 (0.04-0.54) K/mm3 Baso # (Auto) 0.04 (0.01-0.08) K/mm3 Sodium 140 (136-145) mEq/L Potassium 3.6 (3.5-5.1) mEq/L Chloride 100 (98-107) mEq/L Carbon Dioxide 32 (21-32) mEq/L Anion Gap 11.6 (5-15) BUN 28 H (7-18) mg/dL Creatinine 1.6 H (0.7-1.3) mg/dL Est Cr Clr Drug Dosing 39.32 mL/min Estimated GFR (MDRD) 43 (>60) mL/min BUN/Creatinine Ratio 17.5 (14-18) Glucose 165 H (70-99) mg/dL POC Glucose 154 H (70-99) mg/dL Calcium 8.8 (8.5-10.1) mg/dL Total Bilirubin 0.2 (0.2-1.0) mg/dL AST 37 (15-37) U/L ALT 25 (16-63) U/L Alkaline Phosphatase 207 H (46-116) U/L NT-Pro-B Natriuret Pep (0-125) pg/mL Total Protein 7.0 (6.4-8.2) g/dl Albumin 2.1 L (3.4-5.0) g/dl Globulin 4.9 gm/dL Albumin/Globulin Ratio 0.4 L (1-2) Med Orders - Current: Current Medications Amlodipine Besylate (Amlodipine 5 Mg Tab) 5 mg PO DAILY [facility] Last Admin: 06/07/21 09:32 Dose: 5 mg Documented by: Atorvastatin Calcium (Atorvastatin 20 Mg Tab) 10 mg PO Q2D@2100 [facility] Last Admin: 06/06/21 20:36 Dose: 10 mg Documented by: Clopidogrel Bisulfate (Clopidogrel 75 Mg Tab) 75 mg PO DAILY [facility] Last Admin: 06/07/21 09:31 Dose: 75 mg Documented by: Doxazosin Mesylate (Doxazosin 2 Mg Tab) 1 mg PO DAILY [facility] Last Admin: 06/07/21 09:31 Dose: 1 mg Documented by: Enoxaparin Sodium (Enoxaparin 40 Mg/0.4 Ml Syringe) 40 mg SUBCUT Q24H [facility] Last Admin: 06/07/21 23:24 Dose: 40 mg Documented by: Furosemide (Furosemide 20 Mg/2 Ml Vial) 20 mg IVPUSH BIDDIURETIC [facility] Last Admin: 06/08/21 05:48 Dose: 20 mg Documented by: Gabapentin (Gabapentin 300 Mg Cap) 300 mg PO DAILY [facility] Last Admin: 06/07/21 09:33 Dose: 300 mg Documented by: Gabapentin (Gabapentin 600 Mg Tab) 600 mg PO BEDTIME [facility] Last Admin: 06/07/21 20:08 Dose: 600 mg Documented by: Hydralazine HCl (Hydralazine 10 Mg Tab) 10 mg PO Q6H [facility] Last Admin: 06/08/21 01:00 Dose: 10 mg Documented by: Ceftriaxone Sodium 2 gm/ (Sodium Chloride) 100 mls @ 200 mls/hr IV Q24H [facility] Last Admin: 06/07/21 20:08 Dose: 200 mls/hr Documented by: Insulin Glargine (Insulin Glargine,Hum.Rec.Anlog 100 Unit/Ml 3 Ml Pen) 73 unit SUBCUT BEDTIME [facility] Last Admin: 06/07/21 20:53 Dose: 73 units Documented by: Insulin Human Lispro (Insulin Lispro 100 Unit/Ml 3 Ml Kwikpen) 0 unit SUBCUT WITHMEALSANDBED [facility]; Protocol Last Admin: 06/07/21 20:53 Dose: 4 unit Documented by: Isosorbide Mononitrate (Isosorbide Mononitrate 30 Mg Tab.Er) 30 mg PO DAILY [facility] Last Admin: 06/07/21 10:14 Dose: 30 mg Documented by: Nystatin (Nystatin Topical Powder 15 Gm Bottle) 1 gm TOP BID [facility] Last Admin: 06/07/21 20:08 Dose: 1 applic Documented by: Nystatin (Nystatin Crm 30 Gm Tube) 0 gm TOP BID [facility] Last Admin: 06/07/21 20:08 Dose: 1 applic Documented by: Senna/Docusate Sodium (Docusate Sodium/Sennosides 50-8.6 Mg Tab) 2 tab PO DAILY PRN PRN Reason: Constipation Last Admin: 06/07/21 06:25 Dose: 2 tab Documented by: Tramadol HCl (Tramadol 50 Mg Tab) 50 mg PO BID PRN PRN Reason: Pain Last Admin: 06/06/21 20:35 Dose: 50 mg Documented by: Discontinued Medications Albuterol/Ipratropium (Albuterol/Ipratropium 3.0-0.5 Mg/3 Ml Neb Soln) 3 ml NEB ONETIME ONE Stop: 06/05/21 15:06 Last Admin: 06/05/21 15:14 Dose: 3 ml Documented by: Amlodipine Besylate (Amlodipine 5 Mg Tab) 5 mg PO ONETIME ONE Stop: 06/06/21 15:41 Last Admin: 06/06/21 16:37 Dose: 5 mg Documented by: Bisacodyl (Bisacodyl 10 Mg Supp) 10 mg RECTAL ONETIME ONE Stop: 06/07/21 04:01 Last Admin: 06/07/21 04:45 Dose: 10 mg Documented by: Hydralazine HCl (Hydralazine 10 Mg Tab) 10 mg PO ONETIME ONE Stop: 06/06/21 15:41 Last Admin: 06/06/21 16:37 Dose: 10 mg Documented by: Sodium Chloride (Normal Saline) 100 mls @ 60 mls/hr IV ASDIRECTED [facility] Last Admin: 06/05/21 15:21 Dose: 60 mls/hr Documented by: Sodium Chloride (Normal Saline) 1,000 mls @ 125 mls/hr IV ASDIRECTED [facility] Stop: 06/06/21 16:00 Last Admin: 06/06/21 11:48 Dose: 125 mls/hr Documented by: Sodium Chloride (Normal Saline) 100 mls @ 60 mls/hr IV ASDIRECTED [facility] Insulin Glargine (Insulin Glargine,Hum.Rec.Anlog 100 Unit/Ml 3 Ml Pen) 73 unit SUBCUT DAILY [facility] Last Admin: 06/05/21 23:16 Dose: 73 units Documented by: Iopamidol (Iopamidol 755 Mg/Ml 100 Ml Bottle) 100 ml IVPUSH ONETIME ONE Stop: 06/05/21 15:20 Last Admin: 06/05/21 15:21 Dose: 100 ml Documented by: Iopamidol (Iopamidol 755 Mg/Ml 50 Ml Bottle) 50 ml IVPUSH ONETIME ONE Stop: 06/05/21 15:20 Last Admin: 06/05/21 15:21 Dose: 50 ml Documented by: Iopamidol (Iopamidol 612 Mg/Ml 50 Ml Sdv) 50 ml IVPUSH ONETIME ONE Stop: 06/06/21 13:22 Last Admin: 06/06/21 23:37 Dose: Not Given Documented by: Iopamidol (Iopamidol 612 Mg/Ml 100 Ml Bottle) 100 ml IVPUSH ONETIME ONE Stop: 06/06/21 13:22 Last Admin: 06/06/21 23:37 Dose: Not Given Documented by: Magnesium Hydroxide (Magnesium Hydroxide 400 Mg/5 Ml Susp 30 Ml Cup) 30 ml PO ONETIME ONE Stop: 06/06/21 09:01 Last Admin: 06/06/21 08:42 Dose: 30 ml Documented by: Potassium Bicarbonate (Potassium Bicarbonate/Cit Ac 20 Meq Effervescent Tab) 20 meq PO ONETIME ONE Stop: 06/07/21 11:31 Last Admin: 06/07/21 11:10 Dose: 20 meq Documented by: Simvastatin (Simvastatin 10 Mg Tab) 10 mg PO Q2D@2100 [facility] Sodium Chloride (Sodium Chloride 0.9% 10 Ml Syringe) 10 ml FLUSH ONETIME ONE Stop: 06/06/21 13:22 Last Admin: 06/06/21 20:42 Dose: 10 ml Documented by: Tramadol HCl (Tramadol 50 Mg Tab) 50 mg PO ONETIME ONE Stop: 06/05/21 13:20 Last Admin: 06/05/21 13:46 Dose: 50 mg Documented by: - Exam Quality Assessment: Urine Catheter, DVT Prophylaxis. No: Supplemental Oxygen Urinary Catheter Total Time: 2Days 4Hours General: Alert, Oriented, Other (Some confusion noted.) HEENT: Pupils Equal, Pupils Reactive, EOMI Neck: Supple, Trachea Midline Lungs: Clear to Auscultation, Normal Respiratory Effort Cardiovascular: Regular Rate, Regular Rhythm GI/Abdominal Exam: Normal Bowel Sounds, Soft, No Distention (Male) Exam: Deferred Back Exam: No: Normal Inspection (Unable to set up therefore unable to evaluate back), Full Range of Motion Extremities: Pedal Edema Skin: Warm, Dry, Intact Wound/Incisions: Dressing Dry and Intact Neurological: No New Focal Deficit Psy/Mental Status: Alert, Normal Affect - Patient Data Lab Results Last 24 hrs: Laboratory Results - last 24 hr 06/07/21 06/07/21 06/07/21 Range/Units 05:27 05:27 07:34 WBC (4.23-9.07) K/mm3 RBC (4.63-6.08) M/mm3 Hgb (13.7-17.5) gm/dl Hct (40.1-51.0) % MCV (79.0-92.2) fl MCH (25.7-32.2) pg MCHC (32.2-35.5) g/dl RDW Std Deviation (35.1-43.9) fL Plt Count (163-337) K/mm3 MPV (9.4-12.3) fl Neut % (Auto) (34.0-67.9) % Lymph % (Auto) (21.8-53.1) % [place] % (Auto) (5.3-12.2) % Eos % (Auto) (0.8-7.0) Baso % (Auto) (0.1-1.2) % Neut # (Auto) (1.78-5.38) K/mm3 Lymph # (Auto) (1.32-3.57) K/mm3 [place] # (Auto) (0.30-0.82) K/mm3 Eos # (Auto) (0.04-0.54) K/mm3 Baso # (Auto) (0.01-0.08) K/mm3 Sodium 138 (136-145) mEq/L Potassium 3.2 L (3.5-5.1) mEq/L Chloride 99 (98-107) mEq/L Carbon Dioxide 29 (21-32) mEq/L Anion Gap 13.2 (5-15) BUN 4 L (7-18) mg/dL Creatinine 0.8 (0.7-1.3) mg/dL Est Cr Clr Drug Dosing 78.64 mL/min Estimated GFR (MDRD) > 60 (>60) mL/min BUN/Creatinine Ratio 5.0 L (14-18) Glucose 172 H (70-99) mg/dL POC Glucose 117 H (70-99) mg/dL Calcium 8.3 L (8.5-10.1) mg/dL Total Bilirubin 0.2 (0.2-1.0) mg/dL AST 17 (15-37) U/L ALT 20 (16-63) U/L Alkaline Phosphatase 60 (46-116) U/L NT-Pro-B Natriuret Pep 1589 H (0-125) pg/mL Total Protein 6.9 (6.4-8.2) g/dl Albumin 2.2 L (3.4-5.0) g/dl Globulin 4.7 gm/dL Albumin/Globulin Ratio 0.5 L (1-2) 06/07/21 06/07/21 06/07/21 Range/Units 11:24 16:33 20:28 WBC (4.23-9.07) K/mm3 RBC (4.63-6.08) M/mm3 Hgb (13.7-17.5) gm/dl Hct (40.1-51.0) % MCV (79.0-92.2) fl MCH (25.7-32.2) pg MCHC (32.2-35.5) g/dl RDW Std Deviation (35.1-43.9) fL Plt Count (163-337) K/mm3 MPV (9.4-12.3) fl Neut % (Auto) (34.0-67.9) % Lymph % (Auto) (21.8-53.1) % [place] % (Auto) (5.3-12.2) % Eos % (Auto) (0.8-7.0) Baso % (Auto) (0.1-1.2) % Neut # (Auto) (1.78-5.38) K/mm3 Lymph # (Auto) (1.32-3.57) K/mm3 [place] # (Auto) (0.30-0.82) K/mm3 Eos # (Auto) (0.04-0.54) K/mm3 Baso # (Auto) (0.01-0.08) K/mm3 Sodium (136-145) mEq/L Potassium (3.5-5.1) mEq/L Chloride (98-107) mEq/L Carbon Dioxide (21-32) mEq/L Anion Gap (5-15) BUN (7-18) mg/dL Creatinine (0.7-1.3) mg/dL Est Cr Clr Drug Dosing mL/min Estimated GFR (MDRD) (>60) mL/min BUN/Creatinine Ratio (14-18) Glucose (70-99) mg/dL POC Glucose 158 H 235 H 331 H (70-99) mg/dL Calcium (8.5-10.1) mg/dL Total Bilirubin (0.2-1.0) mg/dL AST (15-37) U/L ALT (16-63) U/L Alkaline Phosphatase (46-116) U/L NT-Pro-B Natriuret Pep (0-125) pg/mL Total Protein (6.4-8.2) g/dl Albumin (3.4-5.0) g/dl Globulin gm/dL Albumin/Globulin Ratio (1-2) 06/08/21 06/08/21 06/08/21 Range/Units 05:56 05:59 05:59 WBC 8.82 (4.23-9.07) K/mm3 RBC 3.38 L (4.63-6.08) M/mm3 Hgb 9.5 L (13.7-17.5) gm/dl Hct 30.8 L (40.1-51.0) % MCV 91.1 (79.0-92.2) fl MCH 28.1 (25.7-32.2) pg MCHC 30.8 L (32.2-35.5) g/dl RDW Std Deviation 45.7 H (35.1-43.9) fL Plt Count 337 (163-337) K/mm3 MPV 8.8 L (9.4-12.3) fl Neut % (Auto) 74.6 H (34.0-67.9) % Lymph % (Auto) 13.4 L (21.8-53.1) % [place] % (Auto) 9.6 (5.3-12.2) % Eos % (Auto) 1.6 (0.8-7.0) Baso % (Auto) 0.5 (0.1-1.2) % Neut # (Auto) 6.58 H (1.78-5.38) K/mm3 Lymph # (Auto) 1.18 L (1.32-3.57) K/mm3 [place] # (Auto) 0.85 H (0.30-0.82) K/mm3 Eos # (Auto) 0.14 (0.04-0.54) K/mm3 Baso # (Auto) 0.04 (0.01-0.08) K/mm3 Sodium 140 (136-145) mEq/L Potassium 3.6 (3.5-5.1) mEq/L Chloride 100 (98-107) mEq/L Carbon Dioxide 32 (21-32) mEq/L Anion Gap 11.6 (5-15) BUN 28 H (7-18) mg/dL Creatinine 1.6 H (0.7-1.3) mg/dL Est Cr Clr Drug Dosing 39.32 mL/min Estimated GFR (MDRD) 43 (>60) mL/min BUN/Creatinine Ratio 17.5 (14-18) Glucose 165 H (70-99) mg/dL POC Glucose 154 H (70-99) mg/dL Calcium 8.8 (8.5-10.1) mg/dL Total Bilirubin 0.2 (0.2-1.0) mg/dL AST 37 (15-37) U/L ALT 25 (16-63) U/L Alkaline Phosphatase 207 H (46-116) U/L NT-Pro-B Natriuret Pep (0-125) pg/mL Total Protein 7.0 (6.4-8.2) g/dl Albumin 2.1 L (3.4-5.0) g/dl Globulin 4.9 gm/dL Albumin/Globulin Ratio 0.4 L (1-2) Result Diagrams: 06/08/21 05:59 06/08/21 05:59 Sepsis Event Note - Evaluation Sepsis Screening Result: No Definite Risk - Focused Exam Vital Signs: Vital Signs Temp Pulse Resp BP Pulse Ox 06/08/21 04:04 36.4 C 102 H 18 172/69 H 93 L 06/08/21 01:00 167/76 H 06/07/21 23:32 36.6 C 106 H 20 176/70 H 94 L 06/07/21 19:53 36.6 C 111 H 18 169/61 H 93 L - Problem List & Annotations (1) Adult failure to thrive SNOMED Code(s): 948621277 Code(s): R62.7 - ADULT FAILURE TO THRIVE Status: Chronic Priority: High Current Visit: Yes (2) CHF (congestive heart failure), NYHA class II SNOMED Code(s): 894254475, 375140671 Code(s): I50.9 - HEART FAILURE, UNSPECIFIED Status: Acute Priority: Medium Current Visit: Yes Onset Date: ~06/06/21 Qualifiers: Congestive heart failure type: combined Annotation/Comment:: needs echo and ordered off hctz and started lasix with good response. neurogenic bowel a nd bladder but no obstruction or hydronephrosis seen // suspect lvh and no anginal symptoms despite high b.p. rule out pericardial dysfunction. (3) Sensation alteration, late effect of cerebrovascular disease SNOMED Code(s): 44018124, 414638154 Code(s): I69.998 - OTHER SEQUELAE FOLLOWING UNSPECIFIED CEREBROVASCULAR DISEASE; R20.9 - UNSPECIFIED DISTURBANCES OF SKIN SENSATION Status: Chronic Priority: Medium Current Visit: Yes Onset Date: ~06/06/21 Annotation/Comment:: repeat head ct scan sec. to possible multi infarct pattern. (4) Unable to ambulate SNOMED Code(s): 381920853 Code(s): R26.2 - DIFFICULTY IN WALKING, NOT ELSEWHERE CLASSIFIED Status: Chronic Priority: High Current Visit: Yes Onset Date: ~06/06/21 Annotation/Comment:: ct scan of lumbar sacral area ordered no recent trauma no rectal tone and neurogenic bladder but no incontinance of either (5) Chronic renal insufficiency, stage III (moderate) SNOMED Code(s): 856655833 Code(s): N18.30 - CHRONIC KIDNEY DISEASE, STAGE 3 UNSPECIFIED Status: Chronic Priority: Medium Current Visit: Yes Onset Date: ~06/05/21 Qualifiers: Chronic kidney disease stage 3 subtype: stage 3a (GFR 45-59) Qualified Code(s): N18.31 - Chronic kidney disease, stage 3a Annotation/Comment:: creatinine 1.7 and 3plus protienuria and hematuria seen prostate not inflamed or abnormal (6) Type 2 diabetes mellitus SNOMED Code(s): 46565425 Code(s): E11.9 - TYPE 2 DIABETES MELLITUS WITHOUT COMPLICATIONS Status: [facility] Priority: High Current Visit: Yes Onset Date: ~06/06/21 Qualifiers: Diabetes mellitus mcc insulin use: 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 - Problem List Review Problem List Initiated/Reviewed/Updated: Yes - Assessment Assessment:: 06/06/21 assess: resp insuff ?bronchitis screens neg. but no discreet pneumonia seen on ct scan// severe atelectasis form weakness and inability to move self. elavated d dimer but no p.e.noted. pericardial effusion assymptomatic. chf stable . renal insuff creat 1.7 and 3+ protien and blood. abd and pelvic ct scan ordered with contrast as multiple unexplained findings. generalized weakness but susp. of rt arm stroke and head ct scan ordered. cog. impairment slightly better but chronic cogn. impairment suggestive of dementia and diabetic cerebral vasc. disease. neurogenic bladder sec to autonomic neuropathy? or other cause renal u.s shows no obstruction/tumor ct scan pending. suspect sacral nerve impairment given loss rectal tone as well . dm lifelong poor control and now with neuropathy/nephropathy and autonomic neuropathy./perhaps myopathy as well . morbid obesity : patient will require peminant total care . cellultitis better suspect pad but edam slightly improved with wraps and topical cream applied . cont rocephin as well . suspected sleep apnea. suspected severe cerebral vasc. disease and possibel multiple small stroke ct scan of head pending. leg pain multifactorial but likely cellulitis//edema and neuropathy as well as oa and diabetic myopathy. plan:: ct scans as ordered. control b.s sliding scale increased/ long acting ordered. slowly bring down hypertension start amlodapine and hydralizine and cont lasix. correct lytes. discussed findings with patient and . snif referral//pt//ot/speech therapy for cog eval and speech assessment. d.e. continued. neurogenic bladder treatment difficult and may need diverting nephrostomy but unlikely to get approval for surgery or urology to agree. check psa. get off sacral area as much as tolerated. sleep study needed. boh . - Plan Plan:: 06/06/21 Patient is a 70 yr old male who is in Med/Surg. Patient's answers for most questions. Patient has been unable to get out of bed for 3 days due to chronic bilateral extremity pain and luteal pain for which he is on tramadol and N eurontin at home. Patient came w/ a mild cough but denied any fever or chills or shortness of breath. We are unable to assess if he is having any exertional symptoms since he has been bedridden. states she is no longer able to take care of him and wants us to arrange for him to be in assisted living/[place] [facility]. Patient's had no bloody or tarry stools before admit. He denies any headache or any numbness weakness or paresthesias which is new. Patient's O2 saturation is 85% room air at rest. Patient has not c/o any chest pain. It is not known at this time how long pt has been homebound or what he did before being homebound. Assesment: Pt is neg for covid, RSV, Flu, and Pneumonia There is a hx of stoke 7 yrs ago, states he never got his short term memory back. He is homebound and is main caregiver. pt has continually diminishing mobility...started with a shuffle, then could walk w/help of cane, then walker, and now can't stand more than 5 mins. states pt fell at thanksgiving has been pretty much bed ridden since. states everything got worse around 2 wks ago when cough developed. Pt is not always compliant on meds and has uncontrolled DM II PT is retaining urine with no prior hx of incontinence for urine or BM's... Pt is on lasix 20mg daily for edema Prostate exam w/hemocult was done in room today w/NEG findings There is no rectal tone...pt has 800cc urine w/no urge to go diminished sensations para rectally...Echo of abdom and pelvis neede d....neurogenic bladder and weakness and renal failure and fatty liver No hx of delirium, although states he has depression symptoms diminishing mobility, speech, and cognition there is focal weakness to Rt upper arm need to rule out stroke....needs CT of head Pt c/o chronic pain to legs bilat, w/mild pressure pain, also to buttocks and back, w/no hx of trauma...CT of Spine and Sacrum/Pelvis small sacral sore noted, wound management needed Toes: intact propre. Lungs: Ronkers breath sounds with intermit. wheezing...wet ....on 3 litters of O2 and sats are holding at 90%....repeat chest x-ray, portable, needed for tomorrow Pt has general weakness...need to rule out CVA work w/pt on spirometer states pt does snore but not much....no sleep study has been done, no hx of apnea Cardio:Pt has hx of CAD w/no c/o of symptoms BP is elevated and uncontrolled.....add amlodipine 5mg and hydralazine 25 q 6 Echo from 06/05 shows tachy between 90-110........repeat echo needed HX: CHF Hypoxia-mulit facet Renal Insuf. uncontrolled DM II Neuropathy Cognitive Diminishment Fatty Liver Plan: repeat Chest x-ray, portable, for tomorrow...cough and wheezing CT of Head...diminishing mobility, speech, cognition, and focal weakness CT of Spine and Sacrum/Pelvis...diminished sensations and retention Echo of abdom and pelvis needed....neurogenic bladder and weakness and renal fa ilure and fatty liver Add amlodipine 5mg Add Hydralazine 25mg Move patient to chair and around as much as possible to prevent Pneumonia Refer to [facility] admit 06/07/2021 The patient is a 70-year-old gentleman who is currently awaiting placement. The patient has improved somewhat according to the patient's daughter. He is still considered to be a poor historian and likely has multi-infarct dementia that has been worsening over the past few months. The patient will need to have placement as he is not able to ambulate and is very weak. The patient will be kept on his diabetic diet. He is on insulin sliding scale and this will continue. The patient is also on DVT prophylaxis with the use of Lovenox. The patient has been also noted to have leukocytosis as well as a reactive thrombocytosis and this is out of concern for possible undeclared infection and he is on ceftriaxone which will be continued. The patient's BNP has also been elevated and results of the 2D echocardiogram obtained are pending. The patient may improve somewhat giving his track record or he may be at his baseline is uncertain at this time. He should be appropriate for discharge to placement facility in 1 to 2 days. 06/08/2021 The patient is a 70-year-old gentleman who is currently awaiting placement. He has improved somewhat during his hospital stay. The patient still has been unable to participate in physical therapy. I had a discussion with the patient's significant other who is basically his power of collections attorney at this time. I discussed with her the likelihood of this being a long-term issue with regards to placement. The patient will be maintained on insulin sliding scale. He will also have appropriate ADA diet as tolerated. Repeat laboratory studies have been ordered for the morning. The patient is also having DVT prophylaxis with the use of Lovenox. The patient should be appropriate for discharge once placement is available. The patient was retained in hospitalization greater than 96 hours due to co ntinued physical therapy requirements and not being considered to be safe at home. He is also awaiting placement.
[2021-06-08] MEDS: Doxazosin 2 MG Tab PO SCH (08:55)
[2021-06-08] MEDS: amLODIPine 5 MG Tab PO SCH (08:55)
[2021-06-08] MEDS: Clopidogrel 75 MG Tab PO SCH (08:55)
[2021-06-08] MEDS: Insulin Lispro 100 Unit/ML 3 ML KwikPen SUBCUT SCH ×4 (08:56→21:42)
[2021-06-08] MEDS: Isosorbide Mononitrate 30 MG Tab.ER PO SCH (08:56)
[2021-06-08] MEDS: Gabapentin 300 MG Cap PO SCH (08:56)
[2021-06-08] MEDS: Nystatin Topical Powder 15 GM Bottle TOP SCH ×2 (08:57→21:41)
[2021-06-08] MEDS: Nystatin Crm 30 GM Tube TOP SCH ×2 (08:57→21:41)
[2021-06-08] MEDS: cefTRIAXone 2 GM in Sodium Chloride 0.9% 100 ML IV SCH (21:37)
[2021-06-08] MEDS: atorvaSTATin 20 MG Tab PO SCH (21:40)
[2021-06-08] MEDS: Gabapentin 600 MG Tab PO SCH (21:40)
[2021-06-08] MEDS: Insulin Glargine,Hum.Rec.Anlog 100 UNIT/ML 3 ML Pen SUBCUT SCH (21:43)
[2021-06-08] MEDS: traMADol 50 MG Tab PO PRN (21:53)
[2021-06-08] MEDS: Enoxaparin 40 MG/0.4 ML Syringe SUBCUT SCH (22:00)
[2021-06-09] MEDS: hydrALAZINE 10 MG Tab PO SCH ×2 (01:59→06:17)
[2021-06-09] MEDS: Furosemide 20 MG/2 ML VIAL IVPUSH SCH ×2 (06:17→14:42)
[2021-06-09] MEDS: Gabapentin 300 MG Cap PO SCH (08:08)
[2021-06-09] MEDS: amLODIPine 5 MG Tab PO SCH (08:08)
[2021-06-09] MEDS: Isosorbide Mononitrate 30 MG Tab.ER PO SCH (08:09)
[2021-06-09] MEDS: Doxazosin 2 MG Tab PO SCH (08:09)
[2021-06-09] MEDS: Clopidogrel 75 MG Tab PO SCH (08:09)
[2021-06-09] MEDS: Nystatin Crm 30 GM Tube TOP SCH ×2 (08:10→21:13)
[2021-06-09] MEDS: Insulin Lispro 100 Unit/ML 3 ML KwikPen SUBCUT SCH ×5 (08:10→21:11)
[2021-06-09] MEDS: Nystatin Topical Powder 15 GM Bottle TOP SCH ×2 (08:11→21:13)
[2021-06-09] MEDS: Metoprolol Tartrate 50 MG Tab PO SCH ×2 (11:43→23:45)
--- NOTE | 2021-06-09 15:04 | PCM.PN ---
- General Info Date of Service: 06/09/21 Admission Dx/Problem (Free Text): The patient was admitted secondary to hypoxia as well as inability to care for self. Subjective Update: The patient is a 70-year-old gentleman who had been admitted to acute hospitalization on June 06, 2021 chronic bilateral lower extremity pain as well as inability to care for himself. The patient is currently awaiting placement. The patient does have a history of multi-infarct dementia and diffuse right-sided hemiparesis. The patient is a poor historian. He denies any pain. His longtime significant other is with him. She is concerned about his overall decline in his health after series of small strokes. She has been unable to take care of him. We had a long conversation about his overall long-term prognosis. She does have healthcare and financial power of district attorney. Nursing did report that he was tachycardic in the one teens most of the night. Functional Status: Reports: Pain Controlled - Review of Systems General: Reports: Other (Unable to communicate his review of systems) - Patient Data Vitals - Most Recent: Last Vital Signs Temp 98.1 F 06/09/21 10:52 Pulse 111 H 06/09/21 11:43 Resp 18 06/09/21 10:52 BP 101/63 06/09/21 11:43 Pulse Ox 93 L 06/09/21 10:52 Weight - Most Recent: 228 lb 14.4 oz I&O - Last 24 Hours: Intake & Output 06/08/21 06/09/21 06/09/21 22:59 06:59 14:59 Intake Total 475 900 650 Output Total 1350 1550 Balance -875 -650 650 Lab Results Last 24 Hours: Laboratory Results - last 24 hr 06/08/21 06/08/21 06/09/21 Range/Units 16:40 21:15 05:48 WBC 9.52 H (4.23-9.07) K/mm3 RBC 3.67 L (4.63-6.08) M/mm3 Hgb 10.3 L (13.7-17.5) gm/dl Hct 33.3 L (40.1-51.0) % MCV 90.7 (79.0-92.2) fl MCH 28.1 (25.7-32.2) pg MCHC 30.9 L (32.2-35.5) g/dl RDW Std Deviation 45.3 H (35.1-43.9) fL Plt Count 387 H (163-337) K/mm3 MPV 9.2 L (9.4-12.3) fl Neut % (Auto) 74.3 H (34.0-67.9) % Lymph % (Auto) 12.5 L (21.8-53.1) % Fannin % (Auto) 11.2 (5.3-12.2) % Eos % (Auto) 0.7 L (0.8-7.0) Baso % (Auto) 0.5 (0.1-1.2) % Neut # (Auto) 7.06 H (1.78-5.38) K/mm3 Lymph # (Auto) 1.19 L (1.32-3.57) K/mm3 Fannin # (Auto) 1.07 H (0.30-0.82) K/mm3 Eos # (Auto) 0.07 (0.04-0.54) K/mm3 Baso # (Auto) 0.05 (0.01-0.08) K/mm3 Sodium (136-145) mEq/L Potassium (3.5-5.1) mEq/L Chloride (98-107) mEq/L Carbon Dioxide (21-32) mEq/L Anion Gap (5-15) BUN (7-18) mg/dL Creatinine (0.7-1.3) mg/dL Est Cr Clr Drug Dosing mL/min Estimated GFR (MDRD) (>60) mL/min BUN/Creatinine Ratio (14-18) Glucose (70-99) mg/dL POC Glucose 245 H 351 H (70-99) mg/dL Calcium (8.5-10.1) mg/dL Total Bilirubin (0.2-1.0) mg/dL AST (15-37) U/L ALT (16-63) U/L Alkaline Phosphatase (46-116) U/L Total Protein (6.4-8.2) g/dl Albumin (3.4-5.0) g/dl Globulin gm/dL Albumin/Globulin Ratio (1-2) 06/09/21 06/09/21 06/09/21 Range/Units 05:48 06:49 10:49 WBC (4.23-9.07) K/mm3 RBC (4.63-6.08) M/mm3 Hgb (13.7-17.5) gm/dl Hct (40.1-51.0) % MCV (79.0-92.2) fl MCH (25.7-32.2) pg MCHC (32.2-35.5) g/dl RDW Std Deviation (35.1-43.9) fL Plt Count (163-337) K/mm3 MPV (9.4-12.3) fl Neut % (Auto) (34.0-67.9) % Lymph % (Auto) (21.8-53.1) % Fannin % (Auto) (5.3-12.2) % Eos % (Auto) (0.8-7.0) Baso % (Auto) (0.1-1.2) % Neut # (Auto) (1.78-5.38) K/mm3 Lymph # (Auto) (1.32-3.57) K/mm3 Fannin # (Auto) (0.30-0.82) K/mm3 Eos # (Auto) (0.04-0.54) K/mm3 Baso # (Auto) (0.01-0.08) K/mm3 Sodium 139 (136-145) mEq/L Potassium 3.8 (3.5-5.1) mEq/L Chloride 99 (98-107) mEq/L Carbon Dioxide 31 (21-32) mEq/L Anion Gap 12.8 (5-15) BUN 27 H (7-18) mg/dL Creatinine 1.7 H (0.7-1.3) mg/dL Est Cr Clr Drug Dosing 37.01 mL/min Estimated GFR (MDRD) 40 (>60) mL/min BUN/Creatinine Ratio 15.9 (14-18) Glucose 232 H (70-99) mg/dL POC Glucose 201 H 282 H (70-99) mg/dL Calcium 8.7 (8.5-10.1) mg/dL Total Bilirubin 0.3 (0.2-1.0) mg/dL AST 53 H (15-37) U/L ALT 38 (16-63) U/L Alkaline Phosphatase 258 H (46-116) U/L Total Protein 6.4 (6.4-8.2) g/dl Albumin 2.2 L (3.4-5.0) g/dl Globulin 4.2 gm/dL Albumin/Globulin Ratio 0.5 L (1-2) Med Orders - Current: Current Medications Amlodipine Besylate (Amlodipine 5 Mg Tab) 5 mg PO DAILY [facility] Last Admin: 06/09/21 08:08 Dose: 5 mg Documented by: Atorvastatin Calcium (Atorvastatin 20 Mg Tab) 10 mg PO Q2D@2100 [facility] Last Admin: 06/08/21 21:40 Dose: 10 mg Documented by: Clopidogrel Bisulfate (Clopidogrel 75 Mg Tab) 75 mg PO DAILY [facility] Last Admin: 06/09/21 08:09 Dose: 75 mg Documented by: Doxazosin Mesylate (Doxazosin 2 Mg Tab) 1 mg PO DAILY [facility] Last Admin: 06/09/21 08:09 Dose: 1 mg Documented by: Enoxaparin Sodium (Enoxaparin 40 Mg/0.4 Ml Syringe) 40 mg SUBCUT Q24H [facility] Last Admin: 06/08/21 22:00 Dose: 40 mg Documented by: Furosemide (Furosemide 20 Mg/2 Ml Vial) 20 mg IVPUSH BIDDIURETIC [facility] Last Admin: 06/09/21 14:42 Dose: 20 mg Documented by: Gabapentin (Gabapentin 300 Mg Cap) 300 mg PO DAILY [facility] Last Admin: 06/09/21 08:08 Dose: 300 mg Documented by: Gabapentin (Gabapentin 600 Mg Tab) 600 mg PO BEDTIME [facility] Last Admin: 06/08/21 21:40 Dose: 600 mg Documented by: Ceftriaxone Sodium 2 gm/ (Sodium Chloride) 100 mls @ 200 mls/hr IV Q24H [facility] Last Admin: 06/08/21 21:37 Dose: 200 mls/hr Documented by: Insulin Glargine (Insulin Glargine,Hum.Rec.Anlog 100 Unit/Ml 3 Ml Pen) 73 unit SUBCUT BEDTIME [facility] Last Admin: 06/08/21 21:43 Dose: 73 units Documented by: Insulin Human Lispro (Insulin Lispro 100 Unit/Ml 3 Ml Kwikpen) 0 unit SUBCUT WI THMEALSANDBED [facility]; Protocol Last Admin: 06/09/21 11:44 Dose: 3 unit Documented by: Isosorbide Mononitrate (Isosorbide Mononitrate 30 Mg Tab.Er) 30 mg PO DAILY [facility] Last Admin: 06/09/21 08:09 Dose: 30 mg Documented by: Metoprolol Tartrate (Metoprolol Tartrate 50 Mg Tab) 50 mg PO Q12H [facility] Last Admin: 06/09/21 11:43 Dose: 50 mg Documented by: Nystatin (Nystatin Topical Powder 15 Gm Bottle) 1 gm TOP BID [facility] Last Admin: 06/09/21 08:11 Dose: 1 applic Documented by: Nystatin (Nystatin Crm 30 Gm Tube) 0 gm TOP BID [facility] Last Admin: 06/09/21 08:10 Dose: 1 applic Documented by: Senna/Docusate Sodium (Docusate Sodium/Sennosides 50-8.6 Mg Tab) 2 tab PO DAILY PRN PRN Reason: Constipation Last Admin: 06/07/21 06:25 Dose: 2 tab Documented by: Tramadol HCl (Tramadol 50 Mg Tab) 50 mg PO BID PRN PRN Reason: Pain Last Admin: 06/08/21 21:53 Dose: 50 mg Documented by: Discontinued Medications Albuterol/Ipratropium (Albuterol/Ipratropium 3.0-0.5 Mg/3 Ml Neb Soln) 3 ml NEB ONETIME ONE Stop: 06/05/21 15:06 Last Admin: 06/05/21 15:14 Dose: 3 ml Documented by: Amlodipine Besylate (Amlodipine 5 Mg Tab) 5 mg PO ONETIME ONE Stop: 06/06/21 15:41 Last Admin: 06/06/21 16:37 Dose: 5 mg Documented by: Bisacodyl (Bisacodyl 10 Mg Supp) 10 mg RECTAL ONETIME ONE Stop: 06/07/21 04:01 Last Admin: 06/07/21 04:45 Dose: 10 mg Documented by: Hydralazine HCl (Hydralazine 10 Mg Tab) 10 mg PO Q6H [facility] Last Admin: 06/09/21 06:17 Dose: 10 mg Documented by: Hydralazine HCl (Hydralazine 10 Mg Tab) 10 mg PO ONETIME ONE Stop: 06/06/21 15:41 Last Admin: 06/06/21 16:37 Dose: 10 mg Documented by: Sodium Chloride (Normal Saline) 100 mls @ 60 mls/hr IV ASDIRECTED [facility] Last Admin: 06/05/21 15:21 Dose: 60 mls/hr Documented by: Sodium Chloride (Normal Saline) 1,000 mls @ 125 mls/hr IV ASDIRECTED [facility] Stop: 06/06/21 16:00 Last Admin: 06/06/21 11:48 Dose: 125 mls/hr Documented by: Sodium Chloride (Normal Saline) 100 mls @ 60 mls/hr IV ASDIRECTED [facility] Insulin Glargine (Insulin Glargine,Hum.Rec.Anlog 100 Unit/Ml 3 Ml Pen) 73 unit SUBCUT DAILY [facility] Last Admin: 06/05/21 23:16 Dose: 73 units Documented by: Iopamidol (Iopamidol 755 Mg/Ml 100 Ml Bottle) 100 ml IVPUSH ONETIME ONE Stop: 06/05/21 15:20 Last Admin: 06/05/21 15:21 Dose: 100 ml Documented by: Iopamidol (Iopamidol 755 Mg/Ml 50 Ml Bottle) 50 ml IVPUSH ONETIME ONE Stop: 06/05/21 15:20 Last Admin: 06/05/21 15:21 Dose: 50 ml Documented by: Iopamidol (Iopamidol 612 Mg/Ml 50 Ml Sdv) 50 ml IVPUSH ONETIME ONE Stop: 06/06/21 13:22 Last Admin: 06/06/21 23:37 Dose: Not Given Documented by: Iopamidol (Iopamidol 612 Mg/Ml 100 Ml Bottle) 100 ml IVPUSH ONETIME ONE Stop: 06/06/21 13:22 Last Admin: 06/06/21 23:37 Dose: Not Given Documented by: Magnesium Hydroxide (Magnesium Hydroxide 400 Mg/5 Ml Susp 30 Ml Cup) 30 ml PO ONETIME ONE Stop: 06/06/21 09:01 Last Admin: 06/06/21 08:42 Dose: 30 ml Documented by: Potassium Bicarbonate (Potassium Bicarbonate/Cit Ac 20 Meq Effervescent Tab) 20 meq PO ONETIME ONE Stop: 06/07/21 11:31 Last Admin: 06/07/21 11:10 Dose: 20 meq Documented by: Simvastatin (Simvastatin 10 Mg Tab) 10 mg PO Q2D@2100 [facility] Sodium Chloride (Sodium Chloride 0.9% 10 Ml Syringe) 10 ml FLUSH ONETIME ONE Stop: 06/06/21 13:22 Last Admin: 06/06/21 20:42 Dose: 10 ml Documented by: Tramadol HCl (Tramadol 50 Mg Tab) 50 mg PO ONETIME ONE Stop: 06/05/21 13:20 Last Admin: 06/05/21 13:46 Dose: 50 mg Documented by: - Exam Quality Assessment: No: Supplemental Oxygen Urinary Catheter Total Time: 3Days 14Hours General: Other (Sleeping but arousable) Neck: Supple Lungs: Normal Respiratory Effort, Crackles Cardiovascular: Regular Rate, Regular Rhythm GI/Abdominal Exam: Normal Bowel Sounds, Soft, Non-Tender, No Distention Extremities: Pedal Edema (2+) Skin: Warm, Dry, Intact - Patient Data Lab Results Last 24 hrs: Laboratory Results - last 24 hr 06/08/21 06/08/21 06/09/21 Range/Units 16:40 21:15 05:48 WBC 9.52 H (4.23-9.07) K/mm3 RBC 3.67 L (4.63-6.08) M/mm3 Hgb 10.3 L (13.7-17.5) gm/dl Hct 33.3 L (40.1-51.0) % MCV 90.7 (79.0-92.2) fl MCH 28.1 (25.7-32.2) pg MCHC 30.9 L (32.2-35.5) g/dl RDW Std Deviation 45.3 H (35.1-43.9) fL Plt Count 387 H (163-337) K/mm3 MPV 9.2 L (9.4-12.3) fl Neut % (Auto) 74.3 H (34.0-67.9) % Lymph % (Auto) 12.5 L (21.8-53.1) % Fannin % (Auto) 11.2 (5.3-12.2) % Eos % (Auto) 0.7 L (0.8-7.0) Baso % (Auto) 0.5 (0.1-1.2) % Neut # (Auto) 7.06 H (1.78-5.38) K/mm3 Lymph # (Auto) 1.19 L (1.32-3.57) K/mm3 Fannin # (Auto) 1.07 H (0.30-0.82) K/mm3 Eos # (Auto) 0.07 (0.04-0.54) K/mm3 Baso # (Auto) 0.05 (0.01-0.08) K/mm3 Sodium (136-145) mEq/L Potassium (3.5-5.1) mEq/L Chloride (98-107) mEq/L Carbon Dioxide (21-32) mEq/L Anion Gap (5-15) BUN (7-18) mg/dL Creatinine (0.7-1.3) mg/dL Est Cr Clr Drug Dosing mL/min Estimated GFR (MDRD) (>60) mL/min BUN/Creatinine Ratio (14-18) Glucose (70-99) mg/dL POC Glucose 245 H 351 H (70-99) mg/dL Calcium (8.5-10.1) mg/dL Total Bilirubin (0.2-1.0) mg/dL AST (15-37) U/L ALT (16-63) U/L Alkaline Phosphatase (46-116) U/L Total Protein (6.4-8.2) g/dl Albumin (3.4-5.0) g/dl Globulin gm/dL Albumin/Globulin Ratio (1-2) 06/09/21 06/09/21 06/09/21 Range/Units 05:48 06:49 10:49 WBC (4.23-9.07) K/mm3 RBC (4.63-6.08) M/mm3 Hgb (13.7-17.5) gm/dl Hct (40.1-51.0) % MCV (79.0-92.2) fl MCH (25.7-32.2) pg MCHC (32.2-35.5) g/dl RDW Std Deviation (35.1-43.9) fL Plt Count (163-337) K/mm3 MPV (9.4-12.3) fl Neut % (Auto) (34.0-67.9) % Lymph % (Auto) (21.8-53.1) % Fannin % (Auto) (5.3-12.2) % Eos % (Auto) (0.8-7.0) Baso % (Auto) (0.1-1.2) % Neut # (Auto) (1.78-5.38) K/mm3 Lymph # (Auto) (1.32-3.57) K/mm3 Fannin # (Auto) (0.30-0.82) K/mm3 Eos # (Auto) (0.04-0.54) K/mm3 Baso # (Auto) (0.01-0.08) K/mm3 Sodium 139 (136-145) mEq/L Potassium 3.8 (3.5-5.1) mEq/L Chloride 99 (98-107) mEq/L Carbon Dioxide 31 (21-32) mEq/L Anion Gap 12.8 (5-15) BUN 27 H (7-18) mg/dL Creatinine 1.7 H (0.7-1.3) mg/dL Est Cr Clr Drug Dosing 37.01 mL/min Estimated GFR (MDRD) 40 (>60) mL/min BUN/Creatinine Ratio 15.9 (14-18) Glucose 232 H (70-99) mg/dL POC Glucose 201 H 282 H (70-99) mg/dL Calcium 8.7 (8.5-10.1) mg/dL Total Bilirubin 0.3 (0.2-1.0) mg/dL AST 53 H (15-37) U/L ALT 38 (16-63) U/L Alkaline Phosphatase 258 H (46-116) U/L Total Protein 6.4 (6.4-8.2) g/dl Albumin 2.2 L (3.4-5.0) g/dl Globulin 4.2 gm/dL Albumin/Globulin Ratio 0.5 L (1-2) Result Diagrams: 06/09/21 05:48 06/09/21 05:48 Sepsis Event Note - Evaluation Sepsis Screening Result: No Definite Risk - Focused Exam Vital Signs: Vital Signs Temp Pulse Resp BP BP Pulse Ox Pulse Ox 06/09/21 11:43 111 H 101/63 06/09/21 10:52 98.1 F 111 H 18 101/63 93 L 06/09/21 08:51 96 06/09/21 08:09 177/65 H 06/09/21 08:08 177/65 H 06/09/21 08:00 98.2 F 100 16 177/65 H 95 06/09/21 06:30 152/84 H 06/09/21 06:17 174/69 H 06/09/21 03:56 98.1 F 106 H 18 174/69 H 94 L - Problem List & Annotations (1) CHF (congestive heart failure), NYHA class II SNOMED Code(s): 196050451, 672061165 Code(s): I50.9 - HEART FAILURE, UNSPECIFIED Status: Acute Priority: Medium Current Visit: Yes Onset Date: ~06/06/21 Qualifiers: Congestive heart failure type: combined Annotation/Comment:: needs echo and ordered off hctz and started lasix with good response. neurogenic bowel a nd bladder but no obstruction or hydronephrosis seen // suspect lvh and no anginal symptoms despite high b.p. rule out pericardial dysfunction. (2) Weakness generalized SNOMED Code(s): 87707185 Code(s): R53.1 - WEAKNESS Status: Acute Priority: High Current Visit: Yes Onset Date: ~06/06/21 Annotation/Comment:: unable to do any cares needs liz lift to change positions.pt/ot/speech therapy seeing. (3) Adult failure to thrive SNOMED Code(s): 682739610 Code(s): R62.7 - ADULT FAILURE TO THRIVE Status: Chronic Priority: High Current Visit: Yes (4) Chronic renal insufficiency, stage III (moderate) SNOMED Code(s): 015484637 Code(s): N18.30 - CHRONIC KIDNEY DISEASE, STAGE 3 UNSPECIFIED Status: Chronic Priority: Medium Current Visit: Yes Onset Date: ~06/05/21 Qualifiers: Chronic kidney disease stage 3 subtype: stage 3a (GFR 45-59) Qualified Code(s): N18.31 - Chronic kidney disease, stage 3a Annotation/Comment:: creatinine 1.7 and 3plus protienuria and hematuria seen prostate not inflamed or abnormal (5) Type 2 diabetes mellitus SNOMED Code(s): 60766763 Code(s): E11.9 - TYPE 2 DIABETES MELLITUS WITHOUT COMPLICATIONS Status: Chronic Priority: High Current Visit: Yes Onset Date: ~06/06/21 Qualifiers: 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 - Problem List Review Problem List Initiated/Reviewed/Updated: Yes - My Orders Last 24 Hours: My Active Orders 06/09/21 11:00 Metoprolol Tartrate [Lopressor] 50 mg PO Q12H 06/09/21 11:13 Renew/Continue Urinary Catheter [OM.PC] Routine - Assessment Assessment:: 06/06/21 assess: resp insuff ?bronchitis screens neg. but no discreet pneumonia seen on ct scan// severe atelectasis form weakness and inability to move self. elavated d dimer but no p.e.noted. pericardial effusion assymptomatic. chf stable . renal insuff creat 1.7 and 3+ protien and blood. abd and pelvic ct scan ordered with contrast as multiple unexplained findings. generalized weakness but susp. of rt arm stroke and head ct scan ordered. cog. impairment slightly better but chronic cogn. impairment suggestive of dementia and diabetic cerebral vasc. disease. neurogenic bladder sec to autonomic neuropathy? or other cause renal u.s shows no obstruction/tumor ct scan pending. suspect sacral nerve impairment given loss rectal tone as well . dm lifelong poor control and now with neuropathy/nephropathy and autonomic neuropathy./perhaps myopathy as well . morbid obesity : patient will require peminant total care . cellultitis better suspect pad but edam slightly improved with wraps and topical cream applied . cont rocephin as well . suspected sleep apnea. suspected severe cerebral vasc. disease and possibel multiple small stroke ct scan of head pending. leg pain multifactorial but likely cellulitis//edema and neuropathy as well as oa and diabetic myopathy. plan:: ct scans as ordered. control b.s sliding scale increased/ long acting ordered. slowly bring down hypertension start amlodapine and hydralizine and cont lasix. correct lytes. discussed findings with patient and . snif referral//pt//ot/speech therapy for cog eval and speech assessment. d.e. continued. neurogenic bladder treatment difficult and may need diverting nephrostomy but unlikely to get approval for surgery or urology to agree. check psa. get off sacral area as much as tolerated. sleep study needed. boh . - Plan Plan:: 06/06/21 Patient is a 70 yr old male who is in Med/Surg. Patient's answers for most questions. Patient has been unable to get out of bed for 3 days due to chronic bilateral extremity pain and luteal pain for which he is on tramadol and Neur ontin at home. Patient came w/ a mild cough but denied any fever or chills or shortness of breath. We are unable to assess if he is having any exertional symptoms since he has been bedridden. states she is no longer able to take care of him and wants us to arrange for him to be in assisted living/long term. Patient's had no bloody or tarry stools before admit. He denies any headache or any numbness weakness or paresthesias which is new. Patient's O2 saturation is 85% room air at rest. Patient has not c/o any chest pain. It is not known at this time how long pt has been homebound or what he did before being homebound. Assesment: Pt is neg for covid, RSV, Flu, and Pneumonia There is a hx of stoke 7 yrs ago, states he never got his short term memory back. He is homebound and is main caregiver. pt has continually diminishing mobility...started with a shuffle, then could walk w/help of cane, then walker, and now can't stand more than 5 mins. states pt fell at thanksgiving has been pretty much bed ridden since. states everything got worse around 2 wks ago when cough developed. Pt is not always compliant on meds and has uncontrolled DM II PT is retaining urine with no prior hx of incontinence for urine or BM's... Pt is on lasix 20mg daily for edema Prostate exam w/hemocult was done in room today w/NEG findings There is no rectal tone...pt has 800cc urine w/no urge to go diminished sensations para rectally...Echo of abdom and pelvis needed.. ..neurogenic bladder and weakness and renal failure and fatty liver No hx of delirium, although states he has depression symptoms diminishing mobility, speech, and cognition there is focal weakness to Rt upper arm need to rule out stroke....needs CT of head Pt c/o chronic pain to legs bilat, w/mild pressure pain, also to buttocks and back, w/no hx of trauma...CT of Spine and Sacrum/Pelvis small sacral sore noted, wound management needed Toes: intact propre. Lungs: Ronkers breath sounds with intermit. wheezing...wet ....on 3 litters of O2 and sats are holding at 90%....repeat chest x-ray, portable, needed for tomorrow Pt has general weakness...need to rule out CVA work w/pt on spirometer states pt does snore but not much....no sleep study has been done, no hx of apnea Cardio:Pt has hx of CAD w/no c/o of symptoms BP is elevated and uncontrolled.....add amlodipine 5mg and hydralazine 25 q 6 Echo from 06/05 shows tachy between 90-110........repeat echo needed HX: CHF Hypoxia-mulit facet Renal Insuf. uncontrolled DM II Neuropathy Cognitive Diminishment Fatty Liver Plan: repeat Chest x-ray, portable, for tomorrow...cough and wheezing CT of Head...diminishing mobility, speech, cognition, and focal weakness CT of Spine and Sacrum/Pelvis...diminished sensations and retention Echo of abdom and pelvis needed....neurogenic bladder and weakness and renal failure and fatty liver Add amlodipine 5mg Add Hydralazine 25mg Move patient to chair and around as much as possible to prevent Pneumonia Refer to [facility] for long term admit 06/07/2021 The patient is a 70-year-old gentleman who is currently awaiting placement. The patient has improved somewhat according to the patient's daughter. He is still considered to be a poor historian and likely has multi-infarct dementia that has been worsening over the past few months. The patient will need to have placement as he is not able to ambulate and is very weak. The patient will be kept on his diabetic diet. He is on insulin sliding scale and this will continue. The patient is also on DVT prophylaxis with the use of Lovenox. The patient has been also noted to have leukocytosis as well as a reactive thrombocytosis and this is out of concern for possible undeclared infection and he is on ceftriaxone which will be continued. The patient's BNP has also been elevated and results of the 2D echocardiogram obtained are pending. The patient may improve somewhat giving his track record or he may be at his baseline is uncertain at this time. He should be appropriate for discharge to placement facility in 1 to 2 days. 06/08/2021 The patient is a 70-year-old gentleman who is currently awaiting placement. He has improved somewhat during his hospital stay. The patient still has been unable to participate in physical therapy. I had a discussion with the patient's significant other who is basically his power of district attorney at this time. I discussed with her the likelihood of this being a long-term issue with regards to placement. The patient will be maintained on insulin sliding scale. He will also have appropriate ADA diet as tolerated. Repeat laboratory studies have been ordered for the morning. The patient is also having DVT prophylaxis with the use of Lovenox. The patient should be appropriate for discharge once placement is available. The patient was retained in hospitalization greater than 96 hours due to agus nued physical therapy requirements and not being considered to be safe at home. He is also awaiting placement. 06/09/2021 70-year-old male with multi-infarct dementia is awaiting long-term care placement. I spoke with his significant other who is his financial and medical power of district attorney. She has paperwork for him to be discharged to long-term care facility in the area. Patient has been tachycardic and it appears that his metoprolol was stopped on admission, likely secondary to CHF exacerbation, and he was placed on hydralazine for blood pressure which has a side effect of tachycardia. Patient may switch back over to metoprolol at a dose of 50 mg twice daily. Hydralazine will be stopped and we will follow his blood pressure and heart rate closely. Renal insufficiency is stable with a creatinine of 1.7. Blood sugars have been still high in the low to mid 200s and as high as 350. I will start him on prandial Humalog at 5 units with each meal. Encourage adequate food intake. DVT prophylaxis with Lovenox CODE STATUS: DNR/DNI
[2021-06-09] MEDS: cefTRIAXone 2 GM in Sodium Chloride 0.9% 100 ML IV SCH (21:09)
[2021-06-09] MEDS: Gabapentin 600 MG Tab PO SCH (21:12)
[2021-06-09] MEDS: Insulin Glargine,Hum.Rec.Anlog 100 UNIT/ML 3 ML Pen SUBCUT SCH (21:14)
[2021-06-09] MEDS: Enoxaparin 40 MG/0.4 ML Syringe SUBCUT SCH (22:00)
[2021-06-10] MEDS: Insulin Lispro 100 Unit/ML 3 ML KwikPen SUBCUT SCH ×7 (06:34→20:51)
[2021-06-10] MEDS: Furosemide 20 MG/2 ML VIAL IVPUSH SCH ×2 (06:34→13:02)
[2021-06-10] MEDS: Doxazosin 2 MG Tab PO SCH (08:05)
[2021-06-10] MEDS: Gabapentin 300 MG Cap PO SCH (08:05)
[2021-06-10] MEDS: Clopidogrel 75 MG Tab PO SCH (08:05)
[2021-06-10] MEDS: Isosorbide Mononitrate 30 MG Tab.ER PO SCH (08:06)
[2021-06-10] MEDS: amLODIPine 5 MG Tab PO SCH (08:07)
[2021-06-10] MEDS: Nystatin Crm 30 GM Tube TOP SCH ×2 (08:07→20:54)
[2021-06-10] MEDS: Nystatin Topical Powder 15 GM Bottle TOP SCH ×2 (08:08→20:54)
--- NOTE | 2021-06-10 09:26 | PCM.PN ---
- General Info Date of Service: 06/10/21 Admission Dx/Problem (Free Text): The patient was admitted secondary to hypoxia as well as inability to care for self. Subjective Update: The patient is a 70-year-old gentleman who had been admitted to acute hospitalization on June 06, 2021 chronic bilateral lower extremity pain as well as inability to care for himself. The patient is currently awaiting placement. The patient does have a history of vascular dementia and diffuse right-sided hemiparesis. The patient is a poor historian, but significant other has been very helpful. She has been unable to take care of him. She does have healthcare and financial power of county attorney. Patient's rate has been better controlled since restarting his metoprolol. Functional Status: Reports: Pain Controlled - Review of Systems General: Reports: No Symptoms HEENT: Reports: No Symptoms Pulmonary: Reports: No Symptoms Cardiovascular: Reports: No Symptoms Gastrointestinal: Reports: No Symptoms Musculoskeletal: Reports: No Symptoms - Patient Data Vitals - Most Recent: Last Vital Signs Temp 98.2 F 06/10/21 04:41 Pulse 87 06/10/21 04:41 Resp 14 06/10/21 04:41 BP 155/59 H 06/10/21 08:07 Pulse Ox 95 06/10/21 04:41 Weight - Most Recent: 227 lb 1.6 oz I&O - Last 24 Hours: Intake & Output 06/09/21 06/10/21 06/10/21 22:59 06:59 14:59 Intake Total 700 400 Output Total 700 1250 Balance 0 -850 Lab Results Last 24 Hours: Laboratory Results - last 24 hr 06/09/21 06/09/21 06/09/21 Range/Units 10:49 16:19 21:06 POC Glucose 282 H 292 H 258 H (70-99) mg/dL 06/10/21 Range/Units 06:33 POC Glucose 141 H (70-99) mg/dL Med Orders - Current: Current Medications Amlodipine Besylate (Amlodipine 5 Mg Tab) 5 mg PO DAILY [facility] Last Admin: 06/10/21 08:07 Dose: 5 mg Documented by: Atorvastatin Calcium (Atorvastatin 20 Mg Tab) 10 mg PO Q2D@2100 [facility] Last Admin: 06/08/21 21:40 Dose: 10 mg Documented by: Clopidogrel Bisulfate (Clopidogrel 75 Mg Tab) 75 mg PO DAILY [facility] Last Admin: 06/10/21 08:05 Dose: 75 mg Documented by: Doxazosin Mesylate (Doxazosin 2 Mg Tab) 1 mg PO DAILY [facility] Last Admin: 06/10/21 08:05 Dose: 1 mg Documented by: Enoxaparin Sodium (Enoxaparin 40 Mg/0.4 Ml Syringe) 40 mg SUBCUT Q24H [facility] Last Admin: 06/09/21 22:00 Dose: 40 mg Documented by: Furosemide (Furosemide 20 Mg/2 Ml Vial) 20 mg IVPUSH BIDDIURETIC [facility] Last Admin: 06/10/21 06:34 Dose: 20 mg Documented by: Gabapentin (Gabapentin 300 Mg Cap) 300 mg PO DAILY [facility] Last Admin: 06/10/21 08:05 Dose: 300 mg Documented by: Gabapentin (Gabapentin 600 Mg Tab) 600 mg PO BEDTIME [facility] Last Admin: 06/09/21 21:12 Dose: 600 mg Documented by: Ceftriaxone Sodium 2 gm/ (Sodium Chloride) 100 mls @ 200 mls/hr IV Q24H [facility] Last Admin: 06/09/21 21:09 Dose: 200 mls/hr Documented by: Insulin Glargine (Insulin Glargine,Hum.Rec.Anlog 100 Unit/Ml 3 Ml Pen) 73 unit SUBCUT BEDTIME [facility] Last Admin: 06/09/21 21:14 Dose: 73 units Documented by: Insulin Human Lispro (Insulin Lispro 100 Unit/Ml 3 Ml Kwikpen) 0 unit SUBCUT WITHMEALSANDBED [facility]; Protocol Last Admin: 06/10/21 06:34 Dose: Not Given Documented by: Insulin Human Lispro (Insulin Lispro 100 Unit/Ml 3 Ml Kwikpen) 5 unit SUBCUT TIDMEALS [facility] Last Admin: 06/10/21 08:04 Dose: 5 units Documented by: Isosorbide Mononitrate (Isosorbide Mononitrate 30 Mg Tab.Er) 30 mg PO DAILY [facility] Last Admin: 06/10/21 08:06 Dose: 30 mg Documented by: Metoprolol Tartrate (Metoprolol Tartrate 50 Mg Tab) 50 mg PO Q12H [facility] Last Admin: 06/09/21 23:45 Dose: 50 mg Documented by: Nystatin (Nystatin Topical Powder 15 Gm Bottle) 1 gm TOP BID [facility] Last Admin: 06/10/21 08:08 Dose: 1 applic Documented by: Nystatin (Nystatin Crm 30 Gm Tube) 0 gm TOP BID [facility] Last Admin: 06/10/21 08:07 Dose: 1 applic Documented by: Senna/Docusate Sodium (Docusate Sodium/Sennosides 50-8.6 Mg Tab) 2 tab PO DAILY PRN PRN Reason: Constipation Last Admin: 06/07/21 06:25 Dose: 2 tab Documented by: Tramadol HCl (Tramadol 50 Mg Tab) 50 mg PO BID PRN PRN Reason: Pain Last Admin: 06/08/21 21:53 Dose: 50 mg Documented by: Discontinued Medications Albuterol/Ipratropium (Albuterol/Ipratropium 3.0-0.5 Mg/3 Ml Neb Soln) 3 ml NEB ONETIME ONE Stop: 06/05/21 15:06 Last Admin: 06/05/21 15:14 Dose: 3 ml Documented by: Amlodipine Besylate (Amlodipine 5 Mg Tab) 5 mg PO ONETIME ONE Stop: 06/06/21 15:41 Last Admin: 06/06/21 16:37 Dose: 5 mg Documented by: Bisacodyl (Bisacodyl 10 Mg Supp) 10 mg RECTAL ONETIME ONE Stop: 06/07/21 04:01 Last Admin: 06/07/21 04:45 Dose: 10 mg Documented by: Hydralazine HCl (Hydralazine 10 Mg Tab) 10 mg PO Q6H [facility] Last Admin: 06/09/21 06:17 Dose: 10 mg Documented by: Hydralazine HCl (Hydralazine 10 Mg Tab) 10 mg PO ONETIME ONE Stop: 06/06/21 15:41 Last Admin: 06/06/21 16:37 Dose: 10 mg Documented by: Sodium Chloride (Normal Saline) 100 mls @ 60 mls/hr IV ASDIRECTED [facility] Last Admin: 06/05/21 15:21 Dose: 60 mls/hr Documented by: Sodium Chloride (Normal Saline) 1,000 mls @ 125 mls/hr IV ASDIRECTED [facility] Stop: 06/06/21 16:00 Last Admin: 06/06/21 11:48 Dose: 125 mls/hr Documented by: Sodium Chloride (Normal Saline) 100 mls @ 60 mls/hr IV ASDIRECTED [facility] Insulin Glargine (Insulin Glargine,Hum.Rec.Anlog 100 Unit/Ml 3 Ml Pen) 73 unit SUBCUT DAILY [facility] Last Admin: 06/05/21 23:16 Dose: 73 units Documented by: Iopamidol (Iopamidol 755 Mg/Ml 100 Ml Bottle) 100 ml IVPUSH ONETIME ONE Stop: 06/05/21 15:20 Last Admin: 06/05/21 15:21 Dose: 100 ml Documented by: Iopamidol (Iopamidol 755 Mg/Ml 50 Ml Bottle) 50 ml IVPUSH ONETIME ONE Stop: 06/05/21 15:20 Last Admin: 06/05/21 15:21 Dose: 50 ml Documented by: Iopamidol (Iopamidol 612 Mg/Ml 50 Ml Sdv) 50 ml IVPUSH ONETIME ONE Stop: 06/06/21 13:22 Last Admin: 06/06/21 23:37 Dose: Not Given Documented by: Iopamidol (Iopamidol 612 Mg/Ml 100 Ml Bottle) 100 ml IVPUSH ONETIME ONE Stop: 06/06/21 13:22 Last Admin: 06/06/21 23:37 Dose: Not Given Documented by: Magnesium Hydroxide (Magnesium Hydroxide 400 Mg/5 Ml Susp 30 Ml Cup) 30 ml PO ONETIME ONE Stop: 06/06/21 09:01 Last Admin: 06/06/21 08:42 Dose: 30 ml Documented by: Potassium Bicarbonate (Potassium Bicarbonate/Cit Ac 20 Meq Effervescent Tab) 20 meq PO ONETIME ONE Stop: 06/07/21 11:31 Last Admin: 06/07/21 11:10 Dose: 20 meq Documented by: Simvastatin (Simvastatin 10 Mg Tab) 10 mg PO Q2D@2100 [facility] Sodium Chloride (Sodium Chloride 0.9% 10 Ml Syringe) 10 ml FLUSH ONETIME ONE Stop: 06/06/21 13:22 Last Admin: 06/06/21 20:42 Dose: 10 ml Documented by: Tramadol HCl (Tramadol 50 Mg Tab) 50 mg PO ONETIME ONE Stop: 06/05/21 13:20 Last Admin: 06/05/21 13:46 Dose: 50 mg Documented by: - Exam Quality Assessment: No: Supplemental Oxygen Urinary Catheter Total Time: 4Days 1Hours General: Alert HEENT: Pupils Equal Neck: Supple Lungs: Clear to Auscultation, Normal Respiratory Effort Cardiovascular: Regular Rate, Regular Rhythm GI/Abdominal Exam: Normal Bowel Sounds, Soft, Non-Tender, No Distention - Patient Data Lab Results Last 24 hrs: Laboratory Results - last 24 hr 06/09/21 06/09/21 06/09/21 Range/Units 10:49 16:19 21:06 POC Glucose 282 H 292 H 258 H (70-99) mg/dL 06/10/21 Range/Units 06:33 POC Glucose 141 H (70-99) mg/dL Result Diagrams: 06/09/21 05:48 06/09/21 05:48 Sepsis Event Note - Evaluation Sepsis Screening Result: No Definite Risk - Focused Exam Vital Signs: Vital Signs Temp Pulse Resp BP Pulse Ox 06/10/21 08:07 155/59 H 06/10/21 08:06 155/59 H 06/10/21 08:05 155/59 H 06/10/21 04:41 98.2 F 87 14 165/63 H 95 06/09/21 23:45 89 156/78 H - Problem List & Annotations (1) CHF (congestive heart failure), NYHA class II SNOMED Code(s): 893646625, 108810622 Code(s): I50.9 - HEART FAILURE, UNSPECIFIED Status: Acute Priority: Medium Current Visit: Yes Onset Date: ~06/06/21 Qualifiers: Congestive heart failure type: combined Annotation/Comment:: needs echo and ordered off hctz and started lasix with good response. neurogenic bowel a nd bladder but no obstruction or hydronephrosis seen // suspect lvh and no anginal symptoms despite high b.p. rule out pericardial dysfunction. (2) Weakness generalized SNOMED Code(s): 99752481 Code(s): R53.1 - WEAKNESS Status: Acute Priority: High Current Visit: Yes Onset Date: ~06/06/21 Annotation/Comment:: unable to do any cares needs liz lift to change positions.pt/ot/speech therapy seeing. (3) Adult failure to thrive SNOMED Code(s): 356624725 Code(s): R62.7 - ADULT FAILURE TO THRIVE Status: Chronic Priority: High Current Visit: Yes (4) Chronic renal insufficiency, stage III (moderate) SNOMED Code(s): 601222434 Code(s): N18.30 - CHRONIC KIDNEY DISEASE, STAGE 3 UNSPECIFIED Status: Chronic Priority: Medium Current Visit: Yes Onset Date: ~06/05/21 Qualifiers: Chronic kidney disease stage 3 subtype: stage 3a (GFR 45-59) Qualified Code(s): N18.31 - Chronic kidney disease, stage 3a Annotation/Comment:: creatinine 1.7 and 3plus protienuria and hematuria seen prostate not inflamed or abnormal (5) Type 2 diabetes mellitus SNOMED Code(s): 70107065 Code(s): E11.9 - TYPE 2 DIABETES MELLITUS WITHOUT COMPLICATIONS Status: Chronic Priority: High Current Visit: Yes Onset Date: ~06/06/21 Qualifiers: Diabetes mellitus correction insulin use: with exterminator helper termite use Diabetes mellitus complication status: with kidney complications Diabetes mellitus complication detail: with chronic kidney disease Chronic kidney disease stage: stage 3 (moderate) Annotation/Comment:: needs insulin lifelong. - Problem List Review Problem List Initiated/Reviewed/Updated: Yes - My Orders Last 24 Hours: My Active Orders 06/09/21 11:00 Metoprolol Tartrate [Lopressor] 50 mg PO Q12H 06/09/21 11:13 Renew/Continue Urinary Catheter [OM.PC] Routine 06/09/21 17:00 Insulin Lispro [HumaLOG] 5 unit SUBCUT TIDMEALS - Assessment Assessment:: 06/06/21 assess: resp insuff ?bronchitis screens neg. but no discreet pneumonia seen on ct scan// severe atelectasis form weakness and inability to move self. elavated d dimer but no p.e.noted. pericardial effusion assymptomatic. chf stable . renal insuff creat 1.7 and 3+ protien and blood. abd and pelvic ct scan ordered with contrast as multiple unexplained findings. generalized weakness but susp. of rt arm stroke and head ct scan ordered. cog. impairment slightly better but chronic cogn. impairment suggestive of dementia and diabetic cerebral vasc. disease. neurogenic bladder sec to autonomic neuropathy? or other cause renal u.s shows no obstruction/tumor ct scan pending. suspect sacral nerve impairment given loss rectal tone as well . dm lifelong poor control and now with neuropathy/nephropathy and autonomic neuropathy./perhaps myopathy as well . morbid obesity : patient will require peminant total care . cellultitis better suspect pad but edam slightly improved with wraps and topical cream applied . cont rocephin as well . suspected sleep apnea. suspected severe cerebral vasc. disease and possibel multiple small stroke ct scan of head pending. leg pain multifactorial but likely cellulitis//edema and neuropathy as well as oa and diabetic myopathy. plan:: ct scans as ordered. control b.s sliding scale increased/ long acting ordered. slowly bring down hypertension start amlodapine and hydralizine and cont lasix. correct lytes. discussed findings with patient and . snif referral//pt//ot/speech therapy for cog eval and speech assessment. d.e. continued. neurogenic bladder treatment difficult and may need diverting nephrostomy but unlikely to get approval for surgery or urology to agree. check psa. get off sacral area as much as tolerated. sleep study needed. boh . - Plan Plan:: 06/06/21 Patient is a 70 yr old male who is in Med/Surg. Patient's answers for most questions. Patient has been unable to get out of bed for 3 days due to chronic bilateral extremity pain and luteal pain for which he is on tramadol and Neurontin at home. Patient came w/ a mild cough but denied any fever or chills or shortness of breath. We are unable to assess if he is having any exertional symptoms since he has been bedridden. states she is no longer able to take care of him and wants us to arrange for him to be in assisted living/correction. Patient's had no bloody or tarry stools before admit. He denies any headache or any numbness weakness or paresthesias which is new. Patient's O2 saturation is 85% room air at rest. Patient has not c/o any chest pain. It is not known at this time how long pt has been homebound or what he did before being homebound. Assesment: Pt is neg for covid, RSV, Flu, and Pneumonia There is a hx of stoke 7 yrs ago, states he never got his short term memory back. He is homebound and is main caregiver. pt has continually d iminishing mobility...started with a shuffle, then could walk w/help of cane, then walker, and now can't stand more than 5 mins. states pt fell at thanksgiving has been pretty much bed ridden since. states everything got worse around 2 wks ago when cough developed. Pt is not always compliant on meds and has uncontrolled DM II PT is retaining urine with no prior hx of incontinence for urine or BM's... Pt is on lasix 20mg daily for edema Prostate exam w/hemocult was done in room today w/NEG findings There is no rectal tone...pt has 800cc urine w/no urge to go diminished sensations para rectally...Echo of abdom and pelvis needed....neurogenic bladder and weakness and renal failure and fatty liver No hx of delirium, although states he has depression symptoms diminishing mobility, speech, and cognition there is focal weakness to Rt upper arm need to rule out stroke....needs CT of head Pt c/o chronic pain to legs bilat, w/mild pressure pain, also to buttocks and back, w/no hx of trauma...CT of Spine and Sacrum/Pelvis small sacral sore noted, wound management needed Toes: intact propre. Lungs: Ronkers breath sounds with intermit. wheezing...wet ....on 3 litters of O2 and sats are holding at 90%....repeat chest x-ray, portable, needed for tomorrow Pt has general weakness...need to rule out CVA work w/pt on spirometer states pt does snore but not much....no sleep study has been done, no hx of apnea Cardio:Pt has hx of CAD w/no c/o of symptoms BP is elevated and uncontrolled.....add amlodipine 5mg and hydralazine 25 q 6 Echo from 06/05 shows tachy between 90-110........repeat echo needed HX: CHF Hypoxia-mulit facet Renal Insuf. uncontrolled DM II Neuropathy Cognitive Diminishment Fatty Liver Plan: repeat Chest x-ray, portable, for tomorrow...cough and wheezing CT of Head...diminishing mobility, speech, cognition, and focal weakness CT of Spine and Sacrum/Pelvis...diminished sensations and retention Echo of abdom and pelvis needed....neurogenic bladder and weakness and renal failure and fatty liver Add amlodipine 5mg Add Hydralazine 25mg Move patient to chair and around as much as possible to prevent Pneumonia Refer to Supervisor Public Message Service for correction admit 06/07/2021 The patient is a 70-year-old gentleman who is currently awaiting placement. The patient has improved somewhat according to the patient's daughter. He is still considered to be a poor historian and likely has multi-infarct dementia that has been worsening over the past few months. The patient will need to have placement as he is not able to ambulate and is very weak. The patient will be kept on his diabetic diet. He is on insulin sliding scale and this will continue. The patient is also on DVT prophylaxis with the use of Lovenox. The patient has been also noted to have leukocytosis as well as a reactive thrombocytosis and this is out of concern for possible undeclared infection and he is on ceftriaxone which will be continued. The patient's BNP has also been elevated and results of the 2D echocardiogram obtained are pending. The patient may improve somewhat giving his track record or he may be at his baseline is uncertain at this time. He should be appropriate for discharge to placement facility in 1 to 2 days. 06/08/2021 The patient is a 70-year-old gentleman who is currently awaiting placement. He has improved somewhat during his hospital stay. The patient still has been un able to participate in physical therapy. I had a discussion with the patient's significant other who is basically his power of county attorney at this time. I discussed with her the likelihood of this being a long-term issue with regards to placement. The patient will be maintained on insulin sliding scale. He will also have appropriate ADA diet as tolerated. Repeat laboratory studies have been ordered for the morning. The patient is also having DVT prophylaxis with the use of Lovenox. The patient should be appropriate for discharge once placement is available. The patient was retained in hospitalization greater than 96 hours due to continued physical therapy requirements and not being considered to be safe at home. He is also awaiting placement. 06/09/2021 70-year-old male with multi-infarct dementia is awaiting long-term care placement. I spoke with his significant other who is his financial and medical power of county attorney. She has paperwork for him to be discharged to long-term care facility in the area. Patient has been tachycardic and it appears that his metoprolol was stopped on admission, likely secondary to CHF exacerbation, and he was placed on hydralazine for blood pressure which has a side effect of tachycardia. Patient may switch back over to metoprolol at a dose of 50 mg twice daily. Hydralazine will be stopped and we will follow his blood pressure and heart rate closely. Renal insufficiency is stable with a creatinine of 1.7. Blood sugars have been still high in the low to mid 200s and as high as 350. I will start him on prandial Humalog at 5 units with each meal. Encourage adequate food intake. June 10, 2021 70-year-old male with vascular dementia awaiting long-term care placement. There is no changes. Heart rate has been improved on metoprolol tartrate 50 mg twice daily. Blood pressure is well controlled. Blood sugars are better with the addition of prandial insulin. This may need to be increased. DVT prophylaxis with Lovenox CODE STATUS: DNR/DNI
[2021-06-10] MEDS: Metoprolol Tartrate 50 MG Tab PO SCH ×2 (11:52→22:52)
[2021-06-10] MEDS: cefTRIAXone 2 GM in Sodium Chloride 0.9% 100 ML IV SCH (20:49)
[2021-06-10] MEDS: atorvaSTATin 20 MG Tab PO SCH (20:53)
[2021-06-10] MEDS: Gabapentin 600 MG Tab PO SCH (20:53)
[2021-06-10] MEDS: Insulin Glargine,Hum.Rec.Anlog 100 UNIT/ML 3 ML Pen SUBCUT SCH (20:54)
[2021-06-10] MEDS: traMADol 50 MG Tab PO PRN (22:51)
[2021-06-10] MEDS: Enoxaparin 40 MG/0.4 ML Syringe SUBCUT SCH (22:52)
[2021-06-11] MEDS: Insulin Lispro 100 Unit/ML 3 ML KwikPen SUBCUT SCH ×7 (06:31→21:02)
[2021-06-11] MEDS: Furosemide 20 MG/2 ML VIAL IVPUSH SCH (06:31)
--- NOTE | 2021-06-11 08:27 | PCM.PN ---
- General Info Date of Service: 06/11/21 Admission Dx/Problem (Free Text): The patient was admitted secondary to hypoxia as well as inability to care for self. Functional Status: Reports: Pain Controlled, Tolerating Diet, Urinating. Denies: Ambulating, New Symptoms - Review of Systems General: Reports: Weakness (chronic ). Denies: Fever, Fatigue, Malaise, Chills HEENT: Reports: No Symptoms. Denies: Headaches, Sore Throat Pulmonary: Reports: No Symptoms. Denies: Shortness of Breath, Cough, Sputum, W heezing Cardiovascular: Reports: No Symptoms. Denies: Chest Pain, Palpitations, Dyspnea on Exertion Gastrointestinal: Reports: No Symptoms. Denies: Abdominal Pain, Constipation, Diarrhea, Nausea, Vomiting Genitourinary: Reports: Retention (chronic). Denies: Pain Musculoskeletal: Reports: No Symptoms Skin: Reports: No Symptoms Neurological: Reports: Confusion, Pre-Existing Deficit (Baseline right-sided hemiparesis and vascular dementia) Psychiatric: Reports: No Symptoms - Patient Data Vitals - Most Recent: Last Vital Signs Temp 97.5 F 06/11/21 04:24 Pulse 85 06/11/21 04:24 Resp 15 06/11/21 04:24 BP 154/67 H 06/11/21 04:24 Pulse Ox 93 L 06/11/21 04:24 Weight - Most Recent: 227 lb 4.8 oz I&O - Last 24 Hours: Intake & Output 06/10/21 06/11/21 06/11/21 22:59 06:59 14:59 Intake Total 1115 800 Output Total 800 1200 Balance 315 -400 Lab Results Last 24 Hours: Laboratory Results - last 24 hr 06/10/21 06/10/21 06/10/21 Range/Units 10:21 16:45 20:47 WBC (4.23-9.07) K/mm3 RBC (4.63-6.08) M/mm3 Hgb (13.7-17.5) gm/dl Hct (40.1-51.0) % MCV (79.0-92.2) fl MCH (25.7-32.2) pg MCHC (32.2-35.5) g/dl RDW Std Deviation (35.1-43.9) fL Plt Count (163-337) K/mm3 MPV (9.4-12.3) fl Neut % (Auto) (34.0-67.9) % Lymph % (Auto) (21.8-53.1) % [place] % (Auto) (5.3-12.2) % Eos % (Auto) (0.8-7.0) Baso % (Auto) (0.1-1.2) % Neut # (Auto) (1.78-5.38) K/mm3 Lymph # (Auto) (1.32-3.57) K/mm3 [place] # (Auto) (0.30-0.82) K/mm3 Eos # (Auto) (0.04-0.54) K/mm3 Baso # (Auto) (0.01-0.08) K/mm3 Sodium (136-145) mEq/L Potassium (3.5-5.1) mEq/L Chloride (98-107) mEq/L Carbon Dioxide (21-32) mEq/L Anion Gap (5-15) BUN (7-18) mg/dL Creatinine (0.7-1.3) mg/dL Est Cr Clr Drug Dosing mL/min Estimated GFR (MDRD) (>60) mL/min BUN/Creatinine Ratio (14-18) Glucose (70-99) mg/dL POC Glucose 194 H 207 H 297 H (70-99) mg/dL Calcium (8.5-10.1) mg/dL Magnesium (1.8-2.4) mg/dL Total Bilirubin (0.2-1.0) mg/dL AST (15-37) U/L ALT (16-63) U/L Alkaline Phosphatase (46-116) U/L C-Reactive Protein (<1.0) mg/dL Total Protein (6.4-8.2) g/dl Albumin (3.4-5.0) g/dl Globulin gm/dL Albumin/Globulin Ratio (1-2) 06/11/21 06/11/21 06/11/21 Range/Units 05:26 05:26 06:30 WBC 9.45 H (4.23-9.07) K/mm3 RBC 3.61 L (4.63-6.08) M/mm3 Hgb 10.2 L (13.7-17.5) gm/dl Hct 32.7 L (40.1-51.0) % MCV 90.6 (79.0-92.2) fl MCH 28.3 (25.7-32.2) pg MCHC 31.2 L (32.2-35.5) g/dl RDW Std Deviation 45.1 H (35.1-43.9) fL Plt Count 424 H (163-337) K/mm3 MPV 9.1 L (9.4-12.3) fl Neut % (Auto) 67.9 (34.0-67.9) % Lymph % (Auto) 18.5 L (21.8-53.1) % [place] % (Auto) 10.1 (5.3-12.2) % Eos % (Auto) 2.4 (0.8-7.0) Baso % (Auto) 0.6 (0.1-1.2) % Neut # (Auto) 6.41 H (1.78-5.38) K/mm3 Lymph # (Auto) 1.75 (1.32-3.57) K/mm3 [place] # (Auto) 0.95 H (0.30-0.82) K/mm3 Eos # (Auto) 0.23 (0.04-0.54) K/mm3 Baso # (Auto) 0.06 (0.01-0.08) K/mm3 Sodium 141 (136-145) mEq/L Potassium 3.7 (3.5-5.1) mEq/L Chloride 102 (98-107) mEq/L Carbon Dioxide 31 (21-32) mEq/L Anion Gap 11.7 (5-15) BUN 34 H (7-18) mg/dL Creatinine 1.5 H (0.7-1.3) mg/dL Est Cr Clr Drug Dosing 41.94 mL/min Estimated GFR (MDRD) 46 (>60) mL/min BUN/Creatinine Ratio 22.7 H (14-18) Glucose 125 H (70-99) mg/dL POC Glucose 100 H (70-99) mg/dL Calcium 8.7 (8.5-10.1) mg/dL Magnesium 2.2 (1.8-2.4) mg/dL Total Bilirubin 0.2 (0.2-1.0) mg/dL AST 77 H (15-37) U/L ALT 54 (16-63) U/L Alkaline Phosphatase 244 H (46-116) U/L C-Reactive Protein 19.1 H* (<1.0) mg/dL Total Protein 6.1 L (6.4-8.2) g/dl Albumin 2.0 L (3.4-5.0) g/dl Globulin 4.1 gm/dL Albumin/Globulin Ratio 0.5 L (1-2) Med Orders - Current: Current Medications Amlodipine Besylate (Amlodipine 5 Mg Tab) 5 mg PO DAILY [facility] Last Admin: 06/10/21 08:07 Dose: 5 mg Documented by: Atorvastatin Calcium (Atorvastatin 20 Mg Tab) 10 mg PO Q2D@2100 [facility] Last Admin: 06/10/21 20:53 Dose: 10 mg Documented by: Clopidogrel Bisulfate (Clopidogrel 75 Mg Tab) 75 mg PO DAILY [facility] Last Admin: 06/10/21 08:05 Dose: 75 mg Documented by: Doxazosin Mesylate (Doxazosin 2 Mg Tab) 1 mg PO DAILY [facility] Last Admin: 06/10/21 08:05 Dose: 1 mg Documented by: Enoxaparin Sodium (Enoxaparin 40 Mg/0.4 Ml Syringe) 40 mg SUBCUT Q24H [facility] Last Admin: 06/10/21 22:52 Dose: 40 mg Documented by: Furosemide (Furosemide 20 Mg/2 Ml Vial) 20 mg IVPUSH BIDDIURETIC [facility] Last Admin: 06/11/21 06:31 Dose: 20 mg Documented by: Gabapentin (Gabapentin 300 Mg Cap) 300 mg PO DAILY [facility] Last Admin: 06/10/21 08:05 Dose: 300 mg Documented by: Gabapentin (Gabapentin 600 Mg Tab) 600 mg PO BEDTIME [facility] Last Admin: 06/10/21 20:53 Dose: 600 mg Documented by: Ceftriaxone Sodium 2 gm/ (Sodium Chloride) 100 mls @ 200 mls/hr IV Q24H [facility] Last Admin: 06/10/21 20:49 Dose: 200 mls/hr Documented by: Insulin Glargine (Insulin Glargine,Hum.Rec.Anlog 100 Unit/Ml 3 Ml Pen) 73 unit SUBCUT BEDTIME [facility] Last Admin: 06/10/21 20:54 Dose: 73 units Documented by: Insulin Human Lispro (Insulin Lispro 100 Unit/Ml 3 Ml Kwikpen) 0 unit SUBCUT WITHMEALSANDBED [facility]; Protocol Last Admin: 06/11/21 06:31 Dose: Not Given Documented by: Insulin Human Lispro (Insulin Lispro 100 Unit/Ml 3 Ml Kwikpen) 5 unit SUBCUT TIDMEALS [facility] Last Admin: 06/10/21 17:36 Dose: 5 units Documented by: Isosorbide Mononitrate (Isosorbide Mononitrate 30 Mg Tab.Er) 30 mg PO DAILY [facility] Last Admin: 06/10/21 08:06 Dose: 30 mg Documented by: Metoprolol Tartrate (Metoprolol Tartrate 50 Mg Tab) 50 mg PO Q12H [facility] Last Admin: 06/10/21 22:52 Dose: 50 mg Documented by: Nystatin (Nystatin Topical Powder 15 Gm Bottle) 1 gm TOP BID [facility] Last Admin: 06/10/21 20:54 Dose: 1 applic Documented by: Nystatin (Nystatin Crm 30 Gm Tube) 0 gm TOP BID [facility] Last Admin: 06/10/21 20:54 Dose: 1 applic Documented by: Senna/Docusate Sodium (Docusate Sodium/Sennosides 50-8.6 Mg Tab) 2 tab PO DAILY PRN PRN Reason: Constipation Last Admin: 06/07/21 06:25 Dose: 2 tab Documented by: Tramadol HCl (Tramadol 50 Mg Tab) 50 mg PO BID PRN PRN Reason: Pain Last Admin: 06/10/21 22:51 Dose: 50 mg Documented by: Discontinued Medications Albuterol/Ipratropium (Albuterol/Ipratropium 3.0-0.5 Mg/3 Ml Neb Soln) 3 ml NEB ONETIME ONE Stop: 06/05/21 15:06 Last Admin: 06/05/21 15:14 Dose: 3 ml Documented by: Amlodipine Besylate (Amlodipine 5 Mg Tab) 5 mg PO ONETIME ONE Stop: 06/06/21 15:41 Last Admin: 06/06/21 16:37 Dose: 5 mg Documented by: Bisacodyl (Bisacodyl 10 Mg Supp) 10 mg RECTAL ONETIME ONE Stop: 06/07/21 04:01 Last Admin: 06/07/21 04:45 Dose: 10 mg Documented by: Hydralazine HCl (Hydralazine 10 Mg Tab) 10 mg PO Q6H [facility] Last Admin: 06/09/21 06:17 Dose: 10 mg Documented by: Hydralazine HCl (Hydralazine 10 Mg Tab) 10 mg PO ONETIME ONE Stop: 06/06/21 15:41 Last Admin: 06/06/21 16:37 Dose: 10 mg Documented by: Sodium Chloride (Normal Saline) 100 mls @ 60 mls/hr IV ASDIRECTED [facility] Last Admin: 06/05/21 15:21 Dose: 60 mls/hr Documented by: Sodium Chloride (Normal Saline) 1,000 mls @ 125 mls/hr IV ASDIRECTED [facility] Stop: 06/06/21 16:00 Last Admin: 06/06/21 11:48 Dose: 125 mls/hr Documented by: Sodium Chloride (Normal Saline) 100 mls @ 60 mls/hr IV ASDIRECTED [facility] Insulin Glargine (Insulin Glargine,Hum.Rec.Anlog 100 Unit/Ml 3 Ml Pen) 73 unit SUBCUT DAILY [facility] Last Admin: 06/05/21 23:16 Dose: 73 units Documented by: Iopamidol (Iopamidol 755 Mg/Ml 100 Ml Bottle) 100 ml IVPUSH ONETIME ONE Stop: 06/05/21 15:20 Last Admin: 06/05/21 15:21 Dose: 100 ml Documented by: Iopamidol (Iopamidol 755 Mg/Ml 50 Ml Bottle) 50 ml IVPUSH ONETIME ONE Stop: 06/05/21 15:20 Last Admin: 06/05/21 15:21 Dose: 50 ml Documented by: Iopamidol (Iopamidol 612 Mg/Ml 50 Ml Sdv) 50 ml IVPUSH ONETIME ONE Stop: 06/06/21 13:22 Last Admin: 06/06/21 23:37 Dose: Not Given Documented by: Iopamidol (Iopamidol 612 Mg/Ml 100 Ml Bottle) 100 ml IVPUSH ONETIME ONE Stop: 06/06/21 13:22 Last Admin: 06/06/21 23:37 Dose: Not Given Documented by: Magnesium Hydroxide (Magnesium Hydroxide 400 Mg/5 Ml Susp 30 Ml Cup) 30 ml PO ONETIME ONE Stop: 06/06/21 09:01 Last Admin: 06/06/21 08:42 Dose: 30 ml Documented by: Potassium Bicarbonate (Potassium Bicarbonate/Cit Ac 20 Meq Effervescent Tab) 20 meq PO ONETIME ONE Stop: 06/07/21 11:31 Last Admin: 06/07/21 11:10 Dose: 20 meq Documented by: Simvastatin (Simvastatin 10 Mg Tab) 10 mg PO Q2D@2100 [facility] Sodium Chloride (Sodium Chloride 0.9% 10 Ml Syringe) 10 ml FLUSH ONETIME ONE Stop: 06/06/21 13:22 Last Admin: 06/06/21 20:42 Dose: 10 ml Documented by: Tramadol HCl (Tramadol 50 Mg Tab) 50 mg PO ONETIME ONE Stop: 06/05/21 13:20 Last Admin: 06/05/21 13:46 Dose: 50 mg Documented by: - Exam Quality Assessment: Supplemental Oxygen (0.5L), Urine Catheter (Retention), DVT Prophylaxis Urinary Catheter Total Time: 5Days 2Hours General: Alert, Cooperative, No Acute Distress. No: Oriented HEENT: Pupils Equal, Pupils Reactive Neck: Supple, Trachea Midline Lungs: Clear to Auscultation, Normal Respiratory Effort Cardiovascular: Regular Rate, Regular Rhythm GI/Abdominal Exam: Normal Bowel Sounds, Soft, Non-Tender, No Distention (Male) Exam: Deferred Extremities: Non-Tender, Pedal Edema (1-2+), Limited Range of Motion (Paresis secondary to CVA), Redness (Improving), Other (Bilateral lower extremity discoloration consistent with cellulitis.). No: Normal Inspection Skin: Warm, Dry, Intact Neurological: No New Focal Deficit Psy/Mental Status: Alert - Patient Data Lab Results Last 24 hrs: Laboratory Results - last 24 hr 06/10/21 06/10/21 06/10/21 Range/Units 10:21 16:45 20:47 WBC (4.23-9.07) K/mm3 RBC (4.63-6.08) M/mm3 Hgb (13.7-17.5) gm/dl Hct (40.1-51.0) % MCV (79.0-92.2) fl MCH (25.7-32.2) pg MCHC (32.2-35.5) g/dl RDW Std Deviation (35.1-43.9) fL Plt Count (163-337) K/mm3 MPV (9.4-12.3) fl Neut % (Auto) (34.0-67.9) % Lymph % (Auto) (21.8-53.1) % [place] % (Auto) (5.3-12.2) % Eos % (Auto) (0.8-7.0) Baso % (Auto) (0.1-1.2) % Neut # (Auto) (1.78-5.38) K/mm3 Lymph # (Auto) (1.32-3.57) K/mm3 [place] # (Auto) (0.30-0.82) K/mm3 Eos # (Auto) (0.04-0.54) K/mm3 Baso # (Auto) (0.01-0.08) K/mm3 Sodium (136-145) mEq/L Potassium (3.5-5.1) mEq/L Chloride (98-107) mEq/L Carbon Dioxide (21-32) mEq/L Anion Gap (5-15) BUN (7-18) mg/dL Creatinine (0.7-1.3) mg/dL Est Cr Clr Drug Dosing mL/min Estimated GFR (MDRD) (>60) mL/min BUN/Creatinine Ratio (14-18) Glucose (70-99) mg/dL POC Glucose 194 H 207 H 297 H (70-99) mg/dL Calcium (8.5-10.1) mg/dL Magnesium (1.8-2.4) mg/dL Total Bilirubin (0.2-1.0) mg/dL AST (15-37) U/L ALT (16-63) U/L Alkaline Phosphatase (46-116) U/L C-Reactive Protein (<1.0) mg/dL Total Protein (6.4-8.2) g/dl Albumin (3.4-5.0) g/dl Globulin gm/dL Albumin/Globulin Ratio (1-2) 06/11/21 06/11/21 06/11/21 Range/Units 05:26 05:26 06:30 WBC 9.45 H (4.23-9.07) K/mm3 RBC 3.61 L (4.63-6.08) M/mm3 Hgb 10.2 L (13.7-17.5) gm/dl Hct 32.7 L (40.1-51.0) % MCV 90.6 (79.0-92.2) fl MCH 28.3 (25.7-32.2) pg MCHC 31.2 L (32.2-35.5) g/dl RDW Std Deviation 45.1 H (35.1-43.9) fL Plt Count 424 H (163-337) K/mm3 MPV 9.1 L (9.4-12.3) fl Neut % (Auto) 67.9 (34.0-67.9) % Lymph % (Auto) 18.5 L (21.8-53.1) % [place] % (Auto) 10.1 (5.3-12.2) % Eos % (Auto) 2.4 (0.8-7.0) Baso % (Auto) 0.6 (0.1-1.2) % Neut # (Auto) 6.41 H (1.78-5.38) K/mm3 Lymph # (Auto) 1.75 (1.32-3.57) K/mm3 [place] # (Auto) 0.95 H (0.30-0.82) K/mm3 Eos # (Auto) 0.23 (0.04-0.54) K/mm3 Baso # (Auto) 0.06 (0.01-0.08) K/mm3 Sodium 141 (136-145) mEq/L Potassium 3.7 (3.5-5.1) mEq/L Chloride 102 (98-107) mEq/L Carbon Dioxide 31 (21-32) mEq/L Anion Gap 11.7 (5-15) BUN 34 H (7-18) mg/dL Creatinine 1.5 H (0.7-1.3) mg/dL Est Cr Clr Drug Dosing 41.94 mL/min Estimated GFR (MDRD) 46 (>60) mL/min BUN/Creatinine Ratio 22.7 H (14-18) Glucose 125 H (70-99) mg/dL POC Glucose 100 H (70-99) mg/dL Calcium 8.7 (8.5-10.1) mg/dL Magnesium 2.2 (1.8-2.4) mg/dL Total Bilirubin 0.2 (0.2-1.0) mg/dL AST 77 H (15-37) U/L ALT 54 (16-63) U/L Alkaline Phosphatase 244 H (46-116) U/L C-Reactive Protein 19.1 H* (<1.0) mg/dL Total Protein 6.1 L (6.4-8.2) g/dl Albumin 2.0 L (3.4-5.0) g/dl Globulin 4.1 gm/dL Albumin/Globulin Ratio 0.5 L (1-2) Result Diagrams: 06/11/21 05:26 06/11/21 05:26 Sepsis Event Note - Evaluation Sepsis Screening Result: No Definite Risk - Focused Exam Vital Signs: Vital Signs Temp Pulse Resp BP Pulse Ox 06/11/21 04:24 97.5 F 85 15 154/67 H 93 L 06/10/21 22:52 86 148/82 H 06/10/21 20:42 98.2 F 89 14 152/63 H 93 L - Problem List & Annotations (1) Adrenal benign tumor SNOMED Code(s): 54414402 Code(s): D35.00 - BENIGN NEOPLASM OF UNSPECIFIED ADRENAL GLAND Status: Acute Priority: Low Current Visit: Yes Qualifiers: Laterality: unspecified laterality Qualified Code(s): D35.00 - Benign neoplasm of unspecified adrenal gland Annotation/Comment:: bilateral tumors adrenal but good adrenal function (2) CHF (congestive heart failure), NYHA class II SNOMED Code(s): 895731091, 339817454 Code(s): I50.9 - HEART FAILURE, UNSPECIFIED Status: Chronic Priority: Medium Current Visit: Yes Onset Date: ~06/06/21 Qualifiers: Congestive heart failure type: combined Annotation/Comment:: needs echo and ordered off hctz and started lasix with good response. neurogenic bowel a nd bladder but no obstruction or hydronephrosis seen // suspect lvh and no anginal symptoms despite high b.p. rule out pericardial dysfunction. (3) Fungal dermatosis SNOMED Code(s): 75127786 Code(s): B36.9 - SUPERFICIAL MYCOSIS, UNSPECIFIED Status: Acute Priority: Medium Current Visit: Yes Onset Date: ~06/05/21 (4) Weakness generalized SNOMED Code(s): 43652088 Code(s): R53.1 - WEAKNESS Status: Acute Priority: High Current Visit: Yes Onset Date: ~06/06/21 Annotation/Comment:: unable to do any cares needs liz lift to change positions.pt/ot/speech therapy seeing. (5) Adult failure to thrive SNOMED Code(s): 369512284 Code(s): R62.7 - ADULT FAILURE TO THRIVE Status: Chronic Priority: High Current Visit: Yes (6) Chronic renal insufficiency, stage III (moderate) SNOMED Code(s): 838882860 Code(s): N18.30 - CHRONIC KIDNEY DISEASE, STAGE 3 UNSPECIFIED Status: Chronic Priority: Medium Current Visit: Yes Onset Date: ~06/05/21 Qualifiers: Chronic kidney disease stage 3 subtype: stage 3a (GFR 45-59) Qualified Code(s): N18.31 - Chronic kidney disease, stage 3a Annotation/Comment:: creatinine 1.7 and 3plus protienuria and hematuria seen prostate not inflamed or abnormal (7) Sensation alteration, late effect of cerebrovascular disease SNOMED Code(s): 71251125, 642440749 Code(s): I69.998 - OTHER SEQUELAE FOLLOWING UNSPECIFIED CEREBROVASCULAR DISEASE; R20.9 - UNSPECIFIED DISTURBANCES OF SKIN SENSATION Status: Chronic Priority: Medium Current Visit: Yes Onset Date: ~06/06/21 Annotation/Comment:: repeat head ct scan sec. to possible multi infarct pattern. (8) Type 2 diabetes mellitus SNOMED Code(s): 73887723 Code(s): E11.9 - TYPE 2 DIABETES MELLITUS WITHOUT COMPLICATIONS Status: Chronic Priority: High Current Visit: Yes Onset Date: ~06/06/21 Qualifiers: Diabetes mellitus penitentiary insulin use: with predatory animal exterminator use Diabetes mellitus complication status: with kidney complications Diabetes mellitus complication detail: with chronic kidney disease Chronic kidney disease stage: stage 3 (moderate) Annotation/Comment:: needs insulin lifelong. (9) Unable to ambulate SNOMED Code(s): 550527039 Code(s): R26.2 - DIFFICULTY IN WALKING, NOT ELSEWHERE CLASSIFIED Status: Chronic Priority: High Current Visit: Yes Onset Date: ~06/06/21 Annotation/Comment:: ct scan of lumbar sacral area ordered no recent trauma no rectal tone and neurogenic bladder but no incontinance of either (10) Dependent edema SNOMED Code(s): 730091118 Code(s): R60.9 - EDEMA, UNSPECIFIED Status: Acute Priority: High Current Visit: No Onset Date: ~06/05/21 Annotation/Comment:: cellulitis with onychiomycholisis and fungal dermatitis (11) Neurogenic bladder SNOMED Code(s): 221510816 Code(s): N31.9 - NEUROMUSCULAR DYSFUNCTION OF BLADDER, UNSPECIFIED Status: Acute Priority: High Current Visit: Yes (12) Chapin catheter in place SNOMED Code(s): 182812147 Code(s): Z97.8 - PRESENCE OF OTHER SPECIFIED DEVICES Status: Acute Priority: High Current Visit: Yes - Problem List Review Problem List Initiated/Reviewed/Updated: Yes - Assessment Assessment:: 06/06/21 assess: resp insuff ?bronchitis screens neg. but no discreet pneumonia seen on ct scan// severe atelectasis form weakness and inability to move self. elavated d dimer but no p.e.noted. pericardial effusion assymptomatic. chf stable . renal insuff creat 1.7 and 3+ protien and blood. abd and pelvic ct scan ordered with contrast as multiple unexplained findings. generalized weakness but susp. of rt arm stroke and head ct scan ordered. cog. impairment slightly better but chronic cogn. impairment suggestive of dementia and diabetic cerebral vasc. disease. neurogenic bladder sec to autonomic neuropathy? or other cause renal u.s shows no obstruction/tumor ct scan pending. suspect sacral nerve impairment given loss rectal tone as well . dm lifelong poor control and now with neuropathy/nephropathy and autonomic neuropathy./perhaps myopathy as well . morbid obesity : patient will require peminant total care . cellultitis better suspect pad but edam slightly improved with wraps and topical cream applied . cont rocephin as well . suspected sleep apnea. suspected severe cerebral vasc. disease and possibel multiple small stroke ct scan of head pending. leg pain multifactorial but likely cellulitis//edema and neuropathy as well as oa and diabetic myopathy. plan:: ct scans as ordered. control b.s sliding scale increased/ long acting ordered. slowly bring down hypertension start amlodapine and hydralizine and cont lasix. correct lytes. discussed findings with patient and . snif referral//pt//ot/speech therapy for cog eval and speech assessment. d.e. continued. neurogenic bladder treatment difficult and may need diverting nephro stomy but unlikely to get approval for surgery or urology to agree. check psa. get off sacral area as much as tolerated. sleep study needed. boh . - Plan Plan:: 06/06/21 Patient is a 70 yr old male who is in Med/Surg. Patient's answers for most questions. Patient has been unable to get out of bed for 3 days due to chronic bilateral extremity pain and luteal pain for which he is on tramadol and Neurontin at home. Patient came w/ a mild cough but denied any fever or chills or shortness of breath. We are unable to assess if he is having any exertional symptoms since he has been bedridden. states she is no longer able to take care of him and wants us to arrange for him to be in assisted living/nursing [place]. Patient's had no bloody or tarry stools before admit. He denies any headache or any numbness weakness or paresthesias which is new. Patient's O2 saturation is 85% room air at rest. Patient has not c/o any chest pain. It is not known at this time how long pt has been homebound or what he did before being homebound. Assesment: Pt is neg for covid, RSV, Flu, and Pneumonia There is a hx of stoke 7 yrs ago, states he never got his short term memory back. He is homebound and is main caregiver. pt has continually diminishing mobility...started with a shuffle, then could walk w/help of cane, then walker, and now can't stand more than 5 mins. states pt fell at thanksgiving has been pretty much bed ridden since. states everything got worse around 2 wks ago when cough developed. Pt is not always compliant on meds and has uncontrolled DM II PT is retaining urine with no prior hx of incontinence for urine or BM's... Pt is on lasix 20mg daily for edema Prostate exam w/hemocult was done in room today w/NEG findings There is no rectal tone...pt has 800cc urine w/no urge to go diminished sensations para rectally...Echo of abdom and pelvis needed....neurogenic bladder and weakness and renal failure and fatty liver No hx of delirium, although states he has depression symptoms diminishing mobility, speech, and cognition there is focal weakness to Rt upper arm need to rule out stroke....needs CT of head Pt c/o chronic pain to legs bilat, w/mild pressure pain, also to buttocks and back, w/no hx of trauma...CT of Spine and Sacrum/Pelvis small sacral sore noted, wound management needed Toes: intact propre. Lungs: [place] breath sounds with intermit. wheezing...wet ....on 3 litters of O2 and sats are holding at 90%....repeat chest x-ray, portable, needed for tomorrow Pt has general weakness...need to rule out CVA work w/pt on spirometer states pt does snore but not much....no sleep study has been done, no hx of apnea Cardio:Pt has hx of CAD w/no c/o of symptoms BP is elevated and uncontrolled.....add amlodipine 5mg and hydralazine 25 q 6 Echo from 06/05 shows tachy between 90-110........repeat echo needed HX: CHF Hypoxia-mulit facet Renal Insuf. uncontrolled DM II Neuropathy Cognitive Diminishment Fatty Liver Plan: repeat Chest x-ray, portable, for tomorrow...cough and wheezing CT of Head...diminishing mobility, speech, cognition, and focal weakness CT of Spine and Sacrum/Pelvis...diminished sensations and retention Echo of abdom and pelvis needed....neurogenic bladder and weakness and renal failure and fatty liver Add amlodipine 5mg Add Hydralazine 25mg Move patient to chair and around as much as possible to prevent Pneumonia Refer to Coding Manager for long term admit 06/07/2021 The patient is a 70-year-old gentleman who is currently awaiting placement. The patient has improved somewhat according to the patient's daughter. He is still considered to be a poor historian and likely has multi-infarct dementia that has been worsening over the past few months. The patient will need to have placement as he is not able to ambulate and is very weak. The patient will be kept on his diabetic diet. He is on insulin sliding scale and this will continue. The patient is also on DVT prophylaxis with the use of Lovenox. The patient has been also noted to have leukocytosis as well as a reactive thrombocytosis and this is out of concern for possible undeclared infection and he is on ceftriaxone which will be continued. The patient's BNP has also been elevated and results of the 2D echocardiogram obtained are pending. The patient may improve somewhat giving his track record or he may be at his baseline is uncertain at this time. He should be appropriate for discharge to placement facility in 1 to 2 days. 06/08/2021 The patient is a 70-year-old gentleman who is currently awaiting placement. He has improved somewhat during his hospital stay. The patient still has been unable to participate in physical therapy. I had a discussion with the patient's significant other who is basically his power of employment law attorney at this time. I discussed with her the likelihood of this being a long-term issue with regards to placement. The patient will be maintained on insulin sliding scale. He will also have appropriate ADA diet as tolerated. Repeat laboratory studies have been ordered for the morning. The patient is also having DVT prophylaxis with the use of Lovenox. The patient should be appropriate for discharge once placement is available. The patient was retained in hospitalization greater than 96 hours due to continued physical therapy requirements and not being considered to be safe at home. He is also awaiting placement. 06/09/2021 70-year-old male with multi-infarct dementia is awaiting long-term care placement. I spoke with his significant other who is his financial and medical power of employment law attorney. She has paperwork for him to be discharged to long-term care facility in the area. Patient has been tachycardic and it appears that his metoprolol was stopped on admission, likely secondary to CHF exacerbation, and he was placed on hydralazine for blood pressure which has a side effect of tachycardia. Patient may switch back over to metoprolol at a dose of 50 mg twice daily. Hydralazine will be stopped and we will follow his blood pressure and heart rate closely. Renal insufficiency is stable with a creatinine of 1.7. Blood sugars have been still high in the low to mid 200s and as high as 350. I will start him on prandial Humalog at 5 units with each meal. Encourage adequate food intake. June 10, 2021 70-year-old male with vascular dementia awaiting long-term care placement. There is no changes. Heart rate has been improved on metoprolol tartrate 50 mg twice daily. Blood pressure is well controlled. Blood sugars are better with the addition of prandial insulin. This may need to be increased. 06/11/2021 70-year-old male admitted to the floor due to chronic lower bilateral lower extremity pain and inability to care for himself. 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 He is a poor historian due to vascular dementia and diffuse right-sided hemiparesis. Overall has been doing okay. We will switch him from Rocephin to every 8 hour Keflex 500 mg after discussion with pharmacy. We will also discontinue his IV push Lasix and start him on p.o. with 40 mg at 6 AM and 20 mg at 1600. Patient's renal function has been slowly improving. He is awaiting placement. Blood sugars have overall been controlled. He is on 1/2 L of oxygen and blood pressures have improved. Labs today show a mild WBC of 9.45. Hemoglobin is 10.2. Platelet 424,000. Neutrophils are normal at 67.9%. Sodium 141. Potassium 3.7. Chloride 102. Carbon dioxide 31. Anion gap 11.7. BUN is 34. Creatinine 1.5. GFR 46. Glucose 125. Magnesium 2.2. Total bilirubin 0.2. AST 77, ALT 54, Rambo phosphatase 244. CRP is 19.1. Albumin is 2.0. Patient will remain hospitalized but is clear for discharge pending placement. DVT prophylaxis with Lovenox CODE STATUS: DNR/DNI PCP: Dr. Garcia
[2021-06-11] MEDS: Doxazosin 2 MG Tab PO SCH (09:16)
[2021-06-11] MEDS: Gabapentin 300 MG Cap PO SCH (09:17)
[2021-06-11] MEDS: Isosorbide Mononitrate 30 MG Tab.ER PO SCH (09:18)
[2021-06-11] MEDS: Clopidogrel 75 MG Tab PO SCH (09:18)
[2021-06-11] MEDS: amLODIPine 5 MG Tab PO SCH (09:18)
[2021-06-11] MEDS: Nystatin Topical Powder 15 GM Bottle TOP SCH ×2 (09:20→21:05)
[2021-06-11] MEDS: Nystatin Crm 30 GM Tube TOP SCH ×2 (10:03→21:04)
[2021-06-11] MEDS: Metoprolol Tartrate 50 MG Tab PO SCH ×2 (13:13→23:00)
[2021-06-11] MEDS: Furosemide 20 MG Tab PO SCH (13:13)
[2021-06-11] MEDS: traMADol 50 MG Tab PO PRN (13:55)
[2021-06-11] MEDS: Insulin Glargine,Hum.Rec.Anlog 100 UNIT/ML 3 ML Pen SUBCUT SCH (21:03)
[2021-06-11] MEDS: Gabapentin 600 MG Tab PO SCH (21:04)
[2021-06-11] MEDS: Cephalexin 500 MG Cap PO SCH (21:04)
[2021-06-11] MEDS: Enoxaparin 40 MG/0.4 ML Syringe SUBCUT SCH (23:01)
[2021-06-12] MEDS: Cephalexin 500 MG Cap PO SCH ×3 (06:00→20:43)
[2021-06-12] MEDS: Furosemide 40 MG Tab PO SCH (06:00)
--- NOTE | 2021-06-12 08:29 | PCM.PN ---
- General Info Date of Service: 06/12/21 Admission Dx/Problem (Free Text): The patient was admitted secondary to hypoxia as well as inability to care for self. Functional Status: Reports: Pain Controlled, Tolerating Diet, Urinating, Incentive Spirometry. Denies: Ambulating, New Symptoms - Review of Systems General: Reports: Weakness (Acute on chronic), Fatigue. Denies: Fever, Malaise, Chills HEENT: Reports: No Symptoms. Denies: Headaches, Sore Throat Pulmonary: Reports: Cough (occasional ). Denies: Shortness of Breath, Pleuritic Chest Pain, Sputum, Wheezing Cardiovascular: Reports: Edema (bilateral lower extremity ). Denies: Chest Pain, Palpitations, Dyspnea on Exertion Gastrointestinal: Reports: No Symptoms. Denies: Abdominal Pain, Constipation, Diarrhea, Nausea, Vomiting Genitourinary: Reports: No Symptoms. Denies: Pain Musculoskeletal: Reports: Leg Pain (bilateral lower extremity ), Foot Pain (bilateral ) Skin: Reports: No Symptoms. Denies: Cyanosis Neurological: Reports: Confusion, Pre-Existing Deficit (Prior CVA with residual right-sided hemiparesis. Vascular dementia), Trouble Speaking (Chronic), Difficulty Walking, Weakness, Gait Disturbance. Denies: Numbness, Tingling Psychiatric: Reports: No Symptoms Systems Review Comment:: Patient today is alert and does respond to questions appropriately, albeit he does have some difficulty finding words at times. He is also quite sleepy. - Patient Data Vitals - Most Recent: Last Vital Signs Temp 97.9 F 06/12/21 03:47 Pulse 86 06/12/21 03:47 Resp 20 06/12/21 03:47 BP 138/58 L 06/12/21 03:47 Pulse Ox 91 L 06/12/21 03:47 Weight - Most Recent: 224 lb 6.4 oz I&O - Last 24 Hours: Intake & Output 06/11/21 06/12/21 06/12/21 22:59 06:59 14:59 Intake Total 690 200 Output Total 1550 800 Balance -860 -600 Lab Results Last 24 Hours: Laboratory Results - last 24 hr 06/11/21 06/11/21 06/11/21 Range/Units 10:47 16:53 21:01 POC Glucose 132 H 321 H 281 H (70-99) mg/dL 06/12/21 Range/Units 05:59 POC Glucose 77 (70-99) mg/dL Med Orders - Current: Current Medications Amlodipine Besylate (Amlodipine 5 Mg Tab) 5 mg PO DAILY [facility] Last Admin: 06/11/21 09:18 Dose: 5 mg Documented by: Atorvastatin Calcium (Atorvastatin 20 Mg Tab) 10 mg PO Q2D@2100 [facility] Last Admin: 06/10/21 20:53 Dose: 10 mg Documented by: Cephalexin (Cephalexin 500 Mg Cap) 500 mg PO Q8H [facility] Last Admin: 06/12/21 06:00 Dose: 500 mg Documented by: Clopidogrel Bisulfate (Clopidogrel 75 Mg Tab) 75 mg PO DAILY [facility] Last Admin: 06/11/21 09:18 Dose: 75 mg Documented by: Doxazosin Mesylate (Doxazosin 2 Mg Tab) 1 mg PO DAILY [facility] Last Admin: 06/11/21 09:16 Dose: 1 mg Documented by: Enoxaparin Sodium (Enoxaparin 40 Mg/0.4 Ml Syringe) 40 mg SUBCUT Q24H [facility] Last Admin: 06/11/21 23:01 Dose: 40 mg Documented by: Furosemide (Furosemide 40 Mg Tab) 40 mg PO DAILY@0600 [facility] Last Admin: 06/12/21 06:00 Dose: 40 mg Documented by: Furosemide (Furosemide 20 Mg Tab) 20 mg PO DAILY@1400 [facility] Last Admin: 06/11/21 13:13 Dose: 20 mg Documented by: Gabapentin (Gabapentin 300 Mg Cap) 300 mg PO DAILY [facility] Last Admin: 06/11/21 09:17 Dose: 300 mg Documented by: Gabapentin (Gabapentin 600 Mg Tab) 600 mg PO BEDTIME [facility] Last Admin: 06/11/21 21:04 Dose: 600 mg Documented by: Insulin Glargine (Insulin Glargine,Hum.Rec.Anlog 100 Unit/Ml 3 Ml Pen) 73 unit SUBCUT BEDTIME [facility] Last Admin: 06/11/21 21:03 Dose: 73 units Documented by: Insulin Human Lispro (Insulin Lispro 100 Unit/Ml 3 Ml Kwikpen) 0 unit SUBCUT WITHMEALSANDBED [facility]; Protocol Last Admin: 06/11/21 21:02 Dose: 3 unit Documented by: Insulin Human Lispro (Insulin Lispro 100 Unit/Ml 3 Ml Kwikpen) 5 unit SUBCUT TIDMEALS [facility] Last Admin: 06/11/21 17:16 Dose: 5 units Documented by: Isosorbide Mononitrate (Isosorbide Mononitrate 30 Mg Tab.Er) 30 mg PO DAILY [facility] Last Admin: 06/11/21 09:18 Dose: 30 mg Documented by: Metoprolol Tartrate (Metoprolol Tartrate 50 Mg Tab) 50 mg PO Q12H [facility] Last Admin: 06/11/21 23:00 Dose: 50 mg Documented by: Nystatin (Nystatin Topical Powder 15 Gm Bottle) 1 gm TOP BID [facility] Last Admin: 06/11/21 21:05 Dose: 1 applic Documented by: Nystatin (Nystatin Crm 30 Gm Tube) 0 gm TOP BID [facility] Last Admin: 06/11/21 21:04 Dose: 1 applic Documented by: Senna/Docusate Sodium (Docusate Sodium/Sennosides 50-8.6 Mg Tab) 2 tab PO DAILY PRN PRN Reason: Constipation Last Admin: 06/07/21 06:25 Dose: 2 tab Documented by: Tramadol HCl (Tramadol 50 Mg Tab) 50 mg PO BID PRN PRN Reason: Pain Last Admin: 06/11/21 13:55 Dose: 50 mg Documented by: Discontinued Medications Albuterol/Ipratropium (Albuterol/Ipratropium 3.0-0.5 Mg/3 Ml Neb Soln) 3 ml NEB ONETIME ONE Stop: 06/05/21 15:06 Last Admin: 06/05/21 15:14 Dose: 3 ml Documented by: Amlodipine Besylate (Amlodipine 5 Mg Tab) 5 mg PO ONETIME ONE Stop: 06/06/21 15:41 Last Admin: 06/06/21 16:37 Dose: 5 mg Documented by: Bisacodyl (Bisacodyl 10 Mg Supp) 10 mg RECTAL ONETIME ONE Stop: 06/07/21 04:01 Last Admin: 06/07/21 04:45 Dose: 10 mg Documented by: Furosemide (Furosemide 20 Mg/2 Ml Vial) 20 mg IVPUSH BIDDIURETIC [facility] Last Admin: 06/11/21 06:31 Dose: 20 mg Documented by: Hydralazine HCl (Hydralazine 10 Mg Tab) 10 mg PO Q6H [facility] Last Admin: 06/09/21 06:17 Dose: 10 mg Documented by: Hydralazine HCl (Hydralazine 10 Mg Tab) 10 mg PO ONETIME ONE Stop: 06/06/21 15:41 Last Admin: 06/06/21 16:37 Dose: 10 mg Documented by: Sodium Chloride (Normal Saline) 100 mls @ 60 mls/hr IV ASDIRECTED [facility] Last Admin: 06/05/21 15:21 Dose: 60 mls/hr Documented by: Ceftriaxone Sodium 2 gm/ (Sodium Chloride) 100 mls @ 200 mls/hr IV Q24H [facility] Last Admin: 06/10/21 20:49 Dose: 200 mls/hr Documented by: Sodium Chloride (Normal Saline) 1,000 mls @ 125 mls/hr IV ASDIRECTED [facility] Stop: 06/06/21 16:00 Last Admin: 06/06/21 11:48 Dose: 125 mls/hr Documented by: Sodium Chloride (Normal Saline) 100 mls @ 60 mls/hr IV ASDIRECTED [facility] Insulin Glargine (Insulin Glargine,Hum.Rec.Anlog 100 Unit/Ml 3 Ml Pen) 73 unit SUBCUT DAILY [facility] Last Admin: 06/05/21 23:16 Dose: 73 units Documented by: Iopamidol (Iopamidol 755 Mg/Ml 100 Ml Bottle) 100 ml IVPUSH ONETIME ONE Stop: 06/05/21 15:20 Last Admin: 06/05/21 15:21 Dose: 100 ml Documented by: Iopamidol (Iopamidol 755 Mg/Ml 50 Ml Bottle) 50 ml IVPUSH ONETIME ONE Stop: 06/05/21 15:20 Last Admin: 06/05/21 15:21 Dose: 50 ml Documented by: Iopamidol (Iopamidol 612 Mg/Ml 50 Ml Sdv) 50 ml IVPUSH ONETIME ONE Stop: 06/06/21 13:22 Last Admin: 06/06/21 23:37 Dose: Not Given Documented by: Iopamidol (Iopamidol 612 Mg/Ml 100 Ml Bottle) 100 ml IVPUSH ONETIME ONE Stop: 06/06/21 13:22 Last Admin: 06/06/21 23:37 Dose: Not Given Documented by: Magnesium Hydroxide (Magnesium Hydroxide 400 Mg/5 Ml Susp 30 Ml Cup) 30 ml PO ONETIME ONE Stop: 06/06/21 09:01 Last Admin: 06/06/21 08:42 Dose: 30 ml Documented by: Potassium Bicarbonate (Potassium Bicarbonate/Cit Ac 20 Meq Effervescent Tab) 20 meq PO ONETIME ONE Stop: 06/07/21 11:31 Last Admin: 06/07/21 11:10 Dose: 20 meq Documented by: Simvastatin (Simvastatin 10 Mg Tab) 10 mg PO Q2D@2100 [facility] Sodium Chloride (Sodium Chloride 0.9% 10 Ml Syringe) 10 ml FLUSH ONETIME ONE Stop: 06/06/21 13:22 Last Admin: 06/06/21 20:42 Dose: 10 ml Documented by: Tramadol HCl (Tramadol 50 Mg Tab) 50 mg PO ONETIME ONE Stop: 06/05/21 13:20 Last Admin: 06/05/21 13:46 Dose: 50 mg Documented by: - Exam Quality Assessment: Supplemental Oxygen (1 L), Urine Catheter, DVT Prophylaxis Urinary Catheter Total Time: 6Days 1Hours General: Alert, Cooperative, No Acute Distress. No: Oriented HEENT: Pupils Equal, Mucous Membr. Moist/[place] Neck: Supple, Trachea Midline Lungs: Clear to Auscultation, Normal Respiratory Effort Cardiovascular: Regular Rate, Regular Rhythm GI/Abdominal Exam: Normal Bowel Sounds, Soft, Non-Tender, No Distention (Male) Exam: Deferred Extremities: Pedal Edema (1+), Leg Pain, Limited Range of Motion, Redness (Greatly improving), Other (Baseline right-sided hemiparesis). No: Increased Warmth Skin: Warm, Dry, Intact Neurological: No New Focal Deficit Psy/Mental Status: Alert - Patient Data Lab Results Last 24 hrs: Laboratory Results - last 24 hr 06/11/21 06/11/21 06/11/21 Range/Units 10:47 16:53 21:01 POC Glucose 132 H 321 H 281 H (70-99) mg/dL 06/12/21 Range/Units 05:59 POC Glucose 77 (70-99) mg/dL Result Diagrams: 06/11/21 05:26 06/11/21 05:26 Sepsis Event Note - Evaluation Sepsis Screening Result: No Definite Risk - Focused Exam Vital Signs: Vital Signs Temp Pulse Resp BP Pulse Ox 06/12/21 03:47 97.9 F 86 20 138/58 L 91 L 06/11/21 23:00 93 156/62 H 06/11/21 22:59 98.2 F 93 22 H 156/62 H 90 L 06/11/21 20:57 97.9 F 94 20 158/56 H 91 L - Problem List & Annotations (1) Adrenal benign tumor SNOMED Code(s): 80761479 Code(s): D35.00 - BENIGN NEOPLASM OF UNSPECIFIED ADRENAL GLAND Status: Acute Priority: Low Current Visit: Yes Qualifiers: Laterality: unspecified laterality Qualified Code(s): D35.00 - Benign neoplasm of unspecified adrenal gland Annotation/Comment:: bilateral tumors adrenal but good adrenal function (2) CHF (congestive heart failure), NYHA class II SNOMED Code(s): 973066035, 054585341 Code(s): I50.9 - HEART FAILURE, UNSPECIFIED Status: Chronic Priority: Medium Current Visit: Yes Onset Date: ~06/06/21 Qualifiers: Congestive heart failure type: combined Annotation/Comment:: needs echo and ordered off hctz and started lasix with good response. neurogenic bowel a nd bladder but no obstruction or hydronephrosis seen // suspect lvh and no anginal symptoms despite high b.p. rule out pericardial dysfunction. (3) Fungal dermatosis SNOMED Code(s): 57579895 Code(s): B36.9 - SUPERFICIAL MYCOSIS, UNSPECIFIED Status: Acute Priority: Medium Current Visit: Yes Onset Date: ~06/05/21 (4) Weakness generalized SNOMED Code(s): 17075548 Code(s): R53.1 - WEAKNESS Status: Acute Priority: High Current Visit: Yes Onset Date: ~06/06/21 Annotation/Comment:: unable to do any cares needs liz lift to change positions.pt/ot/speech therapy seeing. (5) Adult failure to thrive SNOMED Code(s): 642031605 Code(s): R62.7 - ADULT FAILURE TO THRIVE Status: Chronic Priority: High Current Visit: Yes (6) Chronic renal insufficiency, stage III (moderate) SNOMED Code(s): 065279366 Code(s): N18.30 - CHRONIC KIDNEY DISEASE, STAGE 3 UNSPECIFIED Status: Chronic Priority: Medium Current Visit: Yes Onset Date: ~06/05/21 Qualifiers: Chronic kidney disease stage 3 subtype: stage 3a (GFR 45-59) Qualified Code(s): N18.31 - Chronic kidney disease, stage 3a Annotation/Comment:: creatinine 1.7 and 3plus protienuria and hematuria se en prostate not inflamed or abnormal (7) Sensation alteration, late effect of cerebrovascular disease SNOMED Code(s): 88251890, 896761743 Code(s): I69.998 - OTHER SEQUELAE FOLLOWING UNSPECIFIED CEREBROVASCULAR DISEASE; R20.9 - UNSPECIFIED DISTURBANCES OF SKIN SENSATION Status: Chronic Priority: Medium Current Visit: Yes Onset Date: ~06/06/21 Annotation/Comment:: repeat head ct scan sec. to possible multi infarct pattern. (8) Type 2 diabetes mellitus SNOMED Code(s): 00993581 Code(s): E11.9 - TYPE 2 DIABETES MELLITUS WITHOUT COMPLICATIONS Status: Chronic Priority: High Current Visit: Yes Onset Date: ~06/06/21 Qualifiers: Diabetes mellitus fpc insulin use: with lobsterman use Diabetes mellitus complication status: with kidney complications Diabetes mellitus complication detail: with chronic kidney disease Chronic kidney disease stage: stage 3 (moderate) Annotation/Comment:: needs insulin lifelong. (9) Unable to ambulate SNOMED Code(s): 881420163 Code(s): R26.2 - DIFFICULTY IN WALKING, NOT ELSEWHERE CLASSIFIED Status: Chronic Priority: High Current Visit: Yes Onset Date: ~06/06/21 Annotation/Comment:: ct scan of lumbar sacral area ordered no recent trauma no rectal tone and neurogenic bladder but no incontinance of either (10) Dependent edema SNOMED Code(s): 528497929 Code(s): R60.9 - EDEMA, UNSPECIFIED Status: Acute Priority: High Current Visit: No Onset Date: ~06/05/21 Annotation/Comment:: cellulitis with onychiomycholisis and fungal dermatitis (11) Neurogenic bladder SNOMED Code(s): 759225573 Code(s): N31.9 - NEUROMUSCULAR DYSFUNCTION OF BLADDER, UNSPECIFIED Status: Acute Priority: High Current Visit: Yes (12) Chapin catheter in place SNOMED Code(s): 527255691 Code(s): Z97.8 - PRESENCE OF OTHER SPECIFIED DEVICES Status: Acute Priority: High Current Visit: Yes - Problem List Review Problem List Initiated/Reviewed/Updated: Yes - My Orders Last 24 Hours: My Active Orders 06/11/21 11:21 Renew/Continue Urinary Catheter [OM.PC] Routine 06/11/21 14:00 Furosemide [Lasix] 20 mg PO DAILY@1400 06/11/21 21:00 cephALEXin [Keflex] 500 mg PO Q8H 06/12/21 06:00 Furosemide [Lasix] 40 mg PO DAILY@0600 - Assessment Assessment:: 06/06/21 assess: resp insuff ?bronchitis screens neg. but no discreet pneumonia seen on ct scan// severe atelectasis form weakness and inability to move self. elavated d dimer but no p.e.noted. pericardial effusion assymptomatic. chf stable . renal insuff creat 1.7 and 3+ protien and blood. abd and pelvic ct scan ordered with contrast as multiple unexplained findings. generalized weakness but susp. of rt arm stroke and head ct scan ordered. cog. impairment slightly better but chronic cogn. impairment suggestive of dementia and diabetic cerebral vasc. disease. neurogenic bladder sec to autonomic neuropathy? or other cause renal u.s shows no obstruction/tumor ct scan pending. suspect sacral nerve impairment given loss rectal tone as well . dm lifelong poor control and now with neuropathy/nephropathy and autonomic neuropathy./perhaps myopathy as well . morbid obesity : patient will require peminant total care . cellultitis better suspect pad but edam slightly improved with wraps and topical cream applied . cont rocephin as well . suspected sleep apnea. suspected severe cerebral vasc. disease and possibel multiple small stroke ct scan of head pending. leg pain multifactorial but likely cellulitis//edema and neuropathy as well as oa and diabetic myopathy. plan:: ct scans as ordered. control b.s sliding scale increased/ long acting ordered. slowly bring down hypertension start amlodapine and hydralizine and cont lasix. correct lytes. discussed findings with patient and . snif referral//pt//ot/speech therapy for cog eval and speech assessment. d.e. continued. neurogenic bladder treatment difficult and may need diverting nephrostomy but unlikely to get approval for surgery or urology to agree. check psa. get off sacral area as much as tolerated. sleep study needed. boh . - Plan Plan:: 06/06/21 Patient is a 70 yr old male who is in Med/Surg. Patient's answers for most questions. Patient has been unable to get out of bed for 3 days due to chronic bilateral extremity pain and luteal pain for which he is on tramadol and Neurontin at home. Patient came w/ a mild cough but denied any fever or chills or shortness of breath. We are unable to assess if he is having any exertional symptoms since he has been bedridden. states she is no longer able to take care of him and wants us to arrange for him to be in assisted living/detention. Patient's had no bloody or tarry stools before admit. He denies any headache or any numbness weakness or paresthesias which is new. Patient's O2 saturation is 85% room air at rest. Patient has not c/o any chest pain. It is not known at this time how long pt has been homebound or what he did before being homebound. Assesment: Pt is neg for covid, RSV, Flu, and Pneumonia There is a hx of stoke 7 yrs ago, states he never got his short term memory back. He is homebound and is main caregiver. pt has continually diminishing mobility...started with a shuffle, then could walk w/help of cane, then walker, and now can't stand more than 5 mins. states pt fell at thanksgiving has been pretty much bed ridden since. states everything got worse around 2 wks ago when cough developed. Pt is not always compliant on meds and has uncontrolled DM II PT is retaining urine with no prior hx of incontinence for urine or BM's... Pt is on lasix 20mg daily for edema Prostate exam w/hemocult was done in room today w/NEG findings There is no rectal tone...pt has 800cc urine w/no urge to go diminished sensations para rectally...Echo of abdom and pelvis needed....neurogenic bladder and weakness and renal failure and fatty liver No hx of delirium, although states he has depression symptoms diminishing mobility, speech, and cognition there is focal weakness to Rt upper arm need to rule out stroke....needs CT of head Pt c/o chronic pain to legs bilat, w/mild pressure pain, also to buttocks and back, w/no hx of trauma...CT of Spine and Sacrum/Pelvis small sacral sore noted, wound management needed Toes: intact propre. Lungs: [place] breath sounds with intermit. wheezing...wet ....on 3 litters of O2 and sats are holding at 90%....repeat chest x-ray, portable, needed for tomorrow Pt has general weakness...need to rule out CVA work w/pt on spirometer states pt does snore but not much....no sleep study has been done, no hx of apnea Cardio:Pt has hx of CAD w/no c/o of symptoms BP is elevated and uncontrolled.....add amlodipine 5mg and hydralazine 25 q 6 Echo from 06/05 shows tachy between 90-110........repeat echo needed HX: CHF Hypoxia-mulit facet Renal Insuf. uncontrolled DM II Neuropathy Cognitive Diminishment Fatty Liver Plan: repeat Chest x-ray, portable, for tomorrow...cough and wheezing CT of Head...diminishing mobility, speech, cognition, and focal weakness CT of Spine and Sacrum/Pelvis...diminished sensations and retention Echo of abdom and pelvis needed....neurogenic bladder and weakness and renal failure and fatty liver Add amlodipine 5mg Add Hydralazine 25mg Move patient to chair and around as much as possible to prevent Pneumonia Refer to Fur Machine Operator for detention admit 06/07/2021 The patient is a 70-year-old gentleman who is currently awaiting placement. The patient has improved somewhat according to the patient's daughter. He is still considered to be a poor historian and likely has multi-infarct dementia that has been worsening over the past few months. The patient will need to have placement as he is not able to ambulate and is very weak. The patient will be kept on his diabetic diet. He is on insulin sliding scale and this will continue. The patient is also on DVT prophylaxis with the use of Lovenox. The patient has been also noted to have leukocytosis as well as a reactive thrombocytosis and this is out of concern for possible undeclared infection and he is on ceftriaxone which will be continued. The patient's BNP has also been elevated and results of the 2D echocardiogram obtained are pending. The patient may improve somewhat giving his track record or he may be at his baseline is uncertain at this time. He should be appropriate for discharge to placement facility in 1 to 2 days. 06/08/2021 The patient is a 70-year-old gentleman who is currently awaiting placement. He has improved somewhat during his hospital stay. The patient still has been unable to participate in physical therapy. I had a discussion with the patient's significant other who is basically his power of trade mark attorney at this time. I discussed with her the likelihood of this being a long-term issue with regards to placement. The patient will be maintained on insulin sliding scale. He will also have appropriate ADA diet as tolerated. Repeat laboratory studies have been ordered for the morning. The patient is also having DVT prophylaxis with the use of Lovenox. The patient should be appropriate for discharge once placement is available. The patient was retained in hospitalization greater than 96 hours due to continued physical therapy requirements and not being considered to be safe at home. He is also awaiting placement. 06/09/2021 70-year-old male with multi-infarct dementia is awaiting long-term care placement. I spoke with his significant other who is his financial and medical power of trade mark attorney. She has paperwork for him to be discharged to long-term care facility in the area. Patient has been tachycardic and it appears that his metoprolol was stopped on admission, likely secondary to CHF exacerbation, and he was placed on hydralazine for blood pressure which has a side effect of tachycardia. Patient may switch back over to metoprolol at a dose of 50 mg twice daily. Hydralazine will be stopped and we will follow his blood pressure and heart rate closely. Renal insufficiency is stable with a creatinine of 1.7. Blood sugars have been still high in the low to mid 200s and as high as 350. I will start him on prandial Humalog at 5 units with each meal. Encourage adequate food intake. June 10, 2021 70-year-old male with vascular dementia awaiting long-term care placement. There is no changes. Heart rate has been improved on metoprolol tartrate 50 mg twice daily. Blood pressure is well controlled. Blood sugars are better with the addition of prandial insulin. This may need to be increased. 06/11/2021 70-year-old male admitted to the floor due to chronic lower bilateral lower extremity pain and inability to care for himself. Patient does have bilateral lower extremity cellulitis that his has been his clinical research physician. He is a poor historian due to vascular dementia and diffuse right-sided hemiparesis. Overall has been doing okay. We will switch him from Rocephin to every 8 hour Keflex 500 mg after discussion with pharmacy. We will also discontinue his IV push Lasix and start him on p.o. with 40 mg at 6 AM and 20 mg at 1600. Patient's renal function has been slowly improving. He is awaiting placement. Blood sugars have overall been controlled. He is on 1/2 L of oxygen and blood pressures have improved. Labs today show a mild WBC of 9.45. Hemoglobin is 10.2. Platelet 424,000. Neutrophils are normal at 67.9%. Sodium 141. Potassium 3.7. Chloride 102. Carbon dioxide 31. Anion gap 11.7. BUN is 34. Creatinine 1.5. GFR 46. Glucose 125. Magnesium 2.2. Total bilirubin 0.2. AST 77, ALT 54, Rambo phosphatase 244. CRP is 19.1. Albumin is 2.0. Patient will remain hospitalized but is clear for discharge pending placement. 06/12/2021 70-year-old male admitted to the floor due to bilateral lower extremity pain and inability to care for himself. Patient has been very stable and medications yesterday were switched to p.o. He continues on nystatin and every 8 hour Keflex for his lower extremity cellulitis. He also continues on Lasix for lower extremity edema. No labs were checked today and we will recheck tomorrow. We will spot check from here on out. Patient's significant other was in the room with multiple questions about discharge plan. All questions were answered. She was inquiring about comfort cares and plans while at SNF. Questions were answered to the best of our ability however many questions were deferred to primary care provider. He remains cleared for discharge pending placement. DVT prophylaxis with Lovenox CODE STATUS: DNR/DNI PCP: Dr. Garcia
[2021-06-12] MEDS: amLODIPine 5 MG Tab PO SCH (09:37)
[2021-06-12] MEDS: Isosorbide Mononitrate 30 MG Tab.ER PO SCH (09:38)
[2021-06-12] MEDS: Gabapentin 300 MG Cap PO SCH (09:39)
[2021-06-12] MEDS: Doxazosin 2 MG Tab PO SCH (09:39)
[2021-06-12] MEDS: Nystatin Topical Powder 15 GM Bottle TOP SCH ×2 (09:40→20:42)
[2021-06-12] MEDS: Clopidogrel 75 MG Tab PO SCH (09:40)
[2021-06-12] MEDS: Nystatin Crm 30 GM Tube TOP SCH ×2 (09:41→20:41)
[2021-06-12] MEDS: traMADol 50 MG Tab PO PRN (09:42)
[2021-06-12] MEDS: Insulin Lispro 100 Unit/ML 3 ML KwikPen SUBCUT SCH ×7 (09:46→20:43)
[2021-06-12] MEDS: Metoprolol Tartrate 50 MG Tab PO SCH ×2 (11:30→22:34)
[2021-06-12] MEDS: Furosemide 20 MG Tab PO SCH (13:26)
[2021-06-12] MEDS: Insulin Glargine,Hum.Rec.Anlog 100 UNIT/ML 3 ML Pen SUBCUT SCH (20:43)
[2021-06-12] MEDS: atorvaSTATin 20 MG Tab PO SCH (20:43)
[2021-06-12] MEDS: Gabapentin 600 MG Tab PO SCH (20:43)
[2021-06-12] MEDS: Enoxaparin 40 MG/0.4 ML Syringe SUBCUT SCH (22:34)
[2021-06-13] MEDS: Cephalexin 500 MG Cap PO SCH ×3 (06:35→20:37)
[2021-06-13] MEDS: Furosemide 40 MG Tab PO SCH (06:36)
--- NOTE | 2021-06-13 08:06 | PCM.PN ---
- General Info Date of Service: 06/13/21 Admission Dx/Problem (Free Text): The patient was admitted secondary to hypoxia as well as inability to care for self. Functional Status: Reports: Pain Controlled, Tolerating Diet, Incentive Spirometry. Denies: Ambulating, Urinating, New Symptoms - Review of Systems General: Reports: Weakness. Denies: Fever, Fatigue, Malaise, Chills HEENT: Reports: No Symptoms. Denies: Headaches, Sore Throat Pulmonary: Reports: No Symptoms. Denies: Shortness of Breath, Cough Cardiovascular: Reports: Edema (Trace). Denies: Chest Pain, Dyspnea on Exertion Gastrointestinal: Reports: No Symptoms. Denies: Abdominal Pain, Constipation, Diarrhea, Nausea, Vomiting Genitourinary: Reports: No Symptoms. Denies: Pain Musculoskeletal: Reports: Other (Buttocks pain) Skin: Reports: No Symptoms. Denies: Cyanosis Neurological: Reports: Confusion, Pre-Existing Deficit (Prior CVA with residual right hemiparesis), Difficulty Walking, Weakness, Gait Disturbance. Denies: Numbness, Tingling Psychiatric: Reports: No Symptoms - Patient Data Vitals - Most Recent: Last Vital Signs Temp 98.1 F 06/13/21 04:14 Pulse 83 06/13/21 04:14 Resp 18 06/13/21 04:14 BP 148/54 H 06/13/21 04:14 Pulse Ox 93 L 06/13/21 04:14 Weight - Most Recent: 224 lb 9.6 oz I&O - Last 24 Hours: Intake & Output 06/12/21 06/13/21 06/13/21 22:59 06:59 14:59 Intake Total 910 240 Output Total 800 1775 Balance 110 -1535 Lab Results Last 24 Hours: Laboratory Results - last 24 hr 06/12/21 06/12/21 06/12/21 Range/Units 08:31 11:06 17:03 WBC (4.23-9.07) K/mm3 RBC (4.63-6.08) M/mm3 Hgb (13.7-17.5) gm/dl Hct (40.1-51.0) % MCV (79.0-92.2) fl MCH (25.7-32.2) pg MCHC (32.2-35.5) g/dl RDW Std Deviation (35.1-43.9) fL Plt Count (163-337) K/mm3 MPV (9.4-12.3) fl Neut % (Auto) (34.0-67.9) % Lymph % (Auto) (21.8-53.1) % Roosevelt % (Auto) (5.3-12.2) % Eos % (Auto) (0.8-7.0) Baso % (Auto) (0.1-1.2) % Neut # (Auto) (1.78-5.38) K/mm3 Lymph # (Auto) (1.32-3.57) K/mm3 Roosevelt # (Auto) (0.30-0.82) K/mm3 Eos # (Auto) (0.04-0.54) K/mm3 Baso # (Auto) (0.01-0.08) K/mm3 Manual Slide Review Sodium (136-145) mEq/L Potassium (3.5-5.1) mEq/L Chloride (98-107) mEq/L Carbon Dioxide (21-32) mEq/L Anion Gap (5-15) BUN (7-18) mg/dL Creatinine (0.7-1.3) mg/dL Est Cr Clr Drug Dosing mL/min Estimated GFR (MDRD) (>60) mL/min BUN/Creatinine Ratio (14-18) Glucose (70-99) mg/dL POC Glucose 101 H 230 H 220 H (70-99) mg/dL Calcium (8.5-10.1) mg/dL C-Reactive Protein (<1.0) mg/dL 06/12/21 06/13/21 06/13/21 Range/Units 20:37 06:11 06:23 WBC 9.68 H (4.23-9.07) K/mm3 RBC 3.94 L (4.63-6.08) M/mm3 Hgb 10.9 L (13.7-17.5) gm/dl Hct 35.7 L (40.1-51.0) % MCV 90.6 (79.0-92.2) fl MCH 27.7 (25.7-32.2) pg MCHC 30.5 L (32.2-35.5) g/dl RDW Std Deviation 45.7 H (35.1-43.9) fL Plt Count 532 H D (163-337) K/mm3 MPV 9.2 L (9.4-12.3) fl Neut % (Auto) 67.3 (34.0-67.9) % Lymph % (Auto) 20.9 L (21.8-53.1) % Roosevelt % (Auto) 7.9 (5.3-12.2) % Eos % (Auto) 2.5 (0.8-7.0) Baso % (Auto) 0.7 (0.1-1.2) % Neut # (Auto) 6.52 H (1.78-5.38) K/mm3 Lymph # (Auto) 2.02 (1.32-3.57) K/mm3 Roosevelt # (Auto) 0.76 (0.30-0.82) K/mm3 Eos # (Auto) 0.24 (0.04-0.54) K/mm3 Baso # (Auto) 0.07 (0.01-0.08) K/mm3 Manual Slide Review Construction Estimator Sodium (136-145) mEq/L Potassium (3.5-5.1) mEq/L Chloride (98-107) mEq/L Carbon Dioxide (21-32) mEq/L Anion Gap (5-15) BUN (7-18) mg/dL Creatinine (0.7-1.3) mg/dL Est Cr Clr Drug Dosing mL/min Estimated GFR (MDRD) (>60) mL/min BUN/Creatinine Ratio (14-18) Glucose (70-99) mg/dL POC Glucose 191 H 208 H (70-99) mg/dL Calcium (8.5-10.1) mg/dL C-Reactive Protein (<1.0) mg/dL 06/13/21 Range/Units 06:23 WBC (4.23-9.07) K/mm3 RBC (4.63-6.08) M/mm3 Hgb (13.7-17.5) gm/dl Hct (40.1-51.0) % MCV (79.0-92.2) fl MCH (25.7-32.2) pg MCHC (32.2-35.5) g/dl RDW Std Deviation (35.1-43.9) fL Plt Count (163-337) K/mm3 MPV (9.4-12.3) fl Neut % (Auto) (34.0-67.9) % Lymph % (Auto) (21.8-53.1) % Roosevelt % (Auto) (5.3-12.2) % Eos % (Auto) (0.8-7.0) Baso % (Auto) (0.1-1.2) % Neut # (Auto) (1.78-5.38) K/mm3 Lymph # (Auto) (1.32-3.57) K/mm3 Roosevelt # (Auto) (0.30-0.82) K/mm3 Eos # (Auto) (0.04-0.54) K/mm3 Baso # (Auto) (0.01-0.08) K/mm3 Manual Slide Review Sodium 139 (136-145) mEq/L Potassium 3.9 (3.5-5.1) mEq/L Chloride 100 (98-107) mEq/L Carbon Dioxide 33 H (21-32) mEq/L Anion Gap 9.9 (5-15) BUN 38 H (7-18) mg/dL Creatinine 1.7 H (0.7-1.3) mg/dL Est Cr Clr Drug Dosing 37.01 mL/min Estimated GFR (MDRD) 40 (>60) mL/min BUN/Creatinine Ratio 22.4 H (14-18) Glucose 220 H (70-99) mg/dL POC Glucose (70-99) mg/dL Calcium 9.4 (8.5-10.1) mg/dL C-Reactive Protein 12.1 H* (<1.0) mg/dL Med Orders - Current: Current Medications Amlodipine Besylate (Amlodipine 5 Mg Tab) 7.5 mg PO DAILY [facility] Atorvastatin Calcium (Atorvastatin 20 Mg Tab) 10 mg PO Q2D@2100 [facility] Last Admin: 06/12/21 20:43 Dose: 10 mg Documented by: Cephalexin (Cephalexin 500 Mg Cap) 500 mg PO Q8H [facility] Last Admin: 06/13/21 06:35 Dose: 500 mg Documented by: Clopidogrel Bisulfate (Clopidogrel 75 Mg Tab) 75 mg PO DAILY [facility] Last Admin: 06/12/21 09:40 Dose: 75 mg Documented by: Doxazosin Mesylate (Doxazosin 2 Mg Tab) 1 mg PO DAILY [facility] Last Admin: 06/12/21 09:39 Dose: 1 mg Documented by: Enoxaparin Sodium (Enoxaparin 40 Mg/0.4 Ml Syringe) 40 mg SUBCUT Q24H [facility] Last Admin: 06/12/21 22:34 Dose: 40 mg Documented by: Furosemide (Furosemide 20 Mg Tab) 20 mg PO BIDDIURETIC [facility] Gabapentin (Gabapentin 300 Mg Cap) 300 mg PO DAILY [facility] Last Admin: 06/12/21 09:39 Dose: 300 mg Documented by: Gabapentin (Gabapentin 600 Mg Tab) 600 mg PO BEDTIME [facility] Last Admin: 06/12/21 20:43 Dose: 600 mg Documented by: Insulin Glargine (Insulin Glargine,Hum.Rec.Anlog 100 Unit/Ml 3 Ml Pen) 73 unit SUBCUT BEDTIME [facility] Last Admin: 06/12/21 20:43 Dose: 73 units Documented by: Insulin Human Lispro (Insulin Lispro 100 Unit/Ml 3 Ml Kwikpen) 0 unit SUBCUT WITHMEALSANDBED [facility]; Protocol Last Admin: 06/12/21 20:43 Dose: 1 unit Documented by: Insulin Human Lispro (Insulin Lispro 100 Unit/Ml 3 Ml Kwikpen) 5 unit SUBCUT TIDMEALS [facility] Last Admin: 06/12/21 17:17 Dose: 5 units Documented by: Isosorbide Mononitrate (Isosorbide Mononitrate 30 Mg Tab.Er) 30 mg PO DAILY [facility] Last Admin: 06/12/21 09:38 Dose: 30 mg Documented by: Metoprolol Tartrate (Metoprolol Tartrate 50 Mg Tab) 50 mg PO Q12H [facility] Last Admin: 06/12/21 22:34 Dose: 50 mg Documented by: Nystatin (Nystatin Topical Powder 15 Gm Bottle) 1 gm TOP BID [facility] Last Admin: 06/12/21 20:42 Dose: 1 applic Documented by: Nystatin (Nystatin Crm 30 Gm Tube) 0 gm TOP BID [facility] Last Admin: 06/12/21 20:41 Dose: 1 applic Documented by: Senna/Docusate Sodium (Docusate Sodium/Sennosides 50-8.6 Mg Tab) 2 tab PO DAILY PRN PRN Reason: Constipation Last Admin: 06/07/21 06:25 Dose: 2 tab Documented by: Tramadol HCl (Tramadol 50 Mg Tab) 50 mg PO BID PRN PRN Reason: Pain Last Admin: 06/12/21 09:42 Dose: 50 mg Documented by: Discontinued Medications Albuterol/Ipratropium (Albuterol/Ipratropium 3.0-0.5 Mg/3 Ml Neb Soln) 3 ml NEB ONETIME ONE Stop: 06/05/21 15:06 Last Admin: 06/05/21 15:14 Dose: 3 ml Documented by: Amlodipine Besylate (Amlodipine 5 Mg Tab) 5 mg PO DAILY [facility] Last Admin: 06/12/21 09:37 Dose: 5 mg Documented by: Amlodipine Besylate (Amlodipine 5 Mg Tab) 5 mg PO ONETIME ONE Stop: 06/06/21 15:41 Last Admin: 06/06/21 16:37 Dose: 5 mg Documented by: Bisacodyl (Bisacodyl 10 Mg Supp) 10 mg RECTAL ONETIME ONE Stop: 06/07/21 04:01 Last Admin: 06/07/21 04:45 Dose: 10 mg Documented by: Furosemide (Furosemide 20 Mg/2 Ml Vial) 20 mg IVPUSH BIDDIURETIC [facility] Last Admin: 06/11/21 06:31 Dose: 20 mg Documented by: Furosemide (Furosemide 40 Mg Tab) 40 mg PO DAILY@0600 [facility] Last Admin: 06/13/21 06:36 Dose: 40 mg Documented by: Furosemide (Furosemide 20 Mg Tab) 20 mg PO DAILY@1400 [facility] Last Admin: 06/12/21 13:26 Dose: 20 mg Documented by: Hydralazine HCl (Hydralazine 10 Mg Tab) 10 mg PO Q6H [facility] Last Admin: 06/09/21 06:17 Dose: 10 mg Documented by: Hydralazine HCl (Hydralazine 10 Mg Tab) 10 mg PO ONETIME ONE Stop: 06/06/21 15:41 Last Admin: 06/06/21 16:37 Dose: 10 mg Documented by: Sodium Chloride (Normal Saline) 100 mls @ 60 mls/hr IV ASDIRECTED [facility] Last Admin: 06/05/21 15:21 Dose: 60 mls/hr Documented by: Ceftriaxone Sodium 2 gm/ (Sodium Chloride) 100 mls @ 200 mls/hr IV Q24H [facility] Last Admin: 06/10/21 20:49 Dose: 200 mls/hr Documented by: Sodium Chloride (Normal Saline) 1,000 mls @ 125 mls/hr IV ASDIRECTED [facility] Stop: 06/06/21 16:00 Last Admin: 06/06/21 11:48 Dose: 125 mls/hr Documented by: Sodium Chloride (Normal Saline) 100 mls @ 60 mls/hr IV ASDIRECTED [facility] Insulin Glargine (Insulin Glargine,Hum.Rec.Anlog 100 Unit/Ml 3 Ml Pen) 73 unit SUBCUT DAILY [facility] Last Admin: 06/05/21 23:16 Dose: 73 units Documented by: Iopamidol (Iopamidol 755 Mg/Ml 100 Ml Bottle) 100 ml IVPUSH ONETIME ONE Stop: 06/05/21 15:20 Last Admin: 06/05/21 15:21 Dose: 100 ml Documented by: Iopamidol (Iopamidol 755 Mg/Ml 50 Ml Bottle) 50 ml IVPUSH ONETIME ONE Stop: 06/05/21 15:20 Last Admin: 06/05/21 15:21 Dose: 50 ml Documented by: Iopamidol (Iopamidol 612 Mg/Ml 50 Ml Sdv) 50 ml IVPUSH ONETIME ONE Stop: 06/06/21 13:22 Last Admin: 06/06/21 23:37 Dose: Not Given Documented by: Iopamidol (Iopamidol 612 Mg/Ml 100 Ml Bottle) 100 ml IVPUSH ONETIME ONE Stop: 06/06/21 13:22 Last Admin: 06/06/21 23:37 Dose: Not Given Documented by: Magnesium Hydroxide (Magnesium Hydroxide 400 Mg/5 Ml Susp 30 Ml Cup) 30 ml PO ONETIME ONE Stop: 06/06/21 09:01 Last Admin: 06/06/21 08:42 Dose: 30 ml Documented by: Potassium Bicarbonate (Potassium Bicarbonate/Cit Ac 20 Meq Effervescent Tab) 20 meq PO ONETIME ONE Stop: 06/07/21 11:31 Last Admin: 06/07/21 11:10 Dose: 20 meq Documented by: Simvastatin (Simvastatin 10 Mg Tab) 10 mg PO Q2D@2100 [facility] Sodium Chloride (Sodium Chloride 0.9% 10 Ml Syringe) 10 ml FLUSH ONETIME ONE Stop: 06/06/21 13:22 Last Admin: 06/06/21 20:42 Dose: 10 ml Documented by: Tramadol HCl (Tramadol 50 Mg Tab) 50 mg PO ONETIME ONE Stop: 06/05/21 13:20 Last Admin: 06/05/21 13:46 Dose: 50 mg Documented by: - Exam Quality Assessment: Urine Catheter (Chroinc ), DVT Prophylaxis. No: Supplemental Oxygen Urinary Catheter Total Time: 7Days 0Hours General: Alert, Cooperative, No Acute Distress. No: Oriented HEENT: Pupils Equal, Pupils Reactive Neck: Supple, Trachea Midline Lungs: Clear to Auscultation, Normal Respiratory Effort Cardiovascular: Regular Rate, Regular Rhythm GI/Abdominal Exam: Normal Bowel Sounds, Soft, Non-Tender, No Distention (Male) Exam: Deferred Back Exam: Normal Inspection, Full Range of Motion Extremities: Normal Inspection, Normal Range of Motion, Non-Tender, Normal Capillary Refill, Pedal Edema (trace-1+) Skin: Warm, Dry, Intact Wound/Incisions: No Drainage, Erythema Improving Neurological: No New Focal Deficit Psy/Mental Status: Alert, Normal Affect, Normal Mood - Patient Data Lab Results Last 24 hrs: Laboratory Results - last 24 hr 06/12/21 06/12/21 06/12/21 Range/Units 08:31 11:06 17:03 WBC (4.23-9.07) K/mm3 RBC (4.63-6.08) M/mm3 Hgb (13.7-17.5) gm/dl Hct (40.1-51.0) % MCV (79.0-92.2) fl MCH (25.7-32.2) pg MCHC (32.2-35.5) g/dl RDW Std Deviation (35.1-43.9) fL Plt Count (163-337) K/mm3 MPV (9.4-12.3) fl Neut % (Auto) (34.0-67.9) % Lymph % (Auto) (21.8-53.1) % Roosevelt % (Auto) (5.3-12.2) % Eos % (Auto) (0.8-7.0) Baso % (Auto) (0.1-1.2) % Neut # (Auto) (1.78-5.38) K/mm3 Lymph # (Auto) (1.32-3.57) K/mm3 Roosevelt # (Auto) (0.30-0.82) K/mm3 Eos # (Auto) (0.04-0.54) K/mm3 Baso # (Auto) (0.01-0.08) K/mm3 Manual Slide Review Sodium (136-145) mEq/L Potassium (3.5-5.1) mEq/L Chloride (98-107) mEq/L Carbon Dioxide (21-32) mEq/L Anion Gap (5-15) BUN (7-18) mg/dL Creatinine (0.7-1.3) mg/dL Est Cr Clr Drug Dosing mL/min Estimated GFR (MDRD) (>60) mL/min BUN/Creatinine Ratio (14-18) Glucose (70-99) mg/dL POC Glucose 101 H 230 H 220 H (70-99) mg/dL Calcium (8.5-10.1) mg/dL C-Reactive Protein (<1.0) mg/dL 06/12/21 06/13/21 06/13/21 Range/Units 20:37 06:11 06:23 WBC 9.68 H (4.23-9.07) K/mm3 RBC 3.94 L (4.63-6.08) M/mm3 Hgb 10.9 L (13.7-17.5) gm/dl Hct 35.7 L (40.1-51.0) % MCV 90.6 (79.0-92.2) fl MCH 27.7 (25.7-32.2) pg MCHC 30.5 L (32.2-35.5) g/dl RDW Std Deviation 45.7 H (35.1-43.9) fL Plt Count 532 H D (163-337) K/mm3 MPV 9.2 L (9.4-12.3) fl Neut % (Auto) 67.3 (34.0-67.9) % Lymph % (Auto) 20.9 L (21.8-53.1) % Roosevelt % (Auto) 7.9 (5.3-12.2) % Eos % (Auto) 2.5 (0.8-7.0) Baso % (Auto) 0.7 (0.1-1.2) % Neut # (Auto) 6.52 H (1.78-5.38) K/mm3 Lymph # (Auto) 2.02 (1.32-3.57) K/mm3 Roosevelt # (Auto) 0.76 (0.30-0.82) K/mm3 Eos # (Auto) 0.24 (0.04-0.54) K/mm3 Baso # (Auto) 0.07 (0.01-0.08) K/mm3 Manual Slide Review Construction Estimator Sodium (136-145) mEq/L Potassium (3.5-5.1) mEq/L Chloride (98-107) mEq/L Carbon Dioxide (21-32) mEq/L Anion Gap (5-15) BUN (7-18) mg/dL Creatinine (0.7-1.3) mg/dL Est Cr Clr Drug Dosing mL/min Estimated GFR (MDRD) (>60) mL/min BUN/Creatinine Ratio (14-18) Glucose (70-99) mg/dL POC Glucose 191 H 208 H (70-99) mg/dL Calcium (8.5-10.1) mg/dL C-Reactive Protein (<1.0) mg/dL 06/13/21 Range/Units 06:23 WBC (4.23-9.07) K/mm3 RBC (4.63-6.08) M/mm3 Hgb (13.7-17.5) gm/dl Hct (40.1-51.0) % MCV (79.0-92.2) fl MCH (25.7-32.2) pg MCHC (32.2-35.5) g/dl RDW Std Deviation (35.1-43.9) fL Plt Count (163-337) K/mm3 MPV (9.4-12.3) fl Neut % (Auto) (34.0-67.9) % Lymph % (Auto) (21.8-53.1) % Roosevelt % (Auto) (5.3-12.2) % Eos % (Auto) (0.8-7.0) Baso % (Auto) (0.1-1.2) % Neut # (Auto) (1.78-5.38) K/mm3 Lymph # (Auto) (1.32-3.57) K/mm3 Roosevelt # (Auto) (0.30-0.82) K/mm3 Eos # (Auto) (0.04-0.54) K/mm3 Baso # (Auto) (0.01-0.08) K/mm3 Manual Slide Review Sodium 139 (136-145) mEq/L Potassium 3.9 (3.5-5.1) mEq/L Chloride 100 (98-107) mEq/L Carbon Dioxide 33 H (21-32) mEq/L Anion Gap 9.9 (5-15) BUN 38 H (7-18) mg/dL Creatinine 1.7 H (0.7-1.3) mg/dL Est Cr Clr Drug Dosing 37.01 mL/min Estimated GFR (MDRD) 40 (>60) mL/min BUN/Creatinine Ratio 22.4 H (14-18) Glucose 220 H (70-99) mg/dL POC Glucose (70-99) mg/dL Calcium 9.4 (8.5-10.1) mg/dL C-Reactive Protein 12.1 H* (<1.0) mg/dL Result Diagrams: 06/13/21 06:23 06/13/21 06:23 Sepsis Event Note - Evaluation Sepsis Screening Result: No Definite Risk - Focused Exam Vital Signs: Vital Signs Temp Pulse Resp BP Pulse Ox 06/13/21 04:14 98.1 F 83 18 148/54 H 93 L 06/13/21 00:01 97.9 F 84 18 150/56 H 97 06/12/21 22:34 90 138/70 - Problem List & Annotations (1) Adrenal benign tumor SNOMED Code(s): 20370994 Code(s): D35.00 - BENIGN NEOPLASM OF UNSPECIFIED ADRENAL GLAND Status: Acute Priority: Low Current Visit: Yes Qualifiers: Laterality: unspecified laterality Qualified Code(s): D35.00 - Benign neoplasm of unspecified adrenal gland Annotation/Comment:: bilateral tumors adrenal but good adrenal function (2) CHF (congestive heart failure), NYHA class II SNOMED Code(s): 879147360, 587240478 Code(s): I50.9 - HEART FAILURE, UNSPECIFIED Status: Chronic Priority: Medium Current Visit: Yes Onset Date: ~06/06/21 Qualifiers: Congestive heart failure type: combined Annotation/Comment:: needs echo and ordered off hctz and started lasix with good response. neurogenic bowel a nd bladder but no obstruction or hydronephrosis seen // suspect lvh and no anginal symptoms despite high b.p. rule out pericardial dysfunction. (3) Fungal dermatosis SNOMED Code(s): 48575575 Code(s): B36.9 - SUPERFICIAL MYCOSIS, UNSPECIFIED Status: Acute Priority: Medium Current Visit: Yes Onset Date: ~06/05/21 (4) Weakness generalized SNOMED Code(s): 36202898 Code(s): R53.1 - WEAKNESS Status: Acute Priority: High Current Visit: Yes Onset Date: ~06/06/21 Annotation/Comment:: unable to do any cares needs liz lift to change positions.pt/ot/speech therapy seeing. (5) Adult failure to thrive SNOMED Code(s): 816244964 Code(s): R62.7 - ADULT FAILURE TO THRIVE Status: Chronic Priority: High Current Visit: Yes (6) Chronic renal insufficiency, stage III (moderate) SNOMED Code(s): 420455688 Code(s): N18.30 - CHRONIC KIDNEY DISEASE, STAGE 3 UNSPECIFIED Status: Chronic Priority: Medium Current Visit: Yes Onset Date: ~06/05/21 Qualifiers: Chronic kidney disease stage 3 subtype: stage 3a (GFR 45-59) Qualified Code(s): N18.31 - Chronic kidney disease, stage 3a Annotation/Comment:: creatinine 1.7 and 3plus protienuria and hematuria seen prostate not inflamed or abnormal (7) Sensation alteration, late effect of cerebrovascular disease SNOMED Code(s): 71426774, 450873057 Code(s): I69.998 - OTHER SEQUELAE FOLLOWING UNSPECIFIED CEREBROVASCULAR DISEASE; R20.9 - UNSPECIFIED DISTURBANCES OF SKIN SENSATION Status: Chronic Priority: Medium Current Visit: Yes Onset Date: ~06/06/21 Annotation/Comment:: repeat head ct scan sec. to possible multi infarct pattern. (8) Type 2 diabetes mellitus SNOMED Code(s): 89272462 Code(s): E11.9 - TYPE 2 DIABETES MELLITUS WITHOUT COMPLICATIONS Status: Chronic Priority: High Current Visit: Yes Onset Date: ~06/06/21 Qualifiers: Diabetes mellitus correction insulin use: with intermediate accountant use Diabetes mellitus complication status: with kidney complications Diabetes mellitus complication detail: with chronic kidney disease Chronic kidney disease stage: stage 3 (moderate) Annotation/Comment:: needs insulin lifelong. (9) Unable to ambulate SNOMED Code(s): 637417657 Code(s): R26.2 - DIFFICULTY IN WALKING, NOT ELSEWHERE CLASSIFIED Status: Chronic Priority: High Current Visit: Yes Onset Date: ~06/06/21 Annotation/Comment:: ct scan of lumbar sacral area ordered no recent trauma no rectal tone and neurogenic bladder but no incontinance of either (10) Dependent edema SNOMED Code(s): 002958675 Code(s): R60.9 - EDEMA, UNSPECIFIED Status: Acute Priority: High Current Visit: No Onset Date: ~06/05/21 Annotation/Comment:: cellulitis with onychiomycholisis and fungal dermatitis (11) Neurogenic bladder SNOMED Code(s): 851226619 Code(s): N31.9 - NEUROMUSCULAR DYSFUNCTION OF BLADDER, UNSPECIFIED Status: Acute Priority: High Current Visit: Yes (12) Chapin catheter in place SNOMED Code(s): 219997480 Code(s): Z97.8 - PRESENCE OF OTHER SPECIFIED DEVICES Status: Acute Priority: High Current Visit: Yes - Problem List Review Problem List Initiated/Reviewed/Updated: Yes - My Orders Last 24 Hours: My Active Orders 06/12/21 09:30 Renew/Continue Urinary Catheter [OM.PC] Routine 06/13/21 08:05 Renew/Continue Urinary Catheter [OM.PC] Routine 06/13/21 09:00 amLODIPine [Norvasc] 7.5 mg PO DAILY 06/13/21 14:00 Furosemide [Lasix] 20 mg PO BIDDIURETIC - Assessment Assessment:: 06/06/21 assess: resp insuff ?bronchitis screens neg. but no discreet pneumonia seen on ct scan// severe atelectasis form weakness and inability to move self. elavated d dimer but no p.e.noted. pericardial effusion assymptomatic. chf stable . renal insuff creat 1.7 and 3+ protien and blood. abd and pelvic ct scan ordered with contrast as multiple unexplained findings. generalized weakness but susp. of rt arm stroke and head ct scan ordered. cog. impairment slightly better but chronic cogn. impairment suggestive of dementia and diabetic cerebral vasc. disease. neurogenic bladder sec to autonomic neuropathy? or other cause renal u.s shows no obstruction/tumor ct scan pending. suspect sacral nerve impairment given loss rectal tone as well . dm lifelong poor control and now with neuropathy/nephropathy and autonomic neuropathy./perhaps myopathy as well . morbid obesity : patient will require peminant total care . cellultitis better suspect pad but edam slightly improved with wraps and topical cream applied . cont rocephin as well . suspected sleep apnea. suspected severe cerebral vasc. disease and possibel multiple small stroke ct scan of head pending. leg pain multifactorial but likely cellulitis//edema and neuropathy as well as oa and diabetic myopathy. plan:: ct scans as ordered. control b.s sliding scale increased/ long acting ordered. slowly bring down hypertension start amlodapine and hydralizine and cont lasix. correct lytes. discussed findings with patient and . snif referral//pt//ot/speech therapy for cog eval and speech assessment. d.e. continued. neurogenic bladder treatment difficult and may need diverting nephrostomy but unlikely to get approval for surgery or urology to agree. check psa. get off sacral area as much as tolerated. sleep study needed. boh . - Plan Plan:: 06/06/21 Patient is a 70 yr old male who is in Med/Surg. Patient's answers for most questions. Patient has been unable to get out of bed for 3 days due to chronic bilateral extremity pain and luteal pain for which he is on tramadol and Neurontin at home. Patient came w/ a mild cough but denied any fever or chills or shortness of breath. We are unable to assess if he is having any exertional symptoms since he has been bedridden. states she is no longer able to take care of him and wants us to arrange for him to be in assisted living/fpc. Patient's had no bloody or tarry stools before admit. He denies any headache or any numbness weakness or paresthesias which is new. Patient's O2 saturation is 85% room air at rest. Patient has not c/o any chest pain. It is not known at this time how long pt has been homebound or what he did before being homebound. Assesment: Pt is neg for covid, RSV, Flu, and Pneumonia There is a hx of stoke 7 yrs ago, states he never got his short term memory back. He is homebound and is main caregiver. pt has continually dimini shing mobility...started with a shuffle, then could walk w/help of cane, then walker, and now can't stand more than 5 mins. states pt fell at thanksgiving has been pretty much bed ridden since. states everything got worse around 2 wks ago when cough developed. Pt is not always compliant on meds and has uncontrolled DM II PT is retaining urine with no prior hx of incontinence for urine or BM's... Pt is on lasix 20mg daily for edema Prostate exam w/hemocult was done in room today w/NEG findings There is no rectal tone...pt has 800cc urine w/no urge to go diminished sensations para rectally...Echo of abdom and pelvis needed....neurogenic bladder and weakness and renal failure and fatty liver No hx of delirium, although states he has depression symptoms diminishing mobility, speech, and cognition there is focal weakness to Rt upper arm need to rule out stroke....needs CT of head Pt c/o chronic pain to legs bilat, w/mild pressure pain, also to buttocks and back, w/no hx of trauma...CT of Spine and Sacrum/Pelvis small sacral sore noted, wound management needed Toes: intact propre. Lungs: Ronkers breath sounds with intermit. wheezing...wet ....on 3 litters of O2 and sats are holding at 90%....repeat chest x-ray, portable, needed for tomorrow Pt has general weakness...need to rule out CVA work w/pt on spirometer states pt does snore but not much....no sleep study has been done, no hx of apnea Cardio:Pt has hx of CAD w/no c/o of symptoms BP is elevated and uncontrolled.....add amlodipine 5mg and hydralazine 25 q 6 Echo from 06/05 shows tachy between 90-110........repeat echo needed HX: CHF Hypoxia-mulit facet Renal Insuf. uncontrolled DM II Neuropathy Cognitive Diminishment Fatty Liver Plan: repeat Chest x-ray, portable, for tomorrow...cough and wheezing CT of Head...diminishing mobility, speech, cognition, and focal weakness CT of Spine and Sacrum/Pelvis...diminished sensations and retention Echo of abdom and pelvis needed....neurogenic bladder and weakness and renal failure and fatty liver Add amlodipine 5mg Add Hydralazine 25mg Move patient to chair and around as much as possible to prevent Pneumonia Refer to [facility] for [facility] admit 06/07/2021 The patient is a 70-year-old gentleman who is currently awaiting placement. The patient has improved somewhat according to the patient's daughter. He is still considered to be a poor historian and likely has multi-infarct dementia that has been worsening over the past few months. The patient will need to have placement as he is not able to ambulate and is very weak. The patient will be kept on his diabetic diet. He is on insulin sliding scale and this will continue. The patient is also on DVT prophylaxis with the use of Lovenox. The patient has been also noted to have leukocytosis as well as a reactive thrombocytosis and this is out of concern for possible undeclared infection and he is on ceftriaxone which will be continued. The patient's BNP has also been elevated and results of the 2D echocardiogram obtained are pending. The patient may improve somewhat giving his track record or he may be at his baseline is unc ertain at this time. He should be appropriate for discharge to placement facility in 1 to 2 days. 06/08/2021 The patient is a 70-year-old gentleman who is currently awaiting placement. He has improved somewhat during his hospital stay. The patient still has been unable to participate in physical therapy. I had a discussion with the patient's significant other who is basically his power of tax attorney at this time. I discussed with her the likelihood of this being a long-term issue with regards to placement. The patient will be maintained on insulin sliding scale. He will also have appropriate ADA diet as tolerated. Repeat laboratory studies have been ordered for the morning. The patient is also having DVT prophylaxis with the use of Lovenox. The patient should be appropriate for discharge once placement is available. The patient was retained in hospitalization greater than 96 hours due to continued physical therapy requirements and not being considered to be safe at home. He is also awaiting placement. 06/09/2021 70-year-old male with multi-infarct dementia is awaiting long-term care placement. I spoke with his significant other who is his financial and medical power of tax attorney. She has paperwork for him to be discharged to long-term care facility in the area. Patient has been tachycardic and it appears that his me toprolol was stopped on admission, likely secondary to CHF exacerbation, and he was placed on hydralazine for blood pressure which has a side effect of tachycardia. Patient may switch back over to metoprolol at a dose of 50 mg twice daily. Hydralazine will be stopped and we will follow his blood pressure and heart rate closely. Renal insufficiency is stable with a creatinine of 1.7. Blood sugars have been still high in the low to mid 200s and as high as 350. I will start him on prandial Humalog at 5 units with each meal. Encourage adequate food intake. June 10, 2021 70-year-old male with vascular dementia awaiting long-term care placement. There is no changes. Heart rate has been improved on metoprolol tartrate 50 mg twice daily. Blood pressure is well controlled. Blood sugars are better with the addition of prandial insulin. This may need to be increased. 06/11/2021 70-year-old male admitted to the floor due to chronic lower bilateral lower extremity pain and inability to care for himself. Patient does have bilateral lower extremity cellulitis that his has been his slitter processed film. He is a poor historian due to vascular dementia and diffuse right-sided hemiparesis. Overall has been doing okay. We will switch him from Rocephin to every 8 hour Keflex 500 mg after discussion with pharmacy. We will also discontinue his IV push Lasix and start him on p.o. with 40 mg at 6 AM and 20 mg at 1600. Patient's renal function has been slowly improving. He is awaiting placement. Blood sugars have overall been controlled. He is on 1/2 L of oxygen and blood pressures have improved. Labs today show a mild WBC of 9.45. Hemoglobin is 10.2. Platelet 424,000. Neutrophils are normal at 67.9%. Sodium 141. Potassium 3.7. Chloride 102. Carbon dioxide 31. Anion gap 11.7. BUN is 34. Creatinine 1.5. GFR 46. Glucose 125. Magnesium 2.2. Total bilirubin 0.2. AST 77, ALT 54, Rambo phosphatase 244. CRP is 19.1. Albumin is 2.0. Patient will remain hospitalized but is clear for discharge pending placement. 06/12/2021 70-year-old male admitted to the floor due to bilateral lower extremity pain and inability to care for himself. Patient has been very stable and medications yesterday were switched to p.o. He continues on nystatin and every 8 hour Keflex for his lower extremity cellulitis. He also continues on Lasix for lower extremity edema. No labs were checked today and we will recheck tomorrow. We will spot check from here on out. Patient's significant other was in the room with multiple questions about discharge plan. All questions were answered. She was inquiring about comfort cares and plans while at SNF. Questions were answered to the best of our ability however many questions were deferred to primary care provider. He remains cleared for discharge pending placement. 06/13/2021 70-year-old male mated the floor due to bilateral lower extremity pain with cellulitis and inability to care for himself. He remains very stable. He is m uch more alert today and sitting up in the chair able to carry on conversation. He reports buttocks pain but no other pains. we will decrease his Lasix today to 20 mg twice daily. He continues on a statin and Keflex for his lower extremity cellulitis we will look at discontinuing this in the next few days. Labs obtained today show a WBC of 9.68. Hemoglobin is 10.9. Platelet 532,000. Neutrophils are normal at 67.3%. Sodium is 139. Potassium 3.9. Chloride 100. Carbon oxide 33. Anion gap is 9.9. BUN is 38. Creatinine 1.7 which appears to be his baseline. GFR is 40. Glucose has been between 191 and 220. Calcium is 9.4. CRP is 12.1. We will increase his short acting insulin to 6 units with meals. We will decrease his Lasix to 20 mg p.o. twice daily with diuretic dosing. He is cleared for discharge pending placement. DVT prophylaxis with Lovenox CODE STATUS: DNR/DNI PCP: Dr. Garcia
[2021-06-13] MEDS: Insulin Lispro 100 Unit/ML 3 ML KwikPen SUBCUT SCH ×7 (08:46→20:31)
[2021-06-13] MEDS: Clopidogrel 75 MG Tab PO SCH (08:49)
[2021-06-13] MEDS: traMADol 50 MG Tab PO PRN (08:49)
[2021-06-13] MEDS: amLODIPine 5 MG Tab PO SCH (08:51)
[2021-06-13] MEDS: Gabapentin 300 MG Cap PO SCH (08:51)
[2021-06-13] MEDS: Isosorbide Mononitrate 30 MG Tab.ER PO SCH (08:51)
[2021-06-13] MEDS: Doxazosin 2 MG Tab PO SCH (08:52)
[2021-06-13] MEDS: Nystatin Crm 30 GM Tube TOP SCH ×2 (08:53→22:08)
[2021-06-13] MEDS: Nystatin Topical Powder 15 GM Bottle TOP SCH ×2 (08:53→22:07)
[2021-06-13] MEDS: Metoprolol Tartrate 50 MG Tab PO SCH ×2 (13:00→22:43)
[2021-06-13] MEDS: Furosemide 20 MG Tab PO SCH (13:01)
[2021-06-13] MEDS ORDERED: Magnesium Hydroxide 400 MG/5 ML Susp 30 ML Cup PO ONE (13:57)
[2021-06-13] MEDS: Insulin Glargine,Hum.Rec.Anlog 100 UNIT/ML 3 ML Pen SUBCUT SCH (20:35)
[2021-06-13] MEDS: Gabapentin 600 MG Tab PO SCH (20:37)
[2021-06-13] MEDS ORDERED: Ondansetron 4 MG/2 ML SDV IVPUSH PRN (21:59)
[2021-06-13] MEDS: Enoxaparin 40 MG/0.4 ML Syringe SUBCUT SCH (22:47)
[2021-06-14] MEDS: traMADol 50 MG Tab PO PRN (02:06)
[2021-06-14] MEDS: Furosemide 20 MG Tab PO SCH (05:38)
[2021-06-14] MEDS: Cephalexin 500 MG Cap PO SCH (05:38)
[2021-06-14] MEDS: Insulin Lispro 100 Unit/ML 3 ML KwikPen SUBCUT SCH ×2 (07:46→09:59)
--- NOTE | 2021-06-14 07:46 | PCM.DCSUM1 ---
Discharge Summary - Hospital Course HPI Initial Comments: Patient is a 70 yr old male who is in Med/Surg. Patient's answers for most questions. Patient has been unable to get out of bed for 3 days due to chronic bilateral extremity pain and gluteal pain when he developed a cough and butler. Patient came w/ a mild cough but denied any fever or chills or shortness of breath. We are unable to assess if he is having any exertional symptoms since he has been bedridden. states she is no longer able to take care of him and wants us to arrange for him to be in assisted living/assisted. Patient's had no bloody or tarry stools before admit. He denies any headache or any numbness weakness or pa resthesias which is new. Patient's O2 saturation is 85% room air at rest. Patient has not c/o any chest pain. It is not known at this time how long pt has been homebound or what he did before being homebound. Assesment: Pt is neg for covid, RSV, Flu, and Pneumonia There is a hx of stoke 7 yrs ago, states he never got his short term memory back. He is homebound and is main caregiver. pt has continually diminishing mobility...started with a shuffle, then could walk w/help of cane, then walker, and now can't stand more than 5 mins. states pt fell at thanksgiving has been pretty much bed ridden since. states everything got worse around 2 wks ago when cough developed. Pt is not always compliant on meds and has uncontrolled DM II PT is retaining urine with no prior hx of incontinence for urine or BM's... Pt is on lasix 20mg daily for edema Prostate exam w/hemocult was done in room today w/NEG findings There is no rectal tone...pt has 800cc urine w/no urge to go diminished sensations para rectally...Echo of abdom and pelvis needed....neurogenic bladder and weakness and renal failure and fatty liver No hx of delirium, although states he has depression symptoms diminishing mobility, speech, and cognition there is focal weakness to Rt upper arm need to rule out stroke....needs CT of head Pt c/o chronic pain to legs bilat, w/mild pressure pain, also to buttocks and back, w/no hx of trauma...CT of Spine and Sacrum/Pelvis small sacral sore noted, wound management needed Toes: intact propro/// diffuse sclerotic infections.. Lungs: Ronchi and decreased breath sounds with intermit. wheezing...wet ....on 3 litters of O2 and sats are holding at 90%....repeat chest x-ray, portable, needed for tomorrow Pt has general weakness...need to rule out CVA work w/pt on spirometer states pt does snore but not much....no sleep study has been done, no hx of apnea Cardio:Pt has hx of CAD w/no c/o of symptoms BP is elevated and uncontrolled.....add amlodipine 5mg and hydralazine 25 q 6 Echo from 06/05 shows tachy between 90-110........repeat echo needed HX: CHF Hypoxia-mulit facet Renal Insuf. uncontrolled DM II Neuropathy Cognitive Diminishment Fatty Liver Plan: repeat Chest x-ray, portable, for tomorrow...cough and wheezing CT of Head...diminishing mobility, speech, cognition, and focal weakness CT of Spine and Sacrum/Pelvis...diminished sensations and retention Echo of abdom and pelvis needed....neurogenic bladder and weakness and renal failure and fatty liver . thinsk he is having multiple strokes but suspect more myopathic picture and autonomic neuropathy. Add amlodipine 5mg Add Hydralazine 25mg Move patient to chair and around as much as possible to prevent Pneumonia Refer to Mental Health Clinician for assisted admit Diagnosis: Stroke: No - Discharge Data Discharge Date: 06/14/21 (Admit date: 06/05/2021) Discharge Disposition: DC/Tfer to SNF 03 Condition: Good - Referral to Home Health Primary Care Physician: Nolberto Garcia MD - Discharge Diagnosis/Problem(s) (1) Adrenal benign tumor SNOMED Code(s): 82121612 ICD Code: D35.00 - BENIGN NEOPLASM OF UNSPECIFIED ADRENAL GLAND Status: Acute Priority: Low Problem Details: bilateral tumors adrenal but good adrenal function Qualifiers: Laterality: unspecified laterality Qualified Code(s): D35.00 - Benign neoplasm of unspecified adrenal gland (2) CHF (congestive heart failure), NYHA class II SNOMED Code(s): 686485270, 838917266 ICD Code: I50.9 - HEART FAILURE, UNSPECIFIED Status: Chronic Priority: Medium Onset Date: ~06/06/21 Problem Details: needs echo and ordered off hctz and started lasix with good response. neurogenic bowel a nd bladder but no obstruction or hydronephrosis seen // suspect lvh and no anginal symptoms despite high b.p. rule out pericardial dysfunction. Qualifiers: Congestive heart failure type: combined (3) Fungal dermatosis SNOMED Code(s): 54524017 ICD Code: B36.9 - SUPERFICIAL MYCOSIS, UNSPECIFIED Status: Acute Priority: Medium Onset Date: ~06/05/21 (4) Weakness generalized SNOMED Code(s): 68768484 ICD Code: R53.1 - WEAKNESS Status: Acute Priority: High Onset Date: ~06/06/21 Problem Details: unable to do any cares needs liz lift to change positions.pt/ot/speech therapy seeing. (5) Adult failure to thrive SNOMED Code(s): 424684118 ICD Code: R62.7 - ADULT FAILURE TO THRIVE Status: Chronic Priority: High (6) Chronic renal insufficiency, stage III (moderate) SNOMED Code(s): 311374429 ICD Code: N18.30 - CHRONIC KIDNEY DISEASE, STAGE 3 UNSPECIFIED Status: Chronic Priority: Medium Onset Date: ~06/05/21 Problem Details: creatinine 1.7 and 3plus protienuria and hematuria seen prostate not inflamed or abnormal Qualifiers: Chronic kidney disease stage 3 subtype: stage 3a (GFR 45-59) Qualified Code(s): N18.31 - Chronic kidney disease, stage 3a (7) Sensation alteration, late effect of cerebrovascular disease SNOMED Code(s): 60388521, 819087387 ICD Code: I69.998 - OTHER SEQUELAE FOLLOWING UNSPECIFIED CEREBROVASCULAR DISEASE; R20.9 - UNSPECIFIED DISTURBANCES OF SKIN SENSATION Status: Chronic Priority: Medium Onset Date: ~06/06/21 Problem Details: repeat head ct scan sec. to possible multi infarct pattern. (8) Type 2 diabetes mellitus SNOMED Code(s): 20019976 ICD Code: E11.9 - TYPE 2 DIABETES MELLITUS WITHOUT COMPLICATIONS Status: Chronic Priority: High Onset Date: ~06/06/21 Problem Details: needs insulin lifelong. Qualifiers: Diabetes mellitus termite technician insulin use: with termite technician use Diabetes mellitus complication status: with kidney complications Diabetes mellitus complication detail: with chronic kidney disease Chronic kidney disease stage: stage 3 (moderate) (9) Unable to ambulate SNOMED Code(s): 945041741 ICD Code: R26.2 - DIFFICULTY IN WALKING, NOT ELSEWHERE CLASSIFIED Status: Chronic Priority: High Onset Date: ~06/06/21 Problem Details: ct scan of lumbar sacral area ordered no recent trauma no rectal tone and neurogenic bladder but no incontinance of either (10) Dependent edema SNOMED Code(s): 283415563 ICD Code: R60.9 - EDEMA, UNSPECIFIED Status: Acute Priority: High Onset Date: ~06/05/21 Problem Details: cellulitis with onychiomycholisis and fungal dermatitis (11) Neurogenic bladder SNOMED Code(s): 803401215 ICD Code: N31.9 - NEUROMUSCULAR DYSFUNCTION OF BLADDER, UNSPECIFIED Status: Acute Priority: High (12) Chapin catheter in place SNOMED Code(s): 004635561 ICD Code: Z97.8 - PRESENCE OF OTHER SPECIFIED DEVICES Status: Acute Priority: High - Patient Summary/Data Consults: Consultations 06/05/21 18:58 Consult to Physical Therapy [PT Evaluation and Treatment] [CONS] Routine 06/05/21 18:59 Consult to Occupational Therapy [OT Evaluation and Treatment] [CONS] Routine 06/06/21 09:00 Consult to Case Management/Mental Health Clinician [CONS] Routine 06/06/21 11:36 Consult to Speech Language Pathology [SUPERVISOR ENGRAVING Evaluation and Treatment] [CONS] Routine Labs Pending at D/C: None Recommended Follow-up Testing/Procedures: Recommend follow-up with primary care provider within 5 to 7 days of discharge, sooner if needed. * Multiple home medications discontinued and new medications started. * Patient discharged on 20 mg twice daily diuretic Lasix. Please monitor renal function and potassium levels. * Continue PT/OT at SNF * Patient instructed to check his weight daily and record in a journal. Please review this journal. * Advised to check blood glucose readings 4 times daily before meals and bedtime. These should be recorded as well. Please review this journal. * Ultimately accepted at [facility] and discharged there. * Chapin catheter in place at discharge. * Not requiring oxygen prior to discharge. Maintain saturations greater than 90%. * Please monitor/follow-up on pulmonary nodules. * Please monitor/follow-up on adrenal masses. Recommend outpatient urology follow-up regarding urinary retention and Chapin catheter. Hospital Course: This is a 70-year-old male who presented to our ED on with acute on chronic bilateral lower extremity pain, swelling, cough, and dyspnea on exert ion. Patient reportedly has a history of CVA with residual right-sided hemiparesis and his significant other has been his primary senior linux engineer. She reports she is unable to take care of him at home anymore and would like assistance for placement. ANGUS was obtained and patient has no rectal tone. Patient was noted to have significant urinary retention. He was requiring oxygen at 3 L. BP was noted to be uncontrolled. Angiography had been obtained in the ED and showed no findings of pulmonary embolism however an adrenal mass on each side was noted but stable from prior CT study. There were 3 nodules noted within the left lung base with the larger nodule increasing about 2 mm from prior study. 3 additional nodules were noted within the right upper lung. There is a area of thick atelectasis along the right minor fissure and other findings which were noted. Retroperitoneal ultrasound was obtained showing increased resistive 80 indices compatible with medical renal disease and increased postvoid residual of 793 mL. Chapin catheter was subsequently placed. Abdominal/pelvis CT was obtained showing a Chapin catheter within the bladder and a small amount of air within the bladder presumably due to replacement of Chapin catheter. Adrenal masses and 3 nodules within the left lung base were seen and were noted to be stable. Bibasilar atelectasis was noted but nothing acute was seen. Head CT was obtained showing an old infarct in the posterior left parietal region and mild senescent change but nothing acute. Echocardiogram was obtained on 06/06/2021 and interpreted as "1. The left ventricular lead was not well visualized. 2. The right ventricle was not well visualized. 3. The aortic valve is not well visualized. 4. Trace mitral valve regurgitation. 5. Trace tricuspid valve regurgitation. 6. The right ventricular systolic pressure is unable to be determined. 7. Technically difficult study with suboptimal image quality. Suspect normal LV systolic function based on limited parasternal short axis images but otherwise poor endocardial visualization. Unable to assess regional wall motion. Recommend Definity contrast with future studies. PT did work with the patient although he was too weak to walk. He was able to get up to chair. The recommendation was SNF placement. He was started on Rocephin for bilateral lower extremity cellulitis and there were some concerns over a fungal aspect so nystatin cream was ordered. He was receiving IV push Lasix and this was ultimately switched to 20 mg twice daily diuretic dosing. Rocephin was ultimately switched to 500 mg p.o. every 8 hour Keflex with good results. CRP and white count did come down. Patient was ultimately accepted at [facility]. He will be discharged on Humalog 6 units subcutaneous 3 times daily with meals in addition to his 73 units of Tresiba daily. Recommend patient check blood glucose readings 4 times daily before meals and bedtime and record these in a journal, bring this with to all medical appointments. He will be discharged on 2 more days of 500 mg p.o. Keflex every 8 hour for his lower extremity cellulitis. Nystatin cream applied liberally to lower extremities twice daily was also ordered. Home 50 mg p.o. twice daily tramadol as needed was renewed along with 300 mg p.o. gabapentin daily. Patient was started on 600 mg p.o. bedtime gabapentin while here. Blood pressure was poorly controlled and patient was discharged on 7.5 mg p.o. daily Norvasc. He was also prescribed as needed senna plus for constipation. Discharged on 50 mg p.o. metoprolol tartrate every 12 hours. This is in addition to his home medications as listed. He was able to be weaned off of oxygen prior to discharge. Recommend saturations remain above 90%. Recommend blood pressure be checked twice daily and record in a journal. Bring this journal with to all medical appointments. Patient was discharged with a Chapin catheter due to chronic urinary retention. Recommend patient follow-up with urology outpatient. Recommend follow-up with primary care provider within 5 to 7 days of discharge, sooner if needed. Recommend repeat CBC, CMP, and magnesium at follow-up. All new medications were sent to [place] pharmacy. Patient discharged today to [facility]. Patient advised to contact primary care provider or return to the emergency room should symptoms return or worsen. - Patient Instructions Diet: Diabetic Diet Activity: As Tolerated Driving: Do Not Drive Showering/Bathing: May Shower Notify Provider of: Fever, Increased Pain, Nausea and/or Vomiting Other/Special Instructions: Follow-up with primary care provider within 5 to 7 days of discharge, sooner if needed. Weigh yourself daily and recorded in the journal. Bring this with to all medical appointments. Check blood glucose readings before every meal and before bedtime. Record this in a journal. Bring this with to all medical appointments. You are prescribed an antibiotic for your legs. You should take this 3 times a day as scheduled. This will continue for 2 more days. Liberally apply nystatin cream to bilateral lower extremities for fungal infection as directed. All new and narcotic medication prescriptions were sent to the pharmacy in [place]. Continue PT/OT at [facility]. Chapin catheter placed for urinary retention. Patient will be discharged with this. Follow-up with urology at next available. Should symptoms return or worsen contact primary care provider or return to the emergency room. - Discharge Plan *PRESCRIPTION DRUG MONITORING PROGRAM REVIEWED*: No *COPY OF PRESCRIPTION DRUG MONITORING REPORT IN PATIENT SHONDA: No Prescriptions/Med Rec: Insulin Lispro [Humalog] 6 unit SUBCUT TIDMEALS #5 pen cephALEXin [Keflex] 500 mg PO Q8H #5 cap Furosemide [Lasix] 20 mg PO BIDDIURETIC #40 tablet Metoprolol Tartrate [Lopressor] 50 mg PO Q12H #40 tablet Gabapentin [Neurontin] 300 mg PO DAILY #20 cap Gabapentin [Neurontin] 600 mg PO BEDTIME #20 tablet amLODIPine [Norvasc] 7.5 mg PO DAILY #30 tablet Nystatin [Nystatin Crm] 1 gram TOP BID #5 tube Docusate Sodium/Sennosides [Senna Plus] 2 tab PO DAILY PRN #10 tablet PRN Reason: Constipation traMADol [Ultram] 50 mg PO BID PRN #20 tab PRN Reason: Pain Home Medications: Home Meds Cholecalciferol (Vitamin D3) [Vitamin D3] 1,000 unit PO DAILY 12/15/17 [History] Clopidogrel [Plavix] 75 mg PO DAILY 12/15/17 [History] Doxazosin [Cardura] 1 mg PO DAILY 12/15/17 [History] Isosorbide Mononitrate [Imdur] 30 mg PO DAILY 12/15/17 [History] atorvaSTATin [Lipitor] 10 mg PO ASDIRECTED 12/15/17 [History] risperiDONE [Risperdal] 0.75 mg PO BID 12/15/17 [History] Insulin Degludec [Tresiba] 73 unit SQ DAILY 12/28/21 [History] Docusate Sodium/Sennosides [Senna Plus] 2 tab PO DAILY PRN #10 tablet 06/14/21 [Rx] Furosemide [Lasix] 20 mg PO BIDDIURETIC #40 tablet 06/14/21 [Rx] Gabapentin [Neurontin] 300 mg PO DAILY #20 cap 06/14/21 [Rx] Gabapentin [Neurontin] 600 mg PO BEDTIME #20 tablet 06/14/21 [Rx] Insulin Lispro [Humalog] 6 unit SUBCUT TIDMEALS #5 pen 06/14/21 [Rx] Metoprolol Tartrate [Lopressor] 50 mg PO Q12H #40 tablet 06/14/21 [Rx] Nystatin [Nystatin Crm] 1 gram TOP BID #5 tube 06/14/21 [Rx] amLODIPine [Norvasc] 7.5 mg PO DAILY #30 tablet 06/14/21 [Rx] cephALEXin [Keflex] 500 mg PO Q8H #5 cap 06/14/21 [Rx] traMADol [Ultram] 50 mg PO BID PRN #20 tab 06/14/21 [Rx] Oxygen Therapy Mode: Room Air Maintain SpO2% greater than: 90 Patient Handouts: Indwelling Urinary Catheter Care, Adult, Diabetes Mellitus and Sick Day Management, Sepsis, Diagnosis, Adult, Failure to Thrive, Adult Referrals: Khoa Campbell MD [Ordering Only Provider] - (Provider will see patient on rounds at assisted.) - Discharge Summary/Plan Comment DC Time >30 min.: Yes Total # of Minutes for Discharge Time: 45 - General Info Date of Service: 06/14/21 Admission Dx/Problem (Free Text: The patient was admitted secondary to hypoxia as well as inability to care for self. Functional Status: Reports: Pain Controlled, Tolerating Diet, Urinating. Denies: Ambulating, New Symptoms - Review of Systems General: Reports: Weakness. Denies: Fever, Fatigue, Malaise, Chills HEENT: Reports: No Symptoms. Denies: Headaches, Sore Throat Pulmonary: Reports: No Symptoms. Denies: Shortness of Breath, Cough, Sputum, Wheezing Cardiovascular: Reports: Edema. Denies: Chest Pain, Palpitations, Dyspnea on Exertion Gastrointestinal: Reports: No Symptoms. Denies: Abdominal Pain, Constipation, Diarrhea, Nausea, Vomiting Genitourinary: Reports: No Symptoms. Denies: Pain Musculoskeletal: Reports: No Symptoms Skin: Reports: No Symptoms, Cyanosis Neurological: Reports: Confusion (Chronic baseline), Pre-Existing Deficit (History of CVA with resulting right-sided hemiparesis), Trouble Speaking (Trouble finding words at timeschronic), Difficulty Walking, Weakness, Gait Disturbance. Denies: Dizziness, Headache, Numbness, Seizure, Tingling, Change in Speech Psychiatric: Reports: No Symptoms - Patient Data Vitals - Most Recent: Last Vital Signs Temp 98.1 F 06/14/21 05:36 Pulse 80 06/14/21 05:36 Resp 16 06/14/21 05:36 BP 135/85 06/14/21 05:36 Pulse Ox 92 L 06/14/21 05:36 Weight - Most Recent: 228 lb 6.4 oz I&O - Last 24 hours: Intake & Output 06/13/21 06/14/21 06/14/21 22:59 06:59 14:59 Intake Total 860 1250 Output Total 800 1050 Balance 60 200 Lab Results - Last 24 hrs: Laboratory Results - last 24 hr 06/13/21 06/13/21 06/13/21 Range/Units 11:40 15:36 16:45 POC Glucose 300 H 332 H (70-99) mg/dL SARS-CoV-2 RNA (JAMES) Negative (NEGATIVE) 06/13/21 06/13/21 06/14/21 Range/Units 20:29 21:29 06:14 POC Glucose 326 H 289 H 122 H (70-99) mg/dL SARS-CoV-2 RNA (JAMES) (NEGATIVE) Med Orders - Current: Current Medications Amlodipine Besylate (Amlodipine 5 Mg Tab) 7.5 mg PO DAILY [facility] Last Admin: 06/13/21 08:51 Dose: 7.5 mg Documented by: Atorvastatin Calcium (Atorvastatin 20 Mg Tab) 10 mg PO Q2D@2100 [facility] Last Admin: 06/12/21 20:43 Dose: 10 mg Documented by: Cephalexin (Cephalexin 500 Mg Cap) 500 mg PO Q8H [facility] Last Admin: 06/14/21 05:38 Dose: 500 mg Documented by: Clopidogrel Bisulfate (Clopidogrel 75 Mg Tab) 75 mg PO DAILY [facility] Last Admin: 06/13/21 08:49 Dose: 75 mg Documented by: Doxazosin Mesylate (Doxazosin 2 Mg Tab) 1 mg PO DAILY [facility] Last Admin: 06/13/21 08:52 Dose: 1 mg Documented by: Enoxaparin Sodium (Enoxaparin 40 Mg/0.4 Ml Syringe) 40 mg SUBCUT Q24H [facility] Last Admin: 06/13/21 22:47 Dose: 40 mg Documented by: Furosemide (Furosemide 20 Mg Tab) 20 mg PO BIDDIURETIC [facility] Last Admin: 06/14/21 05:38 Dose: 20 mg Documented by: Gabapentin (Gabapentin 300 Mg Cap) 300 mg PO DAILY [facility] Last Admin: 06/13/21 08:51 Dose: 300 mg Documented by: Gabapentin (Gabapentin 600 Mg Tab) 600 mg PO BEDTIME [facility] Last Admin: 06/13/21 20:37 Dose: 600 mg Documented by: Insulin Glargine (Insulin Glargine,Hum.Rec.Anlog 100 Unit/Ml 3 Ml Pen) 73 unit SUBCUT BEDTIME [facility] Last Admin: 06/13/21 20:35 Dose: 73 units Documented by: Insulin Human Lispro (Insulin Lispro 100 Unit/Ml 3 Ml Kwikpen) 0 unit SUBCUT WITHMEALSANDBED [facility]; Protocol Last Admin: 06/13/21 20:31 Dose: 4 unit Documented by: Insulin Human Lispro (Insulin Lispro 100 Unit/Ml 3 Ml Kwikpen) 6 unit SUBCUT TIDMEALS [facility] Last Admin: 06/13/21 17:10 Dose: 6 units Documented by: Isosorbide Mononitrate (Isosorbide Mononitrate 30 Mg Tab.Er) 30 mg PO DAILY [facility] Last Admin: 06/13/21 08:51 Dose: 30 mg Documented by: Metoprolol Tartrate (Metoprolol Tartrate 50 Mg Tab) 50 mg PO Q12H [facility] Last Admin: 06/13/21 22:43 Dose: 50 mg Documented by: Nystatin (Nystatin Topical Powder 15 Gm Bottle) 1 gm TOP BID [facility] Last Admin: 06/13/21 22:07 Dose: 1 applic Documented by: Nystatin (Nystatin Crm 30 Gm Tube) 0 gm TOP BID [facility] Last Admin: 06/13/21 22:08 Dose: 1 applic Documented by: Ondansetron HCl (Ondansetron 4 Mg/2 Ml Sdv) 4 mg IVPUSH Q4H PRN PRN Reason: Nausea Last Admin: 06/13/21 22:07 Dose: 4 mg Documented by: Senna/Docusate Sodium (Docusate Sodium/Sennosides 50-8.6 Mg Tab) 2 tab PO DAILY PRN PRN Reason: Constipation Last Admin: 06/13/21 08:48 Dose: 2 tab Documented by: Tramadol HCl (Tramadol 50 Mg Tab) 50 mg PO BID PRN PRN Reason: Pain Last Admin: 06/14/21 02:06 Dose: 50 mg Documented by: Discontinued Medications Albuterol/Ipratropium (Albuterol/Ipratropium 3.0-0.5 Mg/3 Ml Neb Soln) 3 ml NEB ONETIME ONE Stop: 06/05/21 15:06 Last Admin: 06/05/21 15:14 Dose: 3 ml Documented by: Amlodipine Besylate (Amlodipine 5 Mg Tab) 5 mg PO DAILY [facility] Last Admin: 06/12/21 09:37 Dose: 5 mg Documented by: Amlodipine Besylate (Amlodipine 5 Mg Tab) 5 mg PO ONETIME ONE Stop: 06/06/21 15:41 Last Admin: 06/06/21 16:37 Dose: 5 mg Documented by: Bisacodyl (Bisacodyl 10 Mg Supp) 10 mg RECTAL ONETIME ONE Stop: 06/07/21 04:01 Last Admin: 06/07/21 04:45 Dose: 10 mg Documented by: Furosemide (Furosemide 20 Mg/2 Ml Vial) 20 mg IVPUSH BIDDIURETIC [facility] Last Admin: 06/11/21 06:31 Dose: 20 mg Documented by: Furosemide (Furosemide 40 Mg Tab) 40 mg PO DAILY@0600 [facility] Last Admin: 06/13/21 06:36 Dose: 40 mg Documented by: Furosemide (Furosemide 20 Mg Tab) 20 mg PO DAILY@1400 [facility] Last Admin: 06/12/21 13:26 Dose: 20 mg Documented by: Hydralazine HCl (Hydralazine 10 Mg Tab) 10 mg PO Q6H [facility] Last Admin: 06/09/21 06:17 Dose: 10 mg Documented by: Hydralazine HCl (Hydralazine 10 Mg Tab) 10 mg PO ONETIME ONE Stop: 06/06/21 15:41 Last Admin: 06/06/21 16:37 Dose: 10 mg Documented by: Sodium Chloride (Normal Saline) 100 mls @ 60 mls/hr IV ASDIRECTED [facility] Last Admin: 06/05/21 15:21 Dose: 60 mls/hr Documented by: Ceftriaxone Sodium 2 gm/ (Sodium Chloride) 100 mls @ 200 mls/hr IV Q24H [facility] Last Admin: 06/10/21 20:49 Dose: 200 mls/hr Documented by: Sodium Chloride (Normal Saline) 1,000 mls @ 125 mls/hr IV ASDIRECTED [facility] Stop: 06/06/21 16:00 Last Admin: 06/06/21 11:48 Dose: 125 mls/hr Documented by: Sodium Chloride (Normal Saline) 100 mls @ 60 mls/hr IV ASDIRECTED [facility] Insulin Glargine (Insulin Glargine,Hum.Rec.Anlog 100 Unit/Ml 3 Ml Pen) 73 unit SUBCUT DAILY [facility] Last Admin: 06/05/21 23:16 Dose: 73 units Documented by: Insulin Human Lispro (Insulin Lispro 100 Unit/Ml 3 Ml Kwikpen) 5 unit SUBCUT TIDMEALS [facility] Last Admin: 06/13/21 08:46 Dose: 5 units Documented by: Iopamidol (Iopamidol 755 Mg/Ml 100 Ml Bottle) 100 ml IVPUSH ONETIME ONE Stop: 06/05/21 15:20 Last Admin: 06/05/21 15:21 Dose: 100 ml Documented by: Iopamidol (Iopamidol 755 Mg/Ml 50 Ml Bottle) 50 ml IVPUSH ONETIME ONE Stop: 06/05/21 15:20 Last Admin: 06/05/21 15:21 Dose: 50 ml Documented by: Iopamidol (Iopamidol 612 Mg/Ml 50 Ml Sdv) 50 ml IVPUSH ONETIME ONE Stop: 06/06/21 13:22 Last Admin: 06/06/21 23:37 Dose: Not Given Documented by: Iopamidol (Iopamidol 612 Mg/Ml 100 Ml Bottle) 100 ml IVPUSH ONETIME ONE Stop: 06/06/21 13:22 Last Admin: 06/06/21 23:37 Dose: Not Given Documented by: Magnesium Hydroxide (Magnesium Hydroxide 400 Mg/5 Ml Susp 30 Ml Cup) 30 ml PO ONETIME ONE Stop: 06/06/21 09:01 Last Admin: 06/06/21 08:42 Dose: 30 ml Documented by: Magnesium Hydroxide (Magnesium Hydroxide 400 Mg/5 Ml Susp 30 Ml Cup) 30 ml PO ONETIME ONE Stop: 06/13/21 13:58 Last Admin: 06/13/21 14:17 Dose: 30 ml Documented by: Potassium Bicarbonate (Potassium Bicarbonate/Cit Ac 20 Meq Effervescent Tab) 20 meq PO ONETIME ONE Stop: 06/07/21 11:31 Last Admin: 06/07/21 11:10 Dose: 20 meq Documented by: Simvastatin (Simvastatin 10 Mg Tab) 10 mg PO Q2D@2100 ANTONIO Sodium Chloride (Sodium Chloride 0.9% 10 Ml Syringe) 10 ml FLUSH ONETIME ONE Stop: 06/06/21 13:22 Last Admin: 06/06/21 20:42 Dose: 10 ml Documented by: Tramadol HCl (Tramadol 50 Mg Tab) 50 mg PO ONETIME ONE Stop: 06/05/21 13:20 Last Admin: 06/05/21 13:46 Dose: 50 mg Documented by: - Exam Quality Assessment: Reports: Urine Catheter, DVT Prophylaxis. Denies: Supplemental Oxygen General: Reports: Alert, Cooperative, No Acute Distress. Denies: Oriented HEENT: Reports: Pupils Equal, Pupils Reactive, Mucous Membr. Moist/[place] Neck: Reports: Supple, Trachea Midline Lungs: Reports: Clear to Auscultation, Normal Respiratory Effort Cardiovascular: Reports: Regular Rate, Regular Rhythm GI/Abdominal Exam: Normal Bowel Sounds, Soft, Non-Tender, No Distention (Male) Exam: Deferred Rectal (Males) Exam: Deferred Back Exam: Reports: Normal Inspection, Decreased Range of Motion Extremities: Normal Inspection, Non-Tender, Normal Capillary Refill, Pedal Edema (Trace), Limited Range of Motion (Right-sided hemiparesis), Redness (Greatly improved). No: Leg Pain, Increased Warmth Skin: Reports: Warm, Dry, Intact Wound/Incisions: Reports: Healing Well, No Drainage Neurological: Reports: No New Focal Deficit Psy/Mental Status: Reports: Alert, Normal Affect, Normal Mood
[2021-06-14] MEDS: amLODIPine 5 MG Tab PO SCH (08:47)
[2021-06-14] MEDS: Isosorbide Mononitrate 30 MG Tab.ER PO SCH (08:48)
[2021-06-14] MEDS: Doxazosin 2 MG Tab PO SCH (08:48)
[2021-06-14] MEDS: Gabapentin 300 MG Cap PO SCH (08:49)
[2021-06-14] MEDS: Clopidogrel 75 MG Tab PO SCH (08:49)
[2021-06-14] MEDS: Nystatin Crm 30 GM Tube TOP SCH (09:59)
[2021-06-14] MEDS: Nystatin Topical Powder 15 GM Bottle TOP SCH (09:59)
== END 2021-06-14 09:26 | DRG 637 ==
LOC: JD.ED 10:29 → SUPCPDRO 10:29 → JD.MS 15:50
PROVIDERS: ADMIT Pediatrics; ATTEND Pediatrics
DX: E11.628 Type 2 diabetes mellitus with other skin complications (principal); R26.2 Difficulty in walking, not elsewhere classified; I50.43 Acute on chronic combined systolic (congestive) and diastolic (congestive) heart failure; L03.115 Cellulitis of right lower limb; I13.0 Hypertensive heart and chronic kidney disease with heart failure and stage 1 through stage 4 chronic kidney disease, or unspecified chronic kidney disease; J98.11 Atelectasis; I31.3 Pericardial effusion (noninflammatory); I69.351 Hemiplegia and hemiparesis following cerebral infarction affecting right dominant side; I73.9 Peripheral vascular disease, unspecified; I10 Essential (primary) hypertension; I69.354 Hemiplegia and hemiparesis following cerebral infarction affecting left non-dominant side; L03.116 Cellulitis of left lower limb; E11.22 Type 2 diabetes mellitus with diabetic chronic kidney disease; D35.00 Benign neoplasm of unspecified adrenal gland; B36.9 Superficial mycosis, unspecified; E11.9 Type 2 diabetes mellitus without complications; R62.7 Adult failure to thrive; Z79.4 Long term (current) use of insulin; N18.31 Chronic kidney disease, stage 3a; Z20.822 Contact with and (suspected) exposure to COVID-19; N31.9 Neuromuscular dysfunction of bladder, unspecified; E11.42 Type 2 diabetes mellitus with diabetic polyneuropathy; E11.21 Type 2 diabetes mellitus with diabetic nephropathy; G72.9 Myopathy, unspecified; K76.0 Fatty (change of) liver, not elsewhere classified; Z66 Do not resuscitate; F01.50 Vascular dementia, unspecified severity, without behavioral disturbance, psychotic disturbance, mood disturbance, and anxiety; E66.01 Morbid (severe) obesity due to excess calories; I25.10 Atherosclerotic heart disease of native coronary artery without angina pectoris; I08.1 Rheumatic disorders of both mitral and tricuspid valves; H54.7 Unspecified visual loss; H91.90 Unspecified hearing loss, unspecified ear; E78.00 Pure hypercholesterolemia, unspecified; M19.90 Unspecified osteoarthritis, unspecified site; F41.9 Anxiety disorder, unspecified; F32.A Depression, unspecified; Z97.8 Presence of other specified devices; I25.2 Old myocardial infarction; Z95.5 Presence of coronary angioplasty implant and graft; Z87.891 Personal history of nicotine dependence; Z98.49 Cataract extraction status, unspecified eye; Z68.36 Body mass index [BMI] 36.0-36.9, adult; Z79.02 Long term (current) use of antithrombotics/antiplatelets; Z79.899 Other long term (current) drug therapy
CPT/HCPCS: 0240U; 36415; 36600; 51701; 51702; 51798; 70450; 71045; 71046; 71275; 74177; 76770; 80048; 80053; 81003; 82803; 82947; 83605; 83735; 83880; 84145; 85007; 85025; 85027; 85379; 86140; 93005; 93306; 94640; 94761; 97110; 97162; 97530; 99285; 92523-GN; A9270-GY; J0696; J1650; J1815; J1940; J2405; J7030; J7620-GY; Q9967; U0002